=== PATIENT | female | born 1980 | race Caucasian/White ===

== ENCOUNTER 2020-03-05 17:10 | Outpatient (CLI) | payer BC, SELFPAY ==
--- NOTE | ~2020-03-05 | US_ITS ---
US right upper quadrant DATE: 03/05/2020 17:40 INDICATION: Right upper quadrant abdominal pain. Vomiting. TECHNIQUE: Real time imaging of the liver, pancreas and gallbladder COMPARISON: None FINDINGS: There is mild sludge accumulation in the gallbladder. No gallstones are evident. No gallbla dder wall thickening. Negative sonographic Shen's sign. There is fatty change of the liver. No hepatic or pancreatic space-occupying mass lesion is evident. The common bile duct measures 4 mm, normal. IMPRESSION: Gallbladder sludge Reviewed, dictated and finalized at [facility]. Reviewed, dictated and finalized at [facility]. O MAINTAINER IMPRESSION: Gallbladder sludge
== END 2020-03-05 17:11 | disposition home or self-care (01) ==
PROVIDERS: PCP Internal Medicine; Visit Provider Internal Medicine
DX: R10.9 Unspecified abdominal pain (principal); K83.9 Disease of biliary tract, unspecified
CPT/HCPCS: 76705

== ENCOUNTER 2021-01-30 10:01 | Emergency (ER) | payer BC, SELFPAY ==
[2021-01-30 10:10] VITALS: BP 141/90; PULSE 122; RESP 16; TEMP 37; O2SAT 98
[2021-01-30 10:22] VITALS: BP 141/90; PULSE 122; RESP 16; TEMP 37; O2SAT 98
--- NOTE | 2021-01-30 10:42 | ED.FEMALEGU ---
HPI - Female Genitourinary General Chief complaint: Urogenital-Female Stated complaint: abd pain,back pain,painful urination Time Seen by Provider: 01/30/21 10:33 Source: patient and RN notes reviewed Mode of arrival: ambulatory Limitations: no limitations History of Present Illness HPI Narrative: Patient presents today with a 2-day history of lower abdominal pain and pressure that radiates to the back, dysuria, hematuria, and fever up to 101.She has been using cranberry pills and Azo with some mild relief. MD elicited complaint: UTI Related Data Home Medications Medication Instructions Recorded Confirmed escitalopram oxalate 10 mg PO DAILY 01/30/21 01/30/21 Allergies Allergy/AdvReac Type Severity Reaction Status Date / Time No Known Allergies Allergy Unverified 01/30/21 10:15 Review of Systems Review of Systems: CONSTITUTIONAL: Denies body aches, chills, or sweats.+Fever EYES: Denies visual changes, redness, or discharge. ENT: Denies rhinorrhea, congestion, sore throat, or otalgia. CARDIOVASCULAR: Denies chest pain, palpitations, or edema. RESPIRATORY: Denies cough or dyspnea. GASTROINTESTINAL: Denies nausea, vomiting, or diarrhea. GENITOURINARY: +Dysuria, hematuria, abdominal pain and pressure SKIN: Denies rash, itching, or wounds. MUSCULOSKELETAL: Denies joint pain, or myalgia.+Back pain NEUROLOGIC: Denies headache, numbness, tingling, or weakness. PSYCH: Denies depression or anxiety. PMFSH Comments At time of signature, I have reviewed and agree with nursing past medical, surgical, social and family history unless otherwise noted. Please see nursing chart for further information. There is no relevant family history pertinent to the presenting complaint Exam Narrative: GENERAL: Well-appearing, well-nourished, and in no acute distress. HEAD: Normocephalic, atraumatic. EYES: EOMI. No redness or drainage. Conjunctivae normal. ENT: Mucous membranes pink and moist. NECK: Normal AROM. CHEST: No respiratory distress. Clear to auscultation. HEART: Regular rate and rhythm. No murmur appreciated. Normal peripheral pulses. ABDOMEN: Soft,, nondistended, normal active bowel sounds.+Tender suprapubic area.+Right CVAT MUSCULOSKELETAL: No bony tenderness. EXTREMITIES: Normal range of motion. No edema. SKIN: Warm, dry, no rash. Capillary refill normal. Normal skin turgor. NEURO: No focal deficits. Alert and oriented x3. Gait steady. PSYCH: Normal affect. No signs of depression or anxiety. Course Vital Signs Vital signs: Vital Signs Temperature 98.6 F 01/30/21 10:10 Pulse Rate 122 H 01/30/21 10:10 Respiratory Rate 16 01/30/21 10:10 Blood Pressure 141/90 H 01/30/21 10:10 Pulse Oximetry 98 01/30/21 10:10 Temperature 98.6 F 01/30/21 10:22 Pulse Rate 122 H 01/30/21 10:22 Respiratory Rate 16 01/30/21 10:22 Blood Pressure 141/90 H 01/30/21 10:22 Pulse Oximetry 98 01/30/21 10:22 Reviewed. Pt has been instructed to follow up with her PCP regarding her elevated blood pressure today. MDM - Female Genitourinary Differential Diagnosis Differential diagnosis: Likely urinary tract infection, vaginitis, cystitis and other (Pyelonephritis, interstitial cystitis) Lab Data Attestation: I reviewed the patient's lab results. Labs: Urine Glucose Negative Reference Range: Negative Urine Glucose Negative Reference Range: Negative Urine Bilirubin Negative Reference Range: Negative Urine Bilirubin Negative Reference Range: Negative Urine Ketone Negative Reference Range: Negative Urine Ketone Negative Reference Ran
== END 2021-01-30 10:50 | disposition home or self-care (01) ==
PROVIDERS: Emergency Provider Nurse Practitioner; PCP Nurse Practitioner Family
DX: N12 Tubulo-interstitial nephritis, not specified as acute or chronic (principal)
CPT/HCPCS: 81003; 87077; 87086; 87088; 87186; 99213; G0463

== ENCOUNTER 2021-07-08 13:11 | Outpatient (CLI) | payer BC, SELFPAY ==
--- NOTE | ~2021-07-08 | MMUS_ITS ---
EXAMINATION: MM diagnostic jagruti LT w eriberto, US breast LT complete HISTORY: 2 asymmetries reported in the outer left breast on 06/25/2021 [facility] screening mammogram examination TECHNIQUE: Additional 3-D tomosynthesis images of the left breast were performed and synthetic 2-D im ages were generated. CAD analysis was submitted and interpreted. High resolution complete left breast ultrasound including all 4 quadrants and subareolar area was performed. COMPARISON: 06/25/2021 left mammogram BREAST PARENCHYMAL COMPOSITION: The breasts are heterogeneously dense, which may obscure small masses . FINDINGS: MAMMOGRAPHIC FINDINGS: No suspicious mass or architectural distortion or any malignant calcification, skin thickening or ret raction of the left breast is noted. However, the heterogeneously dense stroma may obscure small masses. Ultrasound examination therefore was performed. ULTRASOUND: Left breast 10:00 12 cm from nipple: Parallel circumscribed hypoechoic 3.4 x 4.5 x 8.7 mm lesion, wit hout internal vascularity or posterior shadowing 12:00 13 cm from nipple: Parallel circumscribed kidney-shaped approximately 9 x 4.4 x 6.9 mm solid le margarita, with central fatty density, without internal vascularity or posterior shadowing. This is likely a benign lymph node. No suspicious solid lesion or shadowing is detected. IMPRESSION: 1. Probably benign findings 2. Six-month diagnostic left mammogram and left breast ultrasound follow-up are recommended BI-RADS category 3, probably benign findings. Reviewed, dictated and finalized at [facility]. IMPRESSION: 1. Probably benign findings 2. Six-month diagnostic left mammogram and left breast ultrasound follow-up are recommended BI-RADS category 3, probably benign findings.
== END 2021-07-08 13:12 | disposition home or self-care (01) ==
PROVIDERS: PCP Nurse Practitioner Family; Visit Provider Nurse Practitioner Family
DX: R92.8 Other abnormal and inconclusive findings on diagnostic imaging of breast (principal)
CPT/HCPCS: 76641; 77061; 77065; G0279

== ENCOUNTER 2022-07-16 08:02 | Emergency (ER) | payer OTHER, SELFPAY ==
--- NOTE | ~2022-07-16 | XR_ITS ---
[[id number] ] INDICATION: Right rib pain after fall TECHNIQUE: Frontal projection of the upper right ribs, frontal projection of the lower right ribs, ob lique projection of all the right ribs, frontal inspiratory chest x-ray for interpretation. FINDINGS: There are no displaced rib fractures identified. There are no soft tissue abnormality see n. The lungs are clear. IMPRESSION: 1:No acute displaced rib fractures. Reviewed, dictated and finalized at [facility].
[2022-07-16 08:08] VITALS: BP 163/94; PULSE 108; RESP 16; TEMP 36.4; O2SAT 99
--- NOTE | 2022-07-16 08:16 | ED.GENADULT ---
HPI - General Adult General Chief complaint: Fall Stated complaint: Fall Injury/Right Side Source: patient Mode of arrival: ambulatory Limitations: no limitations History of Present Illness HPI narrative: Patient presents for evaluation of right-sided chest wall pain. Symptom onset 2 days ago. She states she was attempting to get out of a pool when she hit her right chest wall against the side of the pool. She has experienced 10/10 pain in the affected area since that time. Pain is constant, worse with inspiration. She has mild SOB. She smokes 1 ppd. She has some bruising just below the area of concern. She denies any abdominal of flank pain. She has been taking tramadol for her symptoms. Related Data Home Medications Medication Instructions Recorded Confirmed escitalopram oxalate 10 mg tablet 10 mg PO DAILY 01/30/21 07/16/22 risankizumab-rzaa 150 mg/mL 150 mg subcut [id number] 07/16/22 07/16/22 subcutaneous pen injector (Skyrizi) Allergies Allergy/AdvReac Type Severity Reaction Status Date / Time No Known Allergies Allergy Verified 07/16/22 08:14 Review of Systems Review of Systems: CONSTITUTIONAL: Denies fever, chills, or sweats. EYES: Denies visual changes, redness, or discharge. ENT: Denies rhinorrhea, congestion, sore throat, or otalgia. CARDIOVASCULAR: Denies chest pain, palpitations, or edema. RESPIRATORY: Denies cough or dyspnea. GASTROINTESTINAL: Denies abdominal pain, nausea, vomiting, or diarrhea. GENITOURINARY: Denies dysuria or hematuria. SKIN: Reports bruising to right flank. Denies rash or itching. MUSCULOSKELETAL: Reports right sided rib pain. Denies back pain NEUROLOGIC: Denies headache, numbness, dizziness, or weakness. PSYCHIATRIC: Denies anxiety or depression. [facility] Past Medical History Medical History (Updated 07/16/22 @ 08:39 by Baltazar Maxwell, MELANIA, ) Depression Rib contusion Surgical History Surgical History History of cholecystectomy Family History Family History Mother Family history non-contributory Social History Social History Smoking packs per day: 1 Smoking cigarettes per day: 20.0 Smoking status: Current every day smoker Substance use: never Living arrangements: with family Gender identity (if verbalized by the patient): Female Spiritual care concerns: No Exam Narrative: GENERAL: Well-appearing, well-nourished, and in no acute distress. HEAD: Normocephalic, atraumatic. EYES: PERRLA and EOMI. ENT: Nares clear, no rhinorrhea or epistaxis. Mucous membranes moist. Oropharynx without tonsillar hypertrophy exudate or other lesions. Bilateral TMs pearly vines nonbulging NECK: Supple. No adenopathy or masses. No carotid bruits or JVD CHEST: Clear to auscultation. No respiratory distress. No wheezes rales or rhonchi. There is tenderness noted over right anterolateral ribs HEART: Regular rate and rhythm. No murmur heard. Normal peripheral pulses. ABDOMEN: Soft, nontender, nondistended, normal active bowel sounds. EXTREMITIES: Normal range of motion. No edema. SKIN: There is ecchymosis noted to the right flank just below the right lateral ribs NEURO: No focal deficits. Alert and oriented x3. PSYCH:Irritable Course Course Emergency Course: This is a 42-year-old female who presented for evaluation of right chest wall pain. She was tender on exam. X-ray negative for fracture. Will DC with hydrocodone as tramadol has not been affected. Encourage pulmonary toilet and smoking cessation. Provided with incentive spirometer. Follow up with primary provider. Go to ER for worsening symptoms. Elevated BP and HR likely 2/2 pain. She should discuss with primary provider. Pt in agreement with plan of care. Level of Care: Express Care Visit Vital Signs Vital sign
[2022-07-16] MEDS: KETOROLAC (*BKC) 60 MG/2 ML VIAL IM (08:30)
== END 2022-07-16 08:55 | disposition home or self-care (01) ==
PROVIDERS: Emergency Provider Nurse Practitioner; PCP Nurse Practitioner Family
DX: S20.211A Contusion of right front wall of thorax, initial encounter (principal); W22.09XA Striking against other stationary object, initial encounter; Y93.11 Activity, swimming; F17.210 Nicotine dependence, cigarettes, uncomplicated; F32.A Depression, unspecified
CPT/HCPCS: 71101; 96372; 99213; G0463; J1885

== ENCOUNTER 2024-02-09 08:32 | Emergency (ER) | payer OTHER, SELFPAY ==
[2024-02-09 08:42] VITALS: BP 126/83; PULSE 94; RESP 16; TEMP 36.6; O2SAT 99
--- NOTE | 2024-02-09 08:56 | ED_ITS ---
HPI - General Adult General Chief complaint: Abdominal Pain Stated complaint: ABD PAIN Time Seen by Provider: 02/09/24 08:56 Source: patient, RN notes reviewed and old records reviewed Mode of arrival: ambulatory Limitations: no limitations History of Present Illness HPI narrative: 43-year-old female presents to the [facility] with concerns of purulent discharge and bloody discharge since Sunday from her belly button. Umbilical area is reddened, no swelling, no fluctuance. Several years ago did have a laparoscopic procedure done, nothing recently Related Data Home Medications ?Medication ?Instructions ?Recorded ?Confirmed ?Last Taken ?Type risankizumab-rzaa 150 mg/mL 150 mg subcut [id number] 07/16/22 07/16/22 Unknown History subcutaneous pen injector (Rolandaizkellen) escitalopram oxalate 20 mg tablet mg 02/09/24 Unknown History hydrochlorothiazide 25 mg tablet mg 02/09/24 Unknown History lisinopril 10 mg tablet mg 02/09/24 Unknown History metformin 500 mg tablet mg 02/09/24 Unknown History varenicline 1 mg tablet mg 02/09/24 Unknown History Allergies Allergy/AdvReac Type Severity Reaction Status Date / Time No Known Allergies Allergy Verified 02/09/24 09:08 Review of Systems Review of Systems: All systems reviewed & are unremarkable except as noted in HPI and below Constitutional: Constitutional: Reports no additional constitutional complaints ENT: Reports system reviewed and no additional complaints, except as documented Cardiovascular: Cardiovascular: Reports no additional cardiovascular complaints, Denies chest pain and Denies dyspnea Respiratory: Respiratory: Reports no additional respiratory complaints, Denies chest congestion, Denies cough and Denies dyspnea Musculoskeletal: Musculoskeletal: Reports no additional musculoskeletal complaints Integumentary/Breasts: Skin/Breast: Reports as per HPI [facility] Past Medical History Medical History Rib contusion Depression Surgical History Surgical History History of cholecystectomy Family History Family History Mother Family history non-contributory Social History Social History Smoking packs per day: 1 Smoking cigarettes per day: 20.0 Smoking status: Current every day smoker Substance use: never Living arrangements: with family Gender identity (if verbalized by the patient): Female Spiritual care concerns: No Comments At the time of my signature, I reviewed and agree with the nursing past medical, surgical, social, and family history. There is no relevant family history pertinent to the patient complaint. Exam Const: General: cooperative, healthy appearing, comfortable, no acute distress, well developed, alert and well nourished Nutritional Appearance: well nourished and obese Orientation/consciousness: patient oriented x3 Limitations: no limitations HENMT: Head: normal to inspection Eyes: General: appearance normal, both eyes and all related structures Alignment and Position: alignment normal Neck: Neck: normal visual inspection, full ROM, no lymphadenopathy and no meningeal signs Chest: Chest palpation & inspection: normal inspection of the chest Resp: Effort & Inspection: normal respiratory effort and able to speak in complete sentences Cardio: Rate: regular rate GI: GI Palp: No abdominal tenderness and Yes Soft to palpation Other: Redness 1.5 extending from the umbilicus, dry purulent drainage noted. Currently no drainage. No fluctuance. No swelling noted. Skin: General skin exam: normal color and no rashes or lesions noted Neuro: General: patient oriented x3, gait normal, moves all extremities and no meningeal signs Cognition (Neuro): normal cognition Speech: normal speech Gait exam (Neuro): Normal gait present Extrem: General: normal to inspection, full ROM, capillary refill normal and normal gait Psych: Appearance: grossly normal and well kempt Mental Status: mental status grossly normal Speech and movement: Normal speech and movement present and Clear speech present Affect: normal affect Attitude: cooperative Course Course Level of Care: Express Care Visit Vital Signs Vital signs: Vital Signs Temperature 97.8 F 02/09/24 08:42 Pulse Rate 94 02/09/24 08:42 Respiratory Rate 16 02/09/24 08:42 Blood Pressure 126/83 02/09/24 08:42 Pulse Oximetry 99 02/09/24 08:42 Oxygen Delivery Room Air 02/09/24 08:42 Temperature 97.8 F 02/09/24 08:42 Pulse Rate 94 02/09/24 08:42 Respiratory Rate 16 02/09/24 08:42 Blood Pressure 126/83 02/09/24 08:42 Pulse Oximetry 99 02/09/24 08:42 Oxygen Delivery Room Air 02/09/24 08:42 Reviewed Medical Decision Making MDM Narrative Medical decision making narrative: Patient sitting comfortably in exam room. Nontoxic, vitals stable. Patient in no acute distress Patient presents for redness, discharge from belly button for 3 days. Does have dry purulent drainage, no active draining noted. Area is red secondary to infection versus inflammation. Also concerned with patient symptoms for abscess, discussed with patient that we are unable to do a complete abscess workup Will attempt antibiotic with patient having close follow-up with primary care provider this week. Discussed signs and symptoms go the emergency room she verbalized understanding Discharge instructions reviewed with patient, as well as provided in writing per nursing staff. The instructions also include specific and strict return/GO TO THE ER as well as f/u information. All questions have been answered, and the patient deny any further questions with discharge and discharge plan. Some parts of this dictation were generated by voice recognition software and may contain typographical and/or grammatical inaccuracies. Differential Diagnosis Differential Diagnosis: Cellulitis, abscess Medical Records Medical records reviewed: Yes I reviewed the external patient's medical records. Vital Signs Vital Signs: Vital Signs Temperature 97.8 F 02/09/24 08:42 Pulse Rate 94 02/09/24 08:42 Respiratory Rate 16 02/09/24 08:42 Blood Pressure 126/83 02/09/24 08:42 Pulse Oximetry 99 02/09/24 08:42 Oxygen Delivery Room Air 02/09/24 08:42 Temperature 97.8 F 02/09/24 08:42 Pulse Rate 94 02/09/24 08:42 Respiratory Rate 16 02/09/24 08:42 Blood Pressure 126/83 02/09/24 08:42 Pulse Oximetry 99 02/09/24 08:42 Oxygen Delivery Room Air 02/09/24 08:42 Reviewed Lab Data Lab results reviewed: Yes I reviewed the patient's lab results. Labs: Reviewed Critical Care Time Critical Care Time Critical Care Time: No Discharge Plan Discharge Clinical Impression: Navel cellulitis Patient Disposition: Home, Self-Care Condition: Stable Instructions: Antibiotic Form, Cellulitis (ED) Additional Instructions: Keep area clean and dry Take antibiotic as prescribed While on antibiotics we do recommend due to eat a yogurt a day or took a probiotic to reduce some side effects such as diarrhea. Follow-up with primary care per For new or worsening symptoms go directly to the emergency room Patient Language: [place]an Prescriptions: New sulfamethoxazole-trimethoprim [Bactrim DS] 800-160 mg tablet 1 tablet PO Q12H Qty: 14 0RF No Action Skyrizi 150 mg/mL pen injector 150 mg SUBCUT [id number] metformin 500 mg tablet lisinopril 10 mg tablet hydrochlorothiazide 25 mg tablet escitalopram oxalate 20 mg tablet varenicline 1 mg tablet Follow-up/Referrals: Roach,Rayne Olivera APN [Primary Care Provider] - 1 Week ([facility] care follow up ) Time of Disposition: 09:09
--- OUTSIDE RECORDS SUMMARY | 2024-02-16 10:32 | XMS_ITS | Continuity of Care Document ---
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 Plan of Treatment Reminders Order Date Submit Date Provider Last Modified By Organization Details Last Modified Time Details Appointments ANY 15 2024 07:45A M Rayne Carreno APN, MANAGER MANAGEMENT-C Not available Not available Not available Lab HbA1c (hemoglob in A1c), blood 2023 024 In-Office Order, Internal Use Only DO Not Attach Compendium DO Not Attach Compendium, Do Not Delete/merge, [id number] 01/22/2024 09:41:07 Referral None recorded. Procedures None recorded. Surgeries None recorded. Imaging None recorded. Medication Orders metformin 500 mg tablet 2023 024 [facility] #[id number], [address], [place], [place], [id number], 01/22/2024 09:41:19 hydrochlo rothiazid e 25 mg tablet 2023 024 [facility] #[id number], [address], [place], [place], [id number], 01/22/2024 09:41:14 lisinopri l 10 mg tablet 2023 024 [facility] #[id number], [address], [place], [place], [id number], 01/22/2024 09:41:12 escitalop elias 20 mg tablet 2023 024 [facility] #[id number], [address], [place], [place], [id number], 01/22/2024 09:41:14 Patient TargetsNo targets recorded. Patient Instructions Encounter Date Encounter Id Patient Instructions Last Modified By Organization Details Last Modified Time 01/22/2024 [id number] When You Want to Lose Weight: Care Instructions Not available 01/22/2024 09:41:07 Quitting Tobacco : Care Instructions Not available 01/22/2024 09:41:07 learning about high blood pressure Not available 01/22/2024 09:41:07 learning about mood disorders Not available 01/22/2024 09:41:07 Continue to work on diet and decrease A1C to < 7 with fasting glucose 100. Need to see eye drMarija each year for dilated eye exam. Increase activity level to get exercise most days of the week. Work on eating more fresh fruit, veggies and lean protein and less packaged foods. Cut back on the fatty foods, add fish oil or omega three fatty acids; red yeast rice may also help. Drink more water! Low salt diet. Take all medications as prescribed. Keep appointments with PCP and all specialists. Not available 01/22/2024 08:57:39 f/u 3 months DWP barriers to care: none Not available 01/22/2024 09:41:05 Reason for Referral None Reported. Results Created Date Observation Date Name Description Value Unit Range Abnormal Flag Note LastModifiedBy Organization Detail LastModifiedTime 01/22/20 24 01/22/2024 HbA1c (hemo globi n A1c), blood HbA1c 6.2 Not Available In-Office Order Internal Use Only DO Not Attach Compendium DO Not Attach Compendium, Do Not Delete/merge, [id number] 01/22/2024 08:56:49 Result Notes None recorded. Problems Name Problem SNOMED Code Status Onset Date Resolution Date Notes Provider Name and Address Organization Details Recorded Time Mood disorder 96449099 Active 2020 Rayne Carreno APN, FNP-C Attn: Cinthia marquis,[address] [facility], [place], [place], [address] [place] [address] 2, [facility] 1 14:21:06 Tobacco user 520055746 Active 2020 Rayne Carreno APN, FNP-C Attn: Cinthia marquis,[address] [facility], [place], [place], [address] [place] [address] 2, [facility] 1 14:21:07 Obesity 035726010 Active 2020 Rayne Carreno APN, FNP-C Attn: Cinthia marquis,[address] [facility], [place], [place], [address] [place] [address] 2, [facility] 1 14:21:09 Psoriasis 1818206 Active 2020 Rayne Carreno APN, FNP-C Attn: Cinthia marquis,[address] [facility], [place], [place], [address] [place] [address] 2, [facility] 1 14:38:57 Prehyperten margarita 956846862 Completed 202004/16/2023 Rayne Carreno APN, FNP-C Attn: Cinthia marquis,[address] [facility], [place], [place], [address] [place] [address] 2, [facility] 4 09:09:38 Essential hypertensio n 05044538 Active 2022 Rayne Carreno APN, FNP-C Attn: Cinthia marquis,[address] [facility], [place], [place], [address] [place] [address] 2, [facility] 3 09:06:22 Type 2 diabetes mellitus 34207625 Active 2023 Rayne Carreno APN, FNP-C Attn: Cinthia marquis,[address] [facility], [place], [place], [address] [place] [address] 2, [facility] 4 08:56:41 Problem Notes None recorded. Procedures Surgical History Date Name Laterality Status Provider Name and Address Organization Details Recorded Time Cholecystectomy completed Shy [place], [place] - [facility] 06/11/2020 14:13:56 Tonsillectomy completed Shy Villa [place] - [facility] 06/11/2020 14:14:07 Imaging Results None recorded. Procedure Notes None recorded. Medical Equipment None Reported. Allergies No known drug allergies Medications Name Sig Start Date Stop Date Status Note LastModified by Organization Details LastModified Time amoxicillin 500 mg capsule TAKE 1 CAPSULE BY MOUTH EVERY 8 HOURS FOR 7 DAYS 07/16 completed Not Available Not Available Not Available metformin 500 mg tablet Take 1 tablet twice a day by oral route. active Not Available Not Available No t Available ibuprofen 800 mg tablet TAKE 1 TABLET BY MOUTH EVERY 6 HOURS NEEDED 01/21 completed Not Available Not Available Not Available hydrocodone 5 mg-acetamin ophen 325 mg tablet TAKE 1 TO 2 TABLETS BY MOUTH EVERY 6 HOURS NEEDED FOR PAIN 01/15 completed Not Available Not Available Not Available ondansetron HCl 4 mg tablet TAKE 1 TABLET BY MOUTH FOUR TIMES DAILY NEEDED 06/11 completed Not Available Not Available Not Available sulfamethox azole 800 mg-trimetho prim 160 mg tablet TAKE 1 TABLET BY MOUTH EVERY 12 HOURS FOR 14 DAYS active Not Available Not Available No t Available tramadol 50 mg tablet TAKE 1 TO 2 TABLETS BY MOUTH EVERY 6 HOURS NEEDED FOR PAIN 01/15 completed Not Available Not Available Not Available oxycodone-a cetaminophe n 5 mg-325 mg tablet TAKE 1 TABLET BY MOUTH EVERY 4 TO 6 HOURS NEEDED 06/11 completed Not Available Not Available Not Available pantoprazol e 40 mg tablet,deanna yed release TAKE 1 TABLET BY MOUTH EVERY DAY 06/11 completed Not Available Not Available Not Available triamcinolo ne acetonide 0.1 % topical ointment APPLY THIN LAYER TOPICALLY TO THE AFFECTED AREA TWICE DAILY 12/21 completed Not Available Not Available Not Available lisinopril 10 mg tablet Take 1 tablet every day by oral route. active Not Available Not Available No t Available diclofenac sodium 75 mg tablet,deanna yed release TK 1 T PO BID PRN 06/11 completed Not Available Not Available Not Available hydrochloro thiazide 25 mg tablet Take 1 tablet every day by oral route. active Not Available Not Available No t Available amoxicillin 875 mg-potassiu m clavulanate 125 mg tablet TAKE 1 TABLET BY MOUTH EVERY 12 HOURS UNTIL ALL TAKEN 01/15 completed Not Available Not Available Not Available escitalopra m 10 mg tablet TAKE 1 TABLET BY MOUTH EVERY DAY 01/21 completed Not Available Not Available Not Available escitalopra m 20 mg tablet Take 1 tablet every day by oral route. active Not Available Not Available No t Available nitrofurant oin monohydrate /macrocryst als 100 mg capsule TAKE 1 CAPSULE BY MOUTH EVERY 12 HOURS FOR 5 DAYS 01/15 completed Not Available Not Available Not Available varenicline tartrate 1 mg tablet TAKE 1 TABLET BY MOUTH TWICE DAILY active Not Available Not Available No t Available varenicline tartrate 0.5 mg (11)-1 mg (42) tablets in a dose pack TAKE DIRECTED active Not Available Not Available No t Available hydrochloro thiazide 12.5 mg tablet TAKE 1 TABLET BY MOUTH EVERY DAY 07/16 completed Not Available Not Available Not Available Duobrii 0.01 %-0.045 % lotion 03/15 completed Not Available Not Available Not Available ID NOW COVID-19 Test Kit TEST DIRECTED 12/21 completed Not Available Not Available Not Available Skyrizi 150 mg/mL subcutaneou s pen injector active Not Available Not Available Not Available Vitals Date Recorded Body height Body mass index (BMI) Body weight Oxygen saturation Oxygen saturation in Arterial blood by Pulse oximetry Respiratory rate Body temperature Heart rate Systolic blood pressure Diastolic blood pressure Provider Name and Address Organization Details Last Updated DateTime 4 167.64 cm 33.7 kg/m2 57214.8 1 g 95 % 95 % 16 /min 97.5 [degF] 116 /min 132 mm[Hg] 88 mm[Hg] JACK Hunt [facility] 4 08:54:18 Social History Question Answer Notes LastModified by Organizat ion Details LastModified Time Tobacco Smoking Status Current Every Day Smoker MUNDO Qu[place], [place] - [facility] 06/11/2020 14:12:47 Do You Have An Advance Directive? No Information not available 06/11/2020 What Is Your Level Of Alcohol Consumption? None Information not available 01/22/2024 Are You Blind Or Do You Have Difficulty Seeing? No Information not available 06/11/2020 What Is Your Level Of Caffeine Consumption? Heavy [email or web address] Information not available 01/18/2022 In The 14 Days Before Symptom Onset, Have You Had Close Contact With A Laboratory-confir med COVID-19 While That Case Was Ill? No Information not available 06/11/2020 In The 14 Days Before Symptom Onset, Have You Had Close Contact With A Person Who Is Under Investigation For COVID-19 While That Person Was Ill? No Information not available 06/11/2020 Have You Been To An Area Known To Be High Risk For COVID-19? No Information not available 06/11/2020 Are You Currently Employed? Yes Information not available 06/11/2020 Are You Deaf Or Do You Have Serious Difficulty Hearing? No Some [email or web address] Information not available 02/01/2023 What Type Of Diet Are You Following? REGULAR Low Carb Information not available 01/22/2024 What Is Your Occupation? [employer] [email or web address] Information not available 01/18/2022 Are There Any Guns Present In Your Home? Yes Information not available 06/11/2020 What Was The Date Of Your Most Recent Tobacco Screening? 01/22/2024 Information not available 01/22/2024 What Is Your Relationship Status? Information not available 06/11/2020 Do You Use Your Seat Belt Or Car Seat Routinely? Yes Information not available 06/11/2020 Do You Have Smoke And Carbon Monoxide Detectors In Your Home? Yes Information not available 06/11/2020 At What Age Did You Start Smoking Tobacco? 21 [email or web address] Information not available 01/18/2022 Are You Passively Exposed To Smoke? Yes Information no t available 06/11/2020 How Much Tobacco Do You Smoke? 0.25 PPD Information not available 01/22/2024 Do You Feel Stressed (tense, Restless, Nervous, Or Anxious, Or Unable To Sleep At Night)? [id number] Information not available 01/22/2024 Do You Use Any Illicit Or Recreational Drugs? No Information not available 06/11/2020 Do You Use Sunscreen Routinely? Yes Information not available 06/11/2020 Has Tobacco Cessation Counseling Been Provided? Yes [email or web address] Information not available 01/18/2022 On What Date Was Tobacco Cessation Counseling Provided? 01/22/2024 Information not available 01/22/2024 How Many Years Have You Smoked Tobacco? 21 04/16/23 Information not available 04/16/2023 Do You Or Have You Ever Used Any Other Forms Of Tobacco Or Nicotine? No Information not available 01/15/2023 Sex: Female Functional Status Question Answer Note LastModified by Organization D etails LastModified Time Are you able to care for yourself? Yes Information n ot available 06/11/2020 What is your exercise level? None [email or web address] Information not available 01/18/2022 Mental Status None recorded. Family History Relationship Description Onset Age of this Age Resolved Age Notes LastModified by Organization Details LastModified Time Father Hypertensive disorder [email or web address] Not available 2020 14:10:57 Father Chronic obstructive pulmonary disease [email or web address] Not available 2020 14:11:18 Father Hypercholest erolemia [email or web address] Not available 2020 14:11:28 Mother Hypertensive disorder [email or web address] Not available 2020 14:11:07 Mother Hypercholest erolemia [email or web address] Not available 2020 14:11:35 Medical History Condition Response Coronary Artery Disease N Depression Y COPD N Blood Clots N Anxiety Disorder Y Acid Reflux (GERD) N Stroke N Eating Disorder N Skin Problems N Asthma N Substance Abuse N Liver Disease N Schizophrenia N Thyroid Problems N GI Problems N Anemia N Heart Attack (HI) N Diabetes N Heart Failure N Other N Atrial Fibrillation N High Blood Pressure N Muscle, Joint, or Bone Problems N Cancer N Headaches N Kidney or Bladder Problems N Allergies N Hepatitis N ADHD N High Cholesterol N Seizures/Epilepsy N Osteoporosis N Gynecological History Statement/Question Response Date of Last Mammogram Flow Moderate Date of LMP 12/31/2023 Menses Monthly Y Date of Last Pap Smear Duration of Flow (days) 7 Age at Menarche 15 LMP Definite Obstetrics History GPAL:G 2 P 0 0 0 0 Immunizations Vaccine Type Date Status Note Provider Nam e and Address Organization Details Recorded Time COVID-19, mRNA, LNP-S, PF, 30 mcg/0.3 mL dose 1 completed Rayne Carreno, CURRICULUM ASSISTANT, MANAGER MANAGEMENT-C Attn: Accounting,[address] [facility], [place], [place], [address] [place] [address], [place] [facility] 01/18/2022 16:46:47 COVID-19, mRNA, LNP-S, PF, 30 mcg/0.3 mL dose 1 completed Rayne Carreno CURRICULUM ASSISTANT, MANAGER MANAGEMENT-C Attn: Accounting,[address] [facility], [place], [place], [address] [place] [address], [place] [facility] 01/18/2022 16:46:47 Influenza, split virus, quadrivalent, PF 0 completed Rayne Carreno CURRICULUM ASSISTANT, MANAGER MANAGEMENT-C Attn: Accounting,[address] [facility], [place], [place], [address] [place] [address], [place] [facility] 01/18/2022 16:46:47 Tdap 2 completed Rayne Carreno CURRICULUM ASSISTANT, MANAGER MANAGEMENT-C Attn: Accounting,[address] [place], [place], [address] [place] [address], [place] [facility] 01/18/2022 16:46:47 Influenza, split virus, quadrivalent, PF 1 completed Anny [place]indo, [place] [facility] 12/21/2020 15:40:01 Influenza, split virus, quadrivalent, PF 1 completed [place] [facility] 12/22/2020 09:13:03 Influenza, split virus, quadrivalent, preservative 2 completed Rayne Carreno, CURRICULUM ASSISTANT, MANAGER MANAGEMENT-C Attn: Accounting,[address] [place], [place], [address] [place] [address], [place] [facility] 01/19/2022 00:34:05 COVID-19, mRNA, LNP-S, bivalent, PF, 30 mcg/0.3 mL dose 2 completed Anny Dent [place], [place] [facility] 01/18/2022 17:13:34 Influenza, split virus, quadrivalent, preservative 3 completed Rayne Carreno APN, FNP-C Attn: Accounting,[address] [facility], [place], [address], [place] [facility] 01/15/2023 22:37:36 Influenza, split virus, trivalent, preservative 4 completed Anny Dent RMA [place], [place] [facility] 10/23/2023 09:53:28 Past Encounters Encounter ID Performer Location Encounter Start Date Encounter Closed Date Diagnosis/Indication Diagnosis SNOMED-CT Code Diagnosis ICD10 Code Diagnosis Note [id number] Rayne Carreno APN, FNP-C [facility] ([facility]) [address] [place] [address] 01/22/2024 08:46:03 01/23/2024 17:32:15 Essential hypertension 73616453 I10 improvedco nt lisinopril 10 mgcont hctz 25 mg Obesity 922758741 E66.9 advised low fat, low cholestero l diet, regular exercise and weight reduction. Tobacco user 477921792 Z 72.0 Smoking cessation encouraged . Mood disorder 85653559 F 40 has been stable on lexapro, denies HI or SI or SE,R/B/A/S E of antidepres suresh medication discussed such as gastrointe stinal s/e, mood irritabili ty, Suicidal ideation, risk of olvin. Call with concerns and questions. Compliance with medication s and follow up care strongly recommende d. Call 911 or ER for crises. Type 2 vianey betes mellitus 05763214 E11.9 in diabetic range,need to make diet changes and increase exercise as well; Work on decreasing carbs, white flour, pasta, sugars.brijesh l start metformin 500 mg bid, take once a day for the first 1-2 weeks to get used to it so you will have less GI side effects, keep follow up apt in 3 months Health Concerns Section Related Observation LastModified by Organization Detai ls LastModified Time None Recorded Concern Status LastModified by Organization Details LastModified Time None Recorded Payers Encounter Date Sequence Insurance Name Policy Number Policy Ngo Covered Member ID Ngo Member ID Guarantor Name 01/22/2024 2 *SELF PAY* ramses Cabral 01/22/2024 1 [id number] Radha Cabral [id number] Radha Cabral Notes Date Note Type Note Provider Name and Address Organization Details Recorded Time 01/22/2024 text/html HTN- taking lisinopril and hctz, no chest pain or sob, no dizziness T2DM- tolerating metformin, diet changes Mood-improved, denies SI or HI Tobacco-down to 1/4 ppd Rayne Carreno APN, MANAGER MANAGEMENT-C Attn: Accounting,[address] [place], [address], [facility] 01/22/2024 09:42:05 OBGyn Episode No OBEpisode recorded.
--- OUTSIDE RECORDS SUMMARY | 2024-02-16 10:32 | XMS_ITS | Data Portability ---
Author Organization [facility] Address [address] [facility] [address] [facility] [place] [address] Care Team Providers Care Homicide Squad Commanding Officer Name Role Phone RAYNE CARRENO Primary Care Provider WOLFGANG FOREMAN Supervisor Power Reactor Assessment No assessment recorded. Plan of Treatment Reminders Order Date Submit Date Provider Last Modified By Organization Details Last Modified Time Details Appointments ANY 15 2024 07:45A M Rayne Carreno APN, [employer] CONSULTANT-C Not available Not available Not available Lab CMP, serum or plasma 2023 024 [facility], [address] [facility], [facility], [place], [address], 10/24/2023 04:11:13 lipid panel, serum 2023 024 [facility], [address] [facility], [facility], [place], [address], 10/24/2023 04:11:12 CBC w/ auto diff 2023 024 [facility], [address] [facility], [facility], [place], [address], 10/24/2023 04:11:16 HbA1c (hemoglob in A1c), blood 2023 024 [facility], [address] [facility], [facility], [place], [address], 10/24/2023 04:11:14 TSH, ultra-sen sitive, serum 09/2023 [facility], [address] [facility], [facility], [place], [address], 10/24/2023 04:11:14 HbA1c (hemoglob in A1c), blood 2023 ield In-Office Order, Internal Use Only DO Not Attach Compendium DO Not Attach Compendium, Do Not Delete/merge, [id number] 01/22/2024 09:41:07 Referral None recorded. Procedures None recorded. Surgeries None recorded. Imaging None recorded. Medication Orders hydrochlo rothiazid e 25 mg tablet 2023 [id number], [address], [place], [place], [id number], 04/16/2023 09:13:26 escitalop elias 10 mg tablet 2023 024 [facility]31417, [address], [place], [place], [id number], 01/22/2024 08:50:56 lisinopri l 10 mg tablet 2023 024 [facility] #13728, [address], [place], [place], [id number], 07/17/2023 09:03:19 lisinopri l 10 mg tablet [address] [facility]38416, [address], [place], [place], [id number], 10/23/2023 09:09:46 hydrochlo rothiazid e 25 mg tablet [address] [facility]10320, [address], [place], [place], [id number], 10/23/2023 09:09:46 escitalop elias 20 mg tablet [address]23 [address] [facility] [place] [address] [facility], [address], [place], [place], [id number], 10/23/2023 09:09:46 metformin 500 mg tablet [address] [facility], [address], [place], [place], [id number], 01/22/2024 09:41:19 hydrochlo rothiazid e 25 mg tablet 2023 024 [facility] #19728, [address], [place], [place], [id number], 01/22/2024 09:41:14 lisinopri l 10 mg tablet 2023 024 [facility] #00046, [address], [place], [place], [id number], 01/22/2024 09:41:12 escitalop elias 20 mg tablet 2023 024 [facility], [address], [place], [place], [id number], 01/22/2024 09:41:14 Patient TargetsNo targets recorded. Patient Instructions Encounter Date Encounter Id Patient Instructions Last Modified By Organization Details Last Modified Time 02/01/2023 [id number] A healthy lifestyle: care instructions [email or web address] Not available 02/01/2023 10:02:24 04/16/2023 [id number] A healthy lifestyle: care instructions Not available 04/16/2023 09:13:09 Quitting Tobacco : Care Instructions Not available 04/16/2023 09:13:09 learning about high blood pressure Not available 04/16/2023 09:13:09 learning about mood disorders Not available 04/16/2023 09:13:09 Follow a low viry t diet, drink at least 8-10 8oz glasses of water a day, exercise most days of the week. Not available 04/16/2023 08:46:03 f/u 3 months DWP barriers to care: none Not available 04/16/2023 09:12:29 07/17/2023 [id number] When You Want to Lose Weight: Care Instructions Not available 07/17/2023 09:02:43 Quitting Tobacco : Care Instructions Not available 07/17/2023 09:02:43 learning about high blood pressure Not available 07/17/2023 09:02:43 Check blood pressure two or three times per week and record findings; bring to F/U appointment. [place] blood pressure is the top number below 140 and the bottom number below 90. If you experience any side effects of medication, call the office. Follow a low salt diet, drink at least 8-10 8oz glasses of water a day, exercise most days of the week. Not available 07/17/2023 09:03:18 f/u 3 months DWP barriers to care: none Not available 07/17/2023 09:03:22 10/23/2023 [id number] influenza (flu) vaccine: care instructions Not available 10/23/2023 09:09:46 influenza (flu) vaccine: care instructions Not available 10/23/2023 09:12:39 When You Want to Lose Weight: Care Instructions Not available 10/23/2023 09:09:46 Quitting Tobacco : Care Instructions Not available 10/23/2023 09:09:46 learning about high blood pressure Not available 10/23/2023 09:09:46 Check blood pressure two or three times per week and record findings; bring to F/U appointment. [place] blood pressure is the top number below 140 and the bottom number below 90. If you experience any side effects of medication, call the office. Follow a low salt diet, drink at least 8-10 8oz glasses of water a day, exercise most days of the week. Not available 10/23/2023 08:50:03 f/u 3 months DWP barriers to care: none Not available 10/23/2023 08:50:06 01/22/2024 [id number] When You Want to Lose Weight: Care Instructions Not available 01/22/2024 09:41:07 Quitting Tobacco : Care Instructions Not available 01/22/2024 09:41:07 learning about high blood pressure Not available 01/22/2024 09:41:07 learning about mood disorders Not available 01/22/2024 09:41:07 Continue to work on diet and decrease A1C to < 7 with fasting glucose 100. Need to see eye dr. each year for dilated eye exam. Increase [...] Abnormal Flag Note LastModifiedBy Organization Detail LastModifiedTime 01/24/2001/24/2023 LIPID PANEL , [place] cholesterol, total 219 mg/dL <200 high Not Available [facility] [address] [facility] [place], [address], 01/24/2023 03:28:34 01/24/20 23 01/24/2023 LIPID PANEL , [place] HDL cholesterol 42 mg/dL > or = 50 low Not Available [facility] [address] [facility] [place], [address], 01/24/2023 03:28:34 01/24/20 23 01/24/2023 LIPID PANEL , [place] triglyceride s 223 mg/dL <150 high If a non-f astin g speci men was colle cted, consi rodney repea t trigl yceri de testi ng on a fasti ng speci men if clini valeriy indic ated. Tobi flores et al. J. of Clin. Lipid ol. 2015; 9:129 -169. Not Available [facility] [address] [place] [address], [address], 01/24/2023 03:28:34 01/24/20 23 01/24/2023 LIPID PANEL , [place] LDL-choleste rol 141 mg/dL _(eben c) high Refer ence range : <100 Tylor able range <100 mg/dL for prima ry preve ntion ; <70 mg/dL for patie nts with CHD or diabe tic patie nts with > or = 2 CHD risk facto rs. LDL-C is now calcu lated using the Alivia n-Hop kins calcu latzackery n, which is a valid ated novel metho d provi ding mike r accur acy than the Fried richie equat ion in the estim ation of LDL-C . Alivia germain SS et al. MARYBETH. 2013; 310(1 9): 2061- 2068 (http ://ed ucati on.Qu estdot429. com/f aq/FA Q164) Not Available [place] [address] [place], [address], 01/24/2023 03:28:34 01/24/20 23 01/24/2023 LIPID PANEL , [place] chol/HDLC ratio 5.2 (calc ) <5.0 high Not Available [facility] [address] [address], [address], 01/24/2023 03:28:34 01/24/20 23 01/24/2023 LIPID PANEL , [place] non HDL cholesterol 177 mg/dL _(eben c) <130 high For patie nts with diabe elinor plus 1 major ASCVD risk facto r, treat ing to a non-H DL-C goal of <100 mg/dL (LDL- C of <70 mg/dL ) is consi dered a thera peuti c optio n. Not Available [address], [address], 01/24/2023 03:28:34 01/24/20 23 01/24/2023 COMPR EHENS ATILIO METAB OLIC PANEL glucose 178 mg/dL 65-99 high Fasti ng refer ence inter maverick For someo ne witho ut known diabe elinor, a gluco se value >125 mg/dL indic ates that they may have diabe elinor and this shoul d be confi rmed with a follo w-up test. Not Available [address], [address], 01/24/2023 03:28:35 01/24/20 23 01/24/2023 COMPR EHENS ATILIO METAB OLIC PANEL urea nitrogen (BUN) 13 mg/dL 7-25 normal Not Available [address], [address], 01/24/2023 03:28:35 01/24/20 23 01/24/2023 COMPR EHENS ATILIO METAB OLIC PANEL creatinine 0.58 mg/dL 0.50-0 .99 normal Not Available [address], [address], 01/24/2023 03:28:35 01/24/20 23 01/24/2023 COMPR EHENS ATILIO METAB OLIC PANEL eGFR 117 mL/mi n/1.7 3m2 > or = 60 normal Not Available [address], [address], 01/24/2023 03:28:35 01/24/20 23 01/24/2023 COMPR EHENS ATILIO METAB OLIC PANEL BUN/creatini ne ratio SEE NOTE: (calc ) 6-22 Not Repor mil[place]: BUN and Creat inine are withi n refer ence range . Not Available [address], [address], 01/24/2023 03:28:35 01/24/20 23 01/24/2023 COMPR EHENS ATILIO METAB OLIC PANEL sodium 138 mmol/ L 135-14 6 normal Not Available [address], [address], 01/24/2023 03:28:35 01/24/20 23 01/24/2023 COMPR EHENS ATILIO METAB OLIC PANEL potassium 4.3 mmol/ L 3.5-5. 3 normal Not Available [address], [address], 01/24/2023 03:28:35 01/24/20 23 01/24/2023 COMPR EHENS ATILIO METAB OLIC PANEL chloride 102 mmol/ L 98-110 normal Not Available [address], [address], 01/24/2023 03:28:35 01/24/20 23 01/24/2023 COMPR EHENS ATILIO METAB OLIC PANEL carbon dioxide 27 mmol/ L 20-32 normal Not Available [address], [address], 01/24/2023 03:28:35 01/24/20 23 01/24/2023 COMPR EHENS ATILIO METAB OLIC PANEL calcium 9.4 mg/dL 8.6-10 .2 normal Not Available [address], [address], 01/24/2023 03:28:35 01/24/20 23 01/24/2023 COMPR EHENS ATILIO METAB OLIC PANEL protein, total 7.1 g/dL 6.1-8. 1 normal Not Available [address], [address], 01/24/2023 03:28:35 01/24/20 23 01/24/2023 COMPR EHENS ATILIO METAB OLIC PANEL albumin 4.2 g/dL 3.6-5. 1 normal Not Available [address] [place], [address], 01/24/2023 03:28:35 01/24/20 23 01/24/2023 COMPR EHENS ATILIO METAB OLIC PANEL globulin 2.9 g/dL_ (calc ) 1.9-3. 7 normal Not Available [address], [address], 01/24/2023 03:28:35 01/24/20 23 01/24/2023 COMPR EHENS ATILIO METAB OLIC PANEL albumin/glob ulin ratio 1.4 (calc ) 1.0-2. 5 normal Not Available [address], [address], 01/24/2023 03:28:35 01/24/20 23 01/24/2023 COMPR EHENS ATILIO METAB OLIC PANEL bilirubin, total 0.3 mg/dL 0.2-1. 2 normal Not Available [address], [address], 01/24/2023 03:28:35 01/24/20 23 01/24/2023 COMPR EHENS ATILIO METAB OLIC PANEL alkaline phosphatase 91 U/L 31-125 normal Not Available [address], [address], 01/24/2023 03:28:35 01/24/20 23 01/24/2023 COMPR EHENS ATILIO METAB OLIC PANEL AST 17 U/L 10-30 normal Not Available [address], [address], 01/24/2023 03:28:35 01/24/20 23 01/24/2023 COMPR EHENS ATILIO METAB OLIC PANEL ALT 28 U/L 6-29 normal Not Available [address], [address], 01/24/2023 03:28:35 01/24/20 23 01/24/2023 CBC (INCL UDES DIFF/ PLT) white blood cell count 8.1 thous and/u L 3.8-10 .8 normal Not Available [address], [address], 01/24/2023 02:19:44 01/24/20 23 01/24/2023 CBC (INCL UDES DIFF/ PLT) red blood cell count 4.28 feli on/uL 3.80-5 .10 normal Not Available [address], [address], 01/24/2023 02:19:44 01/24/20 23 01/24/2023 CBC (INCL UDES DIFF/ PLT) hemoglobin 13.7 g/dL 11.7-1 5.5 normal Not Available [address], [address], 01/24/2023 02:19:44 01/24/20 23 01/24/2023 CBC (INCL UDES DIFF/ PLT) hematocrit 39.9 % 35.0-4 5.0 normal Not Available [address], [address], 01/24/2023 02:19:44 01/24/20 23 01/24/2023 CBC (INCL UDES DIFF/ PLT) MCV 93.2 fL 80.0-1 00.0 normal Not Available [address], [address], 01/24/2023 02:19:44 01/24/20 23 01/24/2023 CBC (INCL UDES DIFF/ PLT) MCH 32.0 pg 27.0-3 3.0 normal Not Available [address], [address], 01/24/2023 02:19:44 01/24/20 23 01/24/2023 CBC (INCL UDES DIFF/ PLT) MCHC 34.3 g/dL 32.0-3 6.0 normal Not Available [address], [address], 01/24/2023 02:19:44 01/24/20 23 01/24/2023 CBC (INCL UDES DIFF/ PLT) RDW 11.9 % 11.0-1 5.0 normal Not Available [address], [address], 01/24/2023 02:19:44 01/24/20 23 01/24/2023 CBC (INCL UDES DIFF/ PLT) platelet count 343 thous and/u L 140-40 0 normal Not Available [address], [address], 01/24/2023 02:19:44 01/24/20 23 01/24/2023 CBC (INCL UDES DIFF/ PLT) MPV 9.8 fL 7.5-12 .5 normal Not Available [address], [address], 01/24/2023 02:19:44 01/24/20 23 01/24/2023 CBC (INCL UDES DIFF/ PLT) absolute neutrophils 4901 cells /uL 1500-7 800 normal Not Available [address], [address], 01/24/2023 02:19:44 01/24/20 23 01/24/2023 CBC (INCL UDES DIFF/ PLT) absolute lymphocytes 2276 cells /uL 850-39 00 normal Not Available [address], [address], 01/24/2023 02:19:44 01/24/20 23 01/24/2023 CBC (INCL UDES DIFF/ PLT) absolute monocytes 778 cells /uL 200-95 0 normal Not Available [address], [address], 01/24/2023 02:19:44 12/19/20 23 01/24/2023 CBC (INCL UDES DIFF/ PLT) absolute eosinophils 97 cells /uL 15-500 normal Not Available [address], [address], 01/24/2023 02:19:44 01/24/20 23 01/24/2023 CBC (INCL UDES DIFF/ PLT) absolute basophils 49 cells /uL 0-200 normal Not Available [address], [address], 01/24/2023 02:19:44 01/24/20 23 01/24/2023 CBC (INCL UDES DIFF/ PLT) neutrophils 60.5 % normal Not Available [address], [address], 01/24/2023 02:19:44 01/24/20 23 01/24/2023 CBC (INCL UDES DIFF/ PLT) lymphocytes 28.1 % normal Not Available [address], [address], 01/24/2023 02:19:44 01/24/20 23 01/24/2023 CBC (INCL UDES DIFF/ PLT) monocytes 9.6 % normal Not Available [address], [address], 01/24/2023 02:19:44 01/24/20 23 01/24/2023 CBC (INCL UDES DIFF/ PLT) eosinophils 1.2 % normal Not Available [facility] [address], [address], 01/24/2023 02:19:44 01/24/20 23 01/24/2023 CBC (INCL UDES DIFF/ PLT) basophils 0.6 % normal Not Available [facility] [address], [address], 01/24/2023 02:19:44 01/24/20 23 01/24/2023 TSH TSH 4.05 mIU/L normal Refer ence Range > or = 20 Years 0.40- 4.50 Pregn elo Range s First trime ster 0.26- 2.66 Secon d trime ster 0.55- 2.73 Third trime ster 0.43- 2.91 Not Available [facility] [address] [address], [place], [address], 01/24/2023 03:53:38 01/24/2001/23/2023 HEMOG LOBIN A1C hemoglobin A1C 6.4 %_of_ total _HGB <5.7 high For someo ne witho ut known diabe elinor, a hemog lobin A1c value betwe en 5.7% and 6.4% is consi stent with predi abete s and shoul d be confi rmed with a follo w-up test. For someo ne with known diabe elinor, a value <7% indic ates that their diabe elinor is well contr olled . A1c targe ts shoul d be indiv idual ized based on durat ion of diabe elinor, age, comor bid condi tions , and other consi derat ions. This assay resul t is consi stent with an incre ased risk of diabe elinor. Curre ntly, no conse nsus exist s regar ding use of hemog lobin A1c for diagn osis of diabe elinor for child yuliana. Not Available [facility] [address] [address], [place], [address], 01/24/2023 00:10:43 10/23/19 24 10/24/2023 LIPID PANEL cholesterol, total 241 mg/dL 100-19 9 above high normal Not Available [facility] ([facility]) [address] [facility], [place], [address], 10/24/2023 04:11:12 10/23/19 24 10/24/2023 LIPID PANEL triglyceride s 361 mg/dL 0-149 above high normal Not Available [facility] ([facility]) [address] [place], [address], 10/24/2023 04:11:12 10/23/19 24 10/24/2023 LIPID PANEL HDL cholesterol 47 mg/dL >39 Not Available [facility]) [address] [place], [address], 10/24/2023 04:11:12 10/23/19 24 10/24/2023 LIPID PANEL VLDL cholesterol eben 64 mg/dL 5-40 above high normal Not Available [facility] ([facility]) [address] [place], [address], 10/24/2023 04:11:12 10/23/19 24 10/24/2023 LIPID PANEL LDL chol calc ([facility]) 130 mg/dL 0-99 above high normal Not Available [facility] ([facility]) [address] [place], [address], 10/24/2023 04:11:12 10/23/19 24 10/24/2023 COMP. METAB OLIC PANEL (14) glucose 195 mg/dL 70-99 above high normal Not Available [facility] ([facility]) [address] [place], [address], 10/24/2023 04:11:13 10/23/19 24 10/24/2023 COMP. METAB OLIC PANEL (14) BUN 8 mg/dL 6-24 Not Available [facility] ([facility]) [address] [place], [address], 10/24/2023 04:11:13 10/23/19 24 10/24/2023 COMP. METAB OLIC PANEL (14) creatinine 0.71 mg/dL 0.57-1 .00 Not Available [facility] ([facility]) [address] [place], [address], 10/24/2023 04:11:13 10/23/19 24 10/24/2023 COMP. METAB OLIC PANEL (14) eGFR 109 mL/mi n/1.7 3 >59 Not Available [facility] ([facility]) [address] [facility] [place], [address], 10/24/2023 04:11:13 10/23/19 24 10/24/2023 COMP. METAB OLIC PANEL (14) BUN/creatini ne ratio 11 9-23 Not Available [facility] ([facility]) [address] [facility] [place], [address], 10/24/2023 04:11:13 10/23/19 24 10/24/2023 COMP. METAB OLIC PANEL (14) sodium 136 mmol/ L 134-14 4 Not Available [facility] ([facility]) [address] [place], [address], 10/24/2023 04:11:13 10/23/19 24 10/24/2023 COMP. METAB OLIC PANEL (14) potassium 3.8 mmol/ L 3.5-5. 2 Not Available [facility] ([facility]) [address] [place], [address], 10/24/2023 04:11:13 10/23/19 24 10/24/2023 COMP. METAB OLIC PANEL (14) chloride 94 mmol/ L 96-106 below low normal Not Available [facility] ([facility]) [address] [place], [address], 10/24/2023 04:11:13 10/23/19 24 10/24/2023 COMP. METAB OLIC PANEL (14) carbon dioxide, total 26 mmol/ L 20-29 Not Available [facility] ([facility]) [address] [place], [address], 10/24/2023 04:11:13 10/23/19 24 10/24/2023 COMP. METAB OLIC PANEL (14) calcium 10.0 mg/dL 8.7-10 .2 Not Available [facility] ([facility]) [address] [place], [address], 10/24/2023 04:11:13 10/23/19 24 10/24/2023 COMP. METAB OLIC PANEL (14) protein, total 7.0 g/dL 6.0-8. 5 Not Available [facility] ([facility]) [address] [place], [address], 10/24/2023 04:11:13 10/23/19 24 10/24/2023 COMP. METAB OLIC PANEL (14) albumin 4.1 g/dL 3.9-4. 9 Not Available [facility] ([facility]) [address] [place], [address], 10/24/2023 04:11:13 10/23/19 24 10/24/2023 COMP. METAB OLIC PANEL (14) globulin, total 2.9 g/dL 1.5-4. 5 Not Available [facility] ([facility]) [address] [place], [address], 10/24/2023 04:11:13 10/23/19 24 10/24/2023 COMP. METAB OLIC PANEL (14) bilirubin, total 0.5 mg/dL 0.0-1. 2 Not Available [facility] ([facility]) [address] [place], [address], 10/24/2023 04:11:13 10/23/19 24 10/24/2023 COMP. METAB OLIC PANEL (14) alkaline phosphatase 162 IU/L 44-121 above high normal Not Available [facility] ([facility]) [address] [place], [address], 10/24/2023 04:11:13 10/23/19 24 10/24/2023 COMP. METAB OLIC PANEL (14) AST (SGOT) 53 IU/L 0-40 above high normal Not Available [facility] ([facility]) [address] [place], [address], 10/24/2023 04:11:13 10/23/19 24 10/24/2023 COMP. METAB OLIC PANEL (14) ALT (SGPT) 85 IU/L 0-32 above high normal Not Available [facility] ([facility]) [address] [facility], [place], [address], 10/24/2023 04:11:13 10/23/19 24 10/24/2023 TSH RFX ON ABNOR MAL TO FREE T4 TSH 4.590 uIU/m L 0.450- 4.500 above high normal Not Available [facility] ([facility]) [address] [place], [address], 10/24/2023 04:11:14 10/23/19 24 10/24/2023 HEMOG LOBIN A1C hemoglobin A1C 8.6 % 4.8-5. 6 above high normal Predi abete s: 5.7 - 6.4 Diabe elinor: >6.4 Glyce nigel contr ol for adult s with diabe elinor: <7.0 Not Available [facility] ([facility]) [address] [place], [address], 10/24/2023 04:11:14 10/23/19 24 10/24/2023 T4F T4,free (direct) 1.14 NG/dL 0.82-1 .77 Not Available [facility] ([facility]) [address] [facility], [place], [address], 10/24/2023 04:11:15 10/23/19 24 10/23/2023 CBC WITH DIFFE RENTI AL/PL ATELE T WBC 8.6 x10e3 /uL 3.4-10 .8 Not Available [facility] ([facility]) [address] [place], [address], 10/24/2023 04:11:16 10/23/19 24 10/23/2023 CBC WITH DIFFE RENTI AL/PL ATELE T RBC 4.22 x10e6 /uL 3.77-5 .28 Not Available [facility] ([facility]) [address] [facility], [place], [address], 10/24/2023 04:11:16 10/23/19 24 10/23/2023 CBC WITH DIFFE RENTI AL/PL ATELE T hemoglobin 13.7 g/dL 11.1-1 5.9 Not Available [facility] ([facility]) [address] [facility], [place], [address], 10/24/2023 04:11:16 10/23/19 24 10/23/2023 CBC WITH DIFFE RENTI AL/PL ATELE T hematocrit 41.3 % 34.0-4 6.6 Not Available [facility] ([facility]) [address] [facility], [place], [address], 10/24/2023 04:11:16 10/23/19 24 10/23/2023 CBC WITH DIFFE RENTI AL/PL ATELE T MCV 98 fL 79-97 above high normal Not Available [facility] ([facility]) [address] [facility], [place], [address], 10/24/2023 04:11:16 10/23/19 24 10/23/2023 CBC WITH DIFFE RENTI AL/PL ATELE T MCH 32.5 pg 26.6-3 3.0 Not Available [facility] ([facility]) [address] [facility], [place], [address], 10/24/2023 04:11:16 10/23/19 24 10/23/2023 CBC WITH DIFFE RENTI AL/PL ATELE T MCHC 33.2 g/dL 31.5-3 5.7 Not Available [facility] ([facility]) [address] [facility], [place], [address], 10/24/2023 04:11:16 10/23/19 24 10/23/2023 CBC WITH DIFFE RENTI AL/PL ATELE T RDW 12.7 % 11.7-1 5.4 Not Available [facility] ([facility]) [address] [facility], [place], [address], 10/24/2023 04:11:16 10/23/19 24 10/23/2023 CBC WITH DIFFE RENTI AL/PL ATELE T platelets 385 x10e3 /uL 150-45 0 Not Available [facility] ([facility]) [address] [facility], [place], [address], 10/24/2023 04:11:16 10/23/19 24 10/23/2023 CBC WITH DIFFE RENTI AL/PL ATELE T neutrophils 64 % notest ab. Not Available [facility] ([facility]) [address] [facility], [place], [address], 10/24/2023 04:11:16 10/23/19 24 10/23/2023 CBC WITH DIFFE RENTI AL/PL ATELE T lymphs 26 % notest ab. Not Available [facility] ([facility]) [address] [facility], [place], [address], 10/24/2023 04:11:16 10/23/19 24 10/23/2023 CBC WITH DIFFE RENTI AL/PL ATELE T monocytes 7 % notest ab. Not Available [facility] ([facility]) [address] [facility], [place], [address], 10/24/2023 04:11:16 10/23/19 24 10/23/2023 CBC WITH DIFFE RENTI AL/PL ATELE T eos 2 % notest ab. Not Available [facility] ([facility]) [address] [facility], [place], [address], 10/24/2023 04:11:16 10/23/19 24 10/23/2023 CBC WITH DIFFE RENTI AL/PL ATELE T basos 1 % notest ab. Not Available [facility] ([facility]) [address] [facility], [place], [address], 10/24/2023 04:11:16 10/23/19 24 10/23/2023 CBC WITH DIFFE RENTI AL/PL ATELE T neutrophils (absolute) 5.5 x10e3 /uL 1.4-7. 0 Not Available [facility] ([facility]) [address] [facility], [place], [address], 10/24/2023 04:11:16 10/23/19 24 10/23/2023 CBC WITH DIFFE RENTI AL/PL ATELE T lymphs (absolute) 2.3 x10e3 /uL 0.7-3. 1 Not Available [facility] ([facility]) [address] [place], [address], 10/24/2023 04:11:16 10/23/19 24 10/23/2023 CBC WITH DIFFE RENTI AL/PL ATELE T monocytes(ab solute) 0.6 x10e3 /uL 0.1-0. 9 Not Available [facility] ([facility]) [address] [place], [address], 10/24/2023 04:11:16 10/23/19 24 10/23/2023 CBC WITH DIFFE RENTI AL/PL ATELE T eos (absolute) 0.2 x10e3 /uL 0.0-0. 4 Not Available [facility] ([facility]) [address] [place], [address], 10/24/2023 04:11:16 10/23/19 24 10/23/2023 CBC WITH DIFFE RENTI AL/PL ATELE T baso (absolute) 0.1 x10e3 /uL 0.0-0. 2 Not Available [facility] ([facility]) [address] [place], [address], 10/24/2023 04:11:16 10/23/19 24 10/23/2023 CBC WITH DIFFE RENTI AL/PL ATELE T immature granulocytes 0 % notest ab. Not Available [facility] ([facility]) [address] [facility], [place], [address], 10/24/2023 04:11:16 10/23/19 24 10/23/2023 CBC WITH DIFFE RENTI AL/PL ATELE T immature grans (abs) 0.0 x10e3 /uL 0.0-0. 1 Not Available [facility] ([facility]) [address] [facility], [place], [address], 10/24/2023 04:11:16 01/22/20 24 01/22/2024 HbA1c (hemo globi n A1c), blood HbA1c 6.2 Not Available In-Office Order Internal Use Only DO Not Attach Compendium DO Not Attach Compendium, Do Not Delete/merge, [id number] 01/22/2024 08:56:49 01/09/20 23 01/08/2023 MAMMO , diagn ostic , digit al, bilat eral No observ ation record ed. [address] [place], [address], 01/09/2023 15:55:42 01/09/20 23 01/08/2023 MAMMO , diagn ostic , digit al, bilat eral No observ ation record ed. [address] [place], [address], 01/09/2023 11:23:33 Result Notes None recorded. Problems Name Problem SNOMED Code Status Onset Date Resolution Date Notes Provider Name and Address Organization Details Recorded Time Mood disorder 89521509 Active 2020 Rayne Carreno APN, FNP-C Attn: Cinthia g,[address] [place], [address], [facility] - [facility] 14:21:06 Tobacco user 165718316 Active 2020 Rayne Carreno APN, FNP-C Attn: Cinthia g,[address] [place], [address], [facility] 1 14:21:07 Obesity 728492770 Active 2020 Rayne Carreno APN, LIFE SKILLS CONSULTANT-C Attn: Cinthia cho,[address] [facility], [place], [address], [facility] 1 14:21:09 Psoriasis 7391348 Active 2020 Rayne Carreno APN, LIFE SKILLS CONSULTANT-C Attn: Cinthia cho,[address] [facility], [place], [address], [facility] 1 14:38:57 Prehyperten margarita 003852051 Completed 202004/16/2023 Rayne Carreno APN, LIFE SKILLS CONSULTANT-C Attn: Cinthia cho,[address] [facility], [place], [address], [facility] 4 09:09:38 Essential hypertensio n 33495309 Active 2022 Rayne Carreno APN, LIFE SKILLS CONSULTANT-C Attn: [place] cho,[address] [facility], [place], [address], [facility] 3 09:06:22 Type 2 diabetes mellitus 05690918 Active 2023 Rayne Carreno APN, LIFE SKILLS CONSULTANT-C Attn: Cinthia cho,[address] [facility], [place], [address], [facility] 4 08:56:41 Problem Notes None recorded. Procedures Surgical History Date Name Laterality Status Provider Name and Address Organization Details Recorded Time Cholecystectomy completed Shy Villa MA [facility] 06/11/2020 14:13:56 Tonsillectomy completed Shy Villa MA [facility] 06/11/2020 14:14:07 Imaging Results Imaging Date Name Status LastModified by Organiz [facility] Details LastModified Time 01/08/2023 MAMMO, diagnostic, digital, bilateral completed yoshichulterma [facility] [address] [facility] [place], [address], 01/09/2023 15:55:42 01/08/2023 MAMMO, diagnostic, digital, bilateral completed jschulterma [place] [facility] [address] [facility] , [place], [address], 01/09/2023 11:23:33 Procedure Notes None recorded. Medical Equipment None [...] saturation in Arterial blood by Pulse oximetry Heart rate Respiratory rate Body temperature Systolic blood pressure Diastolic blood pressure Provider Name and Address Organization Details Last Updated DateTime 3 167.64 cm 36.8 kg/m2 451554. 34 g 99 % 99 % 102 /min 16 /min 98 [degF] 140 mm[Hg] 97 mm[Hg] Tavia Meza [place] - [facility] 3 09:17:24 Date Recorded Body height Body mass index (BMI) Body weight Oxygen saturation Oxygen saturation in Arterial blood by Pulse oximetry Heart rate Respiratory rate Body temperature Systolic blood pressure Diastolic blood pressure Provider Name and Address Organization Details Last Updated DateTime 4 167.64 cm 37.6 kg/m2 905827. 02 g 97 % 97 % 110 /min 16 /min 97.5 [degF] 152 mm[Hg] 100 mm[Hg] JACK Hunt [place] - [facility] 4 08:41:34 Date Recorded Systolic blood pressure Diastolic blood pressure Provider Name and Address Organization Details Last Updated DateTime 04/16/2023 142 mm[Hg] 92 mm[Hg] Rayne Carreno APN, FNP-C Attn: Accounting[address] [place], [address], [facility] 04/16/2023 09:10:11 Date Recorded Body height Body mass index (BMI) Body weight Oxygen saturation Oxygen saturation in Arterial blood by Pulse oximetry Respiratory rate Body temperature Heart rate Systolic blood pressure Diastolic blood pressure Provider Name and Address Organization Details Last Updated DateTime 4 167.64 cm 37 kg/m2 612980. 65 g 98 % 98 % 16 /min 97.3 [degF] 102 /min 138 mm[Hg] 94 mm[Hg] Anny Dent Munir [facility] 4 08:37:40 Date Recorded Body height Body mass index (BMI) Body weight Oxygen saturation Oxygen saturation in Arterial blood by Pulse oximetry Body temperature Respiratory rate Heart rate Systolic blood pressure Diastolic blood pressure Provider Name and Address Organization Details Last Updated DateTime 4 167.64 cm 36.8 kg/m2 991007. 06 g 98 % 98 % 97.3 [degF] 16 /min 108 /min 138 mm[Hg] 94 mm[Hg] JAKC Hunt [facility] 4 08:39:44 Date Recorded Systolic blood pressure Diastolic blood pressure Provider Name and Address Organization Details Last Updated DateTime 10/23/2023 128 mm[Hg] 82 mm[Hg] Rayne Carreno APN, FNP-C Attn: Accounting[address] [place], [address], [place] [facility] 10/23/2023 09:05:40 Date Recorded Body height Body mass index (BMI) Body weight Oxygen saturation Oxygen saturation in Arterial blood by Pulse oximetry Respiratory rate Body temperature Heart rate Systolic blood pressure Diastolic blood pressure Provider Name and Address Organization Details Last Updated DateTime 4 167.64 cm 33.7 kg/m2 37480.8 1 g 95 % 95 % 16 /min 97.5 [degF] 116 /min 132 mm[Hg] 88 mm[Hg] JACK Hunt [facility] 08:54:18 Social History Question Answer Notes LastModified by Organizat ion Details LastModified Time Tobacco Smoking Status Current Every Day Smoker Shy Villa MA [facility], [place] - [facility] 06/11/2020 14:12:47 Do You Have An Advance Directive? No Information not available 06/11/2020 What Is Your Level Of Alcohol Consumption? None Information not available 01/22/2024 Are You Blind Or Do You Have Difficulty Seeing? No Information not available 06/11/2020 What Is Your Level Of Caffeine Consumption? Heavy [email or web address] Information not available 01/18/2022 In The 14 [...] 01/22/2024 What Is Your Occupation? [employer] [email or web address] Information not available 01/18/2022 Are There Any [...] Age Did You Start Smoking Tobacco? 21 [email or web address] Information not available 01/18/2022 Are You Passively Exposed To Smoke? Yes Information no t available 06/11/2020 How Much Tobacco Do You Smoke? 0.25 PPD Information not available 01/22/2024 Do You Feel Stressed (tense, Restless, Nervous, Or Anxious, Or Unable To Sleep At Night)? [id number] Information not available 01/22/2024 Do You Use Any Illicit Or Recreational Drugs? No Information not available 06/11/2020 Do You Use Sunscreen Routinely? Yes Information not available 06/11/2020 Has Tobacco Cessation Counseling Been Provided? Yes Information not available 01/18/2022 On What Date [...] 06/11/2020 What is your exercise level? None [email or web address] Information not available 01/18/2022 Mental Status None [...] History Condition Response Coronary Artery Disease N Other N High Blood Pressure N Atrial Fibrillation N Thyroid Problems N Kidney or Bladder Problems N GI Problems N Depression Y COPD N Blood Clots N Skin Problems N Eating Disorder N Anemia N Heart Attack (MS) N Anxiety Disorder Y Diabetes N Muscle, Joint, or Bone Problems N Seizures/Epilepsy N Acid Reflux (GERD) N Cancer N Stroke N Asthma N Allergies N ADHD N Substance Abuse N High Cholesterol N Hepatitis N Liver Disease N Schizophrenia N Headaches N Heart Failure N Osteoporosis N Gynecological History Statement/Question Response [...] PF, 30 mcg/0.3 mL dose 1 completed GRANT BritoN, LIFE SKILLS CONSULTANT-C Attn: Accounting[address] [place], [address], [place] [facility] 01/18/2022 16:46:47 COVID-19, mRNA, LNP-S, PF, 30 mcg/0.3 mL dose 1 completed Rayne Carreno SLEEP LAB TECHNOLOGIST, LIFE SKILLS CONSULTANT-C Attn: Accounting[address] [place], [address], [place] [facility] 01/18/2022 16:46:47 Influenza, split virus, quadrivalent, PF 0 completed GRANT BritoN, LIFE SKILLS CONSULTANT-C Attn: Accounting[address] [place], [address], [place] [facility] 01/18/2022 16:46:47 Tdap 2 completed Rayne Carreno SLEEP LAB TECHNOLOGIST, LIFE SKILLS CONSULTANT-C Attn: Accounting[address] [place], [address], [place] [facility] 01/18/2022 16:46:47 Influenza, split virus, quadrivalent, PF 1 completed Anny Dent null, [place] [facility] 12/21/2020 15:40:01 Influenza, split virus, quadrivalent, PF 1 completed Anny Dent null, [place] [facility] 12/22/2020 09:13:03 Influenza, split virus, quadrivalent, preservative 2 completed Rayne Carreno APN, FNP-C Attn: Accounting[address] [place], [address], [facility] 01/19/2022 00:34:05 COVID-19, mRNA, LNP-S, bivalent, PF, 30 mcg/0.3 mL dose 2 completed Anny Dent null, [facility] 01/18/2022 17:13:34 Influenza, split virus, quadrivalent, preservative 3 completed Rayne Carreno APN, FNP-C Attn: Accounting[address] [place], [address], [facility] 01/15/2023 22:37:36 Influenza, split virus, trivalent, preservative 4 completed JACK Hunt, [facility] 10/23/2023 09:53:28 Past Encounters Encounter ID Performer Location Encounter Start Date Encounter Closed Date Diagnosis/Indication Diagnosis SNOMED-CT Code Diagnosis ICD10 Code Diagnosis Note [id number] Rayne Carreno APN, LIFE SKILLS CONSULTANT-C [facility] (Adult Med) [address] [place] [address] 06/11/2020 13:58:38 06/14/2020 09:45:59 Adult health examination 053974108 Z00.01 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 Obesity 570680382 E66.9 advised low fat, low cholestero l diet, regular exercise and weight reduction. Tobacco user 927867253 Z 72.0 Smoking cessation encouraged . Mood disorder 56772750 F 40 stable on lexapro, Prehypertension 95973320 9 R03.0 BP in pre-hypert ensive range, dwp risk, reducing salt and increasing exercise Psoriasis 5440470 L40.9 silvery scale like rash approx 2 inches annular to left leblanc dwp prn topical, will refer to derm if needed [id number] Rayne Carreno APN, FNP-C [place] (Adult Med) [address] [place] [address] 12/21/2020 14:44:00 12/22/2020 08:56:42 Mood disorder 04067385 F40 stable on lexapro, Obesity 201524530 E66.9 advised low fat, low cholestero l diet, regular exercise and weight reduction. Tobacco user 574496631 Z 72.0 Smoking cessation encouraged . Administra tion of influenza vaccine 46852304 Z23 [id number] Rayne Carreno APN, FNP-C [place] (Adult Med) [address] [place] [address] 03/15/2021 16:21:33 03/16/2021 07:58:11 Elevated blood-pressure reading without diagnosis of hypertension 048976651 R03.0 BP in pre-hypert ensive range, dwp risk, reducing salt and increasing exercise Spider bite wound 026202 008 T63.391A 3 cm erythemato us wound with two ulceration s of approx 1 cm each by 0.5 cm; purulent drainage reported but none expressed on examwill treat with bactrim, dwp to use topical as well, call if over 5 cm or any other changes not improving [id number] Rayne Carreno APN, FNP-C [place] (Adult Med) [address] [place] [address] 01/18/2022 16:29:07 01/20/2022 16:19:09 Dysuria 09669111 R30.0 urine dip pos leuk, will send for culture and notify pt if abx change needed, will start macrobid; dwp to increase fluids and RTO if increase in pain or fever or other changes occur. Prehypertension 46346141 9 R03.0 BP in pre-hypert ensive range, dwp risk, reducing salt and increasing exercise Obesity 711145808 E66.9 advised low fat, low cholestero l diet, regular exercise and weight reduction. Tobacco user 620764633 Z 72.0 Smoking cessation encouraged . Mood disorder 97815863 F 40 stable on lexapro, Administra tion of influenza vaccine 84430405 Z23 [id number] [facility] [address] [place] [address] 01/18/2022 17:08:30 01/20/2022 16:20:40 Administration of SARS-CoV-2 mRNA vaccine 2115967417 Z23 [id number] Rayne Carreno APN, LIFE SKILLS CONSULTANT-C [facility] (Adult Med) [address] [place] [address] 01/15/2023 08:44:25 01/16/2023 09:32:40 Mood disorder 55445347 F40 stable on lexapro, denies HI or SI or SE, cont 10 mg dose Tobacco user 585819739 Z 72.0 Smoking cessation encouraged .has tried patches in past and did not work well,bob lai worked prior for her. will send rx, dwp r/b/se Obesity 183686814 E66.9 advised low fat, low cholestero l diet, regular exercise and weight reduction. Essential hypertension 48668048 I10 elevated, start hctz 12.5; Administra tion of influenza vaccine 35451578 Z23 [id number] [facility]OP SERVICE TECHNICIAN[facility] [address] [place] [address] 02/01/2023 08:56:45 02/02/2023 11:44:59 Routine gynecologic examination done 9813918352 9101 Z01.419 - Reviewed risks for infection and cancer; ordered screening tests as appropriat e- Benign mammograph y and breast ultrasound findings managed by PCP Screening for malignant neoplasm of cervix 564061170 Z12.4 - Per [facility] records, last co-testing 05/2020 -- NILM with neg hr-HPV test- Return to clinic for next co-testing in 2025 Contracept ion care management 104323204 Z30.9 - Not currently sexually active- Advised patient to return to clinic if she becomes sexually active and does not desire to discuss contracept atilio options- If not opposed to , advised patient to take daily vitamin Essential hypertension 61109523 I10 - Discussed low salt diet with patient- Recommende d following up with PCP regarding medication management Body mass index 30+ - obesity 713884955 Z68.36 - Discussed limiting intake of salty foods [id number] Rayne Carreno APN, FNP-C [place] (Adult Med) [address] [place] [address] 04/16/2023 08:29:30 04/17/2023 16:29:15 Essential hypertension 09540459 I10 elevated, cont hctz 12.5- increase to 25 mg Obesity 738092528 E66.9 advised low fat, low cholestero l diet, regular exercise and weight reduction. Tobacco user 633698278 Z 72.0 Smoking cessation encouraged .has tried patches in past and did not work well,bob lai worked prior for her. will send rx, dwp r/b/se Mood disorder 36306306 F 40 stable on lexapro, denies HI or SI or SE, cont 10 mg dose [id number] Rayne Carreno APN, FNP-C [place] (Adult Med) [address] [place] [address] 07/17/2023 08:28:50 07/18/2023 19:00:53 Essential hypertension 10166714 I10 elevated, will add ACEcont hctz 25 mg Obesity 101376374 E66.9 advised low fat, low cholestero l diet, regular exercise and weight reduction. Tobacco user 898235454 Z 72.0 Smoking cessation encouraged . [id number] Rayne Carreno APN, FNP-C [place] (Adult Med) [address] [place] [address] 10/23/2023 08:30:29 10/24/2023 13:04:17 Essential hypertension 76773077 I10 improvedco nt lisinopril 10 mgcont hctz 25 mg Obesity 623479549 E66.9 advised low fat, low cholestero l diet, regular exercise and weight reduction. Tobacco user 354653674 Z 72.0 Smoking cessation encouraged . Mood disorder 02113982 F 40 has been stable on lexapro, denies HI or SI or SE, now having some symptoms returning, will increase dose to 20 mgR/B/A/SE of antidepres suresh medication discussed such as gastrointe stinal s/e, mood irritabili ty, Suicidal ideation, risk of olvin. Call with concerns and questions. Compliance with medication s and follow up care strongly recommende d. Call 911 or ER for crises. Administra tion of influenza vaccine 98450676 Z23 [id number] Rayne Carreno APN, LIFE SKILLS CONSULTANT-C [facility] (Adult Med) [address] [place] [address] 01/22/2024 08:46:03 01/23/2024 17:32:15 Essential hypertension 14605275 I10 improvedco nt lisinopril 10 mgcont hctz 25 mg Obesity 147171454 E66.9 advised low fat, low cholestero l diet, regular exercise and weight reduction. Tobacco user 398538085 Z 72.0 Smoking cessation encouraged . Mood disorder 44153240 F 40 has been stable on lexapro, denies HI or SI or SE,R/B/A/S E of antidepres suresh medication discussed such as gastrointe stinal s/e, mood irritabili ty, Suicidal ideation, risk of olvin. Call with concerns and questions. Compliance with medication s and follow up care strongly recommende d. Call 911 or ER for crises. Type 2 vianey betes mellitus 12347818 E11.9 in diabetic range,need to make diet [...] by Organization Details LastModified Time None Recorded Advance Directives Directive N: Payers Encounter Date Sequence Insurance Name Policy Number Policy Ngo Covered Member ID Ngo Member ID Guarantor Name 02/01/2023 2 *SELF PAY* Kylie Cabral 02/01/2023 1 PREFERRED[employer] - [employer] - [employer] (PPO) FAY Radha Cabral [id number] Radha Cabral 04/16/2023 2 *SELF PAY* Kylie Cabral 04/16/2023 1 [employer] - [employer] - [employer] (PPO) FAY Radha Cabral [id number] Radha Cabral 07/17/2023 2 *SELF PAY* Kylie Cabral 07/17/2023 1 [employer] - [employer] (PPO) CROW Cabral [id number] Radha Cabral 10/23/2023 2 *SELF PAY* Kylie Cabral 10/23/2023 1 [employer] - [employer] (PPO) CROW Cabral [id number] Radha Cabral 01/22/2024 2 *SELF PAY* Kylie Cabral 01/22/2024 1 [employer] - [employer] (PPO) CROW Cabral [id number] Radha Cabral Notes Date Note Type Note Provider Name and Address Organization Details Recorded Time 02/01/2023 text/html Annual lorena germain- PCP: MELANIA Meza Concerns today- None Infection risk- Prior testing for HIV? Reports negative test- Prior testing for HepC? Reports negative test- History of STIs? No- Currently having unprotected sex? Not sexually active Plans for - Not sexually active Cancer screenings- Breast cancer: 01/2023 -- monitoring probably benign left breast mass with repeat mammo + US in 6 months; return to annual screening for right breast- Cervical cancer: Reports no history of abnormal Pap. Last done ca. 2019.- Colon cancer: No known FHx. Dad has history of benign colon polyps.- Lung cancer: Current smoker -- 1 ppd x 21 years (age 21 to present) WOLFGANG FOREMAN MD Attn: [address]ing[address] [place], [address], [facility] 02/01/2023 10:02:27 04/16/2023 text/html needs lexapro refilled.. no SI or HI or SE Rayne Carreno APN, LIFE SKILLS CONSULTANT-C Attn: Accounting[address] [facility], [place], [address], [facility] 04/16/2023 09:14:59 07/17/2023 text/html taking hctz, no chest pain or sob, no dizziness Rayne Carreno APN, LIFE SKILLS CONSULTANT-C Attn: Accounting[address] [facility], [place], [address], [facility] 07/17/2023 09:04:23 10/23/2023 text/html flu shotpossible increase in lexapro- unable to fall asleep due to mind racing denies cp or sob Rayne Carreno APN, LIFE SKILLS CONSULTANT-C Attn: Accounting[address] [place], [address], [facility] 10/23/2023 09:13:25 01/22/2024 text/html HTN- taking lisinopril and hctz, no chest pain or sob, no dizziness T2DM- tolerating metformin, diet changes Mood-improved, denies SI or HI Tobacco-down to 1/4 ppd Rayne Carreno APN, LIFE SKILLS CONSULTANT-C Attn: Accounting[address] [place], [address], [facility] 01/22/2024 09:42:05 OBGyn Episode No OBEpisode recorded.
--- OUTSIDE RECORDS SUMMARY | 2024-02-16 10:33 | XMS_ITS | Encounter Summary ---
Author Organization [facility] Address [address] [place] [address] Care Team Providers Care Drainage Inspector Name Role Phone Rayne Roach NP Primary Care Provider [phone] Reason for Visit * Reason Comments Cyst Upper Right back and Mid back Encounter Details Date Type Department Care Team (Late st Contact Info) Description 09/29/2020 2:30 PM CDT Office Visit [facility] [address] [facility] [address] [place] [id number] EyersJacqueline NP [address] [facility] [address] [place] [address] Epidermoid cyst (Primary Dx) Social History Tobacco Use Types Packs/Day Years Used Date Smoking Tobacco: Every Day Cigarettes Smokeless Tobacco: Never Comments No Sex and Gender Information Value Date Recorded Sex Assigned at Not on file Legal Sex Female 7:08 PM CDT Gender Identity Not on file Sexual Orientation Not on file documented as of this encounter Last Filed Vital Signs Vital Sign Reading Time Taken Comments Blood Pressure 142/84 09/29/2020 2:40 PM CDT Pulse 106 09/29/2020 2:40 PM CDT Temperature 36.3 ??C (97.3 ??F) 09/29/2020 2:40 PM CD T Respiratory Rate - - Oxygen Saturation 97% 09/29/2020 2:40 PM CDT Inhaled Oxygen Concentration - - Weight 96.6 kg (212 lb 14.4 oz) 09/29/2020 2:40 PM CDT Height 167.6 cm (5' 6 ) 09/29/2020 2:40 PM CDT Body Mass Index 34.36 09/29/2020 2:40 PM CDT documented in this encounter Progress Notes * EricJacqueline rdz NATALIO - 09/29/2020 2:30 PM CDT Subjective/Objective Patient ID: Radha Cabral is a 40 y.o. female. Chief Complaint Cyst (Upper Right back and Mid back) Other This is a chronic problem. The current episode started more than 1 year ago. The problem occurs intermittently. The problem has been gradually worsening. Pertinent negatives include no abdominal pain, arthralgias, chills, coughing, diaphoresis, fatigue, fever, headaches, nausea, swollen glands or weakness. The symptoms are aggravated by twisting. She has tried nothing for the symptoms. Review of Systems Constitutional: Negative. Negative for chills, diaphoresis, fatigue and fever. HENT: Negative. Eyes: Negative. Respiratory: Negative. Negative for cough. Cardiovascular: Negative. Gastrointestinal: Negative for abdominal pain and nausea. Endocrine: Negative. Genitourinary: Negative. Musculoskeletal: Negative for arthralgias. Allergic/Immunologic: Negative. Neurological: Negative. Negative for weakness and headaches. Hematological: Negative. Psychiatric/Behavioral: Negative. Physical Exam Constitutional: General: She is not in acute distress. Appearance: She is normal weight. She is not ill-appearing, toxic-appearing or diaphoretic. HENT: Head: Normocephalic and atraumatic. Eyes: General: No scleral icterus. Right eye: No discharge. Left eye: No discharge. Cardiovascular: Rate and Rhythm: Normal rate. Pulses: Normal pulses. Pulmonary: Effort: Pulmonary effort is normal. Abdominal: General: There is no distension. Palpations: Abdomen is soft. Musculoskeletal: General: No swelling or tenderness. Right lower leg: No edema. Left lower leg: No edema. Skin: General: Skin is warm and dry. Capillary Refill: Capillary refill takes less than 2 seconds. Coloration: Skin is not jaundiced or pale. Findings: Lesion present. No erythema or rash. Comments: 1cm epidermoid cyst to the right trap 1.2 cm epidermoid cyst to the right mid back, near the bra line Neither exhibit signs of current infection Neurological: General: No focal deficit present. Mental Status: She is alert and oriented to person, place, and time. Psychiatric: Mood and Affect: Mood normal. Behavior: Behavior normal. Thought Content: Thought content normal. Judgment: Judgment normal. Assessment/Plan Diagnoses and all orders for this visit: Epidermoid cyst (L72.0) (Primary) Assessment & Plan: Discussed procedure of in office excision of these cysts along with the wound care post operatively. Will set up for procedure visit. documented in this encounter Miscellaneous Notes * Assessment & Plan Note - Jacqueline Jalloh NP - 11/23/2020 2:21 PM CDTAssociated Problem(s): Epidermoid cyst Discussed procedure of in office excision of these cysts along with the wound care post operatively. Will set up for procedure visit. documented in this encounter Plan of Treatment Not on file documented as of this encounter Visit Diagnoses Diagnosis Epidermoid cyst- Primary Sebaceous cyst documented in this encounter Historical Medications * This list may reflect changes made after this encounter. triamcinolone (KENALOG) 0.1 % ointment APPLY THIN LAYER TOPICALLY TO THE AFFECTED AREA TWICE DAILY phentermine (ADIPEX-P) 37.5 mg tablet 0 09/20/2020 added in this encounter Care Teams Drainage Inspector Relationship Specialty Start Date End Date Rayne Roach NP [address] [place] [address] PCP - General Nurse Practitioner 09/29/20 documented as of this encounter
--- OUTSIDE RECORDS SUMMARY | 2024-02-16 10:33 | XMS_ITS | Encounter Summary ---
Author Organization [facility] Healthcare Address [address] [place] [address] Care Team Providers Care Venetian Blind Cleaner Name Role Phone No, Physician Primary Care Provider [phone] Encounter Details Date Type Department Care Team (Late st Contact Info) Description 05/19/2020 9:25 PM CDT Lab [address] [address] Social History Tobacco Use Types Packs/Day Years Used Date Smoking Tobacco: Every Day Cigarettes Smokeless Tobacco: Never Comments No Sex and Gender Information Value Date Recorded Sex Assigned at Not on file Legal Sex Female 7:08 PM CDT Gender Identity Not on file Sexual Orientation Not on file documented as of this encounter Plan of Treatment Not on file documented as of this encounter Visit Diagnoses Not on filedocumented in this encounter Care Teams Venetian Blind Cleaner Relationship Specialty Start Date End Date No, Physician PCP - General 08/24/17 09/28/20 documented as of this encounter
--- OUTSIDE RECORDS SUMMARY | 2024-02-16 10:33 | XMS_ITS | Encounter Summary ---
Author Organization [facility] Healthcare Address [address] [place] [address] Care Team Providers Care Inspector Packer Name Role Phone MarleyMilesRaynearchie King NP Primary Care Provider Reason for Referral * Diagnostic Imaging (Routine) - Closed Specialty Diagnoses / Procedures Referred By Kamilah t Referred To Contact Diagnoses Screening mammogram for breast cancer Procedures Screening Mammogram Bilateral W Delores Screening Mammogram, Self [address] [phone] Referral ID Status Reason Start Date Expiration Date Visits Re quested Visits Authorized [id number] Closed 06/08/2021 07/08/2022 1 1 Reason for Visit * Diagnostic Imaging (Routine) - Closed Specialty Diagnoses / Procedures Referred By Kamilah t Referred To Contact Diagnoses Screening mammogram for breast cancer Procedures Screening Mammogram Bilateral W [place] Screening Mammogram, Self [address] [phone] Referral ID Status Reason Start Date Expiration Date Visits Re quested Visits Authorized [id number] Closed 06/08/2021 07/08/2022 1 1 Encounter Details Date Type Department Care Team (Latest Contact Info) Description 06/25/2021 9:14 AM CDT - 06/25/2021 11:59 PM CDT Hospital Encounter [facility] [address] [place] [address] Screening Mammogram, Self Screening mammogram for breast cancer Discharge Disposition: Discharge to home or self care Social History Tobacco Use Types Packs/Day Years [...] Sign Reading Time Taken Comments Blood Pressure - - Pulse - - Temperature - - Respiratory Rate - - Oxygen Saturation - - Inhaled Oxygen Concentration - - Weight 86.2 kg (190 lb) 06/25/2021 9:20 AM CDT Height 167.6 cm (5' 6 ) 06/25/2021 9:20 AM CDT Body Mass Index 30.67 06/25/2021 9:20 AM CDT documented in this encounter Medications at Time of Discharge escitalopram (LEXAPRO) 10 mg tablet escitalopram 10 mg tablet TAKE 1 TABLET BY MOUTH EVERY DAY fluticasone (FLONASE) 50 mcg/actuation nasal spray Administer 2 sprays into each nostril 11/04/2015 ibuprofen (ADVIL,MOTRIN) 800 mg tablet 800 mg 3 (three) times a day 01/15/2017 phentermine (ADIPEX-P) 37.5 mg tablet 0 09/20/2020 triamcinolone (KENALOG) 0.1 % ointment APPLY THIN LAYER TOPICALLY TO THE AFFECTED AREA TWICE DAILY documented as of this encounter Discharge Disposition Disposition Code Departure Means Destination Discharge to home or self care documented in this encounter Plan of Treatment Not on file documented as of this encounter Procedures Procedure Name Priority Date/Time Associated Diagnosis Comments SCREENING MAMMOGRAM BILATERAL W DELORES Schedule Routine, Read Routine (OP Routine) 06/25/2021 9:27 AM CDT Screening mammogram for breast cancer documented in this encounter Results * (ABNORMAL) Screening Mammogram Bilateral W Delores (06/25/2021 9:27 AM CDT) Anatomical Region Laterality Modality Breast Bilateral Mammography 06/27/2021 8:01 AM CDT Impressions 06/27/2021 8:01 AM CDT 1. ??Two asymmetries in the outer left breast. ??Recommend left breast diagnostic mammogram with possible ultrasound. 2. ??No suspicious findings in the right breast. BI-RADS: 0 - Additional imaging evaluation is necessary. The patient will be contacted. Electronically signed by: Maurice Pineda M.D. Narrative 06/27/2021 8:01 AM CDT EXAMINATION: SCREENING MAMMOGRAM BILATERAL W DELORES ORDERING HEALTHCARE PROVIDER: SELF SCREENING MAMMOGRAM HISTORY: Routine screening mammography. COMPARISON: ??None available TECHNIQUE: CC and MLO views of the bilateral breasts were obtained with digital technique using breast tomosynthesis with C view. Computer aided detection was utilized. FINDINGS: DENSITY: The tissue of the bilateral breasts is heterogeneously dense, which may obscure small masses. BREASTS: In the left breast, there is an outer left breast asymmetry on the cc view at middle depth (tomosynthesis slice 50/74).. ??An additional asymmetry is present in the outer left breast at mid to posterior depth. ??There are no suspicious calcifications in the left breast. There are no suspicious masses, calcifications, asymmetries or architectural distortions in the right breast. us Self Screening Mammogram IMG MAMMO PROCEDURES Fi nal Result documented in this encounter Visit Diagnoses Diagnosis Screening mammogram for breast cancer documented in this encounter Care Teams Inspector Packer Relationship Specialty Start Date End Date Marley, Rayne King NP [address] [place] [address] PCP - General Nurse Practitioner 09/29/20 documented as of this encounter
--- OUTSIDE RECORDS SUMMARY | 2024-02-16 10:33 | XMS_ITS | Encounter Summary ---
Author Organization [facility] Address [address] [place] [address] Care Team Providers Care Blocker Automatic Name Role Phone Unavailable Primary Care Provider Unavailabl e Reason for Visit * Reason Onset Date Comments Follow-up 10/08/2016 Encounter Details Date Type Department Care Team (Late st Contact Info) Description 10/08/2016 Telephone [facility] [employer] [facility] [address] [place] [phone] Kylah Weller, [facility] [address] [place] [phone] Follow-up Social History Tobacco Use Types Packs/Day Years Used Date Smoking Tobacco: Every Day Cigarettes Smokeless Tobacco: Never Sex and Gender Information Value Date Recorded Sex Assigned at Not on file Gender Identity Not on file Sexual Orientation Not on file documented as of this encounter Plan of Treatment Not on file documented as of this encounter Visit Diagnoses Not on filedocumented in this encounter
--- OUTSIDE RECORDS SUMMARY | 2024-02-16 10:33 | XMS_ITS | Encounter Summary ---
Author Organization [facility] Address [address] [place] [address]. [place], [place] [address] [place] [address] Care Team Providers Care Industrial Arts Teacher Name Role Phone Unavailable Primary Care Provider Unavailabl e Encounter Details Date Type Department Care Team (Late st Contact Info) Description 09/26/[address] [facility] [address] [place] [address] , Sho Mcmillan MD Social History Tobacco Use Types Packs/Day Years Used Date Smoking Tobacco: Never Assessed Comments Unknown Sex and Gender Information Value Date Recorded Sex Assigned at Not on file Legal Sex Female 4:52 PM CDT Gender Identity Not on file Sexual Orientation Not on file documented as of this encounter Plan of Treatment Not on file documented as of this encounter Visit Diagnoses Not on filedocumented in this encounter
--- OUTSIDE RECORDS SUMMARY | 2024-02-16 10:33 | XMS_ITS | Encounter Summary ---
Author Organization [facility] Healthcare Address [address] [place] [address] Care Team Providers Care Printing Supplies Sales Representative Name Role Phone Rayne Carreno NP Primary Care Provider [phone] Reason for Visit * Diagnostic Imaging (Routine) - Closed Specialty Diagnoses / Procedures Referred By Contbryan t Referred To Contact Diagnoses Fibrocystic breast disease (FCBD), unspecified laterality Procedures US Breast Left Limited US Breast Bilateral Limited Rayne Carreno NP [address] [place] [address] Phone: tel: fax: [address] [phone] Referral ID Status Reason Start Date Expiration Date Visits Re quested Visits Authorized [id number] Closed 07/14/2021 01/05/2022 1 1 Encounter Details Date Type Department Care Team (Latest Contact Info) Description 01/09/2022 1:28 PM RESIDENTIAL SUBSTANCE ABUSE COUNSELOR - 01/09/2022 11:59 PM RESIDENTIAL SUBSTANCE ABUSE COUNSELOR Hospital Encounter [facility] [address] [place] [address] Rayne Carreno NP [address] [place] [address] Fibrocystic breast disease (FCBD), unspecified laterality Discharge Disposition: Discharge to home or self care Social History Tobacco Use Types Packs/Day Years Used Date Smoking Tobacco: Every Day Cigarettes Smokeless Tobacco: Never Comments No Sex and Gender Information Value Date Recorded Sex Assigned at Not on file Legal Sex Female 7:08 PM CDT Gender Identity Not on file Sexual Orientation Not on file documented as of this encounter Medications at Time of Discharge [...] Procedure Name Priority Date/Time Associated Diagnosis Comments US BREAST LEFT LIMITED Schedule Routine, Read Routine (OP Routine) 01/09/2022 2:39 PM RESIDENTIAL SUBSTANCE ABUSE COUNSELOR Fibrocystic breast disease (FCBD), unspecified laterality documented in this encounter Results * US Breast Left Limited (01/09/2022 2:39 PM RESIDENTIAL SUBSTANCE ABUSE COUNSELOR) Anatomical Region Laterality Modality Breast Left Ultrasound 01/09/2022 2:54 PM RESIDENTIAL SUBSTANCE ABUSE COUNSELOR Addenda Addendum by Carlito Youssef MD on 02/07/2022 10:10 AM RESIDENTIAL SUBSTANCE ABUSE COUNSELOR ADDENDUM: Previous outside hospital mammogram and sonogram dated 07/08/2021 has been made available for review. ??The oval hypoechoic mass with circumscribed margins at the 12 o'clock position of the left breast 8 cm from the nipple has not suspiciously changed compared to July. Appearance and stability are suggestive of benignity. 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 ??Follow-up is recommended in 6 months with mammogram and sonogram to document continued stability. Electronically signed by: CARLITO HAGAN Impressions 01/09/2022 2:54 PM RESIDENTIAL SUBSTANCE ABUSE COUNSELOR 1. ??An oval mass with circumscribed margins is confirmed at the 12 o'clock position of left breast ACR from the nipple, measuring 9 x 6 x 4 mm. ??The appearance suggests this is probably benign, likely representing a fibroadenoma. ??Attempts will be made to retrieve the previous diagnostic workup performed at the outside hospital facility, and an addendum will be issued to this report. ??Otherwise, follow-up is recommended in 6 months with diagnostic mammogram and sonogram to document continued stability. ??At that time, the patient will be due for annual routine screening of the right breast. 2. ??The additional asymmetry in the outer left breast at posterior depth seen on CC view only does not persist, consistent with benign overlapping fibroglandular densities. ??This requires no additional specific workup or follow-up. BI-RADS: 3 - Probably benign. I discussed the findings and recommendations with the patient at time of the examination. Electronically signed by: CARLITO Nicole 01/09/2022 2:54 PM RESIDENTIAL SUBSTANCE ABUSE COUNSELOR EXAMINATION: US BREAST LEFT LIMITED, DIAGNOSTIC MAMMOGRAM LEFT W DELORES ORDERING HEALTHCARE PROVIDER: RAYNE CARRENO HISTORY: 41-year-old woman comes in today for evaluation of a suspicious finding left breast seen on screening mammogram dated 06/25/2021. ??The patient reports she had a diagnostic mammogram and sonogram at an outside hospital facility. ??However, images and reports from this diagnostic workup were not provided at the time of this examination. COMPARISON: ??Screening mammogram dated 06/25/2021. TECHNIQUE: CC, spot compression CC, and ML views of the left breast were obtained with digital technique using digital breast tomosynthesis with C view. Computer aided detection was utilized. Targeted sonographic examination of the left breast was performed real-time grayscale images and color Doppler. FINDINGS: MAMMOGRAPHIC FINDINGS: The breast tissue is heterogeneously dense, which may obscure small masses. On spot compression CC views the asymmetry of concern in the outer left breast at posterior depth does not persist, and evaluation with digital breast tomosynthesis demonstrates only benign overlapping fibroglandular densities. ??The asymmetry closer to the central aspect of the left breast at posterior depth persists, and additional views demonstrate an oval low-density mass with circumscribed margins that measures approximately 9 mm. ??This localizes to approximately the 1 o'clock position 8 cm from the nipple. ??There is no associated architectural distortion or suspicious microcalcifications. SONOGRAPHIC FINDINGS: Targeted sonographic examination of the left breast demonstrates an oval hypoechoic mass with circumscribed margins at the 12 o'clock position 8 cm from the nipple. ??This mass is wider than taller, and measures 9 x 6 x 4 mm. ??There is no posterior acoustic enhancement or shadowing, and no internal blood flow seen on color Doppler. Sonographic examination of the left axilla demonstrates no lymphadenopathy. Procedure Note Carlito Youssef MD - 01/10/2022 EXAMINATION: US BREAST LEFT LIMITED, DIAGNOSTIC MAMMOGRAM LEFT W DELORES ORDERING HEALTHCARE PROVIDER: RAYNE CARRENO HISTORY: 41-year-old woman comes in today for evaluation of a suspicious finding left breast seen on screening mammogram dated 06/25/2021. The patient reports she had a diagnostic mammogram and sonogram at an outside hospital facility. However, images and reports from this diagnostic workup were not provided at the time of this examination. COMPARISON: Screening mammogram dated 06/25/2021. TECHNIQUE: CC, spot compression CC, and ML views of the left breast were obtained with digital technique using digital breast tomosynthesis with C view. Computer aided detection was utilized. Targeted sonographic examination of the left breast was performed real-time grayscale images and color Doppler. FINDINGS: MAMMOGRAPHIC FINDINGS: The breast tissue is heterogeneously dense, which may obscure small masses. On spot compression CC views the asymmetry of concern in the outer left breast at posterior depth does not persist, and evaluation with digital breast tomosynthesis demonstrates only benign overlapping fibroglandular densities. The asymmetry closer to the central aspect of the left breast at posterior depth persists, and additional views demonstrate an oval low-density mass with circumscribed margins that measures approximately 9 mm. This localizes to approximately the 1 o'clock position 8 cm from the nipple. There is no associated architectural distortion or suspicious microcalcifications. SONOGRAPHIC FINDINGS: Targeted sonographic examination of the left breast demonstrates an oval hypoechoic mass with circumscribed margins at the 12 o'clock position 8 cm from the nipple. This mass is wider than taller, and measures 9 x 6 x 4 mm. There is no posterior acoustic enhancement or shadowing, and no internal blood flow seen on color Doppler. Sonographic examination of the left axilla demonstrates no lymphadenopathy. IMPRESSION: 1. An oval mass with circumscribed margins is confirmed at the 12 o'clock position of left breast ACR from the nipple, measuring 9 x 6 x 4 mm. The appearance suggests this is probably benign, likely representing a fibroadenoma. Attempts will be made to retrieve the previous diagnostic workup performed at the outside hospital facility, and an addendum will be issued to this report. Otherwise, follow-up is recommended in 6 months with diagnostic mammogram and sonogram to document continued stability. At that time, the patient will be due for annual routine screening of the right breast. 2. The additional asymmetry in the outer left breast at posterior depth seen on CC view only does not persist, consistent with benign overlapping fibroglandular densities. This requires no additional specific workup or follow-up. BI-RADS: 3 - Probably benign. I discussed the findings and recommendations with the patient at time of the examination. Electronically signed by: CARLITO HAGAN us Rayne Carreno NP IMG MAMMO PROCEDURES Edited Result - Final documented in this encounter Visit Diagnoses Diagnosis Fibrocystic breast disease (FCBD), unspecified laterality documented in this encounter Care Teams Printing Supplies Sales Representative Relationship Specialty Start Date End Date Rayne Carreno NP [address] [place] [address] PCP - General Nurse Practitioner 09/29/20 documented as of this encounter
--- OUTSIDE RECORDS SUMMARY | 2024-02-16 10:33 | XMS_ITS | Clinical Summary ---
Author Organization [facility] [place] [address] [place] [address] [place] [id number] Care Team Providers Care Diamond Sawer Name Role Phone Rayne Carreno NP Primary Care Provider [phone] Allergies No known active allergies Medications fluticasone (FLONASE) 50 mcg/actuation nasal spray Administer 2 sprays into each nostril 6 Active ibuprofen (ADVIL,MOTRIN) 800 mg tablet 800 mg 3 (three) times a day 7 Active escitalopram (LEXAPRO) 10 mg tablet escitalopram 10 mg tablet TAKE 1 TABLET BY MOUTH EVERY DAY Active phentermine (ADIPEX-P) 37.5 mg tablet 0 1 Active triamcinolone (KENALOG) 0.1 % ointment APPLY THIN LAYER TOPICALLY TO THE AFFECTED AREA TWICE DAILY Active oxyCODONE-aceta minophen (PERCOCET) 5-325 mg per tabletIndicatio ns:Pain Take 1 tablet by mouth every 4 (four) hours as needed for pain 15 tablet 5 Active lidocaine (LIDODERM) 5 % Place 1 patch on the skin daily Remove & discard patch within 12 hours or as directed by . 14 patch 5 03/16/19 25 Active methocarbamoL (ROBAXIN) 500 mg tablet Take 1 tablet (500 mg total) by mouth 2 (two) times a day 20 tablet 5 Active Active Problems Problem Noted Date Diagnosed Date Epidermoid cyst 11/23/2020 Assessment & Plan (11/23/2020 2:21 PM CDT): Discussed procedure of in office excision of these cysts along with the wound care post operatively. Will set up for procedure visit. Obesity 12/07/2017 Prediabetes 12/07/2017 Smoker 12/07/2017 Missed menses 12/15/2016 Encounters Date Type Department Care Team Description 2024 10:35 AM JEWELRY APPRAISER - 2024 6:31 PM JEWELRY APPRAISER Emergency [facility] Emergency Department [address] [place] [address] Right flank pain (Primary Dx); Hyponatremia Discharge Disposition: Discharge to home or self care from Last 3 Months Surgical History Surgery Date Site/Laterality Comments GALLBLADDER SURGERY 03/08/2020 - 04/04/2020 CHOLECYSTECTOMY TONSILLECTOMY CYST REMOVAL Right ear x 2 Family History Medical History Relation Name Comments COPD Father Breast cancer Father's Sister Ovarian cancer Maternal Grandmother Hypertension Mother Relation Name Status Comments Father Alive Father's Sister Maternal Grandmother Mother Alive Social History Tobacco Use Types Packs/Day Years Used Date Smoking Tobacco: Every Day Cigarettes Smokeless Tobacco: Never Personal Safety Answer Date Recorded Have you ever been in or are you currently in a harmful physical or emotional relationship or is someone making you feel afraid or unsafe? Denies 2024 Comments No Sex and Gender Information Value Date Recorded Sex Assigned at Not on file Legal Sex Female 7:08 PM CDT Gender Identity Not on file Sexual Orientation Not on file Obstetrics History Para Term AB IAB SAB Ectopic Multiple Livin g Live Births 2 0 0 2 2 0 Date Outcome GA Total Labor Labor/2nd/3rd Weight Sex Type Anes PTL Perla A1 A5 Name Clin SAB SAB Last Filed Vital Signs Vital Sign Reading Time Taken Comments Blood Pressure 100/66 2024 4:45 PM JEWELRY APPRAISER Pulse 95 2024 6:00 PM JEWELRY APPRAISER Temperature 36.4 ??C (97.5 ??F) 2024 3:00 PM CS T Respiratory Rate 15 2024 6:00 PM JEWELRY APPRAISER Oxygen Saturation 96% 2024 6:00 PM JEWELRY APPRAISER Inhaled Oxygen Concentration - - Weight 95.3 kg (210 lb) 2024 10:32 AM JEWELRY APPRAISER Height 167.6 cm (5' 6 ) 2024 10:32 AM JEWELRY APPRAISER Body Mass Index 33.89 2024 10:32 AM JEWELRY APPRAISER Plan of Treatment Health Maintenance Due Date Last Done Comments Depression Screening 1981 Hepatitis C Screening 1981 Pneumococcal vaccine <65 (1 of 2 - PCV) 1987 Varicella Vaccines (1 of 2 - 13+ 2-dose series) 1994 Hepatitis B Screening 1999 Cervical Cancer Screening 05/17/2021 05/17/2020, Regular Well Visit/Exam 18-64 05/17/2021 05/17/2020 Covid-19 Vaccine ( season) 2023 07/09/2020, 06/18/2020 Breast Cancer Screening-Mammogram 12/28/2023 12/27/2022, 06/25/2021 DTaP/Tdap/Td Vaccine (2 - Td or Tdap) 05/25/2031 05/24/2021 Influenza Vaccine Completed 10/23/2023, , 01/18/2022, Additional history exists HPV Vaccines Aged Out No longer eligi ble based on patient's age to complete this topic Procedures Procedure Name Priority Date/Time Associated Diagnosis Comments EGFR STAT 2024 5:08 PM JEWELRY APPRAISER BASIC METABOLIC PANEL STAT 2024 5:[address] CHEST PE ABDOMEN PELVIS W CONTRAST ED 2024 2:01 PM JEWELRY APPRAISER POCT GLUCOSE DEVICE Routine 2024 11:42 AM JEWELRY APPRAISER POCT HCG, URINE Routine 2024 11:42 AM JEWELRY APPRAISER EGFR STAT 2024 11:38 AM JEWELRY APPRAISER URINALYSIS, MICROSCOPIC ONLY STAT 2024 11:38 AM JEWELRY APPRAISER DIFFERENTIAL AUTO STAT 2024 11:38 AM JEWELRY APPRAISER SEPSIS LACTATE WITH REFLEX STAT 2024 11:38 AM JEWELRY APPRAISER D-DIMER, QUANTITATIVE STAT 2024 11:38 AM JEWELRY APPRAISER COMPREHENSIVE METABOLIC PANEL STAT 2024 11:38 AM JEWELRY APPRAISER CBC WITH AUTO DIFFERENTIAL STAT 2024 11:38 AM JEWELRY APPRAISER URINALYSIS AND REFLEX TO MICROSCOPIC AND CULTURE STAT 2024 11:38 AM JEWELRY APPRAISER ECG 12-LEAD STAT 2024 11:13 AM JEWELRY APPRAISER DIAGNOSTIC MAMMOGRAM BILATERAL W TIM Schedule Routine, Read Routine (OP Routine) 12/27/2022 3:49 PM JEWELRY APPRAISER Abnormal mammogram THINPREP PAP WITH HPV Routine 05/17/2020 12:01 AM CDT Well woman exam with routine gynecological exam from Last 3 Months or Most Recently Relevant to Health Maintenance Results * eGFR (2024 5:08 PM JEWELRY APPRAISER) eGFR >90 >=60 mL/min/1. 73 m2 Comment: Interpretive Data Reference Interval Normal ?>/= 90 mL/min/1.73m2 Mildly decreased* ? 60 - 89 mL/min/1.73m2 Mildly to moderately decreased ?45 - 59 mL/min/1.73m2 Moderately to severely decreased ??30 - 44 mL/min/1.73m2 Severely decreased ?15 - 29 mL/min/1.73m2 Kidney Failure ?< 15 ??mL/min/1.73m2 *Relative to young adult level Estimated glomerular filtration rate is determined by the 2020 CKD-EPI equation recommended by the National Kidney Foundation (A Unifying Approach to GFR Estimation: Recommendations of the NKF-ASK Task Force on Reassessing the Inclusion of Race in Diagnosing Kidney Disease, JASN 2020). The CKD-EPI equation should not be used for patients with unstable renal function and has not been validated in children and those over 70. Current interpretive data was last reviewed 2020. Blood 2024 5:08 PM JEWELRY APPRAISER 2024 5:13 PM JEWELRY APPRAISER us Suha CHUN LAB BLOOD ORDERABLES Arianne l Result [facility] ([place]) 1 [facility] Department [place] [address] * (ABNORMAL) Basic metabolic panel (2024 5:08 PM JEWELRY APPRAISER) Sodium 131(L) 135 - 145 mmol/L Potassium, pl 3.8 3.3 - 4.9 mmol/L [facility] ([place]) Chloride 99 97 - 110 mmol/L [facility] ([place]) CO2 22 22 - 32 mmol/L [facility] ([place]) Anion gap 11 2 - 15 mmol/L [facility] ([place]) BUN 10 6 - 25 mg/dL [facility] ([place]) Creatinine 0.69 0.60 - 1.10 mg/dL [facility] ([place]) Glucose 89 70 - 199 mg/dL [facility] ([place]) Comment: Interpretive Data Fasting glucose >/= 126 mg/dl is diagnostic for diabetes. ?? Fasting is defined as no caloric intake for at least 8 hours. Fasting glucose between 100 mg/dl to 125 mg/dl is diagnostic of prediabetes. In a patient with classic symptoms of hyperglycemia or hyperglycemic crisis, a random glucose >/= 200 mg/dl is diagnostic for diabetes. In the absence of unequivocal hyperglycemia, results should be confirmed by repeat testing. The classification and Diagnosis of Diabetes Diabetes Care 2021; 46: S19-S40. Current interpretive data was last revised 2022. Calcium 8.2(L) 8.5 - 10.3 mg/dL [facility] ([place]) Blood 2024 5:08 PM JEWELRY APPRAISER 2024 5:13 PM JEWELRY APPRAISER Suha CHUN LAB BLOOD ORDERABLES Arianne martinez Result [facility] ([place]) 1 [facility] Department [place] [address] * CT Chest PE (CTA) Abdomen Pelvis W Contrast (2024 2:01 PM JEWELRY APPRAISER) Anatomical Region Laterality Modality Body N/A Computed Tomogra phy 2024 2:17 PM JEWELRY APPRAISER Narrative 2024 2:32 PM JEWELRY APPRAISER EXAM DESCRIPTION: CT CHEST PE (CTA) ABDOMEN PELVIS W CONTRAST REASON FOR STUDY: Pleuritic right flank pain, elevated D-dimer ?? C/o right flank pain x 2 days, ??chest pain and elevated d-dimer. Pt also reports she feels like she has a lump in her stomach since last and she woke up with blood coming out of her belly button. ? TECHNIQUE: CT angiogram of the chest with routine abdomen and pelvis performed with intravenous and ??without ??oral contrast using helical scanning technique with dynamic intravenous contrast injection. Reconstructed coronal and sagittal MPR images reviewed. All images stored on PACS. ??3D MIP images of the chest rendered on scanning unit and reviewed at time of interpretation. ?? Automated exposure control was used as a dose optimization technique for this examination. CONTRAST TYPE/DOSE: 100mL of IOVERSOL 350 MG IODINE/ML INTRAVENOUS SYRINGE ?? injected via ?? intravenous COMPARISON: Abdominal ultrasound dated 10/31/2007 FINDINGS: CHEST CHEST VASCULATURE: ??No acute pulmonary thromboembolism. LUNGS: ??Mild subsegmental atelectasis. ??No focal consolidation. PLEURA: ??No effusion. No pneumothorax. MEDIASTINUM/ARISTIDES: ??No identified masses or abnormal nodes. HEART: ??Heart size is normal with no pericardial effusion. AXILLA: ??No adenopathy. CHEST WALL: ??No masses. ??No subcutaneous air. HARDWARE/LINES/TUBES: ??None. MUSCULOSKELETAL CHEST: No acute fracture is identified. ??Multiple Schmorl's nodes. ??Mild wedging of the T8 superior endplate is most likely due to a Schmorl's node. ??There is mild multilevel facet arthropathy in the thoracic spine. ABDOMEN/PELVIS LIVER: ??Diffuse hepatic steatosis. ??Liver is homogeneous. ??No focal lesion. ?? The portal vein is patent. GALLBLADDER: ??The gallbladder is surgically absent. ??A 11 mm fluid density structure in the region of the gallbladder fossa may represent a cystic duct remnant. ?? This is likely of limited clinical significance unless the patient has symptoms of post-cholecystectomy syndrome. BILE DUCTS: ??No intrahepatic or extrahepatic ductal dilatation. SPLEEN: ??Spleen size is at upper limits of normal. ??Splenule. PANCREAS: ??No identified cystic or solid masses. No significant calcifications. No adjacent inflammation or peripancreatic fluid collections. Pancreatic duct not dilated. ?? ADRENALS: ??Normal. KIDNEYS/URINARY TRACT: ??No identified significant cystic or solid masses. No visualized stones. No hydronephrosis or hydroureter. Symmetric enhancement. ?? Urinary bladder is unremarkable. GI: ??Mild distal esophageal wall thickening a nonspecific finding. ??The stomach is decompressed. ??No evidence of small-bowel obstruction. ??The appendix is normal. ??No significant bowel wall thickening is identified. ?? There is a snwo-qm-yueqjxqi amount of stool in the colon which could indicate constipation. ??No significant diverticulosis is identified. PERITONEUM: ??No ascites or free air. RETROPERITONEUM: ??No mass or adenopathy. REPRODUCTIVE: ??No significant abnormality. VASCULATURE ABDOMEN: ??No abdominal aortic aneurysm. MUSCULOSKELETAL ABDOMEN PELVIS: ??Mild degenerative changes of the lumbar spine are noted. ??No acute fracture. ??No suspicious lytic or sclerotic lesion. ?? Suggested moderate to severe right neural foraminal stenosis at L3-L4 due to bulky facet arthropathy. ??Correlate for radiculopathy symptoms. OTHER: ??No significant abnormality. IMPRESSION: No evidence of pulmonary embolism. No acute abnormality in the chest, abdomen, or pelvis. Diffuse hepatic steatosis. THIS IS AN ELECTRONICALLY VERIFIED FINAL REPORT 2024 2:32 PM - Electronically signed by ??Kashmir Patel M.D. MM: MM D: ??2024 2:32 PM T: ??2024 2:32 PM Report ID: [id number] Reading Location: ??[id number] Procedure Note Kashmir Patel MD - 2024 EXAM DESCRIPTION: CT CHEST PE (CTA) ABDOMEN PELVIS W CONTRAST REASON FOR STUDY: Pleuritic right flank pain, elevated D-dimer C/o right flank pain x 2 days, chest pain and elevated d-dimer. Pt also reports she feels like she has a lump in her stomach since last and she woke up with blood coming out of her belly button. TECHNIQUE: CT angiogram of the chest with routine abdomen and pelvisperformed with intravenous and without oral contrast using helical scanningtechnique with dynamic intravenous contrast injection. Reconstructed coronal and sagittal MPR images reviewed. All images stored on PACS. 3D MIP images ofthe chest rendered on scanning unit and reviewed at time of interpretation. Automated exposure control was used as a dose optimization technique forthis examination. CONTRAST TYPE/DOSE: 100mL of IOVERSOL 350 MG IODINE/ML INTRAVENOUS SYRINGE injected via intravenous COMPARISON: Abdominal ultrasound dated 10/31/2007 FINDINGS: CHEST CHEST VASCULATURE: No acute pulmonary thromboembolism. LUNGS: Mild subsegmental atelectasis. No focal consolidation. PLEURA: No effusion. No pneumothorax. MEDIASTINUM/ARISTIDES: No identified masses or abnormal nodes. HEART: Heart size is normal with no pericardial effusion. AXILLA: No adenopathy. CHEST WALL: No masses. No subcutaneous air. HARDWARE/LINES/TUBES: None. MUSCULOSKELETAL CHEST: No acute fracture is identified. MultipleSchmorl's nodes. Mild wedging of the T8 superior endplate is most likely due to a Schmorl's node. There is mild multilevel facet arthropathy in thethoracic spine. ABDOMEN/PELVIS LIVER: Diffuse hepatic steatosis. Liver is homogeneous. No focallesion. The portal vein is patent. GALLBLADDER: The gallbladder is surgically absent. A 11 mm fluid density structure in the region of the gallbladder fossa may represent a cysticduct remnant. This is likely of limited clinical significance unless thepatient has symptoms of post-cholecystectomy syndrome. BILE DUCTS: No intrahepatic or extrahepatic ductal dilatation. SPLEEN: Spleen size is at upper limits of normal. Splenule. PANCREAS: No identified cystic or solid masses. No significant calcifications. No adjacent inflammation or peripancreatic fluidcollections. Pancreatic duct not dilated. ADRENALS: Normal. KIDNEYS/URINARY TRACT: No identified significant cystic or solid masses.No visualized stones. No hydronephrosis or hydroureter. Symmetricenhancement. Urinary bladder is unremarkable. GI: Mild distal esophageal wall thickening a nonspecific finding. The stomach is decompressed. No evidence of small-bowel obstruction. The appendix is normal. No significant bowel wall thickening is identified. There is a itsm-jk-hgosdjvj amount of stool in the colon which couldindicate constipation. No significant diverticulosis is identified. PERITONEUM: No ascites or free air. RETROPERITONEUM: No mass or adenopathy. REPRODUCTIVE: No significant abnormality. VASCULATURE ABDOMEN: No abdominal aortic aneurysm. MUSCULOSKELETAL ABDOMEN PELVIS: Mild degenerative changes of the lumbarspine are noted. No acute fracture. No suspicious lytic or sclerotic lesion. Suggested moderate to severe right neural foraminal stenosis at L3-L4 dueto bulky facet arthropathy. Correlate for radiculopathy symptoms. OTHER: No significant abnormality. IMPRESSION: No evidence of pulmonary embolism. No acute abnormality in the chest, abdomen, or pelvis. Diffuse hepatic steatosis. THIS IS AN ELECTRONICALLY VERIFIED FINAL REPORT 2024 2:32 PM - Electronically signed by Kashmir Patel M.D. MM: MM Report ID: [id number] Reading Location: [place] [address] PROCEDURES Final R esult * POCT glucose (2024 11:42 AM JEWELRY APPRAISER) Glucose, POC 121 70 - 199 mg/dL Blood 2024 11:4 2 AM JEWELRY APPRAISER 2024 11:42 AM JEWELRY APPRAISER Notinfile Unknown LAB POCT ORDERABLES - DEVICE F inal Result Performing Organization Address City/State/[facility] Co de Phone Number [facility] [place]) 1 [facility] [address] [place] [address] * POCT hCG, urine (2024 11:42 AM JEWELRY APPRAISER) [facility] HCG, ur, POC Negative Negative Lot Number [id number] QC Backgroud Clear Acceptable QC Control Line Acceptable Urine 2024 11:4 2 AM JEWELRY APPRAISER Suha CHUN POINT OF CARE TEST ORDERA BLES Final Result * Sepsis Lactate w/ Reflex (2024 11:38 AM JEWELRY APPRAISER) [facility] Sepsis Lactate 0.9 0.7 - 2.0 mmol/L Blood 2024 11:3 8 AM JEWELRY APPRAISER 2024 11:41 AM JEWELRY APPRAISER Suha CHUN LAB BLOOD ORDERABLES Arianne l Result Performing Organization Address [facility] Co de Phone Number [facility] [place]) 1 [facility] Department [place] [address] * eGFR (2024 11:38 AM JEWELRY APPRAISER) [facility] eGFR >90 >=60 mL/min/1. 73 m2 Comment: Interpretive Data Reference Interval Normal ?>/= 90 mL/min/1.73m2 Mildly decreased* ? 60 - 89 mL/min/1.73m2 Mildly to moderately decreased ?45 - 59 mL/min/1.73m2 Moderately to severely decreased ??30 - 44 mL/min/1.73m2 Severely decreased ?15 - 29 mL/min/1.73m2 Kidney Failure ?< 15 ??mL/min/1.73m2 *Relative to young adult level Estimated glomerular filtration rate is determined by the 2020 CKD-EPI equation recommended by the National Kidney Foundation (A Unifying Approach to GFR Estimation: Recommendations of the NKF-ASK Task Force on Reassessing the Inclusion of Race in Diagnosing Kidney Disease, JASN 2020). The CKD-EPI equation should not be used for patients with unstable renal function and has not been validated in children and those over 70. Current interpretive data was last reviewed 2020. Blood 2024 11:3 8 AM JEWELRY APPRAISER 2024 11:41 AM JEWELRY APPRAISER us Suha CHUN LAB BLOOD ORDERABLES Arianne martinez Result [facility] ([place]) 1 [facility] Department [place] [address] * Differential, auto (2024 11:38 AM JEWELRY APPRAISER) Neutrophil abs 3.1 1.5 - 6.5 K/cumm Imm gran abs 0.0 0.0 - 0.1 K/cumm [facility] ([place]) Lymphocyte abs 0.9 0.8 - 3.3 K/cumm [facility] ([place]) Monocyte abs 0.7 0.2 - 0.8 K/cumm [facility] ([place]) Eosinophil abs 0.1 0.0 - 0.5 K/cumm [facility] ([place]) Basophil abs 0.0 0.0 - 0.1 K/cumm [facility] ([place]) Neutrophil pct 64.5 % [facility] ([place]) Comment: Interpretive Data Percent cell count reference ranges are not reported, since discordance with absolute values may lead to misinterpretation of CBC data. Current Interpretive Data was last revised on 2017. Imm gran pct 0.6 % [facility] ([place]) Comment: Interpretive Data Percent cell count reference ranges are not reported, since discordance with absolute values may lead to misinterpretation of CBC data. Current Interpretive Data was last revised on 2017. Lymphocyte pct 17.8 % [facility] ([place]) Comment: Interpretive Data Percent cell count reference ranges are not reported, since discordance with absolute values may lead to misinterpretation of CBC data. Current Interpretive Data was last revised on 2017. Monocyte pct 14.4 % [facility] ([place]) Comment: Interpretive Data Percent cell count reference ranges are not reported, since discordance with absolute values may lead to misinterpretation of CBC data. Current Interpretive Data was last revised on 2017. Eosinophil pct 2.1 % [facility] ([place]) Comment: Interpretive Data Percent cell count reference ranges are not reported, since discordance with absolute values may lead to misinterpretation of CBC data. Current Interpretive Data was last revised on 2017. Basophil pct 0.6 % [facility] ([place]) Comment: Interpretive Data Percent cell count reference ranges are not reported, since discordance with absolute values may lead to misinterpretation of CBC data. Current Interpretive Data was last revised on 2017. Blood 2024 11:3 8 AM JEWELRY APPRAISER 2024 11:42 AM JEWELRY APPRAISER us Suha CHUN LAB BLOOD ORDERABLES Arianne martinez Result [facility] ([place]) 1 [facility] Department [place] [address] * (ABNORMAL) Urinalysis reflex to microscopic and culture Urine (2024 11:38 AM JEWELRY APPRAISER) Color, ur Yellow Yellow Clarity, ur Turbid(A) Clear [facility] ([place]) Specific gravity, ur 1.031(H) 1.003 - 1.030 [facility] ([place]) pH, urine 6.0 [facility] ([place]) Comment: Interpretive Data ? Urine pH is affected by diet, medications, systemic acid-base disturbances, and renal tubular function. ??pH may affect urinary stone formation. ??For example, urine pH below 6.0 may help reduce the tendency for calcium phosphate stones and pH greater than 6.0 may reduce the tendency for uric acid stone formation. Source: [facility] [address] Current Interpretive Data was last revised on 2017 Protein, ur ql 1+(A) Negative [facility] ([place]) Glucose, ur ql Negative Negative [facility] ([place]) Ketones, ur 3+(A) Negative [facility] ([place]) Bilirubin, ur 1+(A) Negative [facility] ([place]) Blood, ur Trace(A) Negative [facility] ([place]) Urobilinogen, ur 2.0(A) <2.0 mg/dL [facility] ([place]) Nitrite, ur Negative Negative [facility] ([place]) Leukocyte esterase, ur 2+(A) Negative [facility] ([place]) UA reflex comment Reflex to microscopic UA will be performed. [facility] ([place]) Urine 2024 11:3 8 AM JEWELRY APPRAISER 2024 11:45 AM JEWELRY APPRAISER us Suha CHUN LAB MICROBIOLOGY - GENERA L ORDERABLES Final Result [facility] ([place]) 1 [facility] Department [place] [address] * (ABNORMAL) CBC with auto differential (2024 11:38 AM JEWELRY APPRAISER) WBC 4.8 3.8 - 9.9 K/cumm Hgb 14.1 11.9 - 15.5 g/dL [facility] ([place]) Hct 42.0 35.6 - 45.5 % [facility] ([place]) Plt 235 150 - 400 K/cumm [facility] ([place]) MPV 9.0(L) 9.1 - 12.3 fL [facility] ([place]) RBC 4.53 3.90 - 5.20 M/cumm [facility] ([place]) MCV 92.7 81.3 - 96.4 fL [facility] ([place]) MCH 31.1 27.1 - 33.3 pg [facility] ([place]) MCHC 33.6 32.3 - 35.7 g/dL [facility] ([place]) RDW CV 14.4 11.1 - 14.9 % [facility] ([place]) RDW SD 48.8(H) 35.7 - 48.1 fL [facility] ([place]) NRBC abs 0.00 0.00 - 0.01 K/cumm [facility] Blood (Blood, Venous) 2024 11:38 AM JEWELRY APPRAISER 2024 11:42 AM JEWELRY APPRAISER Suha CHUN LAB BLOOD ORDERABLES Arianne l Result Performing Organization Address City/[facility]/ZIP Co de Phone Number [facility] ([place]) 1 [facility] [address] [place] [address] * (ABNORMAL) Urinalysis, microscopic only (2024 11:38 AM JEWELRY APPRAISER) WBC, ur 6-10(A) 0 - 5 /HPF RBC, ur 0-2 0 - 2 /HPF [facility] ([place]) Epithelial cells, squamous, ur 6-10(A) 0 - 5 /HPF [facility] ([place]) Bacteria, ur 2+(A) [facility] ([place]) Mucous, ur Present(A) [facility] ([place]) Culture Reflex Comment Reflex conditions for urine culture (WBC >10) not met. [facility] ([place]) Urine 2024 11:3 8 AM JEWELRY APPRAISER 2024 11:45 AM JEWELRY APPRAISER Suha CHUN LAB URINE ORDERABLES Arianne l Result [facility] ([place] 1 [facility] Department of [address] [place] [address] * (ABNORMAL) D-dimer, quantitative (2024 11:38 AM JEWELRY APPRAISER) D-Dimer 591(H) <=499 ng/mL FEU [facility] ([place]) Comment: Interpretive data FDA approved the D-dimer, in conjunction with a low or moderate pretest probability score, to exclude venous thromboembolic events (VTE) (PE and DVT) in outpatients when the D-dimer result is < 500 ng/ml FEU. ?? Evidence supports using an age-adjusted D-dimer cut-off for outpatients older than 50 (age x 10) to improve specificity without sacrificing sensitivity. Example: age 68, VTE cut-off 680 ng/ml FEU. References; Maninder DUFFY et al. Brit Med J. 2013;346:f2492. Fidencio et al. Annals Int Med. 2015;163:701-11. Current interpretive data was last revised on 2018. Blood 2024 11:3 8 AM JEWELRY APPRAISER 2024 11:41 AM JEWELRY APPRAISER us Suha CHUN LAB BLOOD ORDERABLES Arianne martinez Result [facility] ([place] 1 [facility] Department [place] [address] * (ABNORMAL) Comprehensive metabolic panel (2024 11:38 AM JEWELRY APPRAISER) Sodium 127(L) 135 - 145 mmol/L Potassium, pl 3.9 3.3 - 4.9 mmol/L [facility] ([place] Chloride 92(L) 97 - 110 mmol/L [facility] ([place] CO2 22 22 - 32 mmol/L [facility]) Anion gap 14 2 - 15 mmol/L [facility] ([place]) BUN 9 6 - 25 mg/dL [facility] ([place]) Creatinine 0.61 0.60 - 1.10 mg/dL [facility] ([place]) Glucose 121 70 - 199 mg/dL [facility] ([place]) Comment: Interpretive Data Fasting glucose >/= 126 mg/dl is diagnostic for diabetes. ?? Fasting is defined as no caloric intake for at least 8 hours. Fasting glucose between 100 mg/dl to 125 mg/dl is diagnostic of prediabetes. In a patient with classic symptoms of hyperglycemia or hyperglycemic crisis, a random glucose >/= 200 mg/dl is diagnostic for diabetes. In the absence of unequivocal hyperglycemia, results should be confirmed by repeat testing. The classification and Diagnosis of Diabetes Diabetes Care 2021; 46: S19-S40. Current interpretive data was last revised 2022. Calcium 9.2 8.5 - 10.3 mg/dL [facility] ([place]) Bilirubin, total 0.3 0.1 - 1.2 mg/dL [facility] ([place]) Protein, pl 7.5 6.5 - 8.5 g/dL [facility] ([place]) Albumin 4.3 3.5 - 5.0 g/dL [facility] ([place]) Alk phos 117 40 - 130 Units/L [facility]) ALT 26 7 - 45 Units/L [facility] AST 23 10 - 45 Units/L [facility] ([place]) Blood 2024 11:3 8 AM JEWELRY APPRAISER 2024 11:41 AM JEWELRY APPRAISER Suha CHUN LAB BLOOD ORDERABLES Arianne l Result Performing Organization Address City/[facility] Co de Phone Number [facility] ([place]) 1 [facility] Department [place] [address] * ECG 12 lead (2024 11:13 AM JEWELRY APPRAISER) 2024 11:1 3 AM JEWELRY APPRAISER Narrative [facility] - 2024 12:34 PM JEWELRY APPRAISER Vent Rate: 117 bpm RR Interval: 509 msec [place] Interval: 161 msec QRS Duration: 82 msec QT Interval: 311 msec QTC Interval: 381 msec P-R-T [place]: 34 - 7 - 21 degrees IMPRESSION: SINUS TACHYCARDIA ABNORMAL RHYTHM ECG Electronically Signed By: Raudel Perla MD Suha CHUN ECG ORDERABLES Final Res ult [facility] Conductor [facility] * Diagnostic Mammogram Bilateral W Tim (12/27/2022 3:49 PM JEWELRY APPRAISER) Anatomical Region Laterality Modality Breast Bilateral Mammography 01/08/2023 11:5 5 AM JEWELRY APPRAISER Impressions 01/08/2023 11:55 AM JEWELRY APPRAISER 1. ??Unchanged probably benign 9 mm mass at the 12 o'clock position of the left breast (7 cm from nipple). ??Left breast diagnostic mammogram/ultrasound in 6 months is recommended to assess for continued stability. 2. ??The 10 mm oval circumscribed hypoechoic mass at the 10 o'clock position of the left breast (7 cm from nipple) has mildly increased since June 2021 (prior 6-7 mm). ??However, appearance of both mammogram and ultrasound suggests a probably benign etiology. ??This is favored to represent a complicated cyst or fibroadenoma. ??Attention on left breast diagnostic mammogram/ultrasound in 6 months is recommended. 3. ??Benign findings in the right breast as detailed above. ??No evidence of malignancy in the right breast on mammogram and targeted ultrasound. ??Screening mammogram of the right breast in one year is recommended. BI-RADS: 3 - Probably benign I discussed these findings and impression with the patient at the time of the examination. Electronically signed by: Baltazar Neff M.D. Narrative 01/08/2023 11:55 AM JEWELRY APPRAISER EXAMINATION: DIAGNOSTIC MAMMOGRAM BILATERAL W TIM, US BREAST BILATERAL LIMITED ORDERING HEALTHCARE PROVIDER: RAYNE CARRENO HISTORY: 42-year-old female presents for follow-up of a benign left breast mass and annual right screening mammogram. COMPARISON: ??Mammogram and ultrasound from 01/09/2022 and 07/08/2021. Mammogram only from 06/25/2021. TECHNIQUE: Full field CC, MLO, and LM views and spot compression CC and MLO views of the bilateral breasts were obtained with digital technique using breast tomosynthesis with C view. Computer aided detection was utilized. ??Limited ultrasound of the bilateral breasts was performed with grayscale and color Doppler. FINDINGS: BREAST DENSITY: The tissue of the bilateral breasts is heterogeneously dense, which may obscure small masses. MAMMOGRAM FINDINGS: ??There are multiple similar appearing round and oval masses with circumscribed margins present within both breasts. These masses are most consistent with benign entities based on their morphology, multiplicity, and bilaterality. ??Some of these masses have fluctuated in size compared with prior mammograms, suggesting benign fluctuating cysts. ?? These masses include a stable benign 9 mm mass at the 12-1 o'clock position of the left breast, middle depth, which was characterized as probably benign on prior diagnostic assessment. ??These masses also include a 10 mm mass at the 10 o'clock position of the left breast, middle depth, which has mildly increased in size since January 2022 (prior 6-7 mm). ??Within the right breast, this includes a 9 mm mass either central or slightly lateral to the nipple on the CC view, mid to posterior depth, which localizes to the 6-7 o'clock position based on tomosynthesis. ??This mass has perhaps slightly increased in size since June 2021. ??There are other similar/benign-appearing potential masses in the right breast, including a possible 9 mm mass located above the nipple on the MLO view, posterior depth, with possible correlate on the LM view, which localizes to the upper outer quadrant suggested by tomosynthesis. There is no dominant mass in either breast. ??There are no suspicious microcalcifications or architectural distortion in either breast. ULTRASOUND FINDINGS: ??Targeted ultrasound of the left breast at the 12 o'clock position, 7 cm from nipple demonstrates a 9 x 7 x 5 mm oval circumscribed mass with parallel orientation, no posterior acoustic shadowing or increased through transmission, and no evidence of internal blood flow on color Doppler. ??This mass has not suspiciously changed and remains probably benign. Targeted ultrasound of the left breast at the 10 o'clock position, 7 cm from nipple demonstrates a 10 x 9 x 6 mm oval circumscribed hypoechoic mass with parallel orientation, slight increased through transmission, and no evidence of internal blood flow on color Doppler. ??This corresponds with the described mammographic mass at the 10 o'clock position of the left breast, middle depth. Targeted ultrasound of the right breast at the 7 o'clock position, 7 cm from nipple demonstrates a 7 x 7 x 5 mm oval circumscribed anechoic mass with parallel orientation, increased through transmission, thin internal septations, and no evidence of internal blood flow on color Doppler. ??This represents a benign septated cyst and likely corresponds with the described right breast mammographic mass seen on the CC view. Targeted ultrasound of the upper outer quadrant of the right breast (centered at the 10 o'clock position, 9 cm from the nipple) demonstrates no definite sonographic correlate for the described potential mammographic mass in the upper outer quadrant of the right breast. ??Only normal breast tissue is seen at this location on today's ultrasound, suggesting benign focally dense tissue at this location on mammogram. Sonographic evaluation of the bilateral axillary regions demonstrates no evidence of suspicious axillary lymphadenopathy on either side. Rayne Carreno NP IMG MAMMO PROCEDURES Final R esult * ThinPrep Pap with HPV (05/17/2020 12:01 AM CDT) Pap test 05/17/2020 12:0 1 AM CDT 05/19/2020 9:58 AM CDT Narrative 05/24/2020 11:45 AM CDT [facility] Department of Pathology [address] [place] [address] Final Report with Addendum Patient Name: ??BEATA CABRALGUERA Brooks Address: ??[address] [place] [address], ?? [place], [place] ??[facility] Gender: ??F : ??1980 (Age: 40) Service: ??Laboratory Location: ??Lab Hospital #: ??[id number] Patient Type: ?? Ref Lab Taken: ??05/17/2020 Received: ??05/19/2020 Accessioned:: ??05/20/2020 Reported: ??05/24/2020 Physician(s): Dr. Cecilia Walker D.O. [facility] Diagnosis: Source of Specimen: ? Screening ThinPrep Imaged Pap w/HPV Specimen Adequacy: ?- Satisfactory for evaluation; endocervical/transformation zone component present General Category: ?- Negative for intraepithelial lesion or malignancy ?? SIMON Jaffe(ASCP) Report Electronically Reviewed and Signed Out By ??SIMON Jaffe(ASCP) ??05/24/2020 11:45:52 ??Addenda: HPV Test Interpretation NEGATIVE for types 16, 18, 31, 33, 35, 39, 45, 51, 52, 56, 58, 59, 66 and 68. Test performed utilizing Gen-Probe Aptima assay. ?? SIMON Alvarez(ASCP) ??Report Electronically Reviewed and Signed Out By ??SIMON Alvarez(ASCP) ??05/20/2020 13:02:55 ? Specimen(s) Received: A: Screening ThinPrep Imaged Pap w/HPV Clinical History: Last Menstrual Period: 04/22/2020 The Pap test is a screening test used to aid in the detection of cervical cancer and its precursors. ??It should not be the sole means by which malignant and premalignant lesions are diagnosed. ??Both false negative and false positive results may occur. ?? It also has poor sensitivity for the detection of endometrial lesions and should not be used to evaluate suspected endometrial abnormalities. ??For these reasons it is most important to obtain Pap tests at regular intervals. The performance characteristics of some immunohistochemical stains, fluorescence in-situ hybridization tests and immunophenotyping by flow cytometry cited in this report (if any) were determined by the Surgical Pathology Department at [facility] as part of an ongoing quality control assistant program and in compliance with federally mandated regulations drawn from the Clinical Laboratory Improvement Act of 1988 (CLIA '88). ??Some of these tests rely on the use of analyte specific reagents and are subject to specific labeling requirements by the US Food and Drug Administration. ??Such diagnostic tests may only be performed in a facility that is certified by the Department of Health and Human Services as a high complexity laboratory under CLIA '88. The FDA has determined that such clearance or approval is not necessary. ??This test is used for clinical purposes. ??It should not be regarded as investigational or for research. ??Nevertheless, federal rules concerning the medical use of analyte specific reagents require that the following disclaimer be attached to the report: This test was developed and its performance characteristics determined by the Surgical Pathology Department [facility]. ??It has not been cleared or approved by the U. S. Food and Drug Administration. Cecilia Walker DO LAB CYTOLOGY ORDERABLE S Final Result from Last 3 Months or Most Recently Relevant to Health Maintenance Insurance [facility] AETNA SIG [id number] Care Teams Diamond Sawer Relationship Specialty Start Date End Date Rayne Carreno NP [address] [place] [address] PCP - General Nurse Practitioner 09/29/20
--- OUTSIDE RECORDS SUMMARY | 2024-02-16 10:33 | XMS_ITS | Clinical Summary ---
Author Organization [facility] Address [address] [place] [address] Care Team Providers Care Van Cdl Driver Name Role Phone Unavailable Primary Care Provider Unavailabl e Source Comments [facility],non-owned Affiliates and Associated Physician Practices is amultiple site organization consisting of ambulatory clinics and hospital sitesin [place], [place], [place] and [place]. This disclosure is being madepursuant to the Care Everywhere program and may not contain all information available regarding this patient. Last updated 17.[facility] Allergies No known active allergies Medications * Be aware that medications may not be up to date on this document. Alwaysverify current medications with the patient. Medication Sig Dispensed Refills Start Date End Date Status multivitamin daily (THERAGRAN) tablet Take 1 Tab by mouth daily with food Active fluticasone propionate (FLONASE) 50 MCG/ACT nasal sprayIndications:Acute upper respiratory infection [place] 2 Sprays into each nostril once daily 1 Bottle 0 11/04/2015 Active Social History Tobacco Use Types Packs/Day Years Used Date Smoking Tobacco: Every Day Cigarettes Smokeless Tobacco: Never Sex and Gender Information Value Date Recorded Sex Assigned at Not on file Gender Identity Not on file Sexual Orientation Not on file Last Filed Vital Signs Vital Sign Reading Time Taken Comments Blood Pressure 114/72 10/06/2016 5:04 PM CDT Pulse 100 10/06/2016 5:04 PM CDT Temperature 37.1 ??C (98.7 ??F) 10/06/2016 5:04 PM CD T Respiratory Rate 18 11/04/2015 2:17 PM CDT Oxygen Saturation 96% 11/04/2015 2:17 PM CDT Inhaled Oxygen Concentration - - Weight 81.6 kg (180 lb) 10/06/2016 5:04 PM CDT Height 167.6 cm (5' 6 ) 10/06/2016 5:04 PM CDT Body Mass Index 29.05 10/06/2016 5:04 PM CDT Plan of Treatment Health Maintenance Due Date Last Done Comments LIPID TESTING 1980 MAMMOGRAM 1980 PAP SMEAR 1980 PNEUMOCOCCAL VACCINE (1 of 2 - PCV) 1987 HIV SCREENING 02/16/1996 HEPATITIS C SCREENING 02/11/1999 DTAP/TDAP/TD VACCINES (1 - Tdap) 02/16/2000 HEPATITIS B VACCINE (1 of 3 - 19+ 3-dose series) 02/16/2000 DEPRESSION SCREENING 02/05/2023 COVID-19 VACCINE (1 - 2023-2 5 season) 2023 INFLUENZA VACCINE (#1) 2023 ZOSTER VACCINE (1 of 2) 2031 HIB VACCINE Aged Out No longer eligi ble based on patient's age to complete this topic HPV VACCINE Aged Out No longer eligi ble based on patient's age to complete this topic MENINGOCOCCAL VACCINE Aged Out No gabo elen eligible based on patient's age to complete this topic
--- OUTSIDE RECORDS SUMMARY | 2024-02-16 10:33 | XMS_ITS | Encounter Summary ---
Author Organization [facility] Address [address] [place] [address] Care Team Providers Care Pole Incisor Operator Name Role Phone Rayne Carreno NP Primary Care Provider [phone] Reason for Visit * Diagnostic Imaging (Routine) - Closed Specialty Diagnoses / Procedures Referred By Kamilah hughes Referred To Contact Diagnoses Abnormal mammogram Procedures Diagnostic Mammogram Bilateral W Delores Diagnostic Mammogram Bilateral W [place] Screening Mammogram Bilateral W Delores Rayne Carreno NP [address] [place] [address] Phone: tel: fax: [address] [phone] Referral ID Status Reason Start Date Expiration Date Visits Re quested Visits Authorized [id number] Closed 12/27/2022 01/26/2024 1 1 Encounter Details Date Type Department Care Team (Latest Contact Info) Description 12/27/2022 3:30 PM AGRISCIENCE INSTRUCTOR - 12/27/2022 11:59 PM AGRISCIENCE INSTRUCTOR Hospital Encounter [facility] [address] [place] [id number] Screening mammogram, encounter for; Fibrocystic breast disease (FCBD), unspecified laterality; Abnormal mammogram Discharge Disposition: Discharge to home or self [...] Procedure Name Priority Date/Time Associated Diagnosis Comments DIAGNOSTIC MAMMOGRAM BILATERAL W DELORES Schedule Routine, Read Routine (OP Routine) 12/27/2022 3:49 PM AGRISCIENCE INSTRUCTOR Abnormal mammogram documented in this encounter Results * Diagnostic Mammogram Bilateral W Delores (12/27/2022 3:49 PM AGRISCIENCE INSTRUCTOR) Anatomical Region Laterality Modality Breast Bilateral Mammography 01/08/2023 11:5 5 AM AGRISCIENCE INSTRUCTOR Impressions 01/08/2023 11:55 AM AGRISCIENCE INSTRUCTOR 1. ??Unchanged probably benign 9 mm mass [...] Baltazar Neff M.D. Narrative 01/08/2023 11:55 AM AGRISCIENCE INSTRUCTOR EXAMINATION: DIAGNOSTIC MAMMOGRAM BILATERAL W DELORES, US BREAST BILATERAL LIMITED ORDERING HEALTHCARE PROVIDER: [...] NP IMG MAMMO PROCEDURES Final R esult documented in this encounter Visit Diagnoses Diagnosis Screening mammogram, encounter for Fibrocystic breast disease (FCBD), unspecified laterality Abnormal mammogram Abnormal mammogram, unspecified documented in this encounter Care Teams Pole Incisor Operator Relationship Specialty Start Date End Date Rayne Carreno NP [address] [place] [address] PCP - General Nurse Practitioner 09/29/20 documented as of this encounter
--- OUTSIDE RECORDS SUMMARY | 2024-02-16 10:33 | XMS_ITS | Encounter Summary ---
Author Organization [facility] Address [address] [place] [address] Care Team Providers Care Buffer Machine Name Role Phone Unavailable Primary Care Provider Unavailabl e Reason for Visit * Reason Onset Date Comments Follow-up 11/06/2015 Encounter Details Date Type Department Care Team (Late st Contact Info) Description 11/06/2015 Telephone [facility] [facility] [address] [place] [phone] Kylah Weller, MACHINE MAINTENANCE TECHNICIAN-[facility] [address] [place] [phone] Follow-up Social History Tobacco Use Types Packs/Day Years Used Date Smoking Tobacco: Every Day Cigarettes Sex and Gender Information Value Date Recorded Sex Assigned at Not on file Gender Identity Not on file Sexual Orientation Not on file documented as of this encounter Plan of Treatment Not on file documented as of this encounter Visit Diagnoses Not on filedocumented in this encounter
--- OUTSIDE RECORDS SUMMARY | 2024-02-16 10:33 | XMS_ITS | Encounter Summary ---
Author Organization [facility] Healthcare Address [address] [place] [address] Care Team Providers Care Model Maker Apprentice Name Role Phone Rayne Carreno NP Primary Care Provider [phone] Reason for Visit * Diagnostic Imaging (Routine) - Closed Specialty Diagnoses / Procedures Referred By Contbryan t Referred To Contact Diagnoses Diffuse cystic mastopathy of breast, unspecified laterality Other abnormal and inconclusive findings on diagnostic imaging of breast Procedures US Breast Bilateral Limited US Breast Bilateral Complete US Breast Bilateral Complete Rayne Carreno NP [address] [place] [address] Phone: tel: fax: [address] [phone] Referral ID Status Reason Start Date Expiration Date Visits Re quested Visits Authorized [id number] Closed 07/21/2022 08/20/2023 1 1 Encounter Details Date Type Department Care Team (Latest Contact Info) Description 01/08/2023 9:52 AM [employer] - 01/08/2023 11:59 PM [employer] Hospital Encounter [facility] [address] [place] [address] Diffuse cystic mastopathy of breast, unspecified laterality; Other abnormal and inconclusive findings on diagnostic imaging of breast Discharge Disposition: Discharge to home or self [...] Priority Date/Time Associated Diagnosis Comments US BREAST BILATERAL LIMITED Schedule Routine, Read Routine (OP Routine) 01/08/2023 11:03 AM [employer] Diffuse cystic mastopathy of breast, unspecified laterality Other abnormal and inconclusive findings on diagnostic imaging of breast documented in this encounter Results * US Breast Bilateral Limited (01/08/2023 11:03 AM [employer]) Anatomical Region Laterality Modality Breast Bilateral Ultrasound 01/08/2023 11:5 5 AM [employer] Impressions 01/08/2023 11:55 AM [employer] 1. ??Unchanged probably benign 9 mm mass [...] Baltazar Neff M.D. Narrative 01/08/2023 11:55 AM [employer] EXAMINATION: DIAGNOSTIC MAMMOGRAM BILATERAL W DELORES, US [...] documented in this encounter Visit Diagnoses Diagnosis Diffuse cystic mastopathy of breast, unspecified laterality Other abnormal and inconclusive findings on diagnostic imaging of breast documented in this encounter Care Teams Model Maker Apprentice Relationship Specialty Start Date End Date Rayne Carreno NP [address] [place] [address] PCP - General Nurse Practitioner 09/29/20 documented as of this encounter
--- OUTSIDE RECORDS SUMMARY | 2024-02-16 10:33 | XMS_ITS | Encounter Summary ---
Author Organization [facility] Medical Group Address [address] [place] [address] Care Team Providers Care Naturopathic Doctor Name Role Phone No, Physician Primary Care Provider [phone] Reason for Visit * Reason Comments Sinus Problem The patient is havin g congestion, cough, ears feel stuffy, and drainage. It has been going on for a week and a half. Encounter Details Date Type Department Care Team (Late st Contact Info) Description 09/30/2017 10:30 AM CDT Office Visit [facility] [address] [place] [address] Sia Jose, NATALIO [address] [facility] [place] [address] Acute non-recurrent maxillary sinusitis (Primary Dx); Upper respiratory tract infection, unspecified type Social History Tobacco Use Types Packs/Day Years Used Date Smoking Tobacco: Every Day Cigarettes Smokeless Tobacco: Never Comments Unknown Sex and Gender Information Value Date Recorded Sex Assigned at Not on file Legal Sex Female 7:08 PM CDT Gender Identity Not on file Sexual Orientation Not on file documented as of this encounter Last Filed Vital Signs Vital Sign Reading Time Taken Comments Blood Pressure 124/82 09/30/2017 10:31 AM CDT Pulse 86 09/30/2017 10:31 AM CDT Temperature 36.6 ??C (97.9 ??F) 09/30/2017 10:31 AM C DT Respiratory Rate 16 09/30/2017 10:31 AM CDT Oxygen Saturation 98% 09/30/2017 10:31 AM CDT Inhaled Oxygen Concentration - - Weight 81.6 kg (180 lb) 09/30/2017 10:31 AM CDT Height 167.6 cm (5' 6 ) 09/30/2017 10:31 AM CDT Body Mass Index 29.05 09/30/2017 10:31 AM CDT documented in this encounter Patient Instructions * Patient Instructions* Sia Cooper NP - 09/30/2017 10:30 AM CDT Complete any medications as prescribed You will need to take OTC medications Mucinex for chest congestion Sudafed for nasal/head congestion Zyrtec for nasal drainage Flonase for sinuses Dayquil/Delysm for cough Tylenol/Motrin for fever Drink plenty of fluids to stay hydrated Get plenty of rest If your symptoms worsen or you experience shortness of breath, RTC or go to ER. If you have been prescribed any medications, take them as directed documented in this encounter Ordered Prescriptions Prescription Sig Dispense Quantity Refills Last Filled Start Date End Date amoxicillin-clavul anate (AUGMENTIN) 875-125 mg per tabletIndications: Acute non-recurrent maxillary sinusitis,Upper respiratory tract infection, unspecified type Take 1 tablet by mouth 2 (two) times a day for 10 days. 20 tablet 09/30/2017 10/10/2017 documented in this encounter Progress Notes * Sia Cooper NP - 09/30/2017 10:30 AM CDT Subjective/Objective Patient ID: Radha Cabral is a 37 y.o. female. Chief Complaint Sinus Problem (The patient is having congestion, cough, ears feel stuffy, and drainage. It has beengoing on for a week and a half.) Presents to clinic for cough, sinus pressure, left ear hurts, face hurts, chest hurts, runny nose. She has taken zyrtec, flonase, alkaseltzer cold, thera flu, tylenol cold. Symptoms started about 10 days ago. Sinus Problem This is a new problem. The current episode started 1 to 4 weeks ago. The problem has been graduallyworsening since onset. There has been no fever. Associated symptoms include congestion, coughing, ear pain, headaches, sinus pressure and a sore throat. Past treatments include spray decongestants. The treatment provided no relief. Review of Systems Constitutional: Positive for fatigue. HENT: Positive for congestion, ear pain, postnasal drip, rhinorrhea, sinus pain, sinus pressure andsore throat. Eyes: Negative. Respiratory: Positive for cough and chest tightness. Cardiovascular: Negative. Musculoskeletal: Negative. Skin: Negative. Neurological: Positive for headaches. Psychiatric/Behavioral: Negative. Physical Exam Constitutional: She is oriented to person, place, and time. She appears well- developed and well-nourished. HENT: Right Ear: Hearing, tympanic membrane, external ear and ear canal normal. Left Ear: Hearing, tympanic membrane, external ear and ear canal normal. Nose: Mucosal edema present. Right sinus exhibits maxillary sinus tenderness. Left sinus exhibits maxillary sinus tenderness. Mouth/Throat: Posterior oropharyngeal erythema present. Eyes: Conjunctivae are normal. Cardiovascular: Normal rate and regular rhythm. Pulmonary/Chest: Effort normal. She has rhonchi in the right lower field and the left lower field. Congested cough Lymphadenopathy: She has no cervical adenopathy. Neurological: She is alert and oriented to person, place, and time. GCS eye subscore is 4. GCS verbal subscore is 5. GCS motor subscore is 6. Skin: Skin is warm and dry. Psychiatric: She has a normal mood and affect. Vitals: 09/30/17 1031 BP: 124/82 BP Location: Right arm Patient Position: Sitting Pulse: 86 Resp: 16 Temp: 36.6 ??C (97.9 ??F) TempSrc: Oral SpO2: 98% Weight: 81.6 kg (180 lb) Height: 167.6 cm (5' 6 ) Assessment/Plan Complete any medications as prescribed You will need to take OTC medications Mucinex for chest congestion Sudafed for nasal/head congestion Zyrtec for nasal drainage Flonase for sinuses Dayquil/Delysm for cough Tylenol/Motrin for fever Drink plenty of fluids to stay hydrated Get plenty of rest If your symptoms worsen or you experience shortness of breath, RTC or go to ER. If you have been prescribed any medications, take them as directed Diagnoses and all orders for this visit: Acute non-recurrent maxillary sinusitis (Primary) - amoxicillin-clavulanate (AUGMENTIN) 875-125 mg per tablet; Take 1 tablet by mouth 2 (two) times aday for 10 days. Upper respiratory tract infection, unspecified type - amoxicillin-clavulanate (AUGMENTIN) 875-125 mg per tablet; Take 1 tablet by mouth 2 (two) times aday for 10 days. Disposition- Discussed medications dosages, usage & potential side effects. Risks and interactions reviewed with patient. Indications for testing reviewed. Patient has been instructed to follow up w PCP or go to ER for any signs or symptoms that are of concern or worsening. Patient verbalizes understanding. The patient was given the opportunity to ask all questions and to have all questions answered. Patient is in agreement with the plan of care Sia Cooper NP documented in this encounter Plan of Treatment Not on file documented as of this encounter Visit Diagnoses Diagnosis Acute non-recurrent maxillary sinusitis- Primary Upper respiratory tract infection, unspecified type documented in this encounter Historical Medications * This list may reflect changes made after this encounter. fluticasone (FLONASE) 50 mcg/actuation nasal spray Administer 2 sprays into each nostril 11/04/2015 added in this encounter Care Teams Naturopathic Doctor Relationship Specialty Start Date End Date No, Physician PCP - General 08/24/17 09/28/20 documented as of this encounter
--- OUTSIDE RECORDS SUMMARY | 2024-02-16 10:33 | XMS_ITS | Encounter Summary ---
Author Organization [facility] Medical [facility] Address [address] [place] [address] Care Team Providers Care Chemical Plant Operator Supervisor Name Role Phone No, Physician Primary Care Provider [phone] Reason for Visit * Reason Comments New Patient Annual Exam Encounter Details Date Type Department Care Team (Late st Contact Info) Description 05/17/2020 3:45 PM CDT Office Visit [facility] Obstetrical Gynecology [address] [place] [address] Cecilia Walker DO [address] [place] [address] Well woman exam with routine gynecological exam (Primary Dx); Encounter for screening mammogram for breast cancer Social History Tobacco Use Types Packs/Day Years [...] Sign Reading Time Taken Comments Blood Pressure 124/84 05/17/2020 3:46 PM CDT Pulse - - Temperature - - Respiratory Rate - - Oxygen Saturation - - Inhaled Oxygen Concentration - - Weight 105.5 kg (232 lb 9.6 oz) 05/17/2020 3:46 PM CDT Height - - Body Mass Index 37.54 09/30/2017 10:31 AM CDT documented in this encounter Progress Notes * Cecilia Walker DO - 05/17/2020 3:45 PM CDT Images from the original note were not included. Well Woman Exam CHIEF COMPLAINT New Patient and Annual Exam Subjective: Rickey Villanueva is a 40 y.o. year old female who presents for a well woman exam. Health Maintenance: Pap smear: 03/03/2016 wnl neg hpv HPI: Menses: regular control: none Vaginal Discharge/Itching: No Concerns for exposure to STDs: No Do you feel threatened at home, school, work, or socially: No Does self breast exams: Yes, occasionally Urinary Problems:No Breast complaints: No During the past month: Have you often been bothered by feeling down, depressed, hopeless or anxious? No Have you often been bothered by little interest or pleasure in doing things? No OB History: Social history: reports that she has been smoking. She has been smoking about 0.50 packs per day. She has never used smokeless tobacco. has no history on file for alcohol use. reports no history of drug use. reports previously being sexually active. Past medical history: History reviewed. No pertinent past medical history. Past surgical history: Past Surgical History: Procedure Laterality Date ??? GALLBLADDER SURGERY 03/2020 Family history: Family History Problem Relation Age of Onset ??? Ovarian cancer Maternal Grandmother ??? COPD Father ??? Hypertension Mother ??? Breast cancer Neg Hx Allergies: No Known Allergies Medications: Current Outpatient Medications Medication ??? escitalopram (LEXAPRO) 10 mg tablet ??? fluticasone (FLONASE) 50 mcg/actuation nasal spray ??? ibuprofen (ADVIL,MOTRIN) 800 mg tablet No current facility-administered medications for this visit. Review of Systems: Review of Systems Constitutional: Negative for appetite change, chills, diaphoresis, fatigue and fever. Eyes: Negative for visual disturbance. Respiratory: Negative for cough and shortness of breath. Cardiovascular: Negative for chest pain. Gastrointestinal: Negative for abdominal distention, abdominal pain, blood in stool, constipation, diarrhea, nausea and vomiting. Endocrine: Negative for polyuria. Genitourinary: Negative for dyspareunia, dysuria, frequency, hematuria, pelvic pain, urgency and vaginal discharge. Musculoskeletal: Negative for back pain. Skin: Negative for rash. Neurological: Negative for dizziness, syncope, light-headedness and headaches. Psychiatric/Behavioral: Negative for self-injury, sleep disturbance and suicidal ideas. The patientis not nervous/anxious. Breast: Negative for tenderness, breast discharge and lump(s). Objective: BP 124/84 Wt 232 lb 9.6 oz (105.5 kg) LMP 04/22/2020 BMI 37.54 kg/m?? Physical Exam General Examination: GENERAL APPEARANCE: well developed, well nourished, in no acute distress. HEAD: atraumatic, normocephalic. NECK/THYROID: thyroid normal, neck supple. LYMPH NODES: no neck, supraclavicular or inguinal adenopathy. HEART: no murmurs, regular rate and rhythm. LUNGS: clear to auscultation bilaterally, good air movement. BREASTS: no masses palpable bilaterally, symmetrical, visually normal. ABDOMEN: no masses palpable, soft, nontender, nondistended, no hernias present. NEUROLOGIC: cranial nerves 2-12 grossly intact. PSYCH: alert, oriented, judgement and insight good, mood/affect normal. Gynecological: EXTERNAL GENITALIA: no lesions, no erythema, no evidence of trauma. URETHRAL MEATUS: normal. URETHRA: nontender, no masses. BLADDER: nontender, no masses. VAGINA: normal mucosa, without lesions or abnormal discharge CERVIX: nontender, without palpable mass. UTERUS: normal size, shape and consistency, normal mobility, nontender. ADNEXA: no masses or tenderness bilaterally. ANUS: not examined. RECTAL: not examined. Assessment and Plan: Assessment/Plan Diagnoses and all orders for this visit: Well woman exam with routine gynecological exam (Z01.419) (Primary) - ThinPrep Pap with HPV; Future Rickey Villanueva is a 40 y.o. female who presents for a well woman exam: 1. WWE: a. Pap collected: Performed b. Clinical breast exam wnl. Encouraged breast self awareness. Recommendations for screening mammography reviewed. Mammogram ordered to be done after the pt turns 41. c. STD testing patient declined d. Diet and exercise discussed 2. Contraception: a. none 3. RTC q1-2y for WWE documented in this encounter Plan of Treatment Pending Results Name Type Priority Associated Diagnoses Date /Time ThinPrep Pap with HPV Pathology and Cytology Routine Well woman exam with routine gynecological exam 05/17/2020 12:01 AM CDT Scheduled Orders Name Type Priority Associated Diagnoses Orde r Schedule ThinPrep Pap with HPV Pathology and Cytology Routine Well woman exam with routine gynecological exam 1 Occurrences starting 05/17/2020 until 05/17/2021 documented as of this encounter Procedures Procedure Name Priority Date/Time Associated Diagnosis Comments THINPREP PAP WITH HPV Routine 05/17/2020 12:01 AM CDT Well woman exam with routine gynecological exam documented in this encounter Results * ThinPrep Pap with HPV (05/17/2020 12:01 AM CDT) Pap test 05/17/2020 12:0 1 AM CDT 05/19/2020 9:58 AM CDT Narrative 05/24/2020 11:45 AM CDT [facility] Department of Pathology [address] [place], [place] [id number] Final Report with Addendum Patient Name: ??RICKEY VILLANUEVA Todd Address: ??[address] [place] [address], ?? [place], [place] ??[facility] Gender: ??F : ??1980 (Age: 40) Service: ??Laboratory Location: ??Lab Hospital #: ??[id number] Patient Type: ?? Ref Lab Taken: ??05/17/2020 Received: ??05/19/2020 Accessioned:: ??05/20/2020 Reported: ??05/24/2020 Physician(s): [facility] Diagnosis: Source of Specimen: ? Screening ThinPrep [...] by the Surgical Pathology Department at [facility] as part of an ongoing production quality analyst program and in compliance with federally mandated [...] characteristics determined by the Surgical Pathology Department [facility]. ??It has not been cleared or approved by the U. S. Food and Drug Administration. us Cecilia Walker DO LAB CYTOLOGY ORDERABLE S Final Result documented in this encounter Visit Diagnoses Diagnosis Well woman exam with routine gynecological exam- Primary Routine gynecological examination Encounter for screening mammogram for breast cancer documented in this encounter Historical Medications * This list may reflect changes made after this encounter. escitalopram (LEXAPRO) 10 mg tablet escitalopram 10 mg tablet TAKE 1 TABLET BY MOUTH EVERY DAY ibuprofen (ADVIL,MOTRIN) 800 mg tablet 800 mg 3 (three) times a day 01/15/2017 added in this encounter Care Teams Chemical Plant Operator Supervisor Relationship Specialty Start Date End Date No, Physician PCP - General 08/24/17 09/28/20 documented as of this encounter
--- OUTSIDE RECORDS SUMMARY | 2024-02-16 10:33 | XMS_ITS | Encounter Summary ---
Author Organization [facility] Healthcare Address [address] [place] [address] Care Team Providers Care Environmental Services Lead Name Role Phone Roach, Rayne King NP Primary Care Provider [phone] Encounter Details Date Type Department Care Team (Late st Contact Info) Description 01/16/2022 1:10 PM SANITARY LANDFILL SUPERVISOR Ancillary Procedure [facility] Outside Films Social History Tobacco Use Types Packs/Day Years [...] Name Priority Date/Time Associated Diagnosis Comments US TRANSFER OF OUTSIDE FILMS Routine 01/16/2022 1:08 PM SANITARY LANDFILL SUPERVISOR documented in this encounter Results * US Outside Reference (01/16/2022 1:08 PM SANITARY LANDFILL SUPERVISOR) Narrative [facility] - 01/16/2022 1:08 PM SANITARY LANDFILL SUPERVISOR This order has been auto-finalized and does not contain a result. us Not In File Miscellaneous IMG US PROCEDURES Arianne martinez Result [facility] documented in this encounter Visit Diagnoses Not on filedocumented in this encounter Care Teams Environmental Services Lead Relationship Specialty Start Date End Date Rayne Roach NP [address] [place] [address] PCP - General Nurse Practitioner 09/29/20 documented as of this encounter
--- OUTSIDE RECORDS SUMMARY | 2024-02-16 10:33 | XMS_ITS | Encounter Summary ---
Author Organization [facility] Medical Group Address [address] [place] [address] Care Team Providers Care Pan Tank Worker Name Role Phone Rayne Roach NP Primary Care Provider [phone] Reason for Visit * Reason Comments Cyst Back Encounter Details Date Type Department Care Team (Late st Contact Info) Description 10/13/2020 2:30 PM CDT Procedure visit [facility] [address] [facility] [address] [place] [phone] EyersJacqueline NP [address] [facility] [address] [place] [address] Epidermoid cyst (Primary Dx); Pilonidal cyst Social History Tobacco Use Types Packs/Day Years [...] Sign Reading Time Taken Comments Blood Pressure 149/81 10/13/2020 3:04 PM CDT Pulse 100 10/13/2020 3:04 PM CDT Temperature 36.3 ??C (97.3 ??F) 10/13/2020 3:04 PM CD T Respiratory Rate - - Oxygen Saturation 95% 10/13/2020 3:04 PM CDT Inhaled Oxygen Concentration - - Weight 94.8 kg (209 lb) 10/13/2020 3:04 PM CDT Height 167.6 cm (5' 6 ) 10/13/2020 3:04 PM CDT Body Mass Index 33.73 10/13/2020 3:04 PM CDT documented in this encounter Procedure Notes * Jacqueline Jalloh NP - 10/13/2020 2:30 PM CDT Procedures Excision Procedure Note Patient: Rickey Villanueva 1980 Date: 11/30/2020 Anesthesia: Local anesthesia 1% lidocaine, with epinephrine epidermoid Location: Right trapezius, right mid-back epidermoid Size: Right trap- 1cm, Right mid-back- 1.2cm Suture: 3-0 vicryl, 4-0 monocryl Procedure Details The risks, benefits, complications, treatment options, and expected outcomes were discussed with the patient. The possibilities of reaction to medication, bleeding, infection, scarring, the need for additional procedures, and creating an unanticipated operative complication were discussed with the patient. The patient concurred with the proposed plan, giving informed consent. The site of surgery was properly noted/marked. A Time Out was held and the above information confirmed. The patient was placed lying prone. The right trapezius and right mid back areas were prepped and draped in standard fashion. One percent Lidocaine with epinephrine was used to anesthetize the skin surrounding both cysts. An eliptical incision was made over the lesions. Sharp and blunt dissection were used to mobilize the mass which was in a subcutaneous location. Hemostasis was achieved with suture closure, and pressure. Closure was achieved a with layered closure utilizing a 3-0 deep dermal closure, and a superficial 4-0 skin closure. A sterile dressing was applied. Estimated Blood Loss: Minimal Drains: None Specimens: 2 Complications: None; patient tolerated the procedure well. documented in this encounter Plan of Treatment Not on file documented as of this encounter Results * Surgical pathology (10/13/2020 9:59 AM CDT) Tissue (Cyst NOS) 10/13/2020 9:59 AM CDT 10/15/2020 9:59 AM CDT Narrative PATHOLOGY [facility] ([facility]) - 10/18/2020 1:40 PM CDT EPIC results best viewed via link to PDF [facility] Department of Pathology [address] [place] [id number] Note to Patients: This report may contain a detailed description of human tissue sent by a health care provider to the laboratory for pathologic evaluation. The content of this report is essential for diagnosis and may provide important critical findings. This information may be unfamiliar to patients to review without a medical professional present. It is advised that the patient review this report in the presence of a health care provider who can answer questions and explain the details. Final Report Patient Name: ??RICKEY VILLANUEVA Address: ??[address] [place] [address], ??[place], [place] ??[facility] Gender: ??F : ??1980 (Age: 40) Service: ??Laboratory Location: ??Lab Hospital #: ??[id number] Patient Type: ?? Ref Lab Accession # ?[id number] Taken: ??10/13/2020 Received: ??10/15/2020 Accessioned: ??10/15/2020 Reported: ??10/18/2020 Physician(s):MELANIA Corado Diagnosis: Skin, upper right back and mid right back, excision: ? -Epidermoid inclusion cyst (? ? 2). Catalina Del Cid M.D. Report Electronically Reviewed and Signed Out By ??Catalina Loredo M.D. ??10/18/2020 13:40:09 Specimen(s) Received: A: Upper right back cyst, mid right back cyst Microscopic Description: Microscopic examination of skin and soft tissue from the right upper and mid right back show an epidermoid inclusion cyst with the larger cysts showing focal areas of rupture with an associated foreign body type giant cell reaction. Clinical History: Epidermoid cyst Procedure: skin, excision Gross Description: The specimen is submitted in a single container labeled Rickey Villanueva and upper right back cyst, mid right back cyst . ??It is two intact cysts with henry waxy contents measuring 1.0 and 1.5 cm. ??Respectively they have an attached ellipse of pink-henry skin measuring 1.1 and 2.0 cm that is unremarkable. ??Represented in one cassette. ??Catalina Del Cid M.D./Hermila Durham REPORT IMAGES AND SCANNED DOCUMENTS, IF INCLUDED, ONLY VIEWABLE IN PDF VERSION OF REPORT The performance characteristics of some immunohistochemical stains, fluorescence in-situ hybridization tests and immunophenotyping by flow cytometry cited in this report (if any) were determined by the Surgical Pathology Department at [facility] as part of an ongoing quality review specialist program and in compliance with federally mandated [...] characteristics determined by the Surgical Pathology Department [facility]. ??It has not been cleared or approved by the U. S. Food and Drug Administration. Jacqueline Jalloh NP LAB PATHOLOGY ORDERABLES Final R esult PATHOLOGY [facility] [address] [place] [address] documented in this encounter Visit Diagnoses Diagnosis Epidermoid cyst- Primary Sebaceous cyst Pilonidal cyst Epidermoid cyst Sebaceous cyst documented in this encounter Care Teams Pan Tank Worker Relationship Specialty Start Date End Date Rayne Roach NP [address] [place] [address] PCP - General Nurse Practitioner 09/29/20 documented as of this encounter
--- OUTSIDE RECORDS SUMMARY | 2024-02-16 10:33 | XMS_ITS | Encounter Summary ---
Author Organization [facility] Healthcare Address [address] [place] [address] Care Team Providers Care Assessment Technician Name Role Phone Roach, Rayne King NP Primary Care Provider Encounter Details Date Type Department Care Team (Late st Contact Info) Description 01/16/2022 1:10 PM AIDS NURSE Ancillary Procedure [facility] Outside Films Social History [...] Procedure Name Priority Date/Time Associated Diagnosis Comments BREAST IMAGING OUTSIDE REFERENCE Routine 01/16/2022 1:06 PM AIDS NURSE documented in this encounter Results * Breast Imaging Outside Reference (01/16/2022 1:06 PM AIDS NURSE) Narrative [facility] - 01/16/2022 1:06 PM AIDS NURSE This order has been auto-finalized and does not contain a result. us Not In File Miscellaneous IMG MAMMO PROCEDURES F inal Result [facility] documented in this encounter Visit Diagnoses Not on filedocumented in this encounter Care Teams Assessment Technician Relationship Specialty Start Date End Date Rayne Roach NP [address] [place] [address] PCP - General Nurse Practitioner 09/29/20 documented as of this encounter
--- OUTSIDE RECORDS SUMMARY | 2024-02-16 10:33 | XMS_ITS | Clinical Summary ---
Author Organization [facility] Address [address] [place] [address] Phone Care Team Providers Care Pricer Bagger Name Role Phone Provider, None Primary Care Provider Unavailabl e Allergies No known active allergies Medications AMOXICILLIN PO Take by mouth. Active Immunizations Immunization Administration Dates Next Due RHO D IG FULL DOSE 300 MCG IM 12/27/2016 Social History Tobacco Use Types Packs/Day Years Used Date Smoking Tobacco: Never Smokeless Tobacco: Never Alcohol Use Standard Drinks/Week Comments No 0 (1 standard drink = 0.6 oz pur e alcohol) Comments Unknown Sex and Gender Information Value Date Recorded Sex Assigned at Not on file Legal Sex Female 7:52 PM CDT Gender Identity Not on file Sexual Orientation Not on file Last Filed Vital Signs Vital Sign Reading Time Taken Comments Blood Pressure 130/72 12/27/2016 11:30 PM FLARE MAN Pulse 88 12/27/2016 11:30 PM FLARE MAN Temperature 36.7 ??C (98 ??F) 12/27/2016 7:10 PM FLARE MAN Respiratory Rate 17 12/27/2016 7:10 PM FLARE MAN Oxygen Saturation 100% 12/27/2016 11:30 PM FLARE MAN Inhaled Oxygen Concentration - - Weight 79.4 kg (175 lb) 12/27/2016 7:10 PM FLARE MAN Height 167.6 cm (5' 6 ) 12/27/2016 7:10 PM FLARE MAN Body Mass Index 28.25 12/27/2016 7:10 PM FLARE MAN Plan of Treatment Health Maintenance Due Date Last Done Comments Hepatitis C Virus (HCV) Screening 1981 TdaP Immunization 1981 Hepatitis B Immunization (1 of 3 - 19+ 3-dose series) 02/16/2000 Pap Smear 2002 Cervical Cancer Screening (CCS) 2011 HPV/Cotest 2011 Discussion re Starting/Frequ ency of Mammograms 2021 Influenza Immunization (#1) 2023 SARS-COV-2 Immunization ( season) 2023 Respiratory Syncytial Virus (RSV) Immunization (Adult) (1 - 1-dose 75+ series) 02/16/2056 Meningococcal Immunization (ACWY) Aged Out No longer eligible based on patient's age to complete this topic Pneumococcal Immunization Combined Aged Out No longer eligible based on patient's age to complete this topic Rotavirus Immunization Aged Out No lo nger eligible based on patient's age to complete this topic Insurance [facility] Care Teams Pricer Bagger Relationship Specialty Start Date End Date Provider, None [place] PCP - General 12/27/16
--- OUTSIDE RECORDS SUMMARY | 2024-02-16 10:33 | XMS_ITS | Referral Summary ---
Author Organization [facility] Address [address] [place] [address] Care Team Providers Care Head Mva Reactor Operator Name Role Phone Unavailable Primary Care Provider Unavailabl e Source Comments [facility],non-owned Affiliates and Associated Physician Practices is amultiple site organization consisting of ambulatory clinics and hospital sitesin [place], [place], [place] and [place]. This disclosure is being madepursuant to the Care Everywhere program and may not contain all information available regarding this patient. Last updated 17.[facility] Allergies No known active allergies Medications * Be aware that medications may not be up to date on this document. Alwaysverify current medications with the patient. Medication Sig Dispensed Refills Start Date End Date Status multivitamin daily (THERAGRAN) tablet Take 1 Tab by mouth daily with food Active fluticasone propionate (FLONASE) 50 MCG/ACT nasal sprayIndications:Acute upper respiratory infection [place] 2 Sprays into each nostril once daily [...] 10/06/2016 5:04 PM CDT Plan of Treatment Not on file
--- OUTSIDE RECORDS SUMMARY | 2024-02-16 10:33 | XMS_ITS | Encounter Summary ---
Author Organization [facility] Healthcare Address [address] [place] [id number] Care Team Providers Care Typer Name Role Phone Roach, Rayne King NP Primary Care Provider [phone] Encounter Details Date Type Department Care Team (Late st Contact Info) Description 07/08/2021 Ancillary Procedure [facility] Outside Films Social History [...] Diagnosis Comments BREAST IMAGING OUTSIDE REFERENCE Routine 07/08/2021 12:00 AM CDT documented in this encounter Results * Breast Imaging Outside Reference (07/08/2021 12:00 AM CDT) Narrative [facility] - 01/23/2022 12:03 PM [facility]ILITY PSYCHIATRIST This order has been auto-finalized and does not contain a result. us Not In File Miscellaneous IMG MAMMO PROCEDURES F inal Result [facility] documented in this encounter Visit Diagnoses Not on filedocumented in this encounter Care Teams Typer Relationship Specialty Start Date End Date Rayne Roach NP [address] [place] [address] PCP - General Nurse Practitioner 09/29/20 documented as of this encounter
--- OUTSIDE RECORDS SUMMARY | 2024-02-16 10:33 | XMS_ITS | Encounter Summary ---
Author Organization [facility] Address [address] [place] [address] Care Team Providers Care Wire Loop Machine Operator Name Role Phone Unavailable Primary Care Provider Unavailabl e Reason for Visit * Reason Comments Ear Pain Ear Problem Encounter Details Date Type Department Care Team (Late st Contact Info) Description 10/06/2016 4:40 PM CDT Office Visit [facility] AT [address] [id number] Provider, John Ramos [facility] Acute suppurative otitis media of left ear without spontaneous rupture of tympanic membrane, recurrence not specified (Primary Dx) Social History Tobacco Use Types [...] 10/06/2016 5:04 PM CD T Respiratory Rate - - Oxygen Saturation - - Inhaled Oxygen Concentration - - Weight 81.6 kg (180 lb) 10/06/2016 5:04 PM CDT Height 167.6 cm (5' 6 ) 10/06/2016 5:04 PM CDT Body Mass Index 29.05 10/06/2016 5:04 PM CDT documented in this encounter Patient Instructions * Patient Instructions* Kylah Weller APRN-CNP - 10/06/2016 5:12 PM CDT Otitis Media, Spray Painter GENERAL INFORMATION: Otitis media is an ear infection. Common symptoms include the following: ?? Fever or a headache ?? Ear pain ?? Trouble hearing ?? Ear feels plugged or full or you have ringing or buzzing in your ear ?? Dizziness or you lose your balance ?? Nausea or vomiting Seek immediate care for the following symptoms: ?? Seizure ?? Fever and a stiff neck Treatment for otitis media may include any of the following: ?? NSAIDs , such as ibuprofen, help decrease swelling, pain, and fever. This medicine is available with or without a doctor's order. NSAIDs can cause stomach bleeding or kidney problems in certain people. If you take blood thinner medicine, always ask your healthcare provider if NSAIDs are safe foryou. Always read the medicine label and follow directions. ?? Ear drops to help treat your ear pain. ?? Antibiotics to help kill the germs that caused your ear infection. Care for otitis media: ?? Use heat. Place a warm, moist washcloth on your ear to decrease pain. Apply for 15 to 20 minutes, 3 to 4 times a day ?? Use ice. Ice helps decrease swelling and pain. Use an ice pack or put crushed ice in a plastic bag. Cover the ice pack with a towel and place it on your ear for 15 to 20 minutes, 3 to 4 times a day for 2 days. Prevent otitis media: ?? Wash your hands often. This will help prevent the spread of germs. Encourage everyone in your house to wash their hands with soap and water after they use the bathroom. Everyone should also wash their hands after they change a child's diaper and before they prepare or eat food. ?? Stay away from people who are ill. Germs are easily and quickly spread through contact. Follow up with your healthcare provider as directed: Write down your questions so you remember to ask them during your visits. CARE AGREEMENT: You have the right to help plan your care. Learn about your health condition and how it may be treated. Discuss treatment options with your caregivers to decide what care you want to receive. You always have the right to refuse treatment. The above information is an park aide only. It is not intended as medical advice for individual conditions or treatments. Talk to your doctor, nurse or pharmacist before following any medical regimen to see if it is safe and effective for you. ?? 2015 [employer]. Information is for End User's use only and may not be sold, redistributed or otherwise used for commercial purposes. All illustrations and images included in CareNotes?? are the copyrighted property of [employer] or [employer]. documented in this encounter Progress Notes * Kylah Weller APRN-CNP - 10/06/2016 5:07 PM CDT [facility] Chief Complaint Patient presents with ??? Ear Pain ??? Ear Problem SUBJECTIVE: HPI Comments: 36 yo female presents with left ear pain for 2 days, denies drainage from ear. Deniescold symptoms. Is a q-tip user, states frequent problems with ears. Past Medical History: Diagnosis Date ??? NEGATIVE PAST MEDICAL HISTORY - SEE PROBLEM LIST Current Outpatient Prescriptions on File Prior to Visit Medication Sig Dispense Refill ??? multivitamin daily (THERAGRAN) tablet Take 1 Tab by mouth daily with food ??? fluticasone propionate (FLONASE) 50 MCG/ACT nasal spray [place] 2 Sprays into each nostril once daily 1 Bottle 0 No current facility-administered medications on file prior to visit. Past Surgical History: Procedure Laterality Date ??? Cyst Removal ??? Tonsillectomy and Adenoidectomy ? ? UTERUS (D&C) Social History Social History ??? Marital status: Spouse name: N/A ??? Number of children: N/A ??? Years of education: N/A Occupational History ??? Not on file. Social History Main Topics ??? Smoking status: Current Every Day Smoker Packs/day: 0.50 ??? Smokeless tobacco: Never Used ??? Alcohol use Not on file ??? Drug use: Not on file ??? Sexual activity: Not on file Other Topics Concern ??? Not on file Social History Narrative No family history on file. Current Outpatient Prescriptions Medication Sig Dispense Refill ??? amoxicillin (AMOXIL) 875 MG tablet Take 1 Tab by mouth 2 times daily for 10 days 20 Tab 0 ??? multivitamin daily (THERAGRAN) tablet Take 1 Tab by mouth daily with food ??? fluticasone propionate (FLONASE) 50 MCG/ACT nasal spray [place] 2 Sprays into each nostril once daily 1 Bottle 0 No current facility-administered medications for this visit. No Known Allergies REVIEW OF SYSTEMS: Review of Systems Constitutional: Negative. HENT: Positive for ear pain. Respiratory: Negative. Cardiovascular: Negative. Gastrointestinal: Negative. OBJECTIVE: General appearance: alert, well appearing, and in no distress. BP 114/72 Pulse 100 Temp 98.7 ??F (Oral) Ht 1.676 m (5' 6 ) Wt 81.6 kg (180 lb) BMI 29.05 kg/m2 Physical Exam Constitutional: She is oriented to person, place, and time and well-developed, well-nourished, and in no distress. HENT: Head: Normocephalic. Right Ear: External ear normal. Nose: Nose normal. Air fluid TM left, mild bulging with moderate erythema Neck: Normal range of motion. Neck supple. Cardiovascular: Normal rate and regular rhythm. Pulmonary/Chest: Effort normal and breath sounds normal. Neurological: She is alert and oriented to person, place, and time. Skin: Skin is warm and dry. Psychiatric: Affect normal. ASSESSMENT: No results found for this visit on 10/06/16. Encounter Diagnosis Name Primary? Acute suppurative otitis media of left ear without spontaneous rupture of tympanic membrane, recurrence not specified Yes PLAN: Orders Placed This Encounter ??? amoxicillin (AMOXIL) 875 MG tablet Sig: Take 1 Tab by mouth 2 times daily for 10 days Dispense: 20 Tab Refill: 0 Otitis Media, Spray Painter GENERAL INFORMATION: Otitis media is an ear infection. Common symptoms include the following: ?? Fever or a headache ?? Ear pain ?? Trouble hearing ?? Ear feels plugged or full or you have ringing or buzzing in your ear ?? Dizziness or you lose your balance ?? Nausea or vomiting Seek immediate care for the following symptoms: ?? Seizure ?? Fever and a stiff neck Treatment for otitis media may include any of the following: ?? NSAIDs , such as ibuprofen, help decrease swelling, pain, and fever. This medicine is available with or without a doctor's order. NSAIDs can cause stomach bleeding or kidney problems in certain people. If you take blood thinner medicine, always ask your healthcare provider if NSAIDs are safe foryou. Always read the medicine label and follow directions. ?? Ear drops to help treat your ear pain. ?? Antibiotics to help kill the germs that caused your ear infection. Care for otitis media: ?? Use heat. Place a warm, moist washcloth on your ear to decrease pain. Apply for 15 to 20 minutes, 3 to 4 times a day ?? Use ice. Ice helps decrease swelling and pain. Use an ice pack or put crushed ice in a plastic bag. Cover the ice pack with a towel and place it on your ear for 15 to 20 minutes, 3 to 4 times a day for 2 days. Prevent otitis media: ?? Wash your hands often. This will help prevent the spread of germs. Encourage everyone in your house to wash their hands with soap and water after they use the bathroom. Everyone should also wash their hands after they change a child's diaper and before they prepare or eat food. ?? Stay away from people who are ill. Germs are easily and quickly spread through contact. Follow up with your healthcare provider as directed: Write down your questions so you remember to ask them during your visits. CARE AGREEMENT: You have the right to help plan your care. Learn about your health condition and how it may be treated. Discuss treatment options with your caregivers to decide what care you want to receive. You always have the right to refuse treatment. The above information is an park aide only. It is not intended as medical advice for individual conditions or treatments. Talk to your doctor, nurse or pharmacist before following any medical regimen to see if it is safe and effective for you. ?? 2015 [employer]. Information is for End User's use only and may not be sold, redistributed or otherwise used for commercial purposes. All illustrations and images included in CareNotes?? are the copyrighted property of [employer] or [employer]. documented in this encounter Plan of Treatment Not on file documented as of this encounter Visit Diagnoses Diagnosis Acute suppurative otitis media of left ear without spontaneous rupture of tympanic membrane, recurrence not specified- Primary documented in this encounter
--- OUTSIDE RECORDS SUMMARY | 2024-02-16 10:33 | XMS_ITS | Encounter Summary ---
Author Organization [facility] Healthcare Address [address] [place] [address] Care Team Providers Care Pipeline Dispatch Operator Name Role Phone Rayne Carreno NP Primary Care Provider [phone] Reason for Visit * Diagnostic Imaging (Routine) - Closed Specialty Diagnoses / Procedures Referred By Kamilah t Referred To Contact Diagnoses Fibrocystic breast disease (FCBD), unspecified laterality Procedures Diagnostic Mammogram Left [place] Diagnostic Mammogram Bilateral [place] Rayne Carreno NP [address] [place] [address] Phone: tel: fax: [address] [address] Referral ID Status Reason Start Date Expiration Date Visits Re quested Visits Authorized [id number] Closed 07/14/2021 01/05/2022 1 1 Encounter Details Date Type Department Care Team (Latest Contact Info) Description 01/09/2022 1:28 PM ORTHOPEDICALLY IMPAIRED TEACHER - 01/09/2022 11:59 PM ORTHOPEDICALLY IMPAIRED TEACHER Hospital Encounter [facility] [address] [place] [id number] Rayne Carreno NP [address] [place] [address] Fibrocystic breast disease (FCBD), unspecified laterality Discharge [...] Priority Date/Time Associated Diagnosis Comments DIAGNOSTIC MAMMOGRAM LEFT W [place] Schedule Routine, Read Routine (OP Routine) 01/09/2022 1:49 PM ORTHOPEDICALLY IMPAIRED TEACHER Fibrocystic breast disease (FCBD), unspecified laterality documented in this encounter Results * Diagnostic Mammogram Left [place] (01/09/2022 1:49 PM ORTHOPEDICALLY IMPAIRED TEACHER) Anatomical Region Laterality Modality Breast Left Mammography 01/09/2022 2:54 PM ORTHOPEDICALLY IMPAIRED TEACHER Addenda Addendum by Boogie Youssef MD on 02/07/2022 10:10 AM ORTHOPEDICALLY IMPAIRED TEACHER ADDENDUM: Previous outside hospital mammogram and sonogram [...] to document continued stability. Electronically signed by: BOOGIE HAGAN Impressions 01/09/2022 2:54 PM ORTHOPEDICALLY IMPAIRED TEACHER 1. ??An oval mass with circumscribed margins [...] time of the examination. Electronically signed by: BOOGIE Nicole 01/09/2022 2:54 PM ORTHOPEDICALLY IMPAIRED TEACHER EXAMINATION: US BREAST LEFT LIMITED, DIAGNOSTIC MAMMOGRAM [...] left axilla demonstrates no lymphadenopathy. Procedure Note Boogie Youssef MD - 01/10/2022 EXAMINATION: US BREAST [...] time of the examination. Electronically signed by: BOOGIE HAGAN Rayne Carreno NP IMG MAMMO PROCEDURES Edited Result - Final documented in this encounter Visit Diagnoses Diagnosis Fibrocystic breast disease (FCBD), unspecified laterality documented in this encounter Care Teams Pipeline Dispatch Operator Relationship Specialty Start Date End Date Rayne Carreno NP [address] [place] [address] PCP - General Nurse Practitioner 09/29/20 documented as of this encounter
--- OUTSIDE RECORDS SUMMARY | 2024-02-16 10:33 | XMS_ITS | Patient Health Summary ---
Author Organization [facility] Address [address] [address] Care Team Providers Care Derivatives Trader Name Role Phone Unavailable Primary Care Provider Unavailabl e Note from [facility],non-owned Affiliates and Associated Physician Practices is amultiple site organization consisting of ambulatory clinics and hospital sitesin [place], [place], [place] and [place]. This disclosure is being madepursuant to the Care Everywhere program and may not contain all information available regarding this patient. Last updated 17.[facility] Allergies No known active allergies Medications * Be aware that medications may not be up to date on this document. Alwaysverify current medications with the patient. * multivitamin daily (THERAGRAN) tablet Take 1 Tab by mouth daily with food * fluticasone propionate (FLONASE) 50 MCG/ACT nasal spray(Started 11/04/2015) [place] 2 Sprays into each nostril once daily Social History Tobacco Use Types Packs/Day Years [...]
--- OUTSIDE RECORDS SUMMARY | 2024-02-16 10:33 | XMS_ITS | Encounter Summary ---
Author Organization [facility] Address [address] [place] [id number] Care Team Providers Care Captain/Airline Pilot Name Role Phone No, Physician Primary Care Provider [phone] Reason for Visit * Reason Comments Sinus Problem Pt. c/o sinus pressu re, postnasal drip, runny nose, headache, sore throat, and fatigue. Onset 07/08/20. Pt. denied COVID testing. Encounter Details Date Type Department Care Team (Late st Contact Info) Description 07/13/2020 6:15 PM CDT Office Visit [facility] [address] [place] [id number] Sia Jose, EVENT SERVICES MANAGER [address] [place] [address] Acute recurrent pansinusitis (Primary Dx) Social History Tobacco Use Types [...] Sign Reading Time Taken Comments Blood Pressure 128/86 07/13/2020 6:30 PM CDT Pulse 96 07/13/2020 6:30 PM CDT Temperature 37.1 ??C (98.8 ??F) 07/13/2020 6:30 PM CD T Respiratory Rate 18 07/13/2020 6:30 PM CDT Oxygen Saturation 98% 07/13/2020 6:30 PM CDT Inhaled Oxygen Concentration - - Weight 99.8 kg (220 lb) 07/13/2020 6:30 PM CDT Height 167.6 cm (5' 6 ) 07/13/2020 6:30 PM CDT Body Mass Index 35.51 07/13/2020 6:30 PM CDT documented in this encounter Patient Instructions * Patient Instructions* Sia Jose NP - 07/13/2020 6:15 PM CDT Research has proven that unless you are running a fever or symptoms start to improve then get worseagain, sinus infections are typically viral until days 9-10. Finish the entire antibiotic prescription. Take this with food. Eat yogurt or take probiotic daily while on antibiotics. Symptomatic treatments include: - Over the counter antihistamine such as loratadine (Claritin) or cetirizine (Zyrtec) to reduce secretions. The D formula includes pseudoephedrine and can be helpful as a decongestant but SHOULD NOT BE USED IF YOU HAVE A HISTORY OF HIGH BLOOD PRESSURE. - Coricidin HBP may be taken for congestion if you have a history of high blood pressure. - Topical decongestants are another option such as Afrin. Do not use for more than 3 days as it cancause rebound congestion worse than original congestion. - Tessalon, Dextromethorphan (Robitussin) or Delsym for cough - Guafenesin (Mucinex) to thin secretions - Acetaminophen (Tylenol), ibuprofen (Motrin, Advil), or Aleve (naproxen) for pain or fever. - The use of hypertonic saline to irrigate nasal passageways can be helpful. Over the counter systems include Neti Pot and Nasopure. Use with distilled water. - Salt water gargles and throat lozenges can be helpful for sore throat. - To prevent spreading the illness to others cover your sneeze and cough into your arm and not yourhand, don't allow others to eat or drink with the same utensils or glass, and use hand senior gis analyst before touching people or common surfaces. - Apply warm packs to face to facilitate sinus drainage. - Use cool mist humidifier in bedroom at night. - Increase fluid consumption and rest. - Follow up with your PCP in 1 week or sooner if symptoms worsen or are not improving as planned. - If you experience any shortness of breath, chest pain, or high fever >101, go to the EmergencyRoom. documented in this encounter Ordered Prescriptions Prescription Sig Dispense Quantity Refills Last Filled Start Date End Date amoxicillin-clavul anate (AUGMENTIN) 875-125 mg per tabletIndications: Acute recurrent pansinusitis Take 1 tablet by mouth 2 (two) times a day for 10 days 20 tablet 07/13/2020 07/23/2020 documented in this encounter Progress Notes * Sia Jose NP - 07/13/2020 6:15 PM CDT Images from the original note were not included. Patient ID: Radha Cabral is a 40 y.o. female followed by No, Physician Patient presents to clinic for assessment of Chief Complaint Patient presents with ??? Sinus Problem Pt. c/o sinus pressure, postnasal drip, runny nose, headache, sore throat, and fatigue. Onset 07/08/20. Pt. denied COVID testing. . Patient reports SORE THROAT, NASAL CONGESTION, NASAL DRAINAGE, SINUS PRESSURE and HEADACHE Patient reports this has been going on for days. Patient with sick or suspected COVID-19 contacts: NO Patient has following risks for COVID-19: None Vitals: 07/13/20 1830 BP: 128/86 BP Location: Right arm Patient Position: Sitting Pulse: 96 Resp: 18 Temp: 37.1 ??C (98.8 ??F) TempSrc: Oral SpO2: 98% Weight: 99.8 kg (220 lb) Height: 167.6 cm (5' 6 ) Chief Complaint Patient presents with ??? Sinus Problem Pt. c/o sinus pressure, postnasal drip, runny nose, headache, sore throat, and fatigue. Onset 07/08/20. Pt. denied COVID testing. Presents to clinic for sinus pressure, congestion, ears hurt, headache, sore throat & possible fever. Symptoms started over a month ago & she had been taking her allergy meds. She saw her PCPon 05/26 & was prescribed Amoxicillin for 10 days. She states she felt a little better after taking the antibiotics but only for a few days. The symptoms have worsened the past 5 days. Sinus Problem This is a recurrent problem. The current episode started more than 1 month ago. The problem has been gradually worsening since onset. Maximum temperature: subjective. Associated symptoms include congestion, ear pain, headaches, sinus pressure and a sore throat. Pertinent negatives include no coughing or shortness of breath. Treatments tried: antihistamines. The treatment provided no relief. Review of Systems Constitutional: Positive for fatigue and fever. Negative for activity change and appetite change. HENT: Positive for congestion, ear pain, postnasal drip, rhinorrhea, sinus pressure and sore throat. Negative for ear discharge. Eyes: Negative for discharge. Respiratory: Negative for cough and shortness of breath. Gastrointestinal: Negative for diarrhea, nausea and vomiting. Musculoskeletal: Negative for myalgias. Skin: Negative for rash. Neurological: Positive for headaches. Hematological: Negative for adenopathy. Physical Exam Vitals reviewed. Constitutional: General: She is not in acute distress. Appearance: Normal appearance. She is well-developed. She is not ill-appearing. HENT: Head: Normocephalic. Right Ear: Tympanic membrane, ear canal and external ear normal. Left Ear: Tympanic membrane, ear canal and external ear normal. Nose: No congestion or rhinorrhea. Right Sinus: Maxillary sinus tenderness and frontal sinus tenderness present. Left Sinus: Maxillary sinus tenderness and frontal sinus tenderness present. Mouth/Throat: Lips: [place]. Mouth: Mucous membranes are moist. Pharynx: Oropharynx is clear. Eyes: General: Right eye: No discharge. Left eye: No discharge. Conjunctiva/sclera: Conjunctivae normal. Cardiovascular: Rate and Rhythm: Normal rate and regular rhythm. Pulmonary: Effort: Pulmonary effort is normal. No respiratory distress. Breath sounds: Normal breath sounds and air entry. Abdominal: Tenderness: There is no abdominal tenderness. Musculoskeletal: General: Normal range of motion. Cervical back: Neck supple. Lymphadenopathy: Head: Right side of head: No tonsillar adenopathy. Left side of head: No tonsillar adenopathy. Cervical: No cervical adenopathy. Skin: General: Skin is warm and dry. Findings: No rash. Neurological: Mental Status: She is alert and oriented to person, place, and time. Mental status is at baseline. Psychiatric: Attention and Perception: Attention normal. Mood and Affect: Mood normal. Behavior: Behavior normal. Behavior is cooperative. Thought Content: Thought content normal. Judgment: Judgment normal. Assessment/Plan Discussed Completing any meds prescribed-Augmentin Discussed OTC decongestants for congestion- Sudafed/Mucinex/Flonase Motrin/Tylenol for pain/fever Antihistamines- Zyrtec, Benadryl can be used for runny nose. Mucinex Discussed hydration-Drink plenty of water & get plenty of rest A humidifier may also help with congestion May try sinus rinses or steam- Saline rinses Follow up with your PCP in 7 days if you are not getting better Diagnoses and all orders for this visit: Acute recurrent pansinusitis (Primary) - amoxicillin-clavulanate (AUGMENTIN) 875-125 mg per tablet; Take 1 tablet by mouth 2 (two) times aday for 10 days documented in this encounter Plan of Treatment Not on file documented as of this encounter Visit Diagnoses Diagnosis Acute recurrent pansinusitis- Primary documented in this encounter Care Teams Captain/Airline Pilot Relationship Specialty Start Date End Date No, Physician PCP - General 08/24/17 09/28/20 documented as of this encounter
--- OUTSIDE RECORDS SUMMARY | 2024-02-16 10:33 | XMS_ITS | Clinical Summary ---
Author Organization [facility] Address [address] [place] [address]. [place], [place] [id number] [place] [id number] Care Team Providers Care Solar Sales Advisor Name Role Phone Unavailable Primary Care Provider Unavailabl e Social History Tobacco Use Types Packs/Day Years Used Date Smoking Tobacco: Never Assessed Comments Unknown Sex and Gender Information Value Date Recorded Sex Assigned at Not on file Legal Sex Female 4:52 PM CDT Gender Identity Not on file Sexual Orientation Not on file Plan of Treatment Health Maintenance Due Date Last Done Comments Cervical Cancer Screening Pa p Smear (Age 30 to 64) Every 3 Years 1981 Annual Physical 02/16/1984 Hepatitis C 1999 DTaP, Tdap and Td Vaccines ( 1 - Tdap) 02/16/2000 Hepatitis B Vaccines (1 of 3 - 19+ 3-dose series) 02/16/2000 Cervical Cancer Screening Pa p with HPV Testing (Age 30 to 64) Every 5 Years 2011 Cervical Cancer Screening with HPV 2011 Mammogram Screening 2021 COVID-19 Vaccine (2023-2 5 season) 2023 Influenza Adult (#1) 2023 HPV Vaccines Aged Out No longer eligi ble based on patient's age to complete this topic Meningococcal Vaccine Aged Out No gabo elen eligible based on patient's age to complete this topic Pneumococcal Vaccine: Pediat rics (0 to 5 Years) and At-Risk Patients (6 to 64 Years) Aged Out No longer eligible b ased on patient's age to complete this topic RSV Immunizations Under 20 Months Aged Out No longer eligible based on patient's age to complete this topic
--- OUTSIDE RECORDS SUMMARY | 2024-02-16 10:33 | XMS_ITS | Referral Summary ---
Author Organization [facility] [address] Address [address] [place] [id number] Care Team Providers Care Wire Twister Name Role Phone Marley Raynearchie King NP Primary Care Provider Encounters Date Type Department Care Team Description 2024 10:35 AM DEVELOPER [facility] - 2024 6:31 PM [facility] Emergency [facility] Emergency Department 1 [place] [address] Right flank pain (Primary Dx); Hyponatremia Discharge Disposition: Discharge to home or self care from Last 3 Months Allergies No known active allergies Medications fluticasone [...] within 12 hours or as directed by MD. 14 patch 5 03/16/19 25 Active methocarbamoL [...] Prediabetes 12/07/2017 Smoker 12/07/2017 Missed menses 12/15/2016 Social History Tobacco Use Types Packs/Day Years [...] Comments Blood Pressure 100/66 2024 4:45 PM [employer]EL[facility] [employer] [employer] Pulse 95 2024 6:00 PM DEVELOPER [employer] Temperature 36.4 ??C (97.5 ??F) 2024 3:00 PM CS T Respiratory Rate 15 2024 6:00 PM [employer]EL[facility] [employer] [employer] Oxygen Saturation 96% 2024 6:00 PM [employer]EL[facility] [employer] [employer] Inhaled Oxygen Concentration - - Weight 95.3 kg (210 lb) 2024 10:32 AM DEVELOPER [employer]PH[employer]STER[employer] Height 167.6 cm (5' 6 ) 2024 10:32 AM DEVELOPER [employer] Body Mass Index 33.89 2024 10:32 AM DEVEL[facility] [employer] [employer] Plan of Treatment Not on file Procedures Procedure Name Priority Date/Time Associated Diagnosis Comments EGFR STAT 2024 5:08 PM DEVEL[facility] [employer] [employer] BASIC METABOLIC PANEL STAT 2024 5:08 [address] [address] CHEST PE ABDOMEN PELVIS W CONTRAST ED 2024 2:01 PM DEVEL[employer] [employer] POCT GLUCOSE DEVICE Routine 2024 11:42 AM DEVELOPER [employer] [employer] POCT HCG, URINE Routine 2024 11:42 AM DEVELOPER [employer] [employer] EGFR STAT 2024 11:38 AM [employer]EL[facility] [employer] [employer] URINALYSIS, MICROSCOPIC ONLY STAT 2024 11:38 AM DEVELOPER [employer] [employer] DIFFERENTIAL AUTO STAT 2024 11:38 AM DEVEL[facility] [employer] [employer] SEPSIS LACTATE WITH REFLEX STAT 2024 11:38 AM DEVELOPER [employer] [employer] D-DIMER, QUANTITATIVE STAT 2024 11:38 AM [employer]EL[facility] [employer] [employer] COMPREHENSIVE METABOLIC PANEL STAT 2024 11:38 AM DEVELOPER [employer] CBC WITH AUTO DIFFERENTIAL STAT 2024 11:38 AM DEVELOPER [employer] [employer] URINALYSIS AND REFLEX TO MICROSCOPIC AND CULTURE STAT 2024 11:38 AM DEVELOPER [employer] UPHOLSTERING ECG 12-LEAD STAT 2024 11:13 AM DEVELOPER [employer] DIAGNOSTIC MAMMOGRAM BILATERAL W TIM Schedule Routine, Read Routine (OP Routine) 12/27/2022 3:49 PM DEVELOPER [employer]PH[employer]STER[employer] Abnormal mammogram THINPREP PAP WITH HPV Routine 05/17/2020 12:01 AM CDT Well woman exam with routine gynecological exam from Last 3 Months or Most Recently Relevant to Health Maintenance Results * eGFR (2024 5:08 PM DEVELOPER [employer]OLSTERING) eGFR >90 >=60 mL/min/1. 73 m2 Comment: [...] last reviewed 2020. Blood 2024 5:08 PM DEVELOPER [employer]OVER UPHOLSTERING 2024 5:13 PM DEVELOPER PROVER UPHOLSTERING us Suha CHUN LAB BLOOD ORDERABLES Arianne martinez Result [facility] ([place] 1 [facility] Department [place] [address] * (ABNORMAL) Basic metabolic panel (2024 5:08 PM DEVELOPER [employer] [employer]PH[employer]STER[employer]) Sodium 131(L) 135 - 145 mmol/L Potassium, [...] ([place]) Glucose 89 70 - 199 mg/dL [facility] ([place]) Comment: Interpretive Data Fasting glucose [...] 8.2(L) 8.5 - 10.3 mg/dL [facility] ([place]) Blood 2024 5:08 PM DEVELOPER [employer] UPHOLSTERING 2024 5:13 PM DEVELOPER PR[employer] UPHOLSTERING us Suha CHUN LAB BLOOD ORDERABLES Arianne l Result [facility] 1 [facility] Department [place] [address] * CT Chest PE (CTA) Abdomen Pelvis W Contrast (2024 2:01 PM DEVELOPER [employer]PHOLSTERING) Anatomical Region Laterality Modality Body N/A Computed Tomogra phy 2024 2:17 PM DEVELOPER [employer] [employer]STER[employer] Narrative 2024 2:32 PM DEVELOPER [employer] [employer] EXAM DESCRIPTION: CT CHEST PE (CTA) ABDOMEN [...] thickening is identified. ?? There is a chhw-kh-sjtmuklq amount of stool in the colon which [...] PM T: ??2024 2:32 PM Report ID: [id number] Reading Location: ??[id number] Procedure Note Kashmir Patel MD - 2024 [...] wall thickening is identified. There is a fplt-ac-psvybhde amount of stool in the colon which [...] Kashmir Patel M.D. MM: MM Report ID: [id number] Reading Location: [id number] Suha CHUN IMG CT PROCEDURES Final R esult * POCT glucose (2024 11:42 AM DEVELOPER [employer] UPHOLSTERING) Pathologist [facility] Glucose, POC 121 70 - 199 mg/dL Blood 2024 11:4 2 AM DEVELOPER [employer]OVER UPHOLSTERING 2024 11:42 AM DEVELOPER [employer] [employer]PH[employer] Notinfile Unknown LAB POCT ORDERABLES - DEVICE F inal Result [facility] ([place]) 1 [facility] [place] [address] * POCT hCG, urine (2024 11:42 AM DEVELOPER PROVER UPHOLSTERING) [facility] HCG, ur, POC Negative Negative Lot Number [id number] QC Backgroud Clear Acceptable QC Control Line Acceptable Urine 2024 11:4 2 AM DEVELOPER [employer]STER[employer] Suha CHUN POINT OF CARE TEST ORDERA BLES Final Result * Sepsis Lactate w/ Reflex (2024 11:38 AM DEVELOPER PR[employer]PHOLSTERING) [facility] Sepsis Lactate 0.9 0.7 - 2.0 mmol/L Blood 2024 11:3 8 AM DEVELOPER [employer] UPHOLSTERING 2024 11:41 AM DEVELOPER [employer]PHOLSTERING Suha CHUN LAB BLOOD ORDERABLES Arianne l Result [facility] ([place]) 1 [facility] [place] [address] * eGFR (2024 11:38 AM DEVELOPER [employer]PH[employer]STERING) [facility] eGFR >90 >=60 mL/min/1. 73 m2 Comment: [...] reviewed 2020. Blood 2024 11:3 8 AM DEVELOPER [employer] UPHOLSTERING 2024 11:41 AM DEVELOPER [employer]STERING us Suha CHUN LAB BLOOD ORDERABLES Arianne martinez Result [facility] ([place] 1 [facility] Department [place] [address] * Differential, auto (2024 11:38 AM DEVELOPER [employer]) Neutrophil abs 3.1 1.5 - 6.5 K/cumm Imm gran abs 0.0 0.0 - 0.1 K/cumm [facility] ([place]) Lymphocyte abs 0.9 0.8 - 3.3 K/cumm [facility] ([place]) Monocyte abs 0.7 0.2 - 0.8 K/cumm [facility] ([place]) Eosinophil abs 0.1 0.0 - 0.5 K/cumm [...] Lymphocyte pct 17.8 % [facility] ([place]) Comment: Interpretive Data Percent cell count reference ranges are not reported, since discordance with absolute values may lead to misinterpretation of CBC data. Current Interpretive Data was last revised on 2017. Monocyte pct 14.4 % [facility] ([place]) Comment: Interpretive Data [...] revised on 2017. Basophil pct 0.6 % [facility] ([place]) Comment: Interpretive Data Percent cell count reference ranges are not reported, since discordance with absolute values may lead to misinterpretation of CBC data. Current Interpretive Data was last revised on 2017. Blood 2024 11:3 8 AM DEVELOPER [employer] UPHOLSTERING 2024 11:42 AM DEVELOPER [employer] UPH[employer]STERING us Suha CHUN LAB BLOOD ORDERABLES Arianne martinez Result [facility] ([place]) 1 [facility] Department [place] [address] * (ABNORMAL) Urinalysis reflex to microscopic and culture Urine (2024 11:38 AM DEVELOPER [employer] [employer]STER[employer]) Color, ur Yellow Yellow Clarity, ur Turbid(A) Clear [facility] ([place]) Specific gravity, ur 1.031(H) 1.003 - 1.030 [facility] ([place]) pH, urine 6.0 [facility] ([place]) Comment: Interpretive Data ? Urine pH is affected by diet, medications, systemic acid-base disturbances, and renal tubular function. ??pH may affect urinary stone formation. ??For example, urine pH below 6.0 may help reduce the tendency for calcium phosphate stones and pH greater than 6.0 may reduce the tendency for uric acid stone formation. Source: [facility] Current Interpretive Data was last revised on [...] [facility] ([place]) Urine 2024 11:3 8 AM DEVELOPER PROVER UPHOLSTERING 2024 11:45 AM DEVELOPER PROVER UPHOLSTERING us Suha CHUN LAB MICROBIOLOGY - GENERA L ORDERABLES Final Result [facility] ([place]) 1 [facility] Department [place] [address] * (ABNORMAL) CBC with auto differential (2024 11:38 AM DEVELOPER [facility] [employer]PHOLSTERING) WBC 4.8 3.8 - 9.9 K/cumm Hgb 14.1 11.9 - 15.5 g/dL [facility] ([place]) Hct 42.0 35.6 - 45.5 % [facility] ([place]) Plt 235 150 - 400 K/cumm [facility] ([place]) MPV 9.0(L) 9.1 - 12.3 fL [facility] ([place]) RBC 4.53 3.90 - 5.20 M/cumm [facility] ([place]) MCV 92.7 81.3 - 96.4 fL [facility] ([place]) MCH 31.1 27.1 - 33.3 pg [facility] ([place]) MCHC 33.6 32.3 - 35.7 g/dL [facility] ([place]) RDW CV 14.4 11.1 - 14.9 % [facility] ([place]) RDW SD 48.8(H) 35.7 - 48.1 fL [facility] ([place]) NRBC abs 0.00 0.00 - 0.01 K/cumm [facility] ([place]) Blood (Blood, Venous) 2024 11:38 AM DEVELOPER [employer] UPHOLSTERING 2024 11:42 AM DEVELOPER [facility] [employer] Suha CHUN LAB BLOOD ORDERABLES Arianne l Result [facility] ([place]) 1 [facility] Department [place] [address] * (ABNORMAL) Urinalysis, microscopic only (2024 11:38 AM DEVELOPER [facility] [employer]PHOLSTERING) WBC, ur 6-10(A) 0 - 5 /HPF RBC, ur 0-2 0 - 2 /HPF [facility] ([place]) Epithelial cells, squamous, ur 6-10(A) 0 - 5 /HPF [facility] ([place]) Bacteria, ur 2+(A) [facility] ([place]) Mucous, ur Present(A) [facility] ([place]) Culture Reflex Comment Reflex conditions for urine culture (WBC >10) not met. [facility] ([place]) Urine 2024 11:3 8 AM DEVELOPER [employer] UPHOLSTERING 2024 11:45 AM DEVELOPER [facility] [employer] Suha CHUN LAB URINE ORDERABLES Arianne l Result Performing Organization Address City/[facility]/ZIP Co de Phone Number [facility] ([place]) 1 [place] [address] * (ABNORMAL) D-dimer, quantitative (2024 11:38 AM DEVELOPER PROVER UPHOLSTERING) D-Dimer 591(H) <=499 ng/mL FEU [facility] ([place]) Comment: Interpretive data FDA approved the [...] 68, VTE cut-off 680 ng/ml FEU. References; Schouten HT et al. Brit Med J. 2013;346:f2492. Fidencio THOMAS et al. Annals Int Med. 2015;163:701-11. Current interpretive data was last revised on 2018. Blood 2024 11:3 8 AM DEVELOPER [employer] [employer]PH[employer]STERING 2024 11:41 AM DEVELOPER [facility] Suha CHUN LAB BLOOD ORDERABLES Arianne l Result Performing Organization Address City/[facility]/ZIP Co de Phone Number [facility] ([place]) 1 [facility] [place] [address] * (ABNORMAL) Comprehensive metabolic panel (2024 11:38 AM DEVELOPER [facility]STER[facility]) Sodium 127(L) 135 - 145 mmol/L Potassium, pl 3.9 3.3 - 4.9 mmol/L [facility] ([place]) Chloride 92(L) 97 - 110 mmol/L [facility] ([place]) CO2 22 22 - 32 mmol/L [facility] ([place]) Anion gap 14 2 - 15 mmol/L [facility] ([place]) BUN 9 6 - 25 mg/dL [facility] ([place]) Creatinine 0.61 0.60 - 1.10 mg/dL [facility] ([place]) Glucose 121 70 - 199 mg/dL [facility] ([place]) Comment: Interpretive Data Fasting glucose [...] [facility] ([place]) Blood 2024 11:3 8 AM DEVELOPER [employer] [employer]PH[employer]STERING 2024 11:41 AM DEVELOPER [facility] [employer] Suha CHUN LAB BLOOD ORDERABLES Arianne martinez Result [facility] ([place]) 1 [facility] Department [place] [address] * ECG 12 lead (2024 11:13 AM DEVELOPER [employer] UPHOLSTERING) 2024 11:1 3 AM DEVELOPER [facility] [employer]STERING Narrative [facility] - 2024 12:34 PM DEVELOPER PR[facility] UPHOLSTERING Vent Rate: 117 bpm RR Interval: 509 msec NH Interval: 161 msec QRS Duration: 82 msec QT Interval: 311 msec QTC Interval: 381 msec P-R-T Pfeifer: 34 - 7 - 21 degrees IMPRESSION: SINUS TACHYCARDIA ABNORMAL RHYTHM ECG Electronically Signed By: Raudel Perla MD us Suha CHUN ECG ORDERABLES Final Res ult [facility] * Diagnostic Mammogram Bilateral W Tim (12/27/2022 3:49 PM DEVELOPER [facility] [employer]PH[employer]STERING) Anatomical Region Laterality Modality Breast Bilateral Mammography 01/08/2023 11:5 5 AM DEVELOPER [facility] Impressions 01/08/2023 11:55 AM DEVELOPER [facility] [employer] 1. ??Unchanged probably benign 9 mm mass [...] Baltazar Neff M.D. Narrative 01/08/2023 11:55 AM DEVELOPER [facility] [employer] EXAMINATION: DIAGNOSTIC MAMMOGRAM BILATERAL W TIM, US [...] of suspicious axillary lymphadenopathy on either side. us Rayne Carreno NP IMG MAMMO PROCEDURES Final R esult * ThinPrep Pap with HPV (05/17/2020 12:01 AM CDT) Pap test 05/17/2020 12:0 1 AM CDT 05/19/2020 9:58 AM CDT Narrative 05/24/2020 11:45 AM CDT [facility] Department of Pathology [address] [place] [id number] Final Report with Addendum Patient Name: ??CABRALRICKEY Address: ??[address] [place] [address], ?? [place], [place] ??[facility] Gender: ??F : ??1980 (Age: 40) Service: ??Laboratory Location: ??Lab Hospital #: ??[id number] Patient Type: ?? Ref Lab Taken: ??05/17/2020 Received: ??05/19/2020 Accessioned:: ??05/20/2020 Reported: ??05/24/2020 Physician(s): Reymundo Garcia.O. [facility] Diagnosis: Source of Specimen: ? Screening [...] 59, 66 and 68. Test performed utilizing [employer] Apt[employer] assay. ?? SIMON Alvarez(ASCP) ??Report Electronically [...] by the Surgical Pathology Department at [facility] as part of an ongoing production quality manager program and in compliance with federally mandated [...] characteristics determined by the Surgical Pathology Department [facility]. ??It has not been cleared or approved by the U. S. Food and Drug Administration. Cecilia Walker DO LAB CYTOLOGY ORDERABLE S Final Result from Last 3 Months or Most Recently Relevant to Health Maintenance Insurance [facility] SIG [id number] Care Teams Wire Twister Relationship Specialty Start Date End Date Rayne Carreno NP [address] [place] [address] PCP - General Nurse Practitioner 09/29/20
--- OUTSIDE RECORDS SUMMARY | 2024-02-16 10:33 | XMS_ITS | Encounter Summary ---
Author Organization [facility] Healthcare Address [address] [place] [address] Care Team Providers Care Clay Pigeon Setter Name Role Phone No, Physician Primary Care Provider [phone] Encounter Details Date Type Department Care Team (Late st Contact Info) Description 05/17/2020 12:01 AM CDT Hospital Encounter [facility] Cecilia Walker, DO [address] [place] [address] Social History Tobacco Use Types Packs/Day Years Used Date Smoking Tobacco: Every Day Cigarettes Smokeless Tobacco: Never Comments No Sex and Gender Information Value Date Recorded Sex Assigned at Not on file Legal Sex Female 7:08 PM CDT Gender Identity Not on file Sexual Orientation Not on file documented as of this encounter Medications at Time of Discharge fluticasone (FLONASE) 50 mcg/actuation nasal spray Administer 2 sprays into each nostril 11/04/2015 ibuprofen (ADVIL,MOTRIN) 800 mg tablet 800 mg 3 (three) times a day 01/15/2017 documented as of this encounter Plan of Treatment Not on file documented as of this encounter Visit Diagnoses Not on filedocumented in this encounter Care Teams Clay Pigeon Setter Relationship Specialty Start Date End Date Louise Physician PCP - General 08/24/17 09/28/20 documented as of this encounter
--- OUTSIDE RECORDS SUMMARY | 2024-02-16 10:33 | XMS_ITS | Encounter Summary ---
Author Organization [facility] Address [address] [place] [address]. [place], [place] [address] [place] [address] Care Team Providers Care Offset Duplicating Machine Operator Name Role Phone Unavailable Primary Care Provider Unavailabl e Encounter Details Date Type Department Care Team (Late st Contact Info) Description 06/21/[address] [facility] [address] [place] [address] , Sho Mcmillan MD Social History Tobacco [...]
--- OUTSIDE RECORDS SUMMARY | 2024-02-16 10:33 | XMS_ITS | Encounter Summary ---
Author Organization [facility] Healthcare Address [address] [place] [address] Care Team Providers Care Chief Wharfinger Name Role Phone Rayne Roach NP Primary Care Provider [phone] Encounter Details Date Type Department Care Team (Late st Contact Info) Description 10/14/2020 8:55 PM CDT Lab [address] [address] Epidermoid cyst Social History Tobacco Use Types Packs/Day Years Used Date Smoking Tobacco: Every Day Cigarettes Smokeless Tobacco: Never Comments No Sex and Gender Information Value Date Recorded Sex Assigned at Not on file Legal Sex Female 7:08 PM CDT Gender Identity Not on file Sexual Orientation Not on file documented as of this encounter Miscellaneous Notes * Result Encounter Note - Jacqueline Jalloh NP - 10/18/2020 1:57 PM CDT Please let patient know that pathology was benign. documented in this encounter Plan of Treatment Not on file documented as of this encounter Procedures Procedure Name Priority Date/Time Associated Diagnosis Comments SURGICAL PATHOLOGY Routine 10/13/2020 9: 59 AM CDT Epidermoid cyst documented in this encounter Results * Surgical pathology (10/13/2020 9:59 AM CDT) Tissue (Cyst NOS) 10/13/2020 9:59 AM CDT 10/15/2020 9:59 AM CDT Narrative PATHOLOGY [facility] ([place]) - 10/18/2020 1:40 PM CDT EPIC results best viewed via link to PDF [facility] Department of Pathology [address] [place] [id number] Note to Patients: This report may [...] explain the details. Final Report Patient Name: ??RICH RICKEY Brooks Address: ??[address] [place] [address], ??[place], [place] [address] Gender: ??F : ??1980 (Age: 40) Service: ??Laboratory Location: ??Lab Hospital #: ??[id number] Patient Type: ?? Ref Lab Accession # ?[id number] Taken: ??10/13/2020 Received: ??10/15/2020 Accessioned: ??10/15/2020 Reported: [...] submitted in a single container labeled Rickey Cabral and upper right back cyst, mid right [...] determined by the Surgical Pathology Department at [facility] as part of an ongoing software quality analyst program and in compliance with [...] characteristics determined by the Surgical Pathology Department [facility]. ??It has not been cleared or approved by the U. S. Food and Drug Administration. Jacqueline Jalloh NP LAB PATHOLOGY ORDERABLES Final R esult PATHOLOGY [facility] [address] [place] [address] documented in this encounter Visit Diagnoses Diagnosis Epidermoid cyst Sebaceous cyst documented in this encounter Care Teams Chief Wharfinger Relationship Specialty Start Date End Date Rayne Roach NP [address] [place] [address] PCP - General Nurse Practitioner 09/29/20 documented as of this encounter
--- OUTSIDE RECORDS SUMMARY | 2024-02-16 10:33 | XMS_ITS | Encounter Summary ---
Author Organization [facility] Address [address] [place] [address] Care Team Providers Care Protein Scientist Name Role Phone Rayne Roach NP Primary Care Provider Encounter Details Date Type Department Care Team (Late st Contact Info) Description 09/06/2021 Telephone [facility] Obstetrical Gynecology [address] [facility] [facility] [address] [place] [address] Jeanne Joseph, RN Social History Tobacco Use Types Packs/Day Years Used Date Smoking Tobacco: Every Day Cigarettes Smokeless Tobacco: Never Comments No Sex and Gender Information Value Date Recorded Sex Assigned at Not on file Legal Sex Female 7:08 PM CDT Gender Identity Not on file Sexual Orientation Not on file documented as of this encounter Miscellaneous Notes * Telephone Encounter - Jeanne Joseph RN - 09/06/2021 2:06 PM CDT LMOM requesting c/b to schedule WWE. Former john patient documented in this encounter Plan of Treatment Not on file documented as of this encounter Visit Diagnoses Not on filedocumented in this encounter Care Teams Protein Scientist Relationship Specialty Start Date End Date Rayne Roach NP [address] [place] [address] PCP - General Nurse Practitioner 09/29/20 documented as of this encounter
--- OUTSIDE RECORDS SUMMARY | 2024-02-16 10:33 | XMS_ITS | Encounter Summary ---
Author Organization [facility] Address [address] [place] [address] Care Team Providers Care Polymer Materials Consultant Name Role Phone Rayne Roach NP Primary Care Provider [phone] Encounter Details Date Type Department Care Team (Late st Contact Info) Description 09/14/2021 Orders Only [facility] Health Information Management [address] [place] [address] Scanning, Provider Social History Tobacco Use Types Packs/Day Years [...] Procedure Name Priority Date/Time Associated Diagnosis Comments SCAN - RADIOLOGY/IMAGING 09/14/2021 9:39 PM CDT documented in this encounter Results * SCAN - RADIOLOGY/IMAGING (09/14/2021 9:39 PM CDT) Anatomical Region Laterality Modality Other us Provider Scanning Final Result documented in this encounter Visit Diagnoses Not on filedocumented in this encounter Care Teams Polymer Materials Consultant Relationship Specialty Start Date End Date Rayne Roach NP [address] [place] [address] PCP - General Nurse Practitioner 09/29/20 documented as of this encounter
--- OUTSIDE RECORDS SUMMARY | 2024-02-16 10:33 | XMS_ITS | Encounter Summary ---
Author Organization [facility] Address [address] [place] [address] Care Team Providers Care Obiee Architect Name Role Phone Unavailable Primary Care Provider Unavailabl e Reason for Visit * Reason Comments Ear Problem Cold Symptoms Encounter Details Date Type Department Care Team (Late st Contact Info) Description 11/04/2015 2:15 PM CDT Office Visit [facility] AT [address] [phone] Acute upper respiratory infection (Primary Dx) Social History Tobacco Use Types Packs/Day Years Used Date Smoking Tobacco: Every Day Cigarettes Sex and Gender Information Value Date Recorded Sex Assigned at Not on file Gender Identity Not on file Sexual Orientation Not on file documented as of this encounter Last Filed Vital Signs Vital Sign Reading Time Taken Comments Blood Pressure 122/74 11/04/2015 2:17 PM CDT Pulse 99 11/04/2015 2:17 PM CDT Temperature 36.9 ??C (98.5 ??F) 11/04/2015 2:17 PM CD T Respiratory Rate 18 11/04/2015 2:17 PM CDT Oxygen Saturation 96% 11/04/2015 2:17 PM CDT Inhaled Oxygen Concentration - - Weight 86.2 kg (190 lb) 11/04/2015 2:17 PM CDT Height 167.6 cm (5' 6 ) 11/04/2015 2:17 PM CDT Body Mass Index 30.67 11/04/2015 2:17 PM CDT documented in this encounter Patient Instructions * Patient Instructions* Ember Cosme APRN-MANAGER OF MERCHANDISING - 11/04/2015 2:26 PM CDT Images from the original note were not included. Upper Respiratory Infection WHAT YOU NEED TO KNOW: An upper respiratory infection is also called the common cold. It is an infection that can affect your nose, throat, ears, and sinuses. For healthy people, the common cold is usually not serious and does not need special treatment. Cold symptoms are usually worst for the first 3 to 5 days. Most peop le get better in 7 to 14 days. You may continue to cough for 2 to 3 weeks. Colds are caused by viruses and do not get better with antibiotics. DISCHARGE INSTRUCTIONS: Seek care immediately if: ?? You have severe headaches, a stiff neck, or eye pain when you look at bright light. ?? You have chest pain or trouble breathing. Contact your healthcare provider if: ?? You have a fever over 102??F (39??C). ?? Your sore throat gets worse or you see white or yellow spots in your throat. ?? Your symptoms get worse after 3 to 5 days or your cold is not better in 14 days. ?? You have a rash anywhere on your skin. ?? You have large, tender lumps in your neck. ?? You have thick, green or yellow drainage from your nose. ?? You cough up thick yellow, green, vines, or bloody mucus. ?? You have vomiting for more than 24 hours and cannot keep fluids down. ?? You have a bad earache. ?? You have questions or concerns about your condition or care. Medicines: ?? Decongestants help reduce nasal congestion and help you breathe more easily. If you take decongestant pills, they may make you feel restless or not able to sleep. Do not use decongestant sprays for more than a few days. ?? Cough suppressants help reduce coughing. Ask your healthcare provider which type of cough medicine is best for you. ?? NSAIDs , such as ibuprofen, help decrease swelling, pain, and fever. NSAIDs can cause stomach bleeding or kidney problems in certain people. If you take blood thinner medicine, always ask your healthcare provider if NSAIDs are safe for you. Always read the medicine label and follow directions. ?? Acetaminophen decreases pain and fever. It is available without a doctor's order. Ask how much to take and how often to take it. Follow directions. Acetaminophen can cause liver damage if not taken correctly. ?? Take your medicine as directed. Call your healthcare provider if you think your medicine is not helping or if you have side effects. Tell him if you are allergic to any medicine. Keep a list of the medicines, vitamins, and herbs you take. Include the amounts, and when and why you take them. Bring the list or the pill bottles to follow-up visits. Carry your medicine list with you in case of an emergency. Follow up with your healthcare provider as directed: Write down your questions so you remember to ask them during your visits. Self-care: ?? Use a humidifier or vaporizer. Use a cool mist humidifier or a vaporizer to increase air moisture in your home. This may make it easier for you to breathe and help decrease your cough. ?? Gargle with warm salt water to help your sore throat feel better. Make salt water by adding ?? teaspoon salt to 1 cup warm water. You may also suck on hard candy or throat lozenges. You may use a sore throat spray. ?? Use saline nasal drops to help relieve your congestion. ?? Drink liquids as directed. Liquids help keep your air passages moist and help you cough up mucus. Ask how much liquid to drink each day and which liquids are best for you. ?? Rest as much as possible. Slowly start to do more each day. Prevent spreading your cold to others: ?? Try to stay away from other people during the first 2 to 3 days of your cold when it is more easily spread. ?? Do not share food or drinks. ?? Do not share hand towels with household members. ?? Wash your hands often, especially after you blow your nose. Turn away from other people and cover your mouth and nose with a tissue when you sneeze or cough. ?? 2016 [employer]. Information is for End User's use only and may not be sold, redistributed or otherwise used for commercial purposes. All illustrations and images included in CareNotes?? are the copyrighted property of [employer] or [employer]. The above information is an ophthalmic aide only. It is not intended as medical advice for individual conditions or treatments. Talk to your doctor, nurse or pharmacist before following any medical regimen to see if it is safe and effective for you. documented in this encounter Progress Notes * Ember Cosme, MANAGER [employer]ASE-MANAGER OF MERCHANDISING - 11/04/2015 2:19 PM CDT [facility] Chief Complaint Patient presents with ??? Ear Problem ??? Cold Symptoms SUBJECTIVE: General The history is provided by the patient. This is a new problem. The problem occurs constantly. The problem has been gradually worsening. The pain is at a severity of 5/10. The symptoms are localized to the left ear and right ear.Pertinent negatives include no shortness of breath. She has tried nothing for the symptoms. left ear pain and cold symptoms started today No past medical history on file. No current outpatient prescriptions on file prior to visit. No current facility-administered medications on file prior to visit. No past surgical history on file. History Social History ??? Marital Status: Spouse Name: N/A Number of Children: N/A ??? Years of Education: N/A Occupational History ??? Not on file. Social History Main Topics ??? Smoking status: Current Every Day Smoker -- 0.50 packs/day ??? Smokeless tobacco: Not on file ??? Alcohol Use: Not on file ??? Drug Use: Not on file ??? Sexual Activity: Not on file Other Topics Concern ??? Not on file Social History Narrative ??? No narrative on file No family history on file. Current Outpatient Prescriptions Medication Sig Dispense Refill ??? multivitamin daily (THERAGRAN) tablet Take 1 Tab by mouth daily with food ??? fluticasone propionate (FLONASE) 50 MCG/ACT nasal spray [place] 2 Sprays into each nostril once daily 1 Bottle 0 No current facility-administered medications for this visit. No Known Allergies REVIEW OF SYSTEMS: Review of Systems Constitutional: Positive for fever and chills. Unsure of temp, aches HENT: Positive for ear pain, nosebleeds and sore throat. PND, Respiratory: Positive for cough. Negative for sputum production, shortness of breath and wheezing. Gastrointestinal: Negative for nausea, vomiting and diarrhea. Neurological: Negative for dizziness. OBJECTIVE: General appearance: alert, well appearing, and in no distress. BP 122/74 mmHg Pulse 99 Temp(Src) 98.5 ??F (Oral) Resp 18 Wt 86.183 kg (190 lb) BMI 30.68kg/m2 Physical Exam Constitutional: She is oriented to person, place, and time and well-developed, well-nourished, and in no distress. HENT: Head: Normocephalic and atraumatic. Bilateral air fluid Neck: Normal range of motion. Neck supple. Cardiovascular: Normal rate and regular rhythm. Pulmonary/Chest: Effort normal and breath sounds normal. Neurological: She is alert and oriented to person, place, and time. Vitals reviewed. ASSESSMENT: No results found for this visit on 11/04/15. Encounter Diagnosis Name Primary? Acute upper respiratory infection Yes PLAN: Supportive care: Tylenol or Motrin as needed Increase fluid intake, warm salt water gargles if needed Humidifier as needed Plenty, of rest Viral symptoms can last up to 2 weeks If no improvement in 48-72 hours follow up with PCP or return to clinic documented in this encounter Plan of Treatment Not on file documented as of this encounter Visit Diagnoses Diagnosis Acute upper respiratory infection- Primary Acute upper respiratory infections of unspecified site documented in this encounter
--- OUTSIDE RECORDS SUMMARY | 2024-02-16 10:34 | XMS_ITS | Encounter Summary ---
Author Organization [facility] Healthcare Address [address] [place] [address] Care Team Providers Care Picker Feeder Name Role Phone Unavailable Primary Care Provider Unavailabl e Encounter Details Date Type Department Care Team (Late st Contact Info) Description 08/22/2013 1:31 PM CDT Hospital Encounter [facility] Elsi Nation, WINDOWS SOFTWARE ENGINEER [address] [place] [address] Other current maternal conditions classifiable elsewhere, antepartum Social History Tobacco Use Types Packs/Day Years Used Date Smoking Tobacco: Never Assessed Comments Unknown Sex and Gender Information Value Date Recorded Sex Assigned at Not on file Legal Sex Female 7:08 PM CDT Gender Identity Not on file Sexual Orientation Not on file documented as of this encounter Plan of Treatment Not on file documented as of this encounter Visit Diagnoses Diagnosis Other current maternal conditions classifiable elsewhere, antepartum documented in this encounter
--- OUTSIDE RECORDS SUMMARY | 2024-02-16 10:34 | XMS_ITS | Encounter Summary ---
Author Organization [facility] Healthcare Address [address] [place] [address] Care Team Providers Care Telephone Ad Taker Name Role Phone Unavailable Primary Care Provider Unavailabl e Encounter Details Date Type Department Care Team (Late st Contact Info) Description 01/10/2017 3:28 PM DISTRIBUTING CLERK Hospital Encounter [facility] Denise, Cecilia Hathaway, DO [address] [place] [address] Missed Social History Tobacco Use Types Packs/Day Years [...] Administer 2 sprays into each nostril 11/04/2015 documented as of this encounter Plan of Treatment Not on file documented as of this encounter Procedures Procedure Name Priority Date/Time Associated Diagnosis Comments HCG, BLOOD, QUANTITATIVE Routine 01/10/2017 3:33 PM DISTRIBUTING CLERK documented in this encounter Results * (ABNORMAL) hCG, blood, quantitative (01/10/2017 3:33 PM DISTRIBUTING CLERK) Beta HCG, Quant 5139.0(H) 0.0 - 1.0 mIU/mL 01/10/2017 5:33 PM DISTRIBUTING CLERK [facility] HISTORICAL RESULTS Comment: Weeks of preg ?BHCG ? Weeks of preg ? BHCG ?3 ? 5.8-71.2 ?10 ? [phone] ?4 ? 9.5-750 ? 12 ? 27,832-210,612 ?5 ? 217-7,138 ? 14 ? 13,950-62,530 ?6 ? 158-31,795 ?15 ? 12,039-70,971 ?7 ?3,697-163,563 ?16 ?9,040-56,451 ?8 ? 32,065-149,571 ?17 ?8,175-55,868 ?9 ? 63,803-151,410 ?18 ?8,099-58,176 Post-menopause: ??0-8.3 ?METHOD: ??Devorah ECLIA Intended for the early detection of . ? 01/10/2017 3:33 PM DISTRIBUTING CLERK 01/10/2017 4:53 PM DISTRIBUTING CLERK us Cecilia Walker DO LAB BLOOD ORDERABLES F inal Result [facility] HISTORICAL RESULTS documented in this encounter Visit Diagnoses Diagnosis Missed documented in this encounter
--- OUTSIDE RECORDS SUMMARY | 2024-02-16 10:34 | XMS_ITS | Encounter Summary ---
Author Organization [facility] Healthcare Address [address] [place] [address] Care Team Providers Care Porter Marina Name Role Phone Unavailable Primary Care Provider Unavailabl e Encounter Details Date Type Department Care Team (Late st Contact Info) Description 08/22/2013 1:30 PM CDT - 11/20/2013 1:30 PM CDT Hospital Encounter [facility] Elsi Nation, NATALIO [address] [place] [address] Type 2 or unspecified type diabetes mellitus Social History Tobacco Use Types Packs/Day Years Used Date Smoking Tobacco: Never Assessed Comments Unknown Sex and Gender Information Value Date Recorded Sex Assigned at Not on file Legal Sex Female 7:08 PM CDT Gender Identity Not on file Sexual Orientation Not on file documented as of this encounter Plan of Treatment Not on file documented as of this encounter Visit Diagnoses Diagnosis Type 2 or unspecified type diabetes mellitus documented in this encounter
--- OUTSIDE RECORDS SUMMARY | 2024-02-16 10:34 | XMS_ITS | Encounter Summary ---
Author Organization [facility] Healthcare Address [address] [place] [address] Care Team Providers Care Thermal Engineer Name Role Phone Unavailable Primary Care Provider Unavailabl e Encounter Details Date Type Department Care Team (Latest Contact Info) Description 08/07/2013 5:00 PM CDT - 08/07/2013 10:05 PM CDT Hospital Encounter [facility] Cesar Márquez MD [address] [place] [address] Threatened , antepartum Social History Tobacco Use Types Packs/Day Years Used Date Smoking Tobacco: Never Assessed Comments Unknown Sex and Gender Information Value Date Recorded Sex Assigned at Not on file Legal Sex Female 7:08 PM CDT Gender Identity Not on file Sexual Orientation Not on file documented as of this encounter Last Filed Vital Signs Vital Sign Reading Time Taken Comments Blood Pressure 119/75 08/07/2013 5:31 PM CDT Pulse 92 08/07/2013 5:31 PM CDT Temperature 37 ??C (98.6 ??F) 08/07/2013 5:31 PM CDT Respiratory Rate - - Oxygen Saturation 96% 08/07/2013 5:31 PM CDT Inhaled Oxygen Concentration - - Weight 90.7 kg (200 lb) 08/07/2013 5:31 PM CDT Height 167.6 cm (5' 6 ) 08/07/2013 5:31 PM CDT Body Mass Index 32.28 08/07/2013 5:31 PM CDT documented in this encounter Plan of Treatment Not on file documented as of this encounter Procedures Procedure Name Priority Date/Time Associated Diagnosis Comments URINALYSIS AND REFLEX TO MICROSCOPIC AND CULTURE Routine 08/07/2013 8:06 PM CDT VAGINAL PATHOGEN SCREEN Routine 08/07/2013 6:40 PM CDT CHLAMYDIA TRACHOMATIS/N. GONORRHOEAE, SWAB Routine 08/07/2013 6:40 PM CDT CBC WITH AUTO DIFFERENTIAL Routine 08/07/2013 6:32 PM CDT COMPREHENSIVE METABOLIC PANEL Routine 08/07/2013 6:32 PM CDT HCG, BLOOD, QUANTITATIVE Routine 08/07/2013 6:31 PM CDT US TRANSVAGINAL Routine 08/07/2013 12:00 AM CDT documented in this encounter Results * (ABNORMAL) Urinalysis reflex to microscopic and culture (08/07/2013 8:06 PM CDT) Ur Collection Type CLEAN CATCH Ur Culture Indicated? C&S NOT INDICATED 08/07/2013 8:16 PM T [facility] RES[facility] Urine Color COLORLESS YELLOW Urine Clarity CLEAR CLEAR Urine Glucose (UA) NORMAL NORMAL mg/dL Urine Bilirubin NEGATIVE NEGATIVE mg/dl Urine Ketones NEGATIVE NEGATIVE mg/dL Ur Specific [place] 1.004(L) 1.005 - 1.025 Urine Blood 0.06(H) NEGATIVE mg/dl Urine pH 7.0 5.0 - 8.0 08/07/2013 8:16 PM CDT [facility] Urine Protein NEGATIVE NEGATIVE mg/dL 08/07/2013 8:16 PM CDT [facility] Urine Urobilinogen NORMAL NORMAL mg/dL 08/07/2013 8:16 PM CDT [facility] Urine Nitrite NEGATIVE NEGATIVE 08/07/2013 8:16 PM CDT [facility] Ur Leukocyte Esterase NEGATIVE NEGATIVE Benjamín/ul 08/07/2013 8:16 PM T [facility] Ur Microscopic Review Indicated or Ordered 08/07/2013 8:16 PM T [facility] Urine RBC 1 0 - 2 /HPF 08/07/2013 8:16 PM CDT [facility] Urine WBC <1 0 - 2 /HPF 08/07/2013 8:16 PM T [facility] Ur Squamous Epith Cells Rare /HPF 08/07/2013 8:16 PM CDT [facility] 08/07/2013 8:06 PM CDT 08/07/2013 8:11 PM CDT Plan A Drink [facility] - 08/07/2013 8:16 PM CDT Collected By [facility] ?? [phone] ?? Cesar Márquez MD LAB MICROBIOLOGY - [facility] ORDERABLES Final Result [facility] * VAGINAL PATHOGEN SCREEN (08/07/2013 6:40 PM CDT) Trichomonas vaginalis NEGATIVE NEGATIVE 08/07/2013 7:55 PM CDT [facility] GARDNERELLA SCREEN NEGATIVE NEGATIVE 08/07/2013 7:55 PM CDT [facility] Angy species DNA NEGATIVE NEGATIVE 08/07/2013 7:55 PM CDT [facility] 08/07/2013 6:40 PM CDT 08/07/2013 6:49 PM CDT Plan A Drink [facility] - 08/07/2013 7:55 PM CDT A positive result for Angy, Gardnerella and/or Trichomonas means nucleic acid for Angy species (C.albicans,C.glabrata,Ckefyr,C.krusei,C.parapsilosis, ?? C.tropicalis),G.vaginalis and/or T.vaginalis,respectively, ?? is present in the sample and indicates the patient has candidasis, bacterial vaginosis, and/or trichomoniasis when ?? consisent with clinical signs and symptoms. Simultaneous ?? infections by more than one organism are common. ? Negative results,for Angy,Gardnerella,or Trichomonas ?? test suggest the patient does not have candidasis,bacterial vaginosis and/or trichomoniasis, respectively, when consistent with clinical signs and symptoms. Cesar Márquez MD LAB BLOOD ORDERABLES Final Result Performing Organization Address [facility] de Phone Number [facility] * Chlamydia trachomatis/N. gonorrhoeae, swab (08/07/2013 6:40 PM CDT) Pathologist [facility] C. trachomatis RNA NEGATIVE NEGATIVE 08/11/2013 1:12 PM CDT [facility] Comment: METHOD: ??B-D ProbeT[employer] ET System using Strand Displacement Amplification N. gonorrhoeae RNA NEGATIVE NEGATIVE 08/11/2013 1:12 PM CDT [facility] Comment: METHOD: ??B-D Pro[employer] ET system using Strand Displacement Amplification 08/07/2013 6:40 PM CDT 08/07/2013 6:46 PM CDT Cesar Márquez MD LAB BODY FLUIDS AND S TOOLS ORDERABLES Final Result Performing Organization Address [facility] de Phone Number [facility] * Comprehensive metabolic panel (08/07/2013 6:32 PM CDT) Sodium 135 135 - 145 mmol/L 08/07/2013 7:01 PM CDT [facility] Potassium 3.8 3.3 - 5.1 mmol/L 08/07/2013 7:01 PM CDT [facility] Chloride 101 96 - 108 mmol/L 08/07/2013 7:01 PM CDT [facility] RES[facility] Carbon Dioxide 24 22 - 32 mmol/L Anion Gap 10 7 - 16 Glucose 105 70 - 110 mg/dL BUN 7 6 - 20 mg/dL Creatinine 0.5 0.5 - 1.1 mg/dL Kidney Disease Stage > 90 mL/MIN Comment: NOTE; ??The GFR is an estimated value using the creatinine, sex, age, and race of the patient. THE ESTIMATED GFR IS VALIDATED FOR AGES 18-70 YEARS STAGE ?mL/Min ?DESCRIPTION ??1 ?90 mL/min or more ?Normal or elevated GFR ??2 ? 60-89 mL/min ?Mildly decreased GFR ??3 ? 30-59 mL/min ?Moderately decreased GFR ??4 ? 15-29 mL/min ?Severely decreased GFR ??5 ? <15 mL/min ? Kidney failure or on dialysis @ Calcium 9.7 8.6 - 10.0 mg/dL Total Protein 7.1 6.6 - 8.7 g/dL Albumin 4.1 3.5 - 5.2 g/dL Globulin 3.0 2.3 - 3.5 gm/dL Albumin/Globulin Ratio 1.4 1.1 - 1.8 08/07/2013 7:01 PM CDT [facility] Total Bilirubin 0.2 0.0 - 1.2 mg/dL 08/07/2013 7:01 PM CDT [facility] AST 21 0 - 32 U/L 08/07/2013 7:01 PM CDT [facility] ALT 25 0 - 33 U/L 08/07/2013 7:01 PM CDT [facility] Alkaline Phosphatase 67 35 - 104 U/L 08/07/2013 7:01 PM T [facility] RESULTS 08/07/2013 6:32 PM CDT 08/07/2013 6:33 PM CDT Narrative [facility] - 08/07/2013 7:01 PM CDT us Lilia Hou MANAGER UROLOGY LAB BLOOD ORDERABLES Final Re sult [facility] RES[facility] * (ABNORMAL) CBC with auto differential (08/07/2013 6:32 PM CDT) WBC 9.3 4.6 - 10.2 x10 3/ul 08/07/2013 6:39 PM T [facility] RES[facility] RBC 3.55(L) 3.76 - 4.80 x10 6/ul 08/07/2013 6:39 PM T [facility] RESULTS Hemoglobin 11.3 11.0 - 15.0 g/dl 08/07/2013 6:39 PM CDT [facility] Hct 33.9 33.0 - 43.0 % 08/07/2013 6:39 PM T [facility] RESULTS MCV 95.5 80.0 - 97.0 fl 08/07/2013 6:39 PM T [facility] RESULTS MCH 31.8(H) 27.0 - 31.2 pg 08/07/2013 6:39 PM CDT [facility] RESULTS MCHC 33.3 31.8 - 35.4 g/dl 08/07/2013 6:39 PM CDT [facility] RES[facility] RDW 11.9 11.6 - 14.8 % Plt Count 306 124 - 400 x10 3/ul MPV 8.9 7.4 - 10.4 fl Differential Method AUTOMATED DIFF --------- -- Neut % 56.2 37.0 - 85.0 % Immature Gran % 0.2 0.0 - 3.0 % Lymph % 29.4 5.0 - 45.0 % White % 10.6 3.0 - 15.0 % Eos % 3.1 0.0 - 7.0 % Baso % 0.5 0.0 - 2.0 % ABSOLUTE COUNTS ABSOLUTE COUNTS --------- -- Absolute Neuts (auto) 5.2 1.7 - 8.7 x10 3/ul Immature Gran # 0.0 0.0 - 0.3 x10 3/ul Absolute Lymphs (auto) 2.7 0.2 - 4.6 x10 3/ul Absolute Monos (auto) 1.0 0.1 - 1.5 x10 3/ul Absolute Eos (auto) 0.3 0.0 - 0.7 x10 3/ul 08/07/2013 6:39 PM CDT [facility] Absolute Basos (auto) 0.1 0.0 - 0.2 x10 3/ul 08/07/2013 6:39 PM CDT [facility] RESULTS 08/07/2013 6:32 PM CDT 08/07/2013 6:33 PM CDT Narrative [facility] - 08/07/2013 6:39 PM CDT us Lilia Hou MANAGER UROLOGY LAB BLOOD ORDERABLES Final Re sult [facility] RES[facility] * (ABNORMAL) hCG, blood, quantitative (08/07/2013 6:31 PM CDT) Beta HCG, Quant 99539.0(H) 0.0 - 1.0 mIU/mL 08/07/2013 7:42 PM CDT [facility] Comment: Weeks of preg ?BHCG [...] for the early detection of . ? 08/07/2013 6:31 PM CDT 08/07/2013 6:33 PM CDT Narrative [facility] - 08/07/2013 7:42 PM CDT us Lilia Hou MANAGER UROLOGY LAB BLOOD ORDERABLES Final Re sult [facility]ULTS * US Transvaginal (08/07/2013 12:00 AM CDT) Anatomical Region Laterality Modality Pelvis N/A Ultrasound 08/07/2013 Impressions 08/07/2013 8:23 PM CDT Single live intrauterine gestation with a calculated gestational age of 6 weeks 0 days and expected delivery date of April 02, 2014 Tiny subchorionic bleed. THIS IS AN ELECTRONICALLY VERIFIED REPORT 08/07/2013 8:20 PM: ??Severo Zavala M.D. Severo Zavala M.D. JA:brittany 08:20 PM 08:20 PM [facility] [EOD] Narrative 08/07/2013 8:23 PM CDT PROCEDURE: Pelvic Ultrasound HISTORY: . ??Vaginal bleeding. GYNECOLOGIC HISTORY: ??1 ??, PARA0 ; LMP June 13, 2013 TECHNIQUE: Transvaginal ultrasound of the pelvis. COMPARISON: ??None available ?? FINDINGS: MEASUREMENTS: Uterus: ??8.3 x 5.8 x 4.3 (Length x Height x Width) Right Ovary: 3.4 x 2.6. Left Ovary: ??3.1 x 1.7 ?? heart rate: ??107 beats per minute. [place]-rump length 0.37 cm corresponding to a gestational age of 6 weeks 0 days and expected delivery date of April 02, 2014. UTERUS: The uterus is normal in size and contour. There is a tiny live intrauterine gestation with a yolk sac. ??There is a small subchorionic focus of hypo echogenicity measuring 0.2 x 0.6 x 0.5 cm may represent a small subchorionic bleed.. There is no myometrial mass. ADNEXA: The ovaries are normal in size. There is no adnexal mass. MISC: There is no free fluid in the pelvis. Procedure Note Provider, MD Shen - 06/21/2020 PROCEDURE: Pelvic Ultrasound HISTORY: . Vaginal bleeding. GYNECOLOGIC HISTORY: 1 , PARA0 ; LMP June 13, 2013 TECHNIQUE: Transvaginal ultrasound of the pelvis. COMPARISON: None available FINDINGS: MEASUREMENTS: Uterus: 8.3 x 5.8 x 4.3 (Length x Height x Width) Right Ovary: 3.4 x 2.6. Left Ovary: 3.1 x 1.7 heart rate: 107 beats per minute. [place]-rump length 0.37 cm corresponding to a gestational age of 6 weeks 0days and expected delivery date of April 02, 2014. UTERUS: The uterus is normal in size and contour. There is a tiny live intrauterine gestation with a yolk sac. There is a small subchorionicfocus of hypo echogenicity measuring 0.2 x 0.6 x 0.5 cm may represent a small subchorionic bleed.. There is no myometrial mass. ADNEXA: The ovaries are normal in size. There is no adnexal mass. MISC: There is no free fluid in the pelvis. IMPRESSION: Single live intrauterine gestation with a calculated gestational age of 6 weeks 0 days and expected delivery date of April 02, 2014 Tiny subchorionic bleed. THIS IS AN ELECTRONICALLY VERIFIED REPORT 08/07/2013 8:20 PM: Severo Zavala M.D. Severo Zavala M.D. JA:brittany 08:20 PM 08:20 PM [facility] [EOD] us Lilia Hou NP IMG US PROCEDURES Final Resul t documented in this encounter Visit Diagnoses Diagnosis Threatened , antepartum documented in this encounter
--- OUTSIDE RECORDS SUMMARY | 2024-02-16 10:34 | XMS_ITS | Encounter Summary ---
Author Organization [facility] Healthcare Address [address] [place] [address] Care Team Providers Care Child And Family Services Specialist Name Role Phone Unavailable Primary Care Provider Unavailabl e Encounter Details Date Type Department Care Team (Late st Contact Info) Description 07/28/2013 4:29 PM CDT Hospital Encounter [facility] Elsi Nation, WRAPPER REWINDER [address] [place] [address] state, incidental Social History Tobacco Use Types Packs/Day Years [...] Procedure Name Priority Date/Time Associated Diagnosis Comments GLUCOSE TOLERANCE, 1 HOUR Routine 07/28/2013 5:36 PM CDT GLUCOSE, 1 HOUR 100GM, GESTATIONAL SCREEN Routine 07/28/2013 4:35 PM CDT documented in this encounter Results * (ABNORMAL) Glucose tolerance, 1 hour (07/28/2013 5:36 PM CDT) Glucose GTT 1 188(H) 120 - 170 mg/dL 07/28/2013 6:30 PM CDT [facility] HISTORICAL RESULTS 07/28/2013 5:36 PM CDT 07/28/2013 5:49 PM CDT Narrative [facility] - 07/28/2013 6:30 PM CDT GTT1 GTT1 GEST GLU1 from [id number]. us Elsi Emmanuel WRAPPER REWINDER LAB BLOOD ORDERABLES Final R esult Performing Organization Address City/[facility]/ZIP Co de Phone Number [facility] HISTORICAL RESULTS * Glucose, 1 hour 100gm, gestational screen (07/28/2013 4:35 PM CDT) Gestat Glucose Screen 07/28/2013 6:30 PM CDT [facility] HISTORICAL RESULTS Comment: TRUTOL REQUIRED: 5.0 ounces (Screen for Gestational Diabetes) 07/28/2013 4:[address] [facility] [employer] [facility] HISTORICAL RESULTS - 07/28/2013 6:30 PM CDT us Elsi Emmanuel WRAPPER REWINDER LAB BLOOD ORDERABLES Final R esult [facility] HISTORICAL RESULTS documented in this encounter Visit Diagnoses Diagnosis state, incidental documented in this encounter
--- OUTSIDE RECORDS SUMMARY | 2024-02-16 10:34 | XMS_ITS | Encounter Summary ---
Author Organization [facility] Healthcare Address [address] [place] [address] Care Team Providers Care Automotive Service Manager Name Role Phone Unavailable Primary Care Provider Unavailabl e Encounter Details Date Type Department Care Team (Latest Contact Info) Description 08/28/2013 7:49 AM CDT Hospital Encounter [facility] Amaury Early MD [address] [place] [id number] Other specified pre-operative examination; Missed Social History Tobacco Use Types Packs/Day [...] Procedure Name Priority Date/Time Associated Diagnosis Comments CBC WITH AUTO DIFFERENTIAL Routine 08/28/2013 8:50 AM CDT URINALYSIS AND REFLEX TO MICROSCOPIC AND CULTURE Routine 08/28/2013 8:15 AM CDT documented in this encounter Results * (ABNORMAL) CBC with auto differential (08/28/2013 8:50 AM CDT) WBC 9.2 4.6 - 10.2 x10 3/ul RBC 3.76 3.76 - 4.80 x10 6/ul Hemoglobin 11.8 11.0 - 15.0 g/dl Hct 35.9 33.0 - 43.0 % MCV 95.5 80.0 - 97.0 fl MCH 31.4(H) 27.0 - 31.2 pg MCHC 32.9 31.8 - 35.4 g/dl RDW 12.1 11.6 - 14.8 % Plt Count 320 124 - 400 x10 3/ul MPV 9.3 7.4 - 10.4 fl Differential Method AUTOMATED DIFF --------- -- Neut % 68.4 37.0 - 85.0 % Immature Gran % 0.3 0.0 - 3.0 % Lymph % 23.7 5.0 - 45.0 % [place] % 5.6 3.0 - 15.0 % Eos % 1.8 0.0 - 7.0 % Baso % 0.2 0.0 - 2.0 % ABSOLUTE COUNTS ABSOLUTE COUNTS --------- -- Absolute Neuts (auto) 6.3 1.7 - 8.7 x10 3/ul Immature Gran # 0.0 0.0 - 0.3 x10 3/ul Absolute Lymphs (auto) 2.2 0.2 - 4.6 x10 3/ul Absolute Monos (auto) 0.5 0.1 - 1.5 x10 3/ul Absolute Eos (auto) 0.2 0.0 - 0.7 x10 3/ul Absolute Basos (auto) 0.0 0.0 - 0.2 x10 3/ul 08/28/2013 8:50 AM CDT 08/28/2013 8:54 AM CDT us Amaury Early MD LAB BLOOD ORDERABLES Final Result [facility] HISTORICAL RESULTS * (ABNORMAL) Urinalysis reflex to microscopic and culture (08/28/2013 8:15 AM CDT) Ur Collection Type CLEAN CATCH Ur Culture Indicated? C&S NOT INDICATED Urine Color YELLOW YELLOW Urine Clarity HAZY CLEAR Urine Glucose (UA) NORMAL NORMAL mg/dL Urine Bilirubin NEGATIVE NEGATIVE mg/dl Urine Ketones NEGATIVE NEGATIVE mg/dL Ur Specific [place] 1.016 1.005 - 1.025 Urine Blood 1.0(H) NEGATIVE mg/dl Urine pH 6.5 5.0 - 8.0 Urine Protein NEGATIVE NEGATIVE mg/dL Urine Urobilinogen NORMAL NORMAL mg/dL Urine Nitrite NEGATIVE NEGATIVE Ur Leukocyte Esterase 75(H) NEGATIVE Benjamín/ul Ur Microscopic Review Indicated or Ordered Urine RBC 1 0 - 2 /HPF Urine WBC 2 0 - 2 /HPF Urine Mucus Rare /LPF Ur Squamous Epith Cells Few /HPF 08/28/2013 8:15 AM CDT 08/28/2013 8:44 AM CDT Narrative [facility] HISTORICAL RESULTS - 08/28/2013 8:51 AM CDT Collected By ra ?? 193 ?? us Amaury Early MD LAB MICROBIOLOGY - GENERAL ORDERABLES Final Result [facility] HISTORICAL RESULTS documented in this encounter Visit Diagnoses Diagnosis Other specified pre-operative examination Missed documented in this encounter
--- OUTSIDE RECORDS SUMMARY | 2024-02-16 10:34 | XMS_ITS | Encounter Summary ---
Author Organization [facility] Address [address] [facility] [address] [place] [id number] Care Team Providers Care Gluing Machine Operator Name Role Phone No, Physician Primary Care Provider [phone] Reason for Visit * Reason Comments Earache left side Encounter Details Date Type Department Care Team (Late st Contact Info) Description 08/24/2017 7:15 PM CDT Office Visit [facility] Care [address] [place] [address] Haider Connolly, NATALIO [address] [place] [place] [address] Acute mucoid otitis media of left ear (Primary Dx) Social History Tobacco Use Types Packs/Day Years Used Date Smoking Tobacco: Every Day Smokeless Tobacco: Never Comments Unknown Sex and Gender Information Value Date Recorded Sex Assigned at Not on file Legal Sex Female 7:08 PM CDT Gender Identity Not on file Sexual Orientation Not on file documented as of this encounter Last Filed Vital Signs Vital Sign Reading Time Taken Comments Blood Pressure 108/78 08/24/2017 7:25 PM CDT Pulse 122 08/24/2017 7:25 PM CDT Temperature 36.9 ??C (98.4 ??F) 08/24/2017 7:25 PM CD T Respiratory Rate 16 08/24/2017 7:25 PM CDT Oxygen Saturation 96% 08/24/2017 7:25 PM CDT Inhaled Oxygen Concentration - - Weight 81.6 kg (180 lb) 08/24/2017 7:25 PM CDT Height 167.6 cm (5' 6 ) 08/24/2017 7:25 PM CDT Body Mass Index 29.05 08/24/2017 7:25 PM CDT documented in this encounter Patient Instructions * Patient Instructions* Haider Connolly, FILM WRITER - 08/24/2017 7:40 PM CDT Complete the antibiotic as directed. Take Tylenol or Motrin as directed for pain or fever. Use warmmoist heat to decrease pain. If there is fluid behind your eardrum, you will need to take an over the counter antihistamine to help dry up the fluid. You will also need to take Mucinex to help thin out the mucus. Adult patients should follow up with your PCP if you are not getting any better in 3 days. Pediatric patients will need to have an ear recheck at 10 days regardless of feeling better. Please follow up with Dr Scotty Ashley DO Ear, Nose and Throat / Otolaryngology [address] [place] [address] Patient Education Otitis Media WHAT YOU NEED TO KNOW: Otitis media is an ear infection. DISCHARGE INSTRUCTIONS: Medicines: ?? Ibuprofen or acetaminophen helps decrease your pain and fever. They are available without a doctor's order. Ask your healthcare provider which medicine is right for you. Ask how much to take and how often to take it. These medicines can cause stomach bleeding if not taken correctly. Ibuprofen can cause kidney damage. Do not take ibuprofen if you have kidney disease, an ulcer, or allergies to aspirin. Acetaminophen can cause liver damage. Do not drink alcohol if you take acetaminophen. ?? Ear drops help treat your ear pain. ?? Antibiotics help treat a bacterial infection that caused your ear infection. ?? Take your medicine as directed. Contact your healthcare provider if you think your medicine is not helping or if you have side effects. Tell him or her if you are allergic to any medicine. Keep a list of the medicines, vitamins, and herbs you take. Include the amounts, and when and why you take them. Bring the list or the pill bottles to follow-up visits. Carry your medicine list with you in case of an emergency. Heat or ice: ?? Heat may be used to decrease your pain. Place a warm, moist washcloth on your ear. Apply for 15 to 20 minutes, 3 to 4 times a day ?? Ice helps decrease swelling and pain. Use an ice pack or put crushed ice in a plastic bag. Coverthe ice pack with a towel and place it on your ear for 15 to 20 minutes, 3 to 4 times a day for 2 days. Prevent otitis media: ?? Wash your hands often. Use soap and water. Wash your hands after you use the bathroom, change a child's diapers, or sneeze. Wash your hands before you prepare or eat food. ?? Stay away from people who are ill. Some germs are easily and quickly spread through contact. Return to work or school: You may return to work or school when your fever is gone. Follow up with your healthcare provider as directed: Write down your questions so you remember to ask them during your visits. Contact your healthcare provider if: ?? Your ear pain gets worse or does not go away, even after treatment. ?? The outside of your ear is red or swollen. ?? You have vomiting or diarrhea. ?? You have fluid coming from your ear. ?? You have questions or concerns about your condition or care. Seek care immediately or call 911 if: ?? You have a seizure. ?? You have a fever and a stiff neck. ?? 2016 [employer]. Information is for End User's use only and may not be sold, redistributed or otherwise used for commercial purposes. All illustrations and images included in CareNotes?? are the copyrighted property of [employer]. or [employer]. The above information is an computer aided design drafter only. It is not intended as medical advice for individual conditions or treatments. Talk to your doctor, nurse or pharmacist before following any medical regimen to see if it is safe and effective for you. documented in this encounter Ordered Prescriptions Prescription Sig Dispense Quantity Refills Last Filled Start Date End Date amoxicillin (AMOXIL) 875 mg tabletIndications: Acute mucoid otitis media of left ear Take 1 tablet (875 mg total) by mouth 2 (two) times a day for 10 days. 20 tablet 08/24/2017 09/03/2017 documented in this encounter Progress Notes * Haider Connolly, FILM WRITER - 08/24/2017 7:15 PM CDT Subjective Patient ID: Radha Cabral is a 37 y.o. female. Earache (left side ) Left ear pain onset Sunday Earache There is pain in the left ear. This is a new problem. The current episode started in the past 7 days. The problem occurs constantly. The problem has been gradually worsening. There has been no fever.The fever has been present for less than 1 day. The pain is at a severity of 5/10. The pain is moderate. Associated symptoms include headaches. Pertinent negatives include no abdominal pain, coughing, diarrhea, ear discharge, hearing loss, neck pain, rash, rhinorrhea, sore throat or vomiting. She has tried acetaminophen for the symptoms. The treatment provided no relief. Her past medical history is significant for a chronic ear infection. Review of Systems Constitutional: Negative for activity change and fatigue. HENT: Positive for ear pain. Negative for ear discharge, hearing loss, rhinorrhea and sore throat. Respiratory: Negative for cough. Gastrointestinal: Negative for abdominal pain, diarrhea and vomiting. Genitourinary: Negative for dysuria. Musculoskeletal: Negative for neck pain. Skin: Negative for rash. Neurological: Positive for headaches. Psychiatric/Behavioral: Negative for confusion. Objective Physical Exam Constitutional: She is oriented to person, place, and time. She appears well- developed and well-nourished. HENT: Head: Normocephalic. Right Ear: Hearing, tympanic membrane and external ear normal. Left Ear: Hearing and external ear normal. Tympanic membrane is bulging. Mouth/Throat: Oropharynx is clear and moist. Mucoid TM on left Eyes: Conjunctivae are normal. Neck: Normal range of motion. Neck supple. Cardiovascular: Normal rate, regular rhythm and normal heart sounds. Pulmonary/Chest: Effort normal and breath sounds normal. Abdominal: Soft. Musculoskeletal: Normal range of motion. Neurological: She is alert and oriented to person, place, and time. No cranial nerve deficit. Skin: Skin is warm and dry. No rash noted. No erythema. Psychiatric: She has a normal mood and affect. Nursing note and vitals reviewed. Vitals: 08/24/17 1925 BP: 108/78 BP Location: Left arm Patient Position: Sitting Pulse: 122 Resp: 16 Temp: 36.9 ??C (98.4 ??F) TempSrc: Oral SpO2: 96% Weight: 81.6 kg (180 lb) Height: 167.6 cm (5' 6 ) Assessment/Plan Complete the antibiotic as directed. Take Tylenol or Motrin as directed for pain or fever. Use warmmoist heat to decrease pain. If there is fluid behind your eardrum, you will need to take an over the counter antihistamine to help dry up the fluid. You will also need to take Mucinex to help thin out the mucus. Adult patients should follow up with your PCP if you are not getting any better in 3 days. Pediatric patients will need to have an ear recheck at 10 days regardless of feeling better. Please follow up with Dr Scotty Ashley DO Ear, Nose and Throat / Otolaryngology [address] [place] [address] Diagnoses and all orders for this visit: Acute mucoid otitis media of left ear (Primary) - amoxicillin (AMOXIL) 875 mg tablet; Take 1 tablet (875 mg total) by mouth 2 (two) times a day for10 days. No notes on file documented in this encounter Plan of Treatment Not on file documented as of this encounter Visit Diagnoses Diagnosis Acute mucoid otitis media of left ear- Primary documented in this encounter Care Teams Gluing Machine Operator Relationship Specialty Start Date End Date No, Physician PCP - General 08/24/17 09/28/20 documented as of this encounter
--- OUTSIDE RECORDS SUMMARY | 2024-02-16 10:34 | XMS_ITS | Encounter Summary ---
Author Organization [facility] Address [address] [place] [address] Care Team Providers Care Meter Record Clerk Name Role Phone Unavailable Primary Care Provider Unavailabl e Encounter Details Date Type Department Care Team (Latest Contact Info) Description 02/23/2012 4:22 PM PICK UP WORKER - 02/25/2012 7:51 PM PICK UP WORKER Hospital Encounter [facility] Phiilp Shipley MD [address] [place] [id number] Trichomonal vulvovaginitis; Tobacco use disorder Social History Tobacco Use Types Packs/Day Years Used Date Smoking Tobacco: Never Assessed Comments Unknown Sex and Gender Information Value Date Recorded Sex Assigned at Not on file Legal Sex Female 7:08 PM CDT Gender Identity Not on file Sexual Orientation Not on file documented as of this encounter Last Filed Vital Signs Vital Sign Reading Time Taken Comments Blood Pressure 116/74 02/25/2012 4:03 PM PICK UP WORKER Pulse 85 02/25/2012 4:03 PM PICK UP WORKER Temperature 36.8 ??C (98.2 ??F) 02/25/2012 4:03 PM CS T Respiratory Rate - - Oxygen Saturation 97% 02/25/2012 4:03 PM PICK UP WORKER Inhaled Oxygen Concentration - - Weight 76.2 kg (168 lb) 02/25/2012 4:03 PM PICK UP WORKER Height 167.6 cm (5' 6 ) 02/25/2012 4:03 PM PICK UP WORKER Body Mass Index 27.12 02/25/2012 4:03 PM PICK UP WORKER documented in this encounter Plan of Treatment Not on file documented as of this encounter Procedures Procedure Name Priority Date/Time Associated Diagnosis Comments BASIC METABOLIC PANEL Routine 02/24/2012 6:39 AM PICK UP WORKER HIV-1 AND HIV-2 ANTIBODY, RAPID Routine 02/23/2012 8:26 PM PICK UP WORKER CBC WITH AUTO DIFFERENTIAL Routine 02/23/2012 8:26 PM PICK UP WORKER COMPREHENSIVE METABOLIC PANEL Routine 02/23/2012 8:26 PM PICK UP WORKER documented in this encounter Results * (ABNORMAL) Basic metabolic panel (02/24/2012 6:39 AM PICK UP WORKER) Sodium 138 135 - 145 mmol/L Potassium 4.0 3.3 - 5.1 mmol/L Chloride 108 96 - 108 mmol/L Carbon Dioxide 25 22 - 32 mmol/L Anion Gap 5 Glucose 105 70 - 110 mg/dL BUN 12 6 - 20 mg/dL Creatinine 0.5 0.5 [...] Kidney failure or on dialysis @ Calcium 2.11(L) 2.15 - 2.55 mmol/L 02/24/2012 7:55 AM PICK UP WORKER [facility] HISTORICAL RESULTS 02/24/2012 6:39 AM PICK UP WORKER 02/24/2012 7:15 AM PICK UP WORKER Philip Shipley MD LAB BLOOD ORDERABLES Final Result Performing Organization Address [facility] de Phone Number [facility] HISTORICAL RESULTS * HIV-1 and HIV-2 antibody, rapid (02/23/2012 8:26 PM PICK UP WORKER) Pathologist [facility] HIV 1/2 Ab NONREACTIVE NONREACTIVE Comment: Note: ??A Non-Reactive result indicates an absence of detectable HIV-1/2 antibodies in the patient. However, it does not rule out recent exposure or past infection with HIV. 02/23/2012 8:26 PM PICK UP WORKER 02/23/2012 8:32 PM PICK UP WORKER Philip Shipley MD LAB BLOOD ORDERABLES Final Result Performing Organization Address [facility] de Phone Number [facility] HISTORICAL RESULTS * (ABNORMAL) Comprehensive metabolic panel (02/23/2012 8:26 PM PICK UP WORKER) Pathologist [facility] Sodium 134(L) 135 - 145 mmol/L Potassium 3.1(L) 3.3 - 5.1 mmol/L Chloride 102 96 - 108 mmol/L Carbon Dioxide 24 22 - 32 mmol/L Anion Gap 8 Glucose 154(H) 70 - 110 mg/dL BUN 14 6 - 20 mg/dL Creatinine 0.5 0.5 [...] Kidney failure or on dialysis @ Calcium 2.20 2.15 - 2.55 mmol/L 02/23/2012 8:54 PM URBANARA [facility] HISTORICAL RESULTS Total Protein 6.3(L) 6.4 - 8.4 g/dL Albumin 3.7 3.5 - 5.2 g/dL Globulin 2.6 2.3 - 3.5 gm/dL Albumin/Globulin Ratio 1.4 1.1 - 1.8 02/23/2012 8:54 PM PICK UP WORKER [facility] HISTORICAL RESULTS Total Bilirubin 0.1 0.0 - 1.2 mg/dL 02/23/2012 8:54 PM PICK UP WORKER [facility] HISTORICAL RESULTS AST 12 0 - 32 U/L 02/23/2012 8:54 PM PICK UP WORKER [facility] HISTORICAL RESULTS ALT 15 0 - 31 U/L Alkaline Phosphatase 63 35 - 104 U/L 02/23/2012 8:26 PM PICK UP WORKER 02/23/2012 8:32 PM PICK UP WORKER us Philip Shipley MD LAB BLOOD ORDERABLES Final Result [facility] HISTORICAL RESULTS * (ABNORMAL) CBC with auto differential (02/23/2012 8:26 PM PICK UP WORKER) WBC 10.0 4.6 - 10.2 x10 3/ul RBC 4.00 3.76 - 4.80 x10 6/ul Hemoglobin 12.6 11.0 - 15.0 g/dl Hct 38.3 33.0 - 43.0 % MCV 95.8 80.0 - 97.0 fl MCH 31.5(H) 27.0 - 31.2 pg MCHC 32.9 31.8 - 35.4 g/dl RDW 12.6 11.6 - 14.8 % Plt Count 321 124 - 400 x10 3/ul MPV 9.1 7.4 - 10.4 fl Differential Method AUTOMATED DIFF --------- -- Neut % 51.4 37.0 - 85.0 % Immature Gran % 0.2 0.0 - 3.0 % Lymph % 41.7 5.0 - 45.0 % [place] % 4.8 3.0 - 15.0 % Eos % 1.5 0.0 - 7.0 % Baso % 0.4 0.0 - 2.0 % ABSOLUTE COUNTS ABSOLUTE COUNTS --------- -- Absolute Neuts (auto) 5.1 1.7 - 8.7 x10 3/ul Immature Gran # 0.0 0.0 - 0.3 x10 3/ul Absolute Lymphs (auto) 4.2 0.2 - 4.6 x10 3/ul Absolute Monos (auto) 0.5 0.1 - 1.5 x10 3/ul Absolute Eos (auto) 0.2 0.0 - 0.7 x10 3/ul Absolute Basos (auto) 0.0 0.0 - 0.2 x10 3/ul 02/23/2012 8:48 PM PICK UP WORKER [facility] HISTORICAL RESULTS 02/23/2012 8:26 PM PICK UP WORKER 02/23/2012 8:32 PM PICK UP WORKER us Philip Shipley MD LAB BLOOD ORDERABLES Final Result [facility] HISTORICAL RESULTS documented in this encounter Visit Diagnoses Diagnosis Trichomonal vulvovaginitis Tobacco use disorder documented in this encounter
--- OUTSIDE RECORDS SUMMARY | 2024-02-16 10:34 | XMS_ITS | Encounter Summary ---
Author Organization [facility] Healthcare Address [address] [place] [address] Care Team Providers Care Scourer Name Role Phone Unavailable Primary Care Provider Unavailabl e Encounter Details Date Type Department Care Team (Latest Contact Info) Description 08/29/2013 1:59 PM CDT - 08/29/2013 6:28 PM CDT Hospital Encounter [facility] Amaury Early MD [address] [place] [address] Missed Social History Tobacco Use Types Packs/Day Years Used Date Smoking Tobacco: Never Assessed Comments Unknown Sex and Gender Information Value Date Recorded Sex Assigned at Not on file Legal Sex Female 7:08 PM CDT Gender Identity Not on file Sexual Orientation Not on file documented as of this encounter Last Filed Vital Signs Vital Sign Reading Time Taken Comments Blood Pressure 112/72 08/28/2013 8:26 AM CDT Pulse 87 08/28/2013 8:26 AM CDT Temperature 36.7 ??C (98.1 ??F) 08/28/2013 8:26 AM CD T Respiratory Rate - - Oxygen Saturation 97% 08/28/2013 8:26 AM CDT Inhaled Oxygen Concentration - - Weight 93.4 kg (205 lb 12.8 oz) 08/28/2013 8:26 AM CDT Height 167.6 cm (5' 6 ) 08/28/2013 8:26 AM CDT Body Mass Index 33.22 08/28/2013 8:26 AM CDT documented in this encounter Plan of Treatment Not on file documented as of this encounter Procedures Procedure Name Priority Date/Time Associated Diagnosis Comments SCAN - PATHOLOGY 09/02/2013 12:0 0 AM CDT documented in this encounter Results * SCAN - PATHOLOGY (09/02/2013 12:00 AM CDT) Narrative 09/02/2013 12:00 AM CDT Ordered by an unspecified provider. us Historical Provider MD Final Res ult documented in this encounter Visit Diagnoses Diagnosis Missed documented in this encounter
--- OUTSIDE RECORDS SUMMARY | 2024-02-16 10:34 | XMS_ITS | Encounter Summary ---
Author Organization [facility] Healthcare Address [address] [place] [address] Care Team Providers Care Home Care Manager Rn Name Role Phone Unavailable Primary Care Provider Unavailabl e Encounter Details Date Type Department Care Team (Late st Contact Info) Description 08/09/2013 6:41 AM CDT Hospital Encounter [facility] Denise Yanciulz Hathaway, DO [address] [place] [address] Abnormal glucose tolerance test Social History Tobacco Use Types Packs/Day Years [...] Priority Date/Time Associated Diagnosis Comments GLUCOSE TOLERANCE, 3 HOURS Routine 08/09/2013 9:55 AM CDT GLUCOSE TOLERANCE, 2 HOURS Routine 08/09/2013 8:56 AM CDT GLUCOSE TOLERANCE, 1 HOUR Routine 08/09/2013 7:57 AM CDT GLUCOSE TOLERANCE, FASTING Routine 08/09/2013 6:48 AM CDT GTT 100GM 3HR GESTATIONAL DIAGNOSTIC Routine 08/09/2013 6:43 AM CDT documented in this encounter Results * (ABNORMAL) Glucose tolerance, 3 hours (08/09/2013 9:55 AM CDT) Glucaose GTT 3 60(L) 70 - 110 mg/dL 08/09/2013 10:35 AM CDT [facility] HISTORICAL RESULTS 08/09/2013 9:55 AM CDT 08/09/2013 10:04 AM CDT [facility] HISTORICAL RESULTS - 08/09/2013 10:35 AM CDT GTT3 [id number] GLU3 from [id number]. us Cecilia Walker LAB BLOOD ORDERABLES F inal Result [facility] HISTORICAL RESULTS * (ABNORMAL) Glucose tolerance, 2 hours (08/09/2013 8:56 AM CDT) Glucose GTT 2 158(H) 70 - 110 mg/dL 08/09/2013 10:34 AM CDT [facility] HISTORICAL RESULTS 08/09/2013 8:56 AM CDT 08/09/2013 9:02 AM CDT [facility] HISTORICAL RESULTS - 08/09/2013 10:34 AM CDT GTT3 [id number] GLU2 from [id number]. us Cecilia Walker DO LAB BLOOD ORDERABLES F inal Result [facility] HISTORICAL RESULTS * (ABNORMAL) Glucose tolerance, 1 hour (08/09/2013 7:57 AM CDT) Glucose GTT 1 213(H) 120 - 170 mg/dL 08/09/2013 10:38 AM CDT [facility] HISTORICAL RESULTS 08/09/2013 7:57 AM CDT 08/09/2013 8:13 AM CDT [facility] HISTORICAL RESULTS - 08/09/2013 10:38 AM CDT GTT3 [id number] GLU1 from [id number]. us Cecilia Walker DO LAB BLOOD ORDERABLES F inal Result Performing Organization Address [facility] de Phone Number [facility] HISTORICAL RESULTS * (ABNORMAL) Glucose tolerance, fasting (08/09/2013 6:48 AM CDT) Glucose GTT 0 113(H) 70 - 110 mg/dL 08/09/2013 10:34 AM CDT [facility] HISTORICAL RESULTS 08/09/2013 6:48 AM CDT 08/09/2013 7:12 AM CDT [facility] HISTORICAL RESULTS - 08/09/2013 10:34 AM CDT GTT3 [id number] GLU0 from [id number]. us Cecilia Walker DO LAB BLOOD ORDERABLES F inal Result Performing Organization Address [facility] de Phone Number [facility] HISTORICAL RESULTS * Glucose, 3 hour GTT, 100G gestational (08/09/2013 6:43 AM CDT) GLUCOSE ABELARDO 3 HR (GESTATIONAL) 08/09/2013 10:38 AM CDT [facility] HISTORICAL RESULTS Comment: TRUTOL REQUIRED: 10 ounces (Test for Gestational Diabetes) 08/09/2013 6:43 AM CDT [facility] HISTORICAL RESULTS - 08/09/2013 10:38 AM CDT Cecilia Walker DO LAB BLOOD ORDERABLES F inal Result Performing Organization Address [facility] de Phone Number [facility] HISTORICAL RESULTS documented in this encounter Visit Diagnoses Diagnosis Abnormal glucose tolerance test Impaired glucose tolerance test documented in this encounter
--- OUTSIDE RECORDS SUMMARY | 2024-02-16 11:00 | XMS_ITS | Clinical Summary ---
Author Organization [facility] [email or web address] Address [address] [place] [address] Care Team Providers Care Clinical Trial Educator Name Role Phone Unavailable Primary Care Provider Unavailabl e Source Comments [facility] [email or web address],non-owned Affiliates and Associated Physician Practices is amultiple site organization consisting of ambulatory clinics and hospital sitesin [place], [place], [place] and [place]. This disclosure is being madepursuant to the Care Everywhere program and may not contain all information available regarding this patient. Last updated 17.[facility] [email or web address] Allergies No known active allergies Medications * Be aware that medications may not be up to date on this document. Alwaysverify current medications with the patient. Medication Sig Dispensed Refills Start Date End Date Status multivitamin daily (THERAGRAN) tablet Take 1 Tab by mouth daily with food Active fluticasone propionate (FLONASE) 50 MCG/ACT nasal sprayIndications:Acute upper respiratory infection [place] 2 Sprays into each nostril once daily [...]
--- OUTSIDE RECORDS SUMMARY | 2024-02-16 11:00 | XMS_ITS | Encounter Summary ---
Author Organization [facility] Address [address] [place] [address] Care Team Providers Care Food Service Name Role Phone Unavailable Primary Care Provider Unavailabl e Reason for Visit * Reason Comments Ear Problem Cold Symptoms Encounter Details Date Type Department Care Team (Late st Contact Info) Description 11/04/2015 2:15 PM CDT Office Visit [facility] AT [address] [phone] Acute upper respiratory infection (Primary Dx) Social [...] Instructions * Patient Instructions* Ember Cosme APRN-MANAGER [employer]MENT [employer]ANKING - 11/04/2015 2:26 PM CDT Images from [...] when you sneeze or cough. ?? 2016 [employer]. Information is for End User's use only and may not be sold, redistributed or otherwise used for commercial purposes. All illustrations and images included in CareNotes?? are the copyrighted property of [employer] or [employer]. The above information is an educational advisor only. It is not intended as medical advice for individual conditions or treatments. Talk to your doctor, nurse or pharmacist before following any medical regimen to see if it is safe and effective for you. documented in this encounter Progress Notes * Ember Cosme, HIDE TRIMMER-MANAGER [employer] - 11/04/2015 2:19 PM CDT [facility] [...] fluticasone propionate (FLONASE) 50 MCG/ACT nasal spray [place] 2 Sprays into each nostril once daily [...]
--- OUTSIDE RECORDS SUMMARY | 2024-02-16 11:00 | XMS_ITS | Encounter Summary ---
Author Organization [facility] Health Address [address] [place] [address] Care Team Providers Care Rn Oncology Clinical Name Role Phone Unavailable Primary Care Provider Unavailabl e Reason for Visit * Reason Comments Ear Pain Ear Problem Encounter Details Date Type Department Care Team (Late st Contact Info) Description 10/06/2016 4:40 PM CDT Office Visit [facility] AT [address] [phone] Provider, John Ramos [facility] Acute suppurative otitis media of left ear [...] - 10/06/2016 5:12 PM CDT Otitis Media, Waiter/Waitress Room Service GENERAL INFORMATION: Otitis media is an ear [...] refuse treatment. The above information is an occupational therapist aide only. It is not intended as medical advice for individual conditions or treatments. Talk to your doctor, nurse or pharmacist before following any medical regimen to see if it is safe and effective for you. ?? 2015 [employer]. Information is for End User's use only and may not be sold, redistributed or otherwise used for commercial purposes. All illustrations and images included in CareNotes?? are the copyrighted property of [employer] or [employer]. documented in this encounter Progress Notes * [...] fluticasone propionate (FLONASE) 50 MCG/ACT nasal spray [place] 2 Sprays into each nostril once daily [...] fluticasone propionate (FLONASE) 50 MCG/ACT nasal spray [place] 2 Sprays into each nostril once daily [...] Dispense: 20 Tab Refill: 0 Otitis Media, Waiter/Waitress Room Service GENERAL INFORMATION: Otitis media is an ear [...] refuse treatment. The above information is an occupational therapist aide only. It is not intended as medical advice for individual conditions or treatments. Talk to your doctor, nurse or pharmacist before following any medical regimen to see if it is safe and effective for you. ?? 2015 [employer]. Information is for End User's use only and may not be sold, redistributed or otherwise used for commercial purposes. All illustrations and images included in CareNotes?? are the copyrighted property of [employer] or [employer]. documented in this encounter Plan of Treatment Not on file documented as of this encounter Visit Diagnoses Diagnosis Acute suppurative otitis media of left ear without spontaneous rupture of tympanic membrane, recurrence not specified- Primary documented in this encounter
--- OUTSIDE RECORDS SUMMARY | 2024-02-16 11:00 | XMS_ITS | Encounter Summary ---
Author Organization [facility] Address [address] [place] [address]. [place], [place] [address] [place] [address] Care Team Providers Care House Nurse Name Role Phone Unavailable Primary Care Provider Unavailabl e Encounter Details Date Type Department Care Team (Late st Contact Info) Description 06/21/[address] [facility] [address] [place] [address] , Sho Mcmillan MD Social History Tobacco [...]
--- OUTSIDE RECORDS SUMMARY | 2024-02-16 11:00 | XMS_ITS | Patient Health Summary ---
Author Organization [facility] Address [address] [place] [address] Care Team Providers Care Internship Coordinator Name Role Phone Unavailable Primary Care Provider Unavailabl e Note from [facility],non-owned Affiliates and Associated Physician Practices is amultiple site organization consisting of ambulatory clinics and hospital sitesin [place], [place], [place] and [place]. This disclosure is being madepursuant to the Care Everywhere program and may not contain all information available regarding this patient. Last updated 17.[facility] Allergies No known active allergies Medications * Be aware that medications may not be up to date on this document. Alwaysverify current medications with the patient. * multivitamin daily (THERAGRAN) tablet Take 1 Tab by mouth daily with food * fluticasone propionate (FLONASE) 50 MCG/ACT nasal spray(Started 11/04/2015) [place] 2 Sprays into each nostril once daily [...]
--- OUTSIDE RECORDS SUMMARY | 2024-02-16 11:00 | XMS_ITS | Encounter Summary ---
Author Organization [facility] Address [address] [place] [address] Care Team Providers Care Manager Environmental Health Name Role Phone Unavailable Primary Care Provider Unavailabl e Reason for Visit * Reason Onset Date Comments Follow-up 11/06/2015 Encounter Details Date Type Department Care Team (Late st Contact Info) Description 11/06/2015 Telephone [facility] [address] [place] [phone] Kylah Weller, ARTIFACTS CONSERVATOR[facility] [address] [place] [phone] Follow-up Social History Tobacco Use Types [...]
--- OUTSIDE RECORDS SUMMARY | 2024-02-16 11:00 | XMS_ITS | Encounter Summary ---
Author Organization [facility] Address [address] [place] [address]. [place], [place] [address] [place] [address] Care Team Providers Care Fashion Adviser Name Role Phone Unavailable Primary Care Provider Unavailabl e Encounter Details Date Type Department Care Team (Late st Contact Info) Description 09/26/[address] [facility] [facility] [address] [place] [address] , Sho Mcmillan MD Social History Tobacco [...]
--- OUTSIDE RECORDS SUMMARY | 2024-02-16 11:00 | XMS_ITS | Referral Summary ---
Author Organization [facility] [employer] Address [address] [place] [address] Care Team Providers Care Field Service Engineer Name Role Phone Unavailable Primary Care Provider Unavailabl e Source Comments [facility] [employer],non-owned Affiliates and Associated Physician Practices is amultiple site organization consisting of ambulatory clinics and hospital sitesin [place], [place], [place] and [place]. This disclosure is being madepursuant to the Care Everywhere program and may not contain all information available regarding this patient. Last updated 17.[facility] Allergies No known active allergies Medications * Be aware that medications may not be up to date on this document. Alwaysverify current medications with the patient. Medication Sig Dispensed Refills Start Date End Date Status multivitamin daily (THERAGRAN) tablet Take 1 Tab by mouth daily with food Active fluticasone propionate (FLONASE) 50 MCG/ACT nasal sprayIndications:Acute upper respiratory infection [place] 2 Sprays into each nostril once daily [...]
--- OUTSIDE RECORDS SUMMARY | 2024-02-16 11:00 | XMS_ITS | Clinical Summary ---
Author Organization [facility] Address [address] [place] [address]. [place], [place] [address] [place] [address] Care Team Providers Care Habitat Biologist Name Role Phone Unavailable Primary Care Provider [...]
--- OUTSIDE RECORDS SUMMARY | 2024-02-16 11:00 | XMS_ITS | Clinical Summary ---
Author Organization [facility] Address [address] [place] [address] Phone Care Team Providers Care Mixing House Operator Name Role Phone Provider, None Primary Care [...] Comments Blood Pressure 130/72 12/27/2016 11:30 PM OCCUPATIONAL THERAPY AIDES TEACHER Pulse 88 12/27/2016 11:30 PM OCCUPATIONAL THERAPY AIDES TEACHER Temperature 36.7 ??C (98 ??F) 12/27/2016 7:10 PM OCCUPATIONAL THERAPY AIDES TEACHER Respiratory Rate 17 12/27/2016 7:10 PM OCCUPATIONAL THERAPY AIDES TEACHER Oxygen Saturation 100% 12/27/2016 11:30 PM OCCUPATIONAL THERAPY AIDES TEACHER Inhaled Oxygen Concentration - - Weight 79.4 kg (175 lb) 12/27/2016 7:10 PM OCCUPATIONAL THERAPY AIDES TEACHER Height 167.6 cm (5' 6 ) 12/27/2016 7:10 PM OCCUPATIONAL THERAPY AIDES TEACHER Body Mass Index 28.25 12/27/2016 7:10 PM OCCUPATIONAL THERAPY AIDES TEACHER Plan of Treatment Health Maintenance Due Date [...] patient's age to complete this topic Insurance [facility] Care Teams Mixing House Operator Relationship Specialty Start Date End Date Provider, None [place] PCP - General 12/27/16
--- OUTSIDE RECORDS SUMMARY | 2024-02-16 11:00 | XMS_ITS | Encounter Summary ---
Author Organization [facility] Address [address] [place] [address] Care Team Providers Care Piano Mechanic Name Role Phone Unavailable Primary Care Provider Unavailabl e Reason for Visit * Reason Onset Date Comments Follow-up 10/08/2016 Encounter Details Date Type Department Care Team (Late st Contact Info) Description 10/08/[address] [facility] [address] [place] [phone] Kylah Weller, BUSINESS SYSTEMS ANALYST-[facility] [address] [place] [phone] Follow-up Social History Tobacco Use Types [...]
--- OUTSIDE RECORDS SUMMARY | 2024-02-16 11:01 | XMS_ITS | Encounter Summary ---
Author Organization [facility] Healthcare Address [address] [place] [address] Care Team Providers Care Medical Claims Specialist Name Role Phone Rayne Carreno NP Primary Care Provider [phone] Reason for Visit * Diagnostic Imaging (Routine) - Closed Specialty Diagnoses / Procedures Referred By Kamilah t Referred To Contact Diagnoses Fibrocystic breast disease (FCBD), unspecified laterality Procedures Diagnostic Mammogram Left W [place]ores Diagnostic Mammogram Bilateral W [place] Rayne Carreno NP [address] [place] [address] Phone: tel: fax: [address] [phone] Referral ID Status Reason Start Date Expiration Date Visits Re quested Visits Authorized [id number] Closed 07/14/2021 01/05/2022 1 1 Encounter Details Date Type Department Care Team (Latest Contact Info) Description 01/09/2022 1:28 PM DIESEL LOCOMOTIVE FIRER - 01/09/2022 11:59 PM DIESEL LOCOMOTIVE FIRER Hospital Encounter [facility] [address] [place] [address] Rayne Carreno NP [address] [place] [address] Fibrocystic breast disease (FCBD), unspecified [...] Read Routine (OP Routine) 01/09/2022 1:49 PM DIESEL LOCOMOTIVE FIRER Fibrocystic breast disease (FCBD), unspecified laterality documented in this encounter Results * Diagnostic Mammogram Left W [place]ores (01/09/2022 1:49 PM DIESEL LOCOMOTIVE FIRER) Anatomical Region Laterality Modality Breast Left Mammography 01/09/2022 2:54 PM DIESEL LOCOMOTIVE FIRER Addenda Addendum by Boogie Youssef MD on 02/07/2022 10:10 AM DIESEL LOCOMOTIVE FIRER ADDENDUM: Previous outside hospital mammogram and sonogram [...] by: BOOGIE HAGAN Impressions 01/09/2022 2:54 PM DIESEL LOCOMOTIVE FIRER 1. ??An oval mass with circumscribed margins [...] signed by: BOOGIE Nicole 01/09/2022 2:54 PM DIESEL LOCOMOTIVE FIRER EXAMINATION: US BREAST LEFT LIMITED, DIAGNOSTIC MAMMOGRAM [...] laterality documented in this encounter Care Teams Medical Claims Specialist Relationship Specialty Start Date End Date Rayne Carreno NP [address] [place] [address] PCP - General Nurse Practitioner 09/29/20 documented as of this encounter
--- OUTSIDE RECORDS SUMMARY | 2024-02-16 11:01 | XMS_ITS | Encounter Summary ---
Author Organization [facility] Address [address] [place] [address] Care Team Providers Care Performance Instructor Name Role Phone No, Physician Primary Care Provider [phone] Reason for Visit * Reason Comments New Patient Annual Exam Encounter Details Date Type Department Care Team (Late st Contact Info) Description 05/17/2020 3:45 PM CDT Office Visit [facility] Obstetrical Gynecology [address] [place] [address] Cecilia Walker DO [address] [place] [address] Well woman exam with routine [...] 11:45 AM CDT [facility] Department of Pathology [address] [place], [place] [id number] Final Report with Addendum Patient Name: ??RICKEY VILLANUEVA Todd Address: ??[address] [place] [address], ?? [place], [place] ??[facility] Gender: ??F : ??1980 (Age: 40) Service: ??Laboratory Location: ??Lab Hospital #: ??[id number] Patient Type: ?? Ref Lab Taken: ??05/17/2020 Received: ??05/19/2020 Accessioned:: ??05/20/2020 Reported: ??05/24/2020 Physician(s): Mary Carmen GarciaO. [facility] Diagnosis: Source of Specimen: ? Screening [...] determined by the Surgical Pathology Department at [facility] as part of an ongoing supervisor vendor quality program and in compliance with federally mandated [...] characteristics determined by the Surgical Pathology Department [facility]. ??It has not been cleared or [...] 01/15/2017 added in this encounter Care Teams Performance Instructor Relationship Specialty Start Date End Date No, Physician PCP - General 08/24/17 09/28/20 documented as of this encounter
--- OUTSIDE RECORDS SUMMARY | 2024-02-16 11:01 | XMS_ITS | Encounter Summary ---
Author Organization [facility] Healthcare Address [address] [place] [address] Care Team Providers Care Tier Truck Driver Name Role Phone Roach, Rayne King NP Primary Care Provider [phone] Encounter Details Date Type Department Care Team [...] CDT) Narrative [facility] - 01/23/2022 12:03 PM BOXCAR WEIGHER This order has been auto-finalized and does not contain a result. us Not In File Miscellaneous IMG MAMMO PROCEDURES F inal Result [facility] documented in this encounter Visit Diagnoses Not on filedocumented in this encounter Care Teams Tier Truck Driver Relationship Specialty Start Date End Date Rayne Roach NP [address] [place] [address] PCP - General Nurse Practitioner 09/29/20 documented as of this encounter
--- OUTSIDE RECORDS SUMMARY | 2024-02-16 11:01 | XMS_ITS | Encounter Summary ---
Author Organization [facility] Healthcare Address [address] [place] [address] Care Team Providers Care Debridging Machine Operator Name Role Phone Rayne Roach NP Primary Care Provider [phone] Encounter Details Date Type Department Care Team (Late st Contact Info) Description 10/14/2020 8:55 PM CDT Lab [address] [address] Epidermoid cyst Social History Tobacco Use Types [...] link to PDF [facility] Department of Pathology [address] [place] [address] Note to Patients: This report may [...] Report Patient Name: ??RICH RICKEY Brooks Address: ??[address] [place] [address], ??[place], [place] [address] Gender: ??F : ??1980 (Age: 40) Service: ??Laboratory Location: ??Lab Hospital #: ??[id number] Patient Type: ?? Ref Lab Accession # ?[id number] Taken: ??10/13/2020 Received: ??10/15/2020 Accessioned: ??10/15/2020 Reported: [...] the Surgical Pathology Department at [facility] as part of an ongoing quality process lead program and in compliance with federally mandated [...] characteristics determined by the Surgical Pathology Department [facility]. ??It has not been cleared or approved by the U. S. Food and Drug Administration. Jacqueline Jalloh NP LAB PATHOLOGY ORDERABLES Final R esult [facility] [address] [place] [address] documented in this encounter Visit Diagnoses Diagnosis Epidermoid cyst Sebaceous cyst documented in this encounter Care Teams Debridging Machine Operator Relationship Specialty Start Date End Date Rayne Roach NP [address] [place] [address] PCP - General Nurse Practitioner 09/29/20 documented as of this encounter
--- OUTSIDE RECORDS SUMMARY | 2024-02-16 11:01 | XMS_ITS | Encounter Summary ---
Author Organization [facility] Healthcare Address [address] [place] [address] Care Team Providers Care Environmental Marketer Name Role Phone No, Physician Primary Care Provider Encounter Details Date Type Department Care Team (Late st Contact Info) Description 05/19/2020 9:25 PM CDT Lab [address] [address] Social History Tobacco Use Types Packs/Day Years [...] filedocumented in this encounter Care Teams Environmental Marketer Relationship Specialty Start Date End Date No, Physician PCP - General 08/24/17 09/28/20 documented as of this encounter
--- OUTSIDE RECORDS SUMMARY | 2024-02-16 11:01 | XMS_ITS | Encounter Summary ---
Author Organization [facility] Healthcare Address [address] [place] [address] Care Team Providers Care Security Control Assessor Name Role Phone Unavailable Primary Care Provider Unavailabl e Encounter Details Date Type Department Care Team (Late st Contact Info) Description 01/10/2017 3:28 PM RIP/MOULD OPERATOR Hospital Encounter [facility] OP Denise, Cecilia Hathaway, DO [address] [place] [address] Missed Social History Tobacco Use Types Packs/Day [...] HCG, BLOOD, QUANTITATIVE Routine 01/10/2017 3:33 PM RIP/MOULD OPERATOR documented in this encounter Results * (ABNORMAL) hCG, blood, quantitative (01/10/2017 3:33 PM RIP/MOULD OPERATOR) Beta HCG, Quant 5139.0(H) 0.0 - 1.0 mIU/mL 01/10/2017 5:33 PM RIP/MOULD OPERATOR [facility] HISTORICAL RESULTS Comment: Weeks of preg ?BHCG [...] detection of . ? 01/10/2017 3:33 PM RIP/MOULD OPERATOR 01/10/2017 4:53 PM RIP/MOULD OPERATOR us Cecilia Walker DO LAB BLOOD ORDERABLES F inal Result [facility] HISTORICAL RESULTS documented in this encounter Visit Diagnoses Diagnosis Missed documented in this encounter
--- OUTSIDE RECORDS SUMMARY | 2024-02-16 11:01 | XMS_ITS | Encounter Summary ---
Author Organization [facility] Address [address] [place] [address] Care Team Providers Care Quitline Counselor Name Role Phone No, Physician Primary Care Provider Reason for Visit * Reason Comments Sinus Problem Pt. c/o sinus pressu re, postnasal drip, runny nose, headache, sore throat, and fatigue. Onset 07/08/20. Pt. denied COVID testing. Encounter Details Date Type Department Care Team (Late st Contact Info) Description 07/13/2020 6:15 PM CDT Office Visit [facility] [address] [place] [id number] Sia Jose, LABORER PLUMBING [address] [place] [address] Acute recurrent pansinusitis (Primary Dx) [...] same utensils or glass, and use hand security sergeant before touching people or common surfaces. - [...] and frontal sinus tenderness present. Mouth/Throat: Lips: [place]. Mouth: Mucous membranes are moist. Pharynx: Oropharynx [...] Primary documented in this encounter Care Teams Quitline Counselor Relationship Specialty Start Date End Date No, Physician PCP - General 08/24/17 09/28/20 documented as of this encounter
--- OUTSIDE RECORDS SUMMARY | 2024-02-16 11:01 | XMS_ITS | Clinical Summary ---
Author Organization [facility] [address] [place] [address] [place] [phone] Care Team Providers Care Gas Producer Name Role Phone Rayne Carreno NP Primary Care Provider [phone] Allergies No known active allergies Medications fluticasone [...] Department Care Team Description 2024 10:35 AM LADLE FILLER - 2024 6:31 PM LADLE FILLER Emergency [facility] Emergency Department [address] [place] [address] Right flank pain (Primary Dx); Hyponatremia Discharge [...] Comments Blood Pressure 100/66 2024 4:45 PM LADLE FILLER Pulse 95 2024 6:00 PM LADLE FILLER Temperature 36.4 ??C (97.5 ??F) 2024 3:00 PM CS T Respiratory Rate 15 2024 6:00 PM LADLE FILLER Oxygen Saturation 96% 2024 6:00 PM LADLE FILLER Inhaled Oxygen Concentration - - Weight 95.3 kg (210 lb) 2024 10:32 AM LADLE FILLER Height 167.6 cm (5' 6 ) 2024 10:32 AM LADLE FILLER Body Mass Index 33.89 2024 10:32 AM LADLE FILLER Plan of Treatment Health Maintenance Due Date [...] Diagnosis Comments EGFR STAT 2024 5:08 PM LADLE FILLER BASIC METABOLIC PANEL STAT 2024 5:[address] CHEST PE ABDOMEN PELVIS W CONTRAST ED 2024 2:01 PM LADLE FILLER POCT GLUCOSE DEVICE Routine 2024 11:42 AM LADLE FILLER POCT HCG, URINE Routine 2024 11:42 AM LADLE FILLER EGFR STAT 2024 11:38 AM LADLE FILLER URINALYSIS, MICROSCOPIC ONLY STAT 2024 11:38 AM LADLE FILLER DIFFERENTIAL AUTO STAT 2024 11:38 AM LADLE FILLER SEPSIS LACTATE WITH REFLEX STAT 2024 11:38 AM LADLE FILLER D-DIMER, QUANTITATIVE STAT 2024 11:38 AM LADLE FILLER COMPREHENSIVE METABOLIC PANEL STAT 2024 11:38 AM LADLE FILLER CBC WITH AUTO DIFFERENTIAL STAT 2024 11:38 AM LADLE FILLER URINALYSIS AND REFLEX TO MICROSCOPIC AND CULTURE STAT 2024 11:38 AM LADLE FILLER ECG 12-LEAD STAT 2024 11:13 AM LADLE FILLER DIAGNOSTIC MAMMOGRAM BILATERAL W TIM Schedule Routine, Read Routine (OP Routine) 12/27/2022 3:49 PM LADLE FILLER Abnormal mammogram THINPREP PAP WITH HPV Routine 05/17/2020 12:01 AM CDT Well woman exam with routine gynecological exam from Last 3 Months or Most Recently Relevant to Health Maintenance Results * eGFR (2024 5:08 PM LADLE FILLER) eGFR >90 >=60 mL/min/1. 73 m2 Comment: [...] last reviewed 2020. Blood 2024 5:08 PM LADLE FILLER 2024 5:13 PM LADLE FILLER us Suha CHUN LAB BLOOD ORDERABLES Arianne l Result [facility] ([place]) 1 [facility] Department [place] [address] * (ABNORMAL) Basic metabolic panel (2024 5:08 PM LADLE FILLER) Sodium 131(L) 135 - 145 mmol/L Potassium, [...] ([place]) Glucose 89 70 - 199 mg/dL [facility] ([place]) Comment: Interpretive Data Fasting glucose [...] [facility] ([place]) Blood 2024 5:08 PM LADLE FILLER 2024 5:13 PM LADLE FILLER Suha CHUN LAB BLOOD ORDERABLES Arianne martinez Result [facility] ([place]) 1 [facility] Department [place] [address] * CT Chest PE (CTA) Abdomen Pelvis W Contrast (2024 2:01 PM LADLE FILLER) Anatomical Region Laterality Modality Body N/A Computed Tomogra phy 2024 2:17 PM LADLE FILLER Narrative 2024 2:32 PM LADLE FILLER EXAM DESCRIPTION: CT CHEST PE (CTA) ABDOMEN [...] thickening is identified. ?? There is a alsh-wc-qjodtkgw amount of stool in the colon which [...] PM T: ??2024 2:32 PM Report ID: [id number] Reading Location: ??[id number] Procedure Note Kashmir Patel MD - 2024 [...] wall thickening is identified. There is a wchu-sl-hufsrcgj amount of stool in the colon which [...] Kashmir Patel M.D. MM: MM Report ID: [id number] Reading Location: [place] [address] PROCEDURES Final R esult * POCT glucose (2024 11:42 AM LADLE FILLER) Glucose, POC 121 70 - 199 mg/dL Blood 2024 11:4 2 AM LADLE FILLER 2024 11:42 AM LADLE FILLER Notinfile Unknown LAB POCT ORDERABLES - DEVICE F inal Result Performing Organization Address City/State/[facility] Co de Phone Number [facility] [place]) 1 [facility] [employer] [place] [address] * POCT hCG, urine (2024 11:42 AM LADLE FILLER) [facility] HCG, ur, POC Negative Negative Lot Number [id number] QC Backgroud Clear Acceptable QC Control Line Acceptable Urine 2024 11:4 2 AM LADLE FILLER Suha CHUN POINT OF CARE TEST ORDERA BLES Final Result * Sepsis Lactate w/ Reflex (2024 11:38 AM LADLE FILLER) [facility] Sepsis Lactate 0.9 0.7 - 2.0 mmol/L Blood 2024 11:3 8 AM LADLE FILLER 2024 11:41 AM LADLE FILLER Suha CUHN LAB BLOOD ORDERABLES Arianne l Result Performing Organization Address [facility] Co de Phone Number [facility] [place]) 1 [facility] Department [place] [address] * eGFR (2024 11:38 AM LADLE FILLER) [facility] eGFR >90 >=60 mL/min/1. 73 m2 Comment: [...] reviewed 2020. Blood 2024 11:3 8 AM LADLE FILLER 2024 11:41 AM LADLE FILLER us Suha CHUN LAB BLOOD ORDERABLES Arianne martinez Result [facility] ([place]) 1 [facility] Department [place] [address] * Differential, auto (2024 11:38 AM LADLE FILLER) Neutrophil abs 3.1 1.5 - 6.5 K/cumm [...] Lymphocyte pct 17.8 % [facility] ([place]) Comment: Interpretive Data Percent cell count reference [...] 2017. Basophil pct 0.6 % [facility] ([place]) Comment: Interpretive Data Percent cell count reference ranges are not reported, since discordance with absolute values may lead to misinterpretation of CBC data. Current Interpretive Data was last revised on 2017. Blood 2024 11:3 8 AM LADLE FILLER 2024 11:42 AM LADLE FILLER us Suha CHUN LAB BLOOD ORDERABLES Arianne martinez Result [facility] ([place]) 1 [facility] Department [place] [address] * (ABNORMAL) Urinalysis reflex to microscopic and culture Urine (2024 11:38 AM LADLE FILLER) Color, ur Yellow Yellow Clarity, ur Turbid(A) Clear [facility] ([place]) Specific gravity, ur 1.031(H) 1.003 - 1.030 [facility] ([place]) pH, urine 6.0 [facility] ([place]) Comment: Interpretive Data ? Urine pH is affected by diet, medications, systemic acid-base disturbances, and renal tubular function. ??pH may affect urinary stone formation. ??For example, urine pH below 6.0 may help reduce the tendency for calcium phosphate stones and pH greater than 6.0 may reduce the tendency for uric acid stone formation. Source: [facility] [place] [employer] Current Interpretive Data was last revised on [...] [facility] ([place]) Urine 2024 11:3 8 AM LADLE FILLER 2024 11:45 AM LADLE FILLER us Suha CHUN LAB MICROBIOLOGY - GENERA L ORDERABLES Final Result [facility] ([place]) 1 [facility] Department [place] [address] * (ABNORMAL) CBC with auto differential (2024 11:38 AM LADLE FILLER) WBC 4.8 3.8 - 9.9 K/cumm Hgb [...] RDW SD 48.8(H) 35.7 - 48.1 fL [facility] ([place]) NRBC abs 0.00 0.00 - 0.01 K/cumm [facility] ([place]) Blood (Blood, Venous) 2024 11:38 AM LADLE FILLER 2024 11:42 AM LADLE FILLER Suha CHUN LAB BLOOD ORDERABLES Arianne l Result Performing Organization Address City/[facility]/ZIP Co de Phone Number [facility] ([place]) 1 [facility] [employer] [place] [address] * (ABNORMAL) Urinalysis, microscopic only (2024 11:38 AM LADLE FILLER) WBC, ur 6-10(A) 0 - 5 /HPF RBC, ur 0-2 0 - 2 /HPF [facility] ([place]) Epithelial cells, squamous, ur 6-10(A) 0 - 5 /HPF [facility] ([place]) Bacteria, ur 2+(A) [facility] ([place]) Mucous, ur Present(A) [facility] A ([place]) Culture Reflex Comment Reflex conditions for urine culture (WBC >10) not met. [facility] ([place]) Urine 2024 11:3 8 AM LADLE FILLER 2024 11:45 AM LADLE FILLER Suha CHUN LAB URINE ORDERABLES Arianne l Result [facility] ([place]) 1 [facility] Department of [place] [employer] [place] [address] * (ABNORMAL) D-dimer, quantitative (2024 11:38 AM LADLE FILLER) D-Dimer 591(H) <=499 ng/mL FEU [facility] ([place]) Comment: Interpretive data FDA approved the [...] on 2018. Blood 2024 11:3 8 AM LADLE FILLER 2024 11:41 AM LADLE FILLER us Suha CHUN LAB BLOOD ORDERABLES Arianne martinez Result [facility] ([place]) 1 [facility] Department [place] [address] * (ABNORMAL) Comprehensive metabolic panel (2024 11:38 AM LADLE FILLER) Sodium 127(L) 135 - 145 mmol/L Potassium, pl 3.9 3.3 - 4.9 mmol/L [facility] ([place]) Chloride 92(L) 97 - 110 mmol/L [facility] ([place]) CO2 22 22 - 32 mmol/L [facility] ([place]) Anion gap 14 2 - 15 mmol/L [facility] ([place]) BUN 9 6 - 25 mg/dL [facility] ([place]) Creatinine 0.61 0.60 - 1.10 mg/dL [facility] ([place]) Glucose 121 70 - 199 mg/dL [facility] ([place]) Comment: Interpretive Data Fasting glucose >/= [...] [facility] ([place]) Blood 2024 11:3 8 AM LADLE FILLER 2024 11:41 AM LADLE FILLER Suha CHUN LAB BLOOD ORDERABLES Arianne l Result Performing Organization Address City/[facility] Co de Phone Number [facility] ([place]) 1 [facility] Department [place] [address] * ECG 12 lead (2024 11:13 AM LADLE FILLER) 2024 11:1 3 AM LADLE FILLER Narrative [facility] - 2024 12:34 PM LADLE FILLER Vent Rate: 117 bpm RR Interval: 509 msec MA Interval: 161 msec QRS Duration: 82 msec QT Interval: 311 msec QTC Interval: 381 msec P-R-T [place]: 34 - 7 - 21 degrees IMPRESSION: SINUS TACHYCARDIA ABNORMAL RHYTHM ECG Electronically Signed By: Raudel Perla MD Suha CHUN ECG ORDERABLES Final Res ult [facility] Wis.dm [facility] * Diagnostic Mammogram Bilateral W Tim (12/27/2022 3:49 PM LADLE FILLER) Anatomical Region Laterality Modality Breast Bilateral Mammography 01/08/2023 11:5 5 AM LADLE FILLER Impressions 01/08/2023 11:55 AM LADLE FILLER 1. ??Unchanged probably benign 9 mm mass [...] Baltazar Neff M.D. Narrative 01/08/2023 11:55 AM LADLE FILLER EXAMINATION: DIAGNOSTIC MAMMOGRAM BILATERAL W TIM, US [...] 11:45 AM CDT [facility] Department of Pathology [address] [place] [address] Final Report with Addendum Patient Name: ??BEATA CABRALGUERA Brooks Address: ??[address] [place] [address], ?? [place], [place] ??[facility] Gender: ??F : ??1980 (Age: 40) Service: ??Laboratory Location: ??Lab Hospital #: ??[id number] Patient Type: ?? Ref Lab Taken: ??05/17/2020 Received: ??05/19/2020 Accessioned:: ??05/20/2020 Reported: ??05/24/2020 Physician(s): Dr. Cecilia Walker D.O. [facility] Diagnosis: Source of Specimen: ? Screening ThinPrep [...] Test performed utilizing Gen-Probe Aptima assay. ?? ISMON Alvarez(ASCP) ??Report Electronically Reviewed and Signed Out [...] determined by the Surgical Pathology Department at [facility] as part of an ongoing chief quality officer program and in compliance with federally mandated [...] characteristics determined by the Surgical Pathology Department [facility]. ??It has not been cleared or approved by the U. S. Food and Drug Administration. Cecilia Walker DO LAB CYTOLOGY ORDERABLE S Final Result from Last 3 Months or Most Recently Relevant to Health Maintenance Insurance [employer] SIG [id number] Care Teams Gas Producer Relationship Specialty Start Date End Date Rayne Carreno NP [address] [place] [address] PCP - General Nurse Practitioner 09/29/20
--- OUTSIDE RECORDS SUMMARY | 2024-02-16 11:01 | XMS_ITS | Encounter Summary ---
Author Organization [facility] Address [address] [place] [address] Care Team Providers Care Seo Executive Name Role Phone No, Physician Primary Care Provider [phone] Reason for Visit * Reason Comments Sinus Problem The patient is havin g congestion, cough, ears feel stuffy, and drainage. It has been going on for a week and a half. Encounter Details Date Type Department Care Team (Late st Contact Info) Description 09/30/2017 10:30 AM CDT Office Visit [facility] [address] [place] [address] Sia Jose, NATALIO [address] [facility] [address] Acute non-recurrent maxillary sinusitis (Primary Dx); Upper [...] 11/04/2015 added in this encounter Care Teams Seo Executive Relationship Specialty Start Date End Date No, Physician PCP - General 08/24/17 09/28/20 documented as of this encounter
--- OUTSIDE RECORDS SUMMARY | 2024-02-16 11:01 | XMS_ITS | Encounter Summary ---
Author Organization [facility] Healthcare Address [address] [place] [address] Care Team Providers Care Dessert Cup Machine Feeder Name Role Phone MarleyMilesRaynearchie King NP Primary Care Provider [phone] Reason for Referral * Diagnostic Imaging (Routine) - Closed Specialty Diagnoses / Procedures Referred By Kamilah t Referred To Contact Diagnoses Screening mammogram for breast cancer Procedures Screening Mammogram Bilateral W [place] Screening Mammogram, Self [address] [address] Referral ID Status Reason Start Date Expiration Date Visits Re quested Visits Authorized [id number] Closed 06/08/2021 07/08/2022 1 1 Reason for Visit * Diagnostic Imaging (Routine) - Closed Specialty Diagnoses / Procedures Referred By Kamilah t Referred To Contact Diagnoses Screening mammogram for breast cancer Procedures Screening Mammogram Bilateral W [place] Screening Mammogram, Self [address] [address] Referral ID Status Reason Start Date Expiration Date Visits Re quested Visits Authorized [id number] Closed 06/08/2021 07/08/2022 1 1 Encounter Details Date Type Department Care Team (Latest Contact Info) Description 06/25/2021 9:14 AM CDT - 06/25/2021 11:59 PM CDT Hospital Encounter [facility] [address] [place] [address] Screening Mammogram, Self Screening mammogram for breast [...] cancer documented in this encounter Care Teams Dessert Cup Machine Feeder Relationship Specialty Start Date End Date Marley, Rayne King NP [address] [place] [address] PCP - General Nurse Practitioner 09/29/20 documented as of this encounter
--- OUTSIDE RECORDS SUMMARY | 2024-02-16 11:01 | XMS_ITS | Encounter Summary ---
Author Organization [facility] Address [address] [place] [address] Care Team Providers Care Poker Machine Attendant Name Role Phone Rayne Roach NP Primary Care Provider [phone] Reason for Visit * Reason Comments Cyst Upper Right back and Mid back Encounter Details Date Type Department Care Team (Late st Contact Info) Description 09/29/2020 2:30 PM CDT Office Visit [facility] [address] [facility] [address] [place] [phone] EyersJacqueline NP [address] [facility] [address] [place] [address] Epidermoid cyst (Primary Dx) Social [...] Notes * Assessment & Plan Note - Jcaqueline Jalloh NP - 11/23/2020 2:21 PM CDTAssociated [...] 09/20/2020 added in this encounter Care Teams Poker Machine Attendant Relationship Specialty Start Date End Date Rayne Roach NP [address] [place] [address] PCP - General Nurse Practitioner 09/29/20 documented as of this encounter
--- OUTSIDE RECORDS SUMMARY | 2024-02-16 11:01 | XMS_ITS | Referral Summary ---
Author Organization [facility] [address] Address [address] [place] [id number] Care Team Providers Care Registrar Museum Name Role Phone Marley Raynearchie King NP Primary Care Provider [phone] Encounters Date Type Department Care Team Description 2024 10:35 AM STEWARDESSES TEACHER - 2024 6:31 PM [facility] Emergency [facility] Emergency Department [address] [place] [address] Right flank pain (Primary Dx); Hyponatremia Discharge [...] Comments Blood Pressure 100/66 2024 4:45 PM STEWARDESSES TEACHER Pulse 95 2024 6:00 PM STEWARDESSES TEACHER Temperature 36.4 ??C (97.5 ??F) 2024 3:00 PM CS T Respiratory Rate 15 2024 6:00 PM STEWARDESSES TEACHER Oxygen Saturation 96% 2024 6:00 PM STEWARDESSES TEACHER Inhaled Oxygen Concentration - - Weight 95.3 kg (210 lb) 2024 10:32 AM STEWARDESSES TEACHER Height 167.6 cm (5' 6 ) 2024 10:32 AM STEWARDESSES TEACHER Body Mass Index 33.89 2024 10:32 AM STEWARDESSES TEACHER Plan of Treatment Not on file Procedures Procedure Name Priority Date/Time Associated Diagnosis Comments EGFR STAT 2024 5:08 PM STEWARDESSES TEACHER BASIC METABOLIC PANEL STAT 2024 5:[address] CHEST PE ABDOMEN PELVIS W CONTRAST ED 2024 2:01 PM STEWARDESSES TEACHER POCT GLUCOSE DEVICE Routine 2024 11:42 AM STEWARDESSES TEACHER POCT HCG, URINE Routine 2024 11:42 AM STEWARDESSES TEACHER EGFR STAT 2024 11:38 AM STEWARDESSES TEACHER URINALYSIS, MICROSCOPIC ONLY STAT 2024 11:38 AM STEWARDESSES TEACHER DIFFERENTIAL AUTO STAT 2024 11:38 AM STEWARDESSES TEACHER SEPSIS LACTATE WITH REFLEX STAT 2024 11:38 AM STEWARDESSES TEACHER D-DIMER, QUANTITATIVE STAT 2024 11:38 AM STEWARDESSES TEACHER COMPREHENSIVE METABOLIC PANEL STAT 2024 11:38 AM STEWARDESSES TEACHER CBC WITH AUTO DIFFERENTIAL STAT 2024 11:38 AM STEWARDESSES TEACHER URINALYSIS AND REFLEX TO MICROSCOPIC AND CULTURE STAT 2024 11:38 AM STEWARDESSES TEACHER ECG 12-LEAD STAT 2024 11:13 AM STEWARDESSES TEACHER DIAGNOSTIC MAMMOGRAM BILATERAL W TIM Schedule Routine, Read Routine (OP Routine) 12/27/2022 3:49 PM STEWARDESSES TEACHER Abnormal mammogram THINPREP PAP WITH HPV Routine 05/17/2020 12:01 AM CDT Well woman exam with routine gynecological exam from Last 3 Months or Most Recently Relevant to Health Maintenance Results * eGFR (2024 5:08 PM STEWARDESSES TEACHER) eGFR >90 >=60 mL/min/1. 73 m2 Comment: [...] last reviewed 2020. Blood 2024 5:08 PM STEWARDESSES TEACHER 2024 5:13 PM STEWARDESSES TEACHER us Suha CHUN LAB BLOOD ORDERABLES Arianne martinez Result [facility] ([place]) [address] [facility] [place] [address] * (ABNORMAL) Basic metabolic panel (2024 5:08 PM STEWARDESSES TEACHER) Sodium 131(L) 135 - 145 mmol/L Potassium, [...] 8.2(L) 8.5 - 10.3 mg/dL [facility] ([place]) Blood 2024 5:08 PM STEWARDESSES TEACHER 2024 5:13 PM STEWARDESSES TEACHER us Suha CHUN LAB BLOOD ORDERABLES Arianne l Result [facility] ([place]) 1 [facility] Department [place] [address] * CT Chest PE (CTA) Abdomen Pelvis W Contrast (2024 2:01 PM STEWARDESSES TEACHER) Anatomical Region Laterality Modality Body N/A Computed Tomogra phy 2024 2:17 PM STEWARDESSES TEACHER Narrative 2024 2:32 PM STEWARDESSES TEACHER EXAM DESCRIPTION: CT CHEST PE (CTA) ABDOMEN [...] thickening is identified. ?? There is a vpgv-bv-rtqalbvv amount of stool in the colon which [...] PM T: ??2024 2:32 PM Report ID: [id number] Reading Location: ??[id number] Procedure Note Kashmir Patel MD - 2024 [...] wall thickening is identified. There is a osml-nv-iypnczce amount of stool in the colon which [...] Kashmir Patel M.D. MM: MM Report ID: [id number] Reading Location: [id number] Suha CHUN IMG CT PROCEDURES Final R esult * POCT glucose (2024 11:42 AM STEWARDESSES TEACHER) Pathologist [facility] Glucose, POC 121 70 - 199 mg/dL Blood 2024 11:4 2 AM STEWARDESSES TEACHER 2024 11:42 AM STEWARDESSES TEACHER Notinfile Unknown LAB POCT ORDERABLES - DEVICE F inal Result [facility] ([place]) 1 [facility] [place] [address] * POCT hCG, urine (2024 11:42 AM STEWARDESSES TEACHER) [facility] [address] HCG, ur, POC Negative Negative Lot Number [id number] QC Backgroud Clear Acceptable QC Control Line Acceptable Urine 2024 11:4 2 AM STEWARDESSES TEACHER Suha CHUN POINT OF CARE TEST ORDERA BLES Final Result * Sepsis Lactate w/ Reflex (2024 11:38 AM STEWARDESSES TEACHER) [facility] [address] Sepsis Lactate 0.9 0.7 - 2.0 mmol/L Blood 2024 11:3 8 AM STEWARDESSES TEACHER 2024 11:41 AM STEWARDESSES TEACHER Suha CHUN LAB BLOOD ORDERABLES Arianne l Result [facility] ([place]) [address] [facility] [place] [address] * eGFR (2024 11:38 AM STEWARDESSES TEACHER) [facility] [address] eGFR >90 >=60 mL/min/1. 73 m2 Comment: [...] reviewed 2020. Blood 2024 11:3 8 AM STEWARDESSES TEACHER 2024 11:41 AM STEWARDESSES TEACHER us Suha CHUN LAB BLOOD ORDERABLES Arianne martinez Result [facility] ([place]) 1 [facility] [place] [address] * Differential, auto (2024 11:38 AM STEWARDESSES TEACHER) Neutrophil abs 3.1 1.5 - 6.5 K/cumm Imm gran abs 0.0 0.0 - 0.1 K/cumm [facility] ([place]) Lymphocyte abs 0.9 0.8 - 3.3 K/cumm [facility] ([place]) Monocyte abs 0.7 0.2 - 0.8 K/cumm [facility] ([place]) Eosinophil abs 0.1 0.0 - 0.5 K/cumm [...] on 2017. Blood 2024 11:3 8 AM STEWARDESSES TEACHER 2024 11:42 AM STEWARDESSES TEACHER us Suha CHUN LAB BLOOD ORDERABLES Arianne martinez Result [facility] ([place]) 1 [facility] [place] [address] * (ABNORMAL) Urinalysis reflex to microscopic and culture Urine (2024 11:38 AM STEWARDESSES TEACHER) Color, ur Yellow Yellow Clarity, ur Turbid(A) [...] tendency for uric acid stone formation. Source: [facility] Current Interpretive Data was last revised on [...] [facility] ([place]) Urine 2024 11:3 8 AM STEWARDESSES TEACHER 2024 11:45 AM STEWARDESSES TEACHER us Suha CHUN LAB MICROBIOLOGY - GENERA L ORDERABLES Final Result [facility] ([place]) 1 [facility] [place] [address] * (ABNORMAL) CBC with auto differential (2024 11:38 AM STEWARDESSES TEACHER) WBC 4.8 3.8 - 9.9 K/cumm Hgb 14.1 11.9 - 15.5 g/dL [facility] ([place]) Hct 42.0 35.6 - 45.5 % [facility] ([place]) Plt 235 150 - 400 K/cumm [facility] ([place]) MPV 9.0(L) 9.1 - 12.3 fL [facility] ([place]) RBC 4.53 3.90 - 5.20 M/cumm [facility] ([place]) MCV 92.7 81.3 - 96.4 fL [facility] ([place]) MCH 31.1 27.1 - 33.3 pg [facility] ([place]) MCHC 33.6 32.3 - 35.7 g/dL [facility] RDW CV 14.4 11.1 - 14.9 % [facility] ([place]) RDW SD 48.8(H) 35.7 - 48.1 fL [facility] ([place]) NRBC abs 0.00 0.00 - 0.01 K/cumm [facility] ([place]) Blood (Blood, Venous) 2024 11:38 AM STEWARDESSES TEACHER 2024 11:42 AM STEWARDESSES TEACHER Suha CHUN LAB BLOOD ORDERABLES Arianne l Result [facility] ([place]) 1 [facility] Department [place] [address] * (ABNORMAL) Urinalysis, microscopic only (2024 11:38 AM STEWARDESSES TEACHER) WBC, ur 6-10(A) 0 - 5 /HPF RBC, ur 0-2 0 - 2 /HPF [facility] ([place]) Epithelial cells, squamous, ur 6-10(A) 0 - 5 /HPF [facility] ([place]) Bacteria, ur 2+(A) [facility] ([place]) Mucous, ur Present(A) [facility] ([place]) Culture Reflex Comment Reflex conditions for urine culture (WBC >10) not met. [facility] ([place]) Urine 2024 11:3 8 AM STEWARDESSES TEACHER 2024 11:45 AM STEWARDESSES TEACHER Suha CHUN LAB URINE ORDERABLES Arianne l Result Performing Organization Address City/[facility]/ZIP Co de Phone Number [facility] ([place]) 1 [place] [address] * (ABNORMAL) D-dimer, quantitative (2024 11:38 AM STEWARDESSES TEACHER) D-Dimer 591(H) <=499 ng/mL FEU [facility] ([place]) Comment: Interpretive data FDA approved [...] on 2018. Blood 2024 11:3 8 AM STEWARDESSES TEACHER 2024 11:41 AM STEWARDESSES TEACHER Suha CHUN LAB BLOOD ORDERABLES Arianne l Result Performing Organization Address City/[facility]/ZIP Co de Phone Number [facility] ([place]) 1 [facility] [place] [address] * (ABNORMAL) Comprehensive metabolic panel (2024 11:38 AM STEWARDESSES TEACHER) Sodium 127(L) 135 - 145 mmol/L Potassium, pl 3.9 3.3 - 4.9 mmol/L [facility] ([place]) Chloride 92(L) 97 - 110 mmol/L [facility] ([place]) CO2 22 22 - 32 mmol/L [facility] ([place]) Anion gap 14 2 - 15 mmol/L [facility] ([place]) BUN 9 6 - 25 mg/dL [facility] ([place]) Creatinine 0.61 0.60 - 1.10 mg/dL [facility] ([place]) Glucose 121 70 - 199 mg/dL [facility] [...] [facility] ([place]) Blood 2024 11:3 8 AM STEWARDESSES TEACHER 2024 11:41 AM STEWARDESSES TEACHER Suha CHUN LAB BLOOD ORDERABLES Arianne martinez Result [facility] ([place]) 1 [facility] [place] [address] * ECG 12 lead (2024 11:13 AM STEWARDESSES TEACHER) 2024 11:1 3 AM STEWARDESSES TEACHER Narrative [facility] - 2024 12:34 PM STEWARDESSES TEACHER Vent Rate: 117 bpm RR Interval: 509 msec [place] Interval: 161 msec QRS Duration: 82 msec QT Interval: 311 msec QTC Interval: 381 msec P-R-T [place]: 34 - 7 - 21 degrees IMPRESSION: SINUS TACHYCARDIA ABNORMAL RHYTHM ECG Electronically Signed By: Raudel Perla MD us Suha CHUN ECG ORDERABLES Final Res ult [facility] * Diagnostic Mammogram Bilateral W Tim (12/27/2022 3:49 PM STEWARDESSES TEACHER) Anatomical Region Laterality Modality Breast Bilateral Mammography 01/08/2023 11:5 5 AM STEWARDESSES TEACHER Impressions 01/08/2023 11:55 AM STEWARDESSES TEACHER 1. ??Unchanged probably benign 9 mm mass [...] Baltazar Neff M.D. Narrative 01/08/2023 11:55 AM STEWARDESSES TEACHER EXAMINATION: DIAGNOSTIC MAMMOGRAM BILATERAL W TIM, US [...] 11:45 AM CDT [facility] Department of Pathology [address] [place] [id number] Final Report with Addendum Patient Name: ??CABRALRICKEY Address: ??[address] [place] [address], ?? [place], [place] ??[facility] Gender: ??F : ??1980 (Age: 40) Service: ??Laboratory Location: ??Lab Hospital #: ??[id number] Patient Type: ?? Ref Lab Taken: ??05/17/2020 Received: ??05/19/2020 Accessioned:: ??05/20/2020 Reported: ??05/24/2020 Physician(s): Reymundo Garcia.O. [facility] Diagnosis: Source of Specimen: ? Screening [...] 59, 66 and 68. Test performed utilizing Gen-[employer]ling[employer] Aptima assay. ?? SIMON Alvarez(ASCP) ??Report Electronically [...] determined by the Surgical Pathology Department at [facility] as part of an ongoing quality assurance consultant program and in compliance with federally mandated [...] characteristics determined by the Surgical Pathology Department [facility]. ??It has not been cleared or approved by the U. S. Food and Drug Administration. Cecilia Walker DO LAB CYTOLOGY ORDERABLE S Final Result from Last 3 Months or Most Recently Relevant to Health Maintenance Insurance [facility] SIG [id number] Care Teams Registrar Museum Relationship Specialty Start Date End Date Rayne Carreno NP [address] [place] [address] PCP - General Nurse Practitioner 09/29/20
--- OUTSIDE RECORDS SUMMARY | 2024-02-16 11:01 | XMS_ITS | Encounter Summary ---
Author Organization [facility] Healthcare Address [address] [place] [id number] Care Team Providers Care Shoe Stitcher Odd Name Role Phone Roach, Rayne King NP Primary Care Provider Encounter Details Date Type Department Care Team (Late st Contact Info) Description 01/16/2022 1:10 PM SENIOR REVENUE ACCOUNTANT Ancillary Procedure [facility] Outside Films Social History [...] IMAGING OUTSIDE REFERENCE Routine 01/16/2022 1:06 PM SENIOR REVENUE ACCOUNTANT documented in this encounter Results * Breast Imaging Outside Reference (01/16/2022 1:06 PM SENIOR REVENUE ACCOUNTANT) Narrative [facility] - 01/16/2022 1:06 PM SENIOR REVENUE ACCOUNTANT This order has been auto-finalized and does not contain a result. us Not In File Miscellaneous IMG MAMMO PROCEDURES F inal Result [facility] documented in this encounter Visit Diagnoses Not on filedocumented in this encounter Care Teams Shoe Stitcher Odd Relationship Specialty Start Date End Date Rayne Roach NP [address] [place] [address] PCP - General Nurse Practitioner 09/29/20 documented as of this encounter
--- OUTSIDE RECORDS SUMMARY | 2024-02-16 11:01 | XMS_ITS | Data Portability ---
[facility] [address] [place] [address] Care Team Providers Care Tool Tender Name Role Phone RAYNE CARRENO Primary Care Provider WOLFGANG FOREMAN Composition Roofer Assessment No assessment recorded. Plan of Treatment Reminders Order Date Submit Date Provider Last Modified By Organization Details Last Modified Time Details Appointments ANY 15 2024 07:45A M Rayne Carreno APN, LOSS PREVENTION AUDITOR-C Not available Not available Not available Lab CMP, serum or plasma 2023 024 [facility], [address] [facility], [place], [address], 10/24/2023 04:11:13 lipid panel, serum 2023 024 [facility], [address] [facility] [facility], [place], [address], 10/24/2023 04:11:12 CBC w/ auto diff 2023 024 [facility], [address] [facility] [facility], [place], [address], 10/24/2023 04:11:16 HbA1c (hemoglob in A1c), blood 2023 024 [facility], [address] [facility] [facility], [place], [address], 10/24/2023 04:11:14 TSH, ultra-sen sitive, serum 09/2023 [facility], [address] [facility] [facility], [place], [address], 10/24/2023 04:11:14 HbA1c (hemoglob in A1c), blood 2023 ield In-Office Order, Internal Use Only DO Not Attach Compendium DO Not Attach Compendium, Do Not Delete/merge, [id number] 01/22/2024 09:41:07 Referral None recorded. Procedures None recorded. Surgeries None recorded. Imaging None recorded. Medication Orders hydrochlo rothiazid e 25 mg tablet 2023 [facility] #78683, [address], [place], [place], [id number], 04/16/2023 09:13:26 escitalop elias 10 mg tablet 2023 024 [facility] #80390, [address], [place], [place], [id number], 01/22/2024 08:50:56 lisinopri l 10 mg tablet 2023 024 [facility] #50345, [address], [place], [place], [id number], 07/17/2023 09:03:19 lisinopri l 10 mg tablet [address] [facility]99188, [address], [place], [place], [id number], 10/23/2023 09:09:46 hydrochlo rothiazid e 25 mg tablet [address] [facility]51012, [address], [place], [place], [id number], 10/23/2023 09:09:46 escitalop elias 20 mg tablet 2023 024 [facility] [place] [address] [facility], [address], [place], [place], [id number], 10/23/2023 09:09:46 metformin 500 mg tablet [address] [facility]861, [address], [place], [place], [id number], 01/22/2024 09:41:19 hydrochlo rothiazid e 25 mg tablet 2023 024 [facility] #80315, [address], [place], [place], [id number], 01/22/2024 09:41:14 lisinopri l 10 mg tablet 2023 024 [facility] #20958, [address], [place], [place], [id number], 01/22/2024 09:41:12 escitalop elias 20 mg tablet 2023 024 [facility], [address], [place], [place], [id number], 01/22/2024 09:41:14 Patient TargetsNo targets recorded. Patient Instructions Encounter Date Encounter Id Patient Instructions Last Modified By Organization Details Last Modified Time 02/01/2023 [id number] A healthy lifestyle: care instructions [id number] Not available 02/01/2023 10:02:24 04/16/2023 [id number] A healthy lifestyle: care instructions Not available [...] care: none Not available 04/16/2023 09:12:29 07/17/2023 [id number] When You Want to Lose Weight: Care Instructions Not available 07/17/2023 09:02:43 Quitting Tobacco : Care Instructions Not available 07/17/2023 09:02:43 learning about high blood pressure Not available 07/17/2023 09:02:43 Check blood pressure two or three times per week and record findings; bring to F/U appointment. [place] blood pressure is the top number below 140 and the bottom number below 90. If you experience any side effects of medication, call the office. Follow a low salt diet, drink at least 8-10 8oz glasses of water a day, exercise most days of the week. Not available 07/17/2023 09:03:18 f/u 3 months DWP barriers to care: none Not available 07/17/2023 09:03:22 10/23/2023 [id number] influenza (flu) vaccine: care instructions Not available [...] and record findings; bring to F/U appointment. [place] blood pressure is the top number below 140 and the bottom number below 90. If you experience any side effects of medication, call the office. Follow a low salt diet, drink at least 8-10 8oz glasses of water a day, exercise most days of the week. Not available 10/23/2023 08:50:03 f/u 3 months DWP barriers to care: none Not available 10/23/2023 08:50:06 01/22/2024 [id number] When You Want to Lose Weight: Care [...] total 219 mg/dL <200 high Not Available [employer] [facility] [address] [place], [address], 01/24/2023 03:28:34 01/24/20 23 01/24/2023 LIPID PANEL , [place] HDL cholesterol 42 mg/dL > or = 50 low Not Available [employer] [facility] [address] [place], [address], 01/24/2023 03:28:34 01/24/20 23 01/24/2023 LIPID PANEL , [place] triglyceride s 223 mg/dL <150 high If a non-f astin g speci men was colle cted, consi rodney repea t trigl yceri de testi ng on a fasti ng speci men if clini valeriy indic ated. Tobi flores et al. J. of Clin. Lipid ol. 2015; 9:129 -169. Not Available [facility] [id number] [place] [address], [address], 01/24/2023 03:28:34 01/24/20 23 01/24/2023 LIPID PANEL [...] 9): 2061- 2068 (http ://ed ucati on.Qu estRed Rock Holdings. com/f aq/FA Q164) Not Available [place] [address] [place], [address], 01/24/2023 03:28:34 01/24/20 23 01/24/2023 LIPID PANEL , [place] chol/HDLC ratio 5.2 (calc ) <5.0 high Not Available [facility] [address] [place], [address], 01/24/2023 03:28:34 01/24/20 23 01/24/2023 LIPID PANEL , [place] non HDL cholesterol 177 mg/dL _(eben c) <130 high For patie nts with diabe elinor plus 1 major ASCVD risk facto r, treat ing to a non-H DL-C goal of <100 mg/dL (LDL- C of <70 mg/dL ) is consi dered a thera peuti c optio n. Not Available [address], [address], 01/24/2023 03:28:34 01/24/20 23 01/24/2023 COMPR EHENS ATILIO METAB OLIC PANEL glucose 178 mg/dL 65-99 high Fasti ng refer ence inter maverick For someo ne witho ut known diabe elinor, a gluco se value >125 mg/dL indic ates that they may have diabe elinor and this shoul d be confi rmed with a follo w-up test. Not Available [address], [address], 01/24/2023 03:28:35 01/24/20 23 01/24/2023 COMPR EHENS ATILIO METAB OLIC PANEL urea nitrogen (BUN) 13 mg/dL 7-25 normal Not Available [address], [address], 01/24/2023 03:28:35 01/24/20 23 01/24/2023 COMPR EHENS ATILIO METAB OLIC PANEL creatinine 0.58 mg/dL 0.50-0 .99 normal Not Available [address], [address], 01/24/2023 03:28:35 01/24/20 23 01/24/2023 COMPR EHENS ATILIO METAB OLIC PANEL eGFR 117 mL/mi n/1.7 3m2 > or = 60 normal Not Available [address], [address], 01/24/2023 03:28:35 01/24/20 23 01/24/2023 COMPR EHENS ATILIO METAB OLIC PANEL BUN/creatini ne ratio SEE NOTE: (calc ) 6-22 Not Repor milton: BUN and Creat inine are withi n refer ence range . Not Available [address], [address], 01/24/2023 03:28:35 01/24/20 23 01/24/2023 COMPR EHENS ATILIO METAB OLIC PANEL sodium 138 mmol/ L 135-14 6 normal Not Available [address], [address], 01/24/2023 03:28:35 01/24/20 23 01/24/2023 COMPR EHENS ATILIO METAB OLIC PANEL potassium 4.3 mmol/ L 3.5-5. 3 normal Not Available [address], [address], 01/24/2023 03:28:35 01/24/20 23 01/24/2023 COMPR EHENS ATILIO METAB OLIC PANEL chloride 102 mmol/ L 98-110 normal Not Available [address], [address], 01/24/2023 03:28:35 01/24/20 23 01/24/2023 COMPR EHENS ATILIO METAB OLIC PANEL carbon dioxide 27 mmol/ L 20-32 normal Not Available [address], [address], 01/24/2023 03:28:35 01/24/20 23 01/24/2023 COMPR EHENS ATILIO METAB OLIC PANEL calcium 9.4 mg/dL 8.6-10 .2 normal Not Available [address], [address], 01/24/2023 03:28:35 01/24/20 23 01/24/2023 COMPR EHENS ATILIO METAB OLIC PANEL protein, total 7.1 g/dL 6.1-8. 1 normal Not Available [address], [address], 01/24/2023 03:28:35 01/24/20 23 01/24/2023 COMPR EHENS ATILIO METAB OLIC PANEL albumin 4.2 g/dL 3.6-5. 1 normal Not Available [address] [place], [address], 01/24/2023 03:28:35 01/24/20 23 01/24/2023 COMPR EHENS ATILIO METAB OLIC PANEL globulin 2.9 g/dL_ (calc ) 1.9-3. 7 normal Not Available [address], [address], 01/24/2023 03:28:35 01/24/20 23 01/24/2023 COMPR EHENS ATILIO METAB OLIC PANEL albumin/glob ulin ratio 1.4 (calc ) 1.0-2. 5 normal Not Available [address], [address], 01/24/2023 03:28:35 01/24/20 23 01/24/2023 COMPR EHENS ATILIO METAB OLIC PANEL bilirubin, total 0.3 mg/dL 0.2-1. 2 normal Not Available [address], [address], 01/24/2023 03:28:35 01/24/20 23 01/24/2023 COMPR EHENS ATILIO METAB OLIC PANEL alkaline phosphatase 91 U/L 31-125 normal Not Available [address], [address], 01/24/2023 03:28:35 01/24/20 23 01/24/2023 COMPR EHENS ATILIO METAB OLIC PANEL AST 17 U/L 10-30 normal Not Available [address], [address], 01/24/2023 03:28:35 01/24/20 23 01/24/2023 COMPR EHENS ATILIO METAB OLIC PANEL ALT 28 U/L 6-29 normal Not Available [address], [address], 01/24/2023 03:28:35 01/24/20 23 01/24/2023 CBC (INCL UDES DIFF/ PLT) white blood cell count 8.1 thous and/u L 3.8-10 .8 normal Not Available [address], [address], 01/24/2023 02:19:44 01/24/20 23 01/24/2023 CBC (INCL UDES DIFF/ PLT) red blood cell count 4.28 feli on/uL 3.80-5 .10 normal Not Available [address], [address], 01/24/2023 02:19:44 01/24/20 23 01/24/2023 CBC (INCL UDES DIFF/ PLT) hemoglobin 13.7 g/dL 11.7-1 5.5 normal Not Available [address], [address], 01/24/2023 02:19:44 01/24/20 23 01/24/2023 CBC (INCL UDES DIFF/ PLT) hematocrit 39.9 % 35.0-4 5.0 normal Not Available [address], [address], 01/24/2023 02:19:44 01/24/20 23 01/24/2023 CBC (INCL UDES DIFF/ PLT) MCV 93.2 fL 80.0-1 00.0 normal Not Available [address], [address], 01/24/2023 02:19:44 01/24/20 23 01/24/2023 CBC (INCL UDES DIFF/ PLT) MCH 32.0 pg 27.0-3 3.0 normal Not Available [address], [address], 01/24/2023 02:19:44 01/24/20 23 01/24/2023 CBC (INCL UDES DIFF/ PLT) MCHC 34.3 g/dL 32.0-3 6.0 normal Not Available [address], [address], 01/24/2023 02:19:44 01/24/20 23 01/24/2023 CBC (INCL UDES DIFF/ PLT) RDW 11.9 % 11.0-1 5.0 normal Not Available [address], [address], 01/24/2023 02:19:44 01/24/20 23 01/24/2023 CBC (INCL UDES DIFF/ PLT) platelet count 343 thous and/u L 140-40 0 normal Not Available [address], [address], 01/24/2023 02:19:44 01/24/20 23 01/24/2023 CBC (INCL UDES DIFF/ PLT) MPV 9.8 fL 7.5-12 .5 normal Not Available [address], [address], 01/24/2023 02:19:44 01/24/20 23 01/24/2023 CBC (INCL UDES DIFF/ PLT) absolute neutrophils 4901 cells /uL 1500-7 800 normal Not Available [address], [address], 01/24/2023 02:19:44 01/24/20 23 01/24/2023 CBC (INCL UDES DIFF/ PLT) absolute lymphocytes 2276 cells /uL 850-39 00 normal Not Available [address], [address], 01/24/2023 02:19:44 01/24/20 23 01/24/2023 CBC (INCL UDES DIFF/ PLT) absolute monocytes 778 cells /uL 200-95 0 normal Not Available [address], [address], 01/24/2023 02:19:44 12/19/20 23 01/24/2023 CBC (INCL UDES DIFF/ PLT) absolute eosinophils 97 cells /uL 15-500 normal Not Available [address], [address], 01/24/2023 02:19:44 01/24/20 23 01/24/2023 CBC (INCL UDES DIFF/ PLT) absolute basophils 49 cells /uL 0-200 normal Not Available [address], [address], 01/24/2023 02:19:44 01/24/20 23 01/24/2023 CBC (INCL UDES DIFF/ PLT) neutrophils 60.5 % normal Not Available [address], [address], 01/24/2023 02:19:44 01/24/20 23 01/24/2023 CBC (INCL UDES DIFF/ PLT) lymphocytes 28.1 % normal Not Available [address], [address], 01/24/2023 02:19:44 01/24/20 23 01/24/2023 CBC (INCL UDES DIFF/ PLT) monocytes 9.6 % normal Not Available [address], [address], 01/24/2023 02:19:44 01/24/20 23 01/24/2023 CBC (INCL UDES DIFF/ PLT) eosinophils 1.2 % normal Not Available [facility] [address], [address], 01/24/2023 02:19:44 01/24/20 23 01/24/2023 CBC (INCL UDES DIFF/ PLT) basophils 0.6 % normal Not Available [facility] [address], [address], 01/24/2023 02:19:44 01/24/20 23 01/24/2023 TSH TSH 4.05 mIU/L normal Refer ence Range > or = 20 Years 0.40- 4.50 Pregn elo Range s First trime ster 0.26- 2.66 Secon d trime ster 0.55- 2.73 Third trime ster 0.43- 2.91 Not Available [facility] [address], [place], [address], 01/24/2023 03:53:38 01/24/2001/23/2023 HEMOG LOBIN A1C hemoglobin [...] diabe elinor for child yuliana. Not Available [facility] [address], [place], [address], 01/24/2023 00:10:43 10/23/19 24 10/24/2023 LIPID PANEL cholesterol, total 241 mg/dL 100-19 9 above high normal Not Available [facility] ([facility]) [address] [facility], [place], [address], 10/24/2023 04:11:12 10/23/19 24 10/24/2023 LIPID PANEL triglyceride s 361 mg/dL 0-149 above high normal Not Available [facility] ([facility]) [address] [place], [address], 10/24/2023 04:11:12 10/23/19 24 10/24/2023 LIPID PANEL HDL cholesterol 47 mg/dL >39 Not Available [facility] ([facility]) [address] [place], [address], 10/24/2023 04:11:12 10/23/19 24 10/24/2023 LIPID PANEL VLDL cholesterol eben 64 mg/dL 5-40 above high normal Not Available [facility] ([facility]) [address] [place], [address], 10/24/2023 04:11:12 10/23/19 24 10/24/2023 LIPID PANEL LDL chol calc ([facility]) 130 mg/dL 0-99 above high normal Not Available [facility] ([facility]) [address] [place], [address], 10/24/2023 04:11:12 10/23/19 24 10/24/2023 COMP. METAB OLIC PANEL (14) glucose 195 mg/dL 70-99 above high normal Not Available [facility] ([facility]) [address] [place], [address], 10/24/2023 04:11:13 10/23/19 24 10/24/2023 COMP. METAB OLIC PANEL (14) BUN 8 mg/dL 6-24 Not Available [facility] ([facility]) [address] [place], [address], 10/24/2023 04:11:13 10/23/19 24 10/24/2023 COMP. METAB OLIC PANEL (14) creatinine 0.71 mg/dL 0.57-1 .00 Not Available [facility] ([facility]) [address] [place], [address], 10/24/2023 04:11:13 10/23/19 24 10/24/2023 COMP. METAB OLIC PANEL (14) eGFR 109 mL/mi n/1.7 3 >59 Not Available [facility] ([facility]) [address] [facility] [place], [address], 10/24/2023 04:11:13 10/23/19 24 10/24/2023 COMP. METAB OLIC PANEL (14) BUN/creatini ne ratio 11 9-23 Not Available [facility] ([facility]) [address] [facility] [place], [address], 10/24/2023 04:11:13 10/23/19 24 10/24/2023 COMP. METAB OLIC PANEL (14) sodium 136 mmol/ L 134-14 4 Not Available [facility] ([facility]) [address] [facility] [place], [address], 10/24/2023 04:11:13 10/23/19 24 10/24/2023 COMP. METAB OLIC PANEL (14) potassium 3.8 mmol/ L 3.5-5. 2 Not Available [facility] ([facility]) [address] [facility] [place], [address], 10/24/2023 04:11:13 10/23/19 24 10/24/2023 COMP. METAB OLIC PANEL (14) chloride 94 mmol/ L 96-106 below low normal Not Available [facility] ([facility]) [address] [facility] [place], [address], 10/24/2023 04:11:13 10/23/19 24 10/24/2023 COMP. METAB OLIC PANEL (14) carbon dioxide, total 26 mmol/ L 20-29 Not Available [facility] ([facility]) [address] [facility] [place], [address], 10/24/2023 04:11:13 10/23/19 24 10/24/2023 COMP. METAB OLIC PANEL (14) calcium 10.0 mg/dL 8.7-10 .2 Not Available [facility] ([facility]) [address] [facility] [place], [address], 10/24/2023 04:11:13 10/23/19 24 10/24/2023 COMP. METAB OLIC PANEL (14) protein, total 7.0 g/dL 6.0-8. 5 Not Available [facility] ([facility]) [address] [place], [address], 10/24/2023 04:11:13 10/23/19 24 10/24/2023 COMP. METAB OLIC PANEL (14) albumin 4.1 g/dL 3.9-4. 9 Not Available [facility] ([facility]) [address] [place], [address], 10/24/2023 04:11:13 10/23/19 24 10/24/2023 COMP. METAB OLIC PANEL (14) globulin, total 2.9 g/dL 1.5-4. 5 Not Available [facility] ([facility]) [address] [place], [address], 10/24/2023 04:11:13 10/23/19 24 10/24/2023 COMP. METAB OLIC PANEL (14) bilirubin, total 0.5 mg/dL 0.0-1. 2 Not Available [facility] ([facility]) [address] [place], [address], 10/24/2023 04:11:13 10/23/19 24 10/24/2023 COMP. METAB OLIC PANEL (14) alkaline phosphatase 162 IU/L 44-121 above high normal Not Available [facility] ([facility]) [address] [place], [address], 10/24/2023 04:11:13 10/23/19 24 10/24/2023 COMP. METAB OLIC PANEL (14) AST (SGOT) 53 IU/L 0-40 above high normal Not Available [facility] ([facility]) [address] [place], [address], 10/24/2023 04:11:13 10/23/19 24 10/24/2023 COMP. METAB OLIC PANEL (14) ALT (SGPT) 85 IU/L 0-32 above high normal Not Available [facility] ([facility]) [address] [facility], [place], [address], 10/24/2023 04:11:13 10/23/19 24 10/24/2023 TSH RFX ON ABNOR MAL TO FREE T4 TSH 4.590 uIU/m L 0.450- 4.500 above high normal Not Available [facility] ([facility]) [address] [place], [address], 10/24/2023 04:11:14 10/23/19 24 10/24/2023 HEMOG LOBIN A1C hemoglobin A1C 8.6 % 4.8-5. 6 above high normal Predi abete s: 5.7 - 6.4 Diabe elinor: >6.4 Glyce nigel contr ol for adult s with diabe elinor: <7.0 Not Available [facility] ([facility]) [address] [place], [address], 10/24/2023 04:11:14 10/23/19 24 10/24/2023 T4F T4,free (direct) 1.14 NG/dL 0.82-1 .77 Not Available [facility] ([facility]) [address] [facility], [place], [address], 10/24/2023 04:11:15 10/23/19 24 10/23/2023 CBC WITH DIFFE RENTI AL/PL ATELE T WBC 8.6 x10e3 /uL 3.4-10 .8 Not Available [facility] ([facility]) [address] [place], [address], 10/24/2023 04:11:16 10/23/19 24 10/23/2023 CBC WITH DIFFE RENTI AL/PL ATELE T RBC 4.22 x10e6 /uL 3.77-5 .28 Not Available [facility] ([facility]) [address] [facility], [place], [address], 10/24/2023 04:11:16 10/23/19 24 10/23/2023 CBC WITH DIFFE RENTI AL/PL ATELE T hemoglobin 13.7 g/dL 11.1-1 5.9 Not Available [facility] ([facility]) [address] [facility], [place], [address], 10/24/2023 04:11:16 10/23/19 24 10/23/2023 CBC WITH DIFFE RENTI AL/PL ATELE T hematocrit 41.3 % 34.0-4 6.6 Not Available [facility] ([facility]) [address] [facility], [place], [address], 10/24/2023 04:11:16 10/23/19 24 10/23/2023 CBC WITH DIFFE RENTI AL/PL ATELE T MCV 98 fL 79-97 above high normal Not Available [facility] ([facility]) [address] [facility], [place], [address], 10/24/2023 04:11:16 10/23/19 24 10/23/2023 CBC WITH DIFFE RENTI AL/PL ATELE T MCH 32.5 pg 26.6-3 3.0 Not Available [facility] ([facility]) [address] [facility], [place], [address], 10/24/2023 04:11:16 10/23/19 24 10/23/2023 CBC WITH DIFFE RENTI AL/PL ATELE T MCHC 33.2 g/dL 31.5-3 5.7 Not Available [facility] ([facility]) [address] [facility], [place], [address], 10/24/2023 04:11:16 10/23/19 24 10/23/2023 CBC WITH DIFFE RENTI AL/PL ATELE T RDW 12.7 % 11.7-1 5.4 Not Available [facility] ([facility]) [address] [facility], [place], [address], 10/24/2023 04:11:16 10/23/19 24 10/23/2023 CBC WITH DIFFE RENTI AL/PL ATELE T platelets 385 x10e3 /uL 150-45 0 Not Available [facility] ([facility]) [address] [facility], [place], [address], 10/24/2023 04:11:16 10/23/19 24 10/23/2023 CBC WITH DIFFE RENTI AL/PL ATELE T neutrophils 64 % notest ab. Not Available [facility] ([facility]) [address] [facility], [place], [address], 10/24/2023 04:11:16 10/23/19 24 10/23/2023 CBC WITH DIFFE RENTI AL/PL ATELE T lymphs 26 % notest ab. Not Available [facility] ([facility]) [address] [facility], [place], [address], 10/24/2023 04:11:16 10/23/19 24 10/23/2023 CBC WITH DIFFE RENTI AL/PL ATELE T monocytes 7 % notest ab. Not Available [facility] ([facility]) [address] [facility], [place], [address], 10/24/2023 04:11:16 10/23/19 24 10/23/2023 CBC WITH DIFFE RENTI AL/PL ATELE T eos 2 % notest ab. Not Available [facility] ([facility]) [address] [facility], [place], [address], 10/24/2023 04:11:16 10/23/19 24 10/23/2023 CBC WITH DIFFE RENTI AL/PL ATELE T basos 1 % notest ab. Not Available [facility] ([facility]) [address] [facility], [place], [address], 10/24/2023 04:11:16 10/23/19 24 10/23/2023 CBC WITH DIFFE RENTI AL/PL ATELE T neutrophils (absolute) 5.5 x10e3 /uL 1.4-7. 0 Not Available [facility] ([facility]) [address] [facility], [place], [address], 10/24/2023 04:11:16 10/23/19 24 10/23/2023 CBC WITH DIFFE RENTI AL/PL ATELE T lymphs (absolute) 2.3 x10e3 /uL 0.7-3. 1 Not Available [facility] ([facility]) [address] [place], [address], 10/24/2023 04:11:16 10/23/19 24 10/23/2023 CBC WITH DIFFE RENTI AL/PL ATELE T monocytes(ab solute) 0.6 x10e3 /uL 0.1-0. 9 Not Available [facility] ([facility]) [address] [place], [address], 10/24/2023 04:11:16 10/23/19 24 10/23/2023 CBC WITH DIFFE RENTI AL/PL ATELE T eos (absolute) 0.2 x10e3 /uL 0.0-0. 4 Not Available [facility] ([facility]) [address] [place], [address], 10/24/2023 04:11:16 10/23/19 24 10/23/2023 CBC WITH DIFFE RENTI AL/PL ATELE T baso (absolute) 0.1 x10e3 /uL 0.0-0. 2 Not Available [facility] ([facility]) [address] [place], [address], 10/24/2023 04:11:16 10/23/19 24 10/23/2023 CBC WITH DIFFE RENTI AL/PL ATELE T immature granulocytes 0 % notest ab. Not Available [facility] ([facility]) [address] [facility], [place], [address], 10/24/2023 04:11:16 10/23/19 24 10/23/2023 CBC WITH DIFFE RENTI AL/PL ATELE T immature grans (abs) 0.0 x10e3 /uL 0.0-0. 1 Not Available [facility] ([facility]) [address] [facility], [place], [address], 10/24/2023 04:11:16 01/22/20 24 01/22/2024 HbA1c (hemo globi n A1c), blood HbA1c 6.2 Not Available In-Office Order Internal Use Only DO Not Attach Compendium DO Not Attach Compendium, Do Not Delete/merge, [id number] 01/22/2024 08:56:49 01/09/20 23 01/08/2023 MAMMO , diagn ostic , digit al, bilat eral No observ ation record ed. [address] [place], [address], 01/09/2023 15:55:42 01/09/20 23 01/08/2023 MAMMO , diagn ostic , digit al, bilat eral No observ ation record ed. [address] [place], [address], 01/09/2023 11:23:33 Result Notes None recorded. Problems Name Problem SNOMED Code Status Onset Date Resolution Date Notes Provider Name and Address Organization Details Recorded Time Mood disorder 90084174 Active 2020 Rayne Carreno APN, FNP-C Attn: Cinthia g,[address] [place], [address], [facility] - SI 14:21:06 Tobacco user 039270490 Active 2020 Rayne Carreno APN, FNP-C Attn: Cinthia g,[address] [place], [address], [facility] 1 14:21:07 Obesity 188714240 Active 2020 Rayne Carreno APN, LOSS PREVENTION AUDITOR-C Attn: Cinthia cho,[address] [facility], [place], [address], [facility] 1 14:21:09 Psoriasis 9043042 Active 2020 Rayne Carreno APN, LOSS PREVENTION AUDITOR-C Attn: Cinthia cho,[address] [facility], [place], [address], [facility] 1 14:38:57 Prehyperten margarita 594637171 Completed 202004/16/2023 Rayne Carreno APN, LOSS PREVENTION AUDITOR-C Attn: Cinthia cho,[address] [facility], [place], [address], [facility] 4 09:09:38 Essential hypertensio n 06895295 Active 2022 Rayne Carreno APN, LOSS PREVENTION AUDITOR-C Attn: [place] cho,[address] [facility], [place], [address], [facility] 3 09:06:22 Type 2 diabetes mellitus 66717592 Active 2023 Rayne Carreno APN, LOSS PREVENTION AUDITOR-C Attn: Cinthia cho,[address] [facility], [place], [address], [facility] 4 08:56:41 Problem Notes None recorded. Procedures Surgical History Date Name Laterality Status Provider Name and Address Organization Details Recorded Time Cholecystectomy completed Shy Villa MA [facility] 06/11/2020 14:13:56 Tonsillectomy completed Shy Villa MA [facility] 06/11/2020 14:14:07 Imaging Results Imaging Date Name Status LastModified by Organiz [facility] Details LastModified Time 01/08/2023 MAMMO, diagnostic, digital, bilateral completed [email or web address] [facility] [address] [place], [address], 01/09/2023 15:55:42 01/08/2023 MAMMO, diagnostic, digital, bilateral completed [email or web address] [place] [facility] [address] [facility] , [place], [address], 01/09/2023 11:23:33 Procedure Notes None recorded. Medical [...] Updated DateTime 3 167.64 cm 36.8 kg/m2 325380. 34 g 99 % 99 % 102 [...] Updated DateTime 4 167.64 cm 37.6 kg/m2 483588. 02 g 97 % 97 % 110 /min 16 /min 97.5 [degF] 152 mm[Hg] 100 mm[Hg] AJCK Hunt [facility] 4 08:41:34 Date Recorded Systolic blood pressure Diastolic blood pressure Provider Name and Address Organization Details Last Updated DateTime 04/16/2023 142 mm[Hg] 92 mm[Hg] Rayne Carreno APN, FNP-C Attn: Accounting,[address] [place], [address], [facility] 04/16/2023 09:10:11 Date Recorded Body height Body mass index (BMI) Body weight Oxygen saturation Oxygen saturation in Arterial blood by Pulse oximetry Respiratory rate Body temperature Heart rate Systolic blood pressure Diastolic blood pressure Provider Name and Address Organization Details Last Updated DateTime 4 167.64 cm 37 kg/m2 000130. 65 g 98 % 98 % 16 /min 97.3 [degF] 102 /min 138 mm[Hg] 94 mm[Hg] Anny Dent Munir [facility] 4 08:37:40 Date Recorded Body height Body mass index (BMI) Body weight Oxygen saturation Oxygen saturation in Arterial blood by Pulse oximetry Body temperature Respiratory rate Heart rate Systolic blood pressure Diastolic blood pressure Provider Name and Address Organization Details Last Updated DateTime 4 167.64 cm 36.8 kg/m2 045103. 06 g 98 % 98 % 97.3 [degF] 16 /min 108 /min 138 mm[Hg] 94 mm[Hg] JACK Hunt [facility] 4 08:39:44 Date Recorded Systolic blood pressure Diastolic blood pressure Provider Name and Address Organization Details Last Updated DateTime 10/23/2023 128 mm[Hg] 82 mm[Hg] Rayne Carreno APN, FNP-C Attn: Accounting,[address] [place], [address], [place] [facility] 10/23/2023 09:05:40 Date Recorded Body height Body mass index (BMI) Body weight Oxygen saturation Oxygen saturation in Arterial blood by Pulse oximetry Respiratory rate Body temperature Heart rate Systolic blood pressure Diastolic blood pressure Provider Name and Address Organization Details Last Updated DateTime 4 167.64 cm 33.7 kg/m2 05141.8 1 g 95 % 95 % 16 /min 97.5 [degF] 116 /min 132 mm[Hg] 88 mm[Hg] JACK Hunt [facility] 08:54:18 Social History Question Answer Notes LastModified by Organizat ion Details LastModified Time Tobacco Smoking Status Current Every Day Smoker Shy Villa [place] [facility], [place] [facility] 06/11/2020 14:12:47 Do You Have An Advance Directive? No Information not available 06/11/2020 What Is Your Level Of Alcohol Consumption? None Information not available 01/22/2024 Are You Blind Or Do You Have Difficulty Seeing? No Information not available 06/11/2020 What Is Your Level Of Caffeine Consumption? Heavy [email or web address] Information not available 01/18/2022 In The 14 [...] 01/22/2024 What Is Your Occupation? [employer] [email or web address] Information not available 01/18/2022 Are There Any [...] Age Did You Start Smoking Tobacco? 21 [email or web address] Information not available 01/18/2022 Are You Passively Exposed To Smoke? Yes Information no t available 06/11/2020 How Much Tobacco Do You Smoke? 0.25 PPD Information not available 01/22/2024 Do You Feel Stressed (tense, Restless, Nervous, Or Anxious, Or Unable To Sleep At Night)? [id number] Information not available 01/22/2024 Do You Use Any Illicit Or Recreational Drugs? No Information not available 06/11/2020 Do You Use Sunscreen Routinely? Yes Information not available 06/11/2020 Has Tobacco Cessation Counseling Been Provided? Yes [email or web address] Information not available 01/18/2022 On What Date [...] 06/11/2020 What is your exercise level? None [email or web address] Information not available 01/18/2022 Mental Status None [...] High Blood Pressure N Atrial Fibrillation N Kidney or Bladder Problems N Thyroid Problems N Depression Y COPD N Blood Clots N GI Problems N Skin Problems N Eating Disorder N Anemia N Heart Attack (NM) N Anxiety Disorder Y Diabetes N Muscle, Joint, or Bone Problems N Seizures/Epilepsy N Acid Reflux (GERD) N Cancer N Stroke N Asthma N Allergies N ADHD N Substance Abuse N High Cholesterol N Hepatitis N Liver Disease N Headaches N Schizophrenia N Osteoporosis N Heart Failure N Gynecological History Statement/Question Response Date of [...] mcg/0.3 mL dose 1 completed GRANT BritoN, LOSS PREVENTION AUDITOR-C Attn: Accounting,[address] [place], [address], [place] [facility] 01/18/2022 16:46:47 COVID-19, mRNA, LNP-S, PF, 30 mcg/0.3 mL dose 1 completed Rayne Carreno GAUGE MAKER APPRENTICE, LOSS PREVENTION AUDITOR-C Attn: Accounting,[address] [place], [address], [place] [facility] 01/18/2022 16:46:47 Influenza, split virus, quadrivalent, PF 0 completed GRANT BritoN, LOSS PREVENTION AUDITOR-C Attn: Accounting,[address] [place], [address], [place] [facility] 01/18/2022 16:46:47 Tdap 2 completed Rayne Carreno GAUGE MAKER APPRENTICE, LOSS PREVENTION AUDITOR-C Attn: Accounting,[address] [place], [address], [place] [facility] 01/18/2022 16:46:47 Influenza, split virus, quadrivalent, PF 1 completed [place]ny Dent null, [place] [facility] 12/21/2020 15:40:01 Influenza, split virus, quadrivalent, PF 1 completed [place] Dent [place], [place] [facility] 12/22/2020 09:13:03 Influenza, split virus, quadrivalent, preservative 2 completed Rayne Carreno APN, FNP-C Attn: Accounting,[address] [place], [address], [facility] - [facility] 01/19/2022 00:34:05 COVID-19, mRNA, LNP-S, bivalent, PF, 30 mcg/0.3 mL dose 2 completed Anny Dent null, [facility] 01/18/2022 17:13:34 Influenza, split virus, quadrivalent, preservative 3 completed Rayne Carreno APN, FNP-C Attn: Accounting,[address] [place], [address], [facility] 01/15/2023 22:37:36 Influenza, split virus, trivalent, preservative 4 completed JACK Hunt, [facility] 10/23/2023 09:53:28 Past Encounters Encounter ID Performer Location Encounter Start Date Encounter Closed Date Diagnosis/Indication Diagnosis SNOMED-CT Code Diagnosis ICD10 Code Diagnosis Note [id number] Rayne Carreno APN, LOSS PREVENTION AUDITOR-C [facility] (Adult Med) [address] [place] [address] 06/11/2020 13:58:38 06/14/2020 09:45:59 Adult health examination 454029473 Z00.01 Encouraged routine WIRE BOUND BOX MACHINE OPERATOR, vision, dental exams, well balanced diet. Obesity 357693230 E66.9 advised low fat, low cholestero l diet, regular exercise and weight reduction. Tobacco user 724337123 Z 72.0 Smoking cessation encouraged . Mood disorder 66505222 F 40 stable on lexapro, Prehypertension 18980965 9 R03.0 BP in pre-hypert ensive range, dwp risk, reducing salt and increasing exercise Psoriasis 5340258 L40.9 silvery scale like rash approx 2 inches annular to left leblanc dwp prn topical, will refer to derm if needed [id number] Rayne Carreno APN, FNP-C [place] (Adult Med) [address] [place] [address] 12/21/2020 14:44:00 12/22/2020 08:56:42 Mood disorder 09445277 F40 stable on lexapro, Obesity 554515710 E66.9 advised low fat, low cholestero l diet, regular exercise and weight reduction. Tobacco user 706091526 Z 72.0 Smoking cessation encouraged . Administra tion of influenza vaccine 39100848 Z23 [id number] Rayne Carreno APN, FNP-C [place] (Adult Med) [address] [place] [address] 03/15/2021 16:21:33 03/16/2021 07:58:11 Elevated blood-pressure reading without diagnosis of hypertension 960547551 R03.0 BP in pre-hypert ensive range, dwp risk, reducing salt and increasing exercise Spider bite wound 327643 008 T63.391A 3 cm erythemato us wound with two ulceration s of approx 1 cm each by 0.5 cm; purulent drainage reported but none expressed on examwill treat with bactrim, dwp to use topical as well, call if over 5 cm or any other changes not improving [id number] Rayne Carreno APN, FNP-C [place] (Adult Med) [address] [place] [address] 01/18/2022 16:29:07 01/20/2022 16:19:09 Dysuria 29828586 R30.0 urine dip pos leuk, will send for culture and notify pt if abx change needed, will start macrobid; dwp to increase fluids and RTO if increase in pain or fever or other changes occur. Prehypertension 03748099 9 R03.0 BP in pre-hypert ensive range, dwp risk, reducing salt and increasing exercise Obesity 934353166 E66.9 advised low fat, low cholestero l diet, regular exercise and weight reduction. Tobacco user 040248559 Z 72.0 Smoking cessation encouraged . Mood disorder 49777119 F 40 stable on lexapro, Administra tion of influenza vaccine 86761445 Z23 [id number] [facility] [address] [place] [address] 01/18/2022 17:08:30 01/20/2022 16:20:40 Administration of SARS-CoV-2 mRNA vaccine 3124457807 Z23 [id number] Rayne Carreno APN, LOSS PREVENTION AUDITOR-C [facility] (Adult Med) [address] [place] [address] 01/15/2023 08:44:25 01/16/2023 09:32:40 Mood disorder 28430833 F40 stable on lexapro, denies HI or SI or SE, cont 10 mg dose Tobacco user 702452292 Z 72.0 Smoking cessation encouraged .has tried patches in past and did not work well,bob lai worked prior for her. will send rx, dwp r/b/se Obesity 381526921 E66.9 advised low fat, low cholestero l diet, regular exercise and weight reduction. Essential hypertension 74861921 I10 elevated, start hctz 12.5; Administra tion of influenza vaccine 19163977 Z23 [id number] [facility] [address] [place] [address] 02/01/2023 08:56:45 02/02/2023 11:44:59 Routine gynecologic examination done 0659401426 9101 Z01.419 - Reviewed risks for infection and cancer; ordered screening tests as appropriat e- Benign mammograph y and breast ultrasound findings managed by PCP Screening for malignant neoplasm of cervix 294345686 Z12.4 - Per [facility] records, last co-testing 05/2020 -- NILM with neg hr-HPV test- Return to clinic for next co-testing in 2025 Contracept ion care management 790051396 Z30.9 - Not currently sexually active- Advised patient to return to clinic if she becomes sexually active and does not desire to discuss contracept atilio options- If not opposed to , advised patient to take daily vitamin Essential hypertension 45849058 I10 - Discussed low salt diet with patient- Recommende d following up with PCP regarding medication management Body mass index 30+ - obesity 312248833 Z68.36 - Discussed limiting intake of salty foods [id number] Rayne Carreno APN, FNP-C [place] (Adult Med) [address] [place] [address] 04/16/2023 08:29:30 04/17/2023 16:29:15 Essential hypertension 48783012 I10 elevated, cont hctz 12.5- increase to 25 mg Obesity 803903936 E66.9 advised low fat, low cholestero l diet, regular exercise and weight reduction. Tobacco user 309618188 Z 72.0 Smoking cessation encouraged .has tried patches in past and did not work well,bob lai worked prior for her. will send rx, dwp r/b/se Mood disorder 12469853 F 40 stable on lexapro, denies HI or SI or SE, cont 10 mg dose [id number] Rayne Carreno APN, FNP-C [place] (Adult Med) [address] [place] [address] 07/17/2023 08:28:50 07/18/2023 19:00:53 Essential hypertension 27496426 I10 elevated, will add ACEcont hctz 25 mg Obesity 285919096 E66.9 advised low fat, low cholestero l diet, regular exercise and weight reduction. Tobacco user 647353126 Z 72.0 Smoking cessation encouraged . [id number] Rayne Carreno APN, FNP-C [place] (Adult Med) [address] [place] [address] 10/23/2023 08:30:29 10/24/2023 13:04:17 Essential hypertension 30235871 I10 improvedco nt lisinopril 10 mgcont hctz 25 mg Obesity 058437140 E66.9 advised low fat, low cholestero l diet, regular exercise and weight reduction. Tobacco user 418715935 Z 72.0 Smoking cessation encouraged . Mood disorder 09846809 F 40 has been stable on lexapro, [...] for crises. Administra tion of influenza vaccine 68187721 Z23 [id number] Rayne Carreno APN, LOSS PREVENTION AUDITOR-C [facility] (Adult Med) [address] [place] [address] 01/22/2024 08:46:03 01/23/2024 17:32:15 Essential hypertension 86200794 I10 improvedco nt lisinopril 10 mgcont hctz 25 mg Obesity 720754327 E66.9 advised low fat, low cholestero l diet, regular exercise and weight reduction. Tobacco user 119974785 Z 72.0 Smoking cessation encouraged . Mood disorder 01174630 F 40 has been stable on lexapro, denies HI or SI or SE,R/B/A/S E of antidepres suresh medication discussed such as gastrointe stinal s/e, mood irritabili ty, Suicidal ideation, risk of olvin. Call with concerns and questions. Compliance with medication s and follow up care strongly recommende d. Call 911 or ER for crises. Type 2 vianey betes mellitus 90796397 E11.9 in diabetic range,need to make diet [...] [employer] [facility] FAY Radha Cabral [id number] Radha Cabral 04/16/2023 2 *SELF PAY* Kylie Cabral 04/16/2023 1 [employer] - [employer] - [employer] [facility] FAY Radha Cabral [id number] Radha Cabral 07/17/2023 2 *SELF PAY* Kylie Cabral 07/17/2023 1 [employer] - [employer] (PPO) CROW Cabral [id number] Radha Cabral 10/23/2023 2 *SELF PAY* Kylie Cabral 10/23/2023 1 [employer] - [employer] (PPO) CROW Cabral [id number] Radha Cabral 01/22/2024 2 *SELF PAY* Kylie Cabral 01/22/2024 1 [employer] - [employer] (PPO) CROW Cabral [id number] Radha Cabral Notes Date Note Type Note [...] present) WOLFGANG FOREMAN MD Attn: Accounting[address] [place], [address], [facility] 02/01/2023 10:02:27 04/16/2023 text/html needs lexapro refilled.. no SI or HI or SE Rayne Carreno APN, LOSS PREVENTION AUDITOR-C Attn: Accounting,[address] [facility], [place], [address], [facility] - [facility] 04/16/2023 09:14:59 07/17/2023 text/html taking hctz, no chest pain or sob, no dizziness Rayne Carreno APN, LOSS PREVENTION AUDITOR-C Attn: Accounting,[address] [facility], [place], [address], [facility] 07/17/2023 09:04:23 10/23/2023 text/html flu shotpossible increase in lexapro- unable to fall asleep due to mind racing denies cp or sob Rayne Carreno APN, LOSS PREVENTION AUDITOR-C Attn: Accounting[address] [place], [address], [facility] 10/23/2023 09:13:25 01/22/2024 text/html HTN- taking lisinopril and hctz, no chest pain or sob, no dizziness T2DM- tolerating metformin, diet changes Mood-improved, denies SI or HI Tobacco-down to 1/4 ppd Rayne Carreno APN, LOSS PREVENTION AUDITOR-C Attn: Accounting[address] [place], [address], [facility] 01/22/2024 09:42:05 OBGyn Episode No OBEpisode recorded.
--- OUTSIDE RECORDS SUMMARY | 2024-02-16 11:01 | XMS_ITS | Encounter Summary ---
Author Organization [facility] Address [address] [place] [address] Care Team Providers Care Quality Reviewer Name Role Phone Rayne Roach NP Primary Care Provider [phone] Encounter Details Date Type Department Care Team (Late st Contact Info) Description 09/06/2021 Telephone [facility] Obstetrical Gynecology [address] [place] [address] Jeanne Joseph, RN Social History [...] on filedocumented in this encounter Care Teams Quality Reviewer Relationship Specialty Start Date End Date Rayne Roach NP [address] [place] [address] PCP - General Nurse Practitioner 09/29/20 documented as of this encounter
--- OUTSIDE RECORDS SUMMARY | 2024-02-16 11:01 | XMS_ITS | Encounter Summary ---
Author Organization [facility] Healthcare Address [address] [place] [address] Care Team Providers Care Automotive Buyer Name Role Phone Unavailable Primary Care Provider Unavailabl e Encounter Details Date Type Department Care Team (Late st Contact Info) Description 08/22/2013 1:30 PM CDT - 11/20/2013 1:30 PM CDT Hospital Encounter [facility] Elsi Nation, NATALIO [address] [place] [address] Type 2 or unspecified type diabetes mellitus [...]
--- OUTSIDE RECORDS SUMMARY | 2024-02-16 11:01 | XMS_ITS | Encounter Summary ---
Author Organization [facility] Healthcare Address [address] [place] [address] Care Team Providers Care Chemical Processing Laborer Name Role Phone Rayne Carreno NP Primary Care Provider [phone] Reason for Visit * Diagnostic Imaging (Routine) - Closed Specialty Diagnoses / Procedures Referred By Kamilah hughes Referred To Contact Diagnoses Abnormal mammogram Procedures Diagnostic Mammogram Bilateral W Delores Diagnostic Mammogram Bilateral W [place] Screening Mammogram Bilateral W Delores Rayne Carreno NP [address] [place] [address] Phone: tel: fax: [address] [address] Referral ID Status Reason Start Date Expiration Date Visits Re quested Visits Authorized [id number] Closed 12/27/2022 01/26/2024 1 1 Encounter Details Date Type Department Care Team (Latest Contact Info) Description 12/27/2022 3:30 PM HUMAN RESOURCES BENEFITS SPECIALIST - 12/27/2022 11:59 PM HUMAN RESOURCES BENEFITS SPECIALIST Hospital Encounter [facility] [address] [place] [address] Screening mammogram, encounter for; Fibrocystic breast disease [...] Read Routine (OP Routine) 12/27/2022 3:49 PM HUMAN RESOURCES BENEFITS SPECIALIST Abnormal mammogram documented in this encounter Results * Diagnostic Mammogram Bilateral W Delores (12/27/2022 3:49 PM HUMAN RESOURCES BENEFITS SPECIALIST) Anatomical Region Laterality Modality Breast Bilateral Mammography 01/08/2023 11:5 5 AM HUMAN RESOURCES BENEFITS SPECIALIST Impressions 01/08/2023 11:55 AM HUMAN RESOURCES BENEFITS SPECIALIST 1. ??Unchanged probably benign 9 mm mass [...] Baltazar Neff M.D. Narrative 01/08/2023 11:55 AM HUMAN RESOURCES BENEFITS SPECIALIST EXAMINATION: DIAGNOSTIC MAMMOGRAM BILATERAL W DELORES, US [...] unspecified documented in this encounter Care Teams Chemical Processing Laborer Relationship Specialty Start Date End Date Rayne Carreno NP [address] [place] [address] PCP - General Nurse Practitioner 09/29/20 documented as of this encounter
--- OUTSIDE RECORDS SUMMARY | 2024-02-16 11:01 | XMS_ITS | Encounter Summary ---
Author Organization [facility] Healthcare Address [address] [place] [address] Care Team Providers Care Professional Engineer Name Role Phone No, Physician Primary Care Provider [phone] Encounter Details Date Type Department Care Team (Late st Contact Info) Description 05/17/2020 12:01 AM CDT Hospital Encounter [facility] Cecilia Walker, DO [address] [place] [address] Social History Tobacco Use Types Packs/Day Years [...] on filedocumented in this encounter Care Teams Professional Engineer Relationship Specialty Start Date End Date Louise Physician PCP - General 08/24/17 09/28/20 documented as of this encounter
--- OUTSIDE RECORDS SUMMARY | 2024-02-16 11:01 | XMS_ITS | Encounter Summary ---
Author Organization [facility] Medical [facility] Address [address] [place] [address] Care Team Providers Care Manager Of Digital Name Role Phone Rayne Roach NP Primary Care Provider [phone] Reason for Visit * Reason Comments Cyst Back Encounter Details Date Type Department Care Team (Late st Contact Info) Description 10/13/2020 2:30 PM CDT Procedure visit [facility] [address] [place] [address] EyersJacqueline NP [address] [facility] [address] [place] [address] Epidermoid cyst (Primary Dx); Pilonidal cyst Social [...] link to PDF NetworkReferenceLab Department of Pathology [address] [place] [address] Note to Patients: This report may [...] Final Report Patient Name: ??RICKEY VILLANUEVA Address: ??[address] [place] [address], ??[place], [place] ??[facility] Gender: ??F : ??1980 (Age: 40) Service: ??Laboratory Location: ??Lab Hospital #: ??[id number] Patient Type: ?? Ref Lab Accession # ?[id number] Taken: ??10/13/2020 Received: ??10/15/2020 Accessioned: ??10/15/2020 Reported: [...] determined by the Surgical Pathology Department at [facility] as part of an ongoing it quality assurance analyst program and in compliance with federally [...] characteristics determined by the Surgical Pathology Department [facility]. ??It has not been cleared or approved by the U. S. Food and Drug Administration. Jacqueline Jalloh NP LAB PATHOLOGY ORDERABLES Final R esult PATHOLOGY [facility] [address] [place] [address] documented in this encounter Visit Diagnoses Diagnosis Epidermoid cyst- Primary Sebaceous cyst Pilonidal cyst Epidermoid cyst Sebaceous cyst documented in this encounter Care Teams Manager Of Digital Relationship Specialty Start Date End Date Rayne Roach NP [address] [place] [address] PCP - General Nurse Practitioner 09/29/20 documented as of this encounter
--- OUTSIDE RECORDS SUMMARY | 2024-02-16 11:01 | XMS_ITS | Encounter Summary ---
Author Organization [facility] Medical Group Address [address] [place] [address] Care Team Providers Care Property Loss Insurance Claim Adjuster Name Role Phone Rayne Roach NP Primary Care Provider [phone] Encounter Details Date Type Department Care Team (Late st Contact Info) Description 09/14/2021 Orders Only [facility] Health Information Management [address] [place] [address] Scanning, Provider Social History Tobacco Use Types [...] on filedocumented in this encounter Care Teams Property Loss Insurance Claim Adjuster Relationship Specialty Start Date End Date Rayne Roach NP [address] [place] [address] PCP - General Nurse Practitioner 09/29/20 documented as of this encounter
--- OUTSIDE RECORDS SUMMARY | 2024-02-16 11:01 | XMS_ITS | Encounter Summary ---
Author Organization [facility] Healthcare Address [address] [place] [address] Care Team Providers Care Credit Union Teller Name Role Phone Unavailable Primary Care Provider Unavailabl e Encounter Details Date Type Department Care Team (Latest Contact Info) Description 08/29/2013 1:59 PM CDT - 08/29/2013 6:28 PM CDT Hospital Encounter [facility] Amaury aErly MD [address] [place] [id number] Missed Social History Tobacco Use Types Packs/Day [...]
--- OUTSIDE RECORDS SUMMARY | 2024-02-16 11:01 | XMS_ITS | Encounter Summary ---
Author Organization [facility] Medical Group Address [address] [place] [address] Care Team Providers Care Continuous Dryout Operator Name Role Phone No, Physician Primary Care Provider [phone] Reason for Visit * Reason Comments Earache left side Encounter Details Date Type Department Care Team (Late st Contact Info) Description 08/24/2017 7:15 PM CDT Office Visit [facility] [address] [place] [address] Haider Connolly, NATALIO [address] [facility] [place] [address] Acute mucoid otitis media of [...] Patient Instructions * Patient Instructions* Haider Connolly, REHABILITATION CASE COORDINATOR - 08/24/2017 7:40 PM CDT Complete the [...] DO Ear, Nose and Throat / Otolaryngology [address] [place] [address] Patient Education Otitis Media WHAT YOU NEED [...] fever and a stiff neck. ?? 2016 [employer]. Information is for End User's use only and may not be sold, redistributed or otherwise used for commercial purposes. All illustrations and images included in CareNotes?? are the copyrighted property of [employer] or [employer]. The above information is an medicaid biller only. It is not intended as medical [...] this encounter Progress Notes * Haider Connolly, REHABILITATION CASE COORDINATOR - 08/24/2017 7:15 PM CDT Subjective Patient [...] DO Ear, Nose and Throat / Otolaryngology [address] [place] [address] Diagnoses and all orders for this visit: [...] Primary documented in this encounter Care Teams Continuous Dryout Operator Relationship Specialty Start Date End Date No, Physician PCP - General 08/24/17 09/28/20 documented as of this encounter
--- OUTSIDE RECORDS SUMMARY | 2024-02-16 11:01 | XMS_ITS | Encounter Summary ---
Author Organization [facility] Healthcare Address [address] [place] [address] Care Team Providers Care Zig Zag Stitcher Name Role Phone Rayne Carreno NP Primary Care Provider [phone] Reason for Visit * Diagnostic Imaging (Routine) - Closed Specialty Diagnoses / Procedures Referred By Contbryan t Referred To Contact Diagnoses Diffuse cystic mastopathy of breast, unspecified laterality Other abnormal and inconclusive findings on diagnostic imaging of breast Procedures US Breast Bilateral Limited US Breast Bilateral Complete US Breast Bilateral Complete Rayne Carreno NP [address] [place] [address] Phone: tel: fax: [address] [address] Referral ID Status Reason Start Date Expiration Date Visits Re quested Visits Authorized [id number] Closed 07/21/2022 08/20/2023 1 1 Encounter Details Date Type Department Care Team (Latest Contact Info) Description 01/08/2023 9:52 AM INSTRUMENT TECHNICIAN HELPER - 01/08/2023 11:59 PM INSTRUMENT TECHNICIAN HELPER Hospital Encounter [facility] [address] [place] [address] Diffuse cystic mastopathy of breast, unspecified laterality; [...] Read Routine (OP Routine) 01/08/2023 11:03 AM INSTRUMENT TECHNICIAN HELPER Diffuse cystic mastopathy of breast, unspecified laterality Other abnormal and inconclusive findings on diagnostic imaging of breast documented in this encounter Results * US Breast Bilateral Limited (01/08/2023 11:03 AM INSTRUMENT TECHNICIAN HELPER) Anatomical Region Laterality Modality Breast Bilateral Ultrasound 01/08/2023 11:5 5 AM INSTRUMENT TECHNICIAN HELPER Impressions 01/08/2023 11:55 AM INSTRUMENT TECHNICIAN HELPER 1. ??Unchanged probably benign 9 mm mass [...] Baltazar Neff M.D. Narrative 01/08/2023 11:55 AM INSTRUMENT TECHNICIAN HELPER EXAMINATION: DIAGNOSTIC MAMMOGRAM BILATERAL W DELORES, US [...] breast documented in this encounter Care Teams Zig Zag Stitcher Relationship Specialty Start Date End Date Rayne Carreno NP [address] [place] [address] PCP - General Nurse Practitioner 09/29/20 documented as of this encounter
--- OUTSIDE RECORDS SUMMARY | 2024-02-16 11:01 | XMS_ITS | Encounter Summary ---
Author Organization [facility] Healthcare Address [address] [place] [address] Care Team Providers Care Rolloff Driver Name Role Phone Roach, Rayne King NP Primary Care Provider [phone] Encounter Details Date Type Department Care Team (Late st Contact Info) Description 01/16/2022 1:10 PM DIESEL INSTRUCTOR Ancillary Procedure [facility] Outside Films Social History [...] OF OUTSIDE FILMS Routine 01/16/2022 1:08 PM DIESEL INSTRUCTOR documented in this encounter Results * US Outside Reference (01/16/2022 1:08 PM DIESEL INSTRUCTOR) Narrative [facility] - 01/16/2022 1:08 PM DIESEL INSTRUCTOR This order has been auto-finalized and does not contain a result. us Not In File Miscellaneous IMG US PROCEDURES Arianne martinez Result [facility] documented in this encounter Visit Diagnoses Not on filedocumented in this encounter Care Teams Rolloff Driver Relationship Specialty Start Date End Date Rayne Roach NP [address] [place] [address] PCP - General Nurse Practitioner 09/29/20 documented as of this encounter
--- OUTSIDE RECORDS SUMMARY | 2024-02-16 11:01 | XMS_ITS | Encounter Summary ---
Author Organization [facility] Healthcare Address [address] [place] [address] Care Team Providers Care Human Resources Training Manager Name Role Phone Rayne Carreno NP Primary Care Provider [phone] Reason for Visit * Diagnostic Imaging (Routine) - Closed Specialty Diagnoses / Procedures Referred By Contbryan t Referred To Contact Diagnoses Fibrocystic breast disease (FCBD), unspecified laterality Procedures US Breast Left Limited US Breast Bilateral Limited Rayne Carreno NP [address] [place] [address] Phone: tel: fax: [address] [address] Referral ID Status Reason Start Date Expiration Date Visits Re quested Visits Authorized [id number] Closed 07/14/2021 01/05/2022 1 1 Encounter Details Date Type Department Care Team (Latest Contact Info) Description 01/09/2022 1:28 PM INTER COM SERVICER - 01/09/2022 11:59 PM INTER COM SERVICER Hospital Encounter [facility] [address] [place] [address] Rayne Carreno NP [address] [place] [address] Fibrocystic breast disease (FCBD), unspecified laterality Discharge [...] Read Routine (OP Routine) 01/09/2022 2:39 PM INTER COM SERVICER Fibrocystic breast disease (FCBD), unspecified laterality documented in this encounter Results * US Breast Left Limited (01/09/2022 2:39 PM INTER COM SERVICER) Anatomical Region Laterality Modality Breast Left Ultrasound 01/09/2022 2:54 PM INTER COM SERVICER Addenda Addendum by Carlito Youssef MD on 02/07/2022 10:10 AM INTER COM SERVICER ADDENDUM: Previous outside hospital mammogram and sonogram [...] by: CARLITO HAGAN Impressions 01/09/2022 2:54 PM INTER COM SERVICER 1. ??An oval mass with circumscribed margins [...] signed by: CARLITO Nicole 01/09/2022 2:54 PM INTER COM SERVICER EXAMINATION: US BREAST LEFT LIMITED, DIAGNOSTIC MAMMOGRAM [...] laterality documented in this encounter Care Teams Human Resources Training Manager Relationship Specialty Start Date End Date Rayne Carreno NP [address] [place] [address] PCP - General Nurse Practitioner 09/29/20 documented as of this encounter
--- OUTSIDE RECORDS SUMMARY | 2024-02-16 11:02 | XMS_ITS | Encounter Summary ---
Author Organization [facility] Healthcare Address [address] [place] [address] Care Team Providers Care Programming Director Name Role Phone Unavailable Primary Care Provider Unavailabl e Encounter Details Date Type Department Care Team (Latest Contact Info) Description 08/28/2013 7:49 AM CDT Hospital Encounter [facility] Amaury Early MD [address] [place] [address] Other specified pre-operative examination; Missed Social [...] Lymph % 23.7 5.0 - 45.0 % Bibb % 5.6 3.0 - 15.0 % Eos [...] Early MD LAB BLOOD ORDERABLES Final Result [facility] HISTORICAL RESULTS * (ABNORMAL) Urinalysis reflex to microscopic and culture (08/28/2013 8:15 AM CDT) Ur Collection Type CLEAN CATCH Ur Culture Indicated? C&S NOT INDICATED Urine Color YELLOW YELLOW Urine Clarity HAZY CLEAR Urine Glucose (UA) NORMAL NORMAL mg/dL Urine Bilirubin NEGATIVE NEGATIVE mg/dl Urine Ketones NEGATIVE NEGATIVE mg/dL Ur Specific [place] 1.016 1.005 - 1.025 Urine Blood 1.0(H) [...] AM CDT 08/28/2013 8:44 AM CDT Narrative [facility] HISTORICAL RESULTS - 08/28/2013 8:51 AM CDT Collected By ra ?? 193 ?? us Amaury Early MD LAB MICROBIOLOGY - GENERAL ORDERABLES Final Result [facility] HISTORICAL RESULTS documented in this encounter Visit Diagnoses Diagnosis Other specified pre-operative examination Missed documented in this encounter
--- OUTSIDE RECORDS SUMMARY | 2024-02-16 11:02 | XMS_ITS | Encounter Summary ---
Author Organization [facility] Healthcare Address [address] [place] [address] Care Team Providers Care Cashier Credit Name Role Phone Unavailable Primary Care Provider Unavailabl e Encounter Details Date Type Department Care Team (Late st Contact Info) Description 08/09/2013 6:41 AM CDT Hospital Encounter [facility] Denise Yanciluz Hathaway, DO [address] [place] [address] Abnormal glucose tolerance test Social [...] - 110 mg/dL 08/09/2013 10:[address] [facility] HISTORICAL RESULTS 08/09/2013 9:55 AM CDT 08/09/2013 10:04 AM CDT [facility] HISTORICAL RESULTS - 08/09/2013 10:35 AM CDT GTT3 [id number] 3 GLU3 from [id number]. us Cecilia Walker LAB BLOOD ORDERABLES F inal Result [facility] HISTORICAL RESULTS * (ABNORMAL) Glucose tolerance, 2 hours (08/09/2013 8:56 AM CDT) Glucose GTT 2 158(H) 70 - 110 mg/dL 08/09/2013 10:[address] [facility] HISTORICAL RESULTS 08/09/2013 8:56 AM CDT 08/09/2013 9:02 AM CDT [facility] HISTORICAL RESULTS - 08/09/2013 10:34 AM CDT GTT3 [id number] 2 GLU2 from [id number]. us Cecilia Walker DO LAB BLOOD ORDERABLES F inal Result [facility] HISTORICAL RESULTS * (ABNORMAL) Glucose tolerance, 1 hour (08/09/2013 7:57 AM CDT) Glucose GTT 1 213(H) 120 - 170 mg/dL 08/09/2013 10:[address] [facility] HISTORICAL RESULTS 08/09/2013 7:57 AM CDT 08/09/2013 8:13 AM CDT [facility] HISTORICAL RESULTS - 08/09/2013 10:38 AM CDT GTT3 [id number] 1 GLU1 from [id number]. us Cecilia Walker DO LAB BLOOD ORDERABLES F inal Result Performing Organization Address [facility] de Phone Number [facility] HISTORICAL RESULTS * (ABNORMAL) Glucose tolerance, fasting (08/09/2013 6:48 AM CDT) Glucose GTT 0 113(H) 70 - 110 mg/dL 08/09/2013 10:34 AM CDT [facility] HISTORICAL RESULTS 08/09/2013 6:48 AM CDT 08/09/2013 7:12 AM CDT [email or web address] HISTORICAL RESULTS - 08/09/2013 10:34 AM CDT GTT3 [id number] F GLU0 from [id number]. us Cecilia Walker DO LAB BLOOD ORDERABLES F inal Result Performing Organization Address [facility] de Phone Number [facility] HISTORICAL RESULTS * Glucose, 3 hour GTT, 100G gestational (08/09/2013 6:43 AM CDT) GLUCOSE ABELARDO 3 HR (GESTATIONAL) 08/09/2013 10:38 AM CDT [facility] HISTORICAL RESULTS Comment: TRUTOL REQUIRED: 10 ounces (Test for Gestational Diabetes) 08/09/2013 6:43 AM CDT [email or web address] HISTORICAL RESULTS - 08/09/2013 10:38 AM CDT Ceciila Walker DO LAB BLOOD ORDERABLES F inal Result Performing Organization Address [facility] de Phone Number [facility] HISTORICAL RESULTS documented in this encounter Visit Diagnoses Diagnosis Abnormal glucose tolerance test Impaired glucose tolerance test documented in this encounter
--- OUTSIDE RECORDS SUMMARY | 2024-02-16 11:02 | XMS_ITS | Encounter Summary ---
Author Organization [facility] Healthcare Address [address] [place] [address] Care Team Providers Care Voice Teacher Name Role Phone Unavailable Primary Care Provider Unavailabl e Encounter Details Date Type Department Care Team (Late st Contact Info) Description 08/22/2013 1:31 PM CDT Hospital Encounter [facility] Elsi Nation, GLOVE TAGGER [address] [place] [address] Other current maternal conditions classifiable [...]
--- OUTSIDE RECORDS SUMMARY | 2024-02-16 11:02 | XMS_ITS | Encounter Summary ---
Author Organization [facility] Healthcare Address [address] [place] [address] Care Team Providers Care Supervisor Orchard Name Role Phone Unavailable Primary Care Provider Unavailabl e Encounter Details Date Type Department Care Team (Latest Contact Info) Description 02/23/2012 4:22 PM EMBROIDERY ASSISTANT - 02/25/2012 7:51 PM EMBROIDERY ASSISTANT Hospital Encounter [facility] Philip Shipley MD [address] [place] [address] Trichomonal vulvovaginitis; Tobacco use disorder Social [...] Comments Blood Pressure 116/74 02/25/2012 4:03 PM EMBROIDERY ASSISTANT Pulse 85 02/25/2012 4:03 PM EMBROIDERY ASSISTANT Temperature 36.8 ??C (98.2 ??F) 02/25/2012 4:03 PM CS T Respiratory Rate - - Oxygen Saturation 97% 02/25/2012 4:03 PM EMBROIDERY ASSISTANT Inhaled Oxygen Concentration - - Weight 76.2 kg (168 lb) 02/25/2012 4:03 PM EMBROIDERY ASSISTANT Height 167.6 cm (5' 6 ) 02/25/2012 4:03 PM EMBROIDERY ASSISTANT Body Mass Index 27.12 02/25/2012 4:03 PM EMBROIDERY ASSISTANT documented in this encounter Plan of Treatment Not on file documented as of this encounter Procedures Procedure Name Priority Date/Time Associated Diagnosis Comments BASIC METABOLIC PANEL Routine 02/24/2012 6:39 AM EMBROIDERY ASSISTANT HIV-1 AND HIV-2 ANTIBODY, RAPID Routine 02/23/2012 8:26 PM EMBROIDERY ASSISTANT CBC WITH AUTO DIFFERENTIAL Routine 02/23/2012 8:26 PM EMBROIDERY ASSISTANT COMPREHENSIVE METABOLIC PANEL Routine 02/23/2012 8:26 PM EMBROIDERY ASSISTANT documented in this encounter Results * (ABNORMAL) Basic metabolic panel (02/24/2012 6:39 AM EMBROIDERY ASSISTANT) Sodium 138 135 - 145 mmol/L 02/24/2012 7:55 AM [facility] HISTORICAL RESULTS Potassium 4.0 3.3 - 5.1 mmol/L 02/24/2012 7:55 AM [facility] HISTORICAL RESULTS Chloride 108 96 - 108 mmol/L 02/24/2012 7:55 AM [facility] HISTORICAL RESULTS Carbon Dioxide 25 22 - 32 mmol/L 02/24/2012 7:55 AM [facility] HISTORICAL RESULTS Anion Gap 5 02/24/2012 7:55 AM [facility] HISTORICAL RESULTS Glucose 105 70 - 110 mg/dL 02/24/2012 7:55 AM [facility] HISTORICAL RESULTS BUN 12 6 - 20 mg/dL 02/24/2012 7:55 AM [facility] HISTORICAL RESULTS Creatinine 0.5 0.5 - 1.1 mg/dL 02/24/2012 7:55 AM [facility] HISTORICAL RESULTS Kidney Disease Stage > 90 mL/MIN 02/24/2012 7:55 AM [facility] HISTORICAL RESULTS Comment: NOTE; ??The GFR is an estimated [...] 2.15 - 2.55 mmol/L 02/24/2012 7:55 AM EMBROIDERY ASSISTANT [facility] HISTORICAL RESULTS 02/24/2012 6:39 AM EMBROIDERY ASSISTANT 02/24/2012 7:15 AM EMBROIDERY ASSISTANT Philip Shipley MD LAB BLOOD ORDERABLES Final Result Performing Organization Address [facility] de Phone Number [facility] HISTORICAL RESULTS * HIV-1 and HIV-2 antibody, rapid (02/23/2012 8:26 PM EMBROIDERY ASSISTANT) Pathologist [facility] [place] HIV 1/2 Ab NONREACTIVE NONREACTIVE 02/23/2012 9:02 PM [facility] HISTORICAL RESULTS Comment: Note: ??A Non-Reactive result indicates an absence of detectable HIV-1/2 antibodies in the patient. However, it does not rule out recent exposure or past infection with HIV. 02/23/2012 8:26 PM EMBROIDERY ASSISTANT 02/23/2012 8:32 PM EMBROIDERY ASSISTANT Philip Shipley MD LAB BLOOD ORDERABLES Final Result Performing Organization Address [facility] de Phone Number [facility] HISTORICAL RESULTS * (ABNORMAL) Comprehensive metabolic panel (02/23/2012 8:26 PM EMBROIDERY ASSISTANT) Pathologist [facility] [place] Sodium 134(L) 135 - 145 mmol/L 02/23/2012 8:54 PM [facility] HISTORICAL RESULTS Potassium 3.1(L) 3.3 - 5.1 mmol/L 02/23/2012 8:54 PM [facility] HISTORICAL RESULTS Chloride 102 96 - 108 mmol/L 02/23/2012 8:54 PM [facility] HISTORICAL RESULTS Carbon Dioxide 24 22 - 32 mmol/L 02/23/2012 8:54 PM [facility] HISTORICAL RESULTS Anion Gap 8 02/23/2012 8:54 PM [facility] HISTORICAL RESULTS Glucose 154(H) 70 - 110 mg/dL 02/23/2012 8:54 PM [facility] HISTORICAL RESULTS BUN 14 6 - 20 mg/dL 02/23/2012 8:54 PM [facility] HISTORICAL RESULTS Creatinine 0.5 0.5 - 1.1 mg/dL 02/23/2012 8:54 PM [facility] HISTORICAL RESULTS Kidney Disease Stage > 90 mL/MIN 02/23/2012 8:54 PM [facility] HISTORICAL RESULTS Comment: NOTE; ??The GFR is an estimated [...] 2.15 - 2.55 mmol/L 02/23/2012 8:54 PM [employer] HISTORICAL RESULTS Total Protein 6.3(L) 6.4 - 8.4 g/dL 02/23/2012 8:54 PM [facility] HISTORICAL RESULTS Albumin 3.7 3.5 - 5.2 g/dL 02/23/2012 8:54 PM [facility] HISTORICAL RESULTS Globulin 2.6 2.3 - 3.5 gm/dL 02/23/2012 8:54 PM [facility] HISTORICAL RESULTS Albumin/Globulin Ratio 1.4 1.1 - 1.8 02/23/2012 8:54 PM EMBROIDERY ASSISTANT [facility] HISTORICAL RESULTS Total Bilirubin 0.1 0.0 - 1.2 mg/dL 02/23/2012 8:54 PM EMBROIDERY ASSISTANT [facility] HISTORICAL RESULTS AST 12 0 - 32 U/L 02/23/2012 8:54 PM EMBROIDERY ASSISTANT [facility] HISTORICAL RESULTS ALT 15 0 - 31 U/L 02/23/2012 8:54 PM [facility] HISTORICAL RESULTS Alkaline Phosphatase 63 35 - 104 U/L 02/23/2012 8:54 PM [facility] HISTORICAL RESULTS 02/23/2012 8:26 PM EMBROIDERY ASSISTANT 02/23/2012 8:32 PM EMBROIDERY ASSISTANT us Philip Shipley MD LAB BLOOD ORDERABLES Final Result [facility] HISTORICAL RESULTS * (ABNORMAL) CBC with auto differential (02/23/2012 8:26 PM EMBROIDERY ASSISTANT) WBC 10.0 4.6 - 10.2 x10 3/ul 02/23/2012 8:48 PM [facility] HISTORICAL RESULTS RBC 4.00 3.76 - 4.80 x10 6/ul 02/23/2012 8:48 PM [facility] HISTORICAL RESULTS Hemoglobin 12.6 11.0 - 15.0 g/dl 02/23/2012 8:48 PM [facility] HISTORICAL RESULTS Hct 38.3 33.0 - 43.0 % 02/23/2012 8:48 PM [facility] HISTORICAL RESULTS MCV 95.8 80.0 - 97.0 fl 02/23/2012 8:48 PM [facility] HISTORICAL RESULTS MCH 31.5(H) 27.0 - 31.2 pg 02/23/2012 8:48 PM [facility] HISTORICAL RESULTS MCHC 32.9 31.8 - 35.4 g/dl 02/23/2012 8:48 PM [facility] HISTORICAL RESULTS RDW 12.6 11.6 - 14.8 % 02/23/2012 8:48 PM [facility] HISTORICAL RESULTS Plt Count 321 124 - 400 x10 3/ul 02/23/2012 8:48 PM [facility] HISTORICAL RESULTS MPV 9.1 7.4 - 10.4 fl 02/23/2012 8:48 PM [facility] HISTORICAL RESULTS Differential Method AUTOMATED DIFF --------- -- 02/23/2012 8:48 PM [facility] HISTORICAL RESULTS Neut % 51.4 37.0 - 85.0 % 02/23/2012 8:48 PM [facility] HISTORICAL RESULTS Immature Gran % 0.2 0.0 - 3.0 % 02/23/2012 8:48 PM [facility] HISTORICAL RESULTS Lymph % 41.7 5.0 - 45.0 % 02/23/2012 8:48 PM [facility] HISTORICAL RESULTS Eagle % 4.8 3.0 - 15.0 % 02/23/2012 8:48 PM [facility] HISTORICAL RESULTS Eos % 1.5 0.0 - 7.0 % 02/23/2012 8:48 PM [facility] HISTORICAL RESULTS Baso % 0.4 0.0 - 2.0 % 02/23/2012 8:48 PM [facility] HISTORICAL RESULTS ABSOLUTE COUNTS ABSOLUTE COUNTS --------- -- 02/23/2012 8:48 PM [facility] HISTORICAL RESULTS Absolute Neuts (auto) 5.1 1.7 - 8.7 x10 3/ul 02/23/2012 8:48 PM [facility] HISTORICAL RESULTS Immature Gran # 0.0 0.0 - 0.3 x10 3/ul 02/23/2012 8:48 PM [facility] HISTORICAL RESULTS Absolute Lymphs (auto) 4.2 0.2 - 4.6 x10 3/ul 02/23/2012 8:48 PM [facility] HISTORICAL RESULTS Absolute Monos (auto) 0.5 0.1 - 1.5 x10 3/ul 02/23/2012 8:48 PM [facility] HISTORICAL RESULTS Absolute Eos (auto) 0.2 0.0 - 0.7 x10 3/ul 02/23/2012 8:48 PM [facility] HISTORICAL RESULTS Absolute Basos (auto) 0.0 0.0 - 0.2 x10 3/ul 02/23/2012 8:48 PM EMBROIDERY ASSISTANT [facility] HISTORICAL RESULTS 02/23/2012 8:26 PM EMBROIDERY ASSISTANT 02/23/2012 8:32 PM EMBROIDERY ASSISTANT us Philip Shipley MD LAB BLOOD ORDERABLES Final Result [facility] HISTORICAL RESULTS documented in this encounter Visit Diagnoses Diagnosis Trichomonal vulvovaginitis Tobacco use disorder documented in this encounter
--- OUTSIDE RECORDS SUMMARY | 2024-02-16 11:02 | XMS_ITS | Encounter Summary ---
Author Organization [facility] Healthcare Address [address] [place] [address] Care Team Providers Care Case Management Coordinator Name Role Phone Unavailable Primary Care Provider Unavailabl e Encounter Details Date Type Department Care Team (Late st Contact Info) Description 07/28/2013 4:29 PM CDT Hospital Encounter [facility] Elsi Nation, SOLUTION DIRECTOR [address] [place] [address] state, incidental Social History Tobacco [...] 1 188(H) 120 - 170 mg/dL 07/28/2013 5:36 PM CDT 07/28/2013 5:49 PM CDT [facility] HISTORICAL RESULTS - 07/28/2013 6:30 PM CDT GTT1 GTT1 GEST GLU1 from [id number]. us Elsi Emmanuel SOLUTION DIRECTOR LAB BLOOD ORDERABLES Final R esult Performing Organization Address City/[facility]/ZIP Co de Phone Number [facility] HISTORICAL RESULTS * Glucose, 1 hour 100gm, gestational screen (07/28/2013 4:35 PM CDT) Gestat Glucose Screen Comment: TRUTOL REQUIRED: 5.0 ounces (Screen for Gestational Diabetes) 07/28/2013 4:35 PM CDT Narrative [facility] HISTORICAL RESULTS - 07/28/2013 6:30 PM CDT us Elsi Emmanuel SOLUTION DIRECTOR LAB BLOOD ORDERABLES Final R esult [facility] HISTORICAL RESULTS documented in this encounter Visit Diagnoses Diagnosis state, incidental documented in this encounter
--- OUTSIDE RECORDS SUMMARY | 2024-02-16 11:02 | XMS_ITS | Encounter Summary ---
Author Organization [facility] Healthcare Address [address] [place] [address] Care Team Providers Care Music Internship Name Role Phone Unavailable Primary Care Provider Unavailabl e Encounter Details Date Type Department Care Team (Latest Contact Info) Description 08/07/2013 5:00 PM CDT - 08/07/2013 10:05 PM CDT Hospital Encounter [facility] Cesar Márquez MD [address] [place] [address] Threatened , antepartum Social History Tobacco Use [...] C&S NOT INDICATED 08/07/2013 8:16 PM T [facility] HISTORICAL RESULTS Urine Color COLORLESS YELLOW Urine Clarity CLEAR CLEAR Urine Glucose (UA) NORMAL NORMAL mg/dL Urine Bilirubin NEGATIVE NEGATIVE mg/dl Urine Ketones NEGATIVE NEGATIVE mg/dL Ur Specific [place] 1.004(L) 1.005 - 1.025 Urine Blood 0.06(H) NEGATIVE mg/dl Urine pH 7.0 5.0 - 8.0 08/07/2013 8:16 PM CDT [facility] HISTORICAL RESULTS Urine Protein NEGATIVE NEGATIVE mg/dL 08/07/2013 8:16 PM CDT [facility] HISTORICAL RESULTS Urine Urobilinogen NORMAL NORMAL mg/dL 08/07/2013 8:16 PM CDT [facility] HISTORICAL RESULTS Urine Nitrite NEGATIVE NEGATIVE 08/07/2013 8:16 PM CDT [facility] HISTORICAL RESULTS Ur Leukocyte Esterase NEGATIVE NEGATIVE Benjamín/ul 08/07/2013 8:16 PM T [facility] HISTORICAL RESULTS Ur Microscopic Review Indicated or Ordered 08/07/2013 8:16 PM T [facility] HISTORICAL RESULTS Urine RBC 1 0 - 2 /HPF 08/07/2013 8:16 PM CDT [facility] HISTORICAL RESULTS Urine WBC <1 0 - 2 /HPF 08/07/2013 8:16 PM T [facility] HISTORICAL RESULTS Ur Squamous Epith Cells Rare /HPF 08/07/2013 8:16 PM CDT [facility] HISTORICAL RESULTS 08/07/2013 8:06 PM CDT 08/07/2013 8:11 PM CDT [employer] [facility] HISTORICAL RESULTS - 08/07/2013 8:16 PM CDT Collected By [facility] ?? [phone] ?? Cesar Márquez MD LAB MICROBIOLOGY - [facility] ORDERABLES Final Result [facility] HISTORICAL RESULTS * VAGINAL PATHOGEN SCREEN (08/07/2013 6:40 PM CDT) Trichomonas vaginalis NEGATIVE NEGATIVE 08/07/2013 7:55 PM CDT [facility] HISTORICAL RESULTS GARDNERELLA SCREEN NEGATIVE NEGATIVE 08/07/2013 7:55 PM CDT [facility] HISTORICAL RESULTS Angy species DNA NEGATIVE NEGATIVE 08/07/2013 7:55 PM CDT [facility] HISTORICAL RESULTS 08/07/2013 6:40 PM CDT 08/07/2013 6:49 PM CDT [employer] [facility] HISTORICAL RESULTS - 08/07/2013 7:55 PM CDT [...] BLOOD ORDERABLES Final Result Performing Organization Address [facility] de Phone Number [facility] HISTORICAL RESULTS * Chlamydia trachomatis/N. gonorrhoeae, swab (08/07/2013 6:40 PM CDT) Pathologist [facility] C. trachomatis RNA NEGATIVE NEGATIVE 08/11/2013 1:12 PM CDT [facility] HISTORICAL RESULTS Comment: METHOD: ??B-D Probe[employer] ET System using Strand Displacement Amplification N. gonorrhoeae RNA NEGATIVE NEGATIVE 08/11/2013 1:12 PM CDT [facility] HISTORICAL RESULTS Comment: METHOD: ??B-D [employer] ET system using Strand Displacement Amplification 08/07/2013 6:40 PM CDT 08/07/2013 6:46 PM CDT Cesar Márquez MD LAB BODY FLUIDS AND S TOOLS ORDERABLES Final Result Performing Organization Address [facility] de Phone Number [facility] HISTORICAL RESULTS * Comprehensive metabolic panel (08/07/2013 6:32 PM CDT) Sodium 135 135 - 145 mmol/L 08/07/2013 7:01 PM CDT [facility] HISTORICAL RESULTS Potassium 3.8 3.3 - 5.1 mmol/L 08/07/2013 7:01 PM CDT [facility] HISTORICAL RESULTS Chloride 101 96 - 108 mmol/L 08/07/2013 7:01 PM CDT [facility] HISTORICAL RESULTS Carbon Dioxide 24 22 - [...] 1.1 - 1.8 08/07/2013 7:01 PM CDT [facility] HISTORICAL RESULTS Total Bilirubin 0.2 0.0 - 1.2 mg/dL 08/07/2013 7:01 PM CDT [facility] HISTORICAL RESULTS AST 21 0 - 32 U/L 08/07/2013 7:01 PM CDT [facility] HISTORICAL RESULTS ALT 25 0 - 33 U/L 08/07/2013 7:01 PM CDT [facility] HISTORICAL RESULTS Alkaline Phosphatase 67 35 - 104 U/L 08/07/2013 7:01 PM T [facility] HISTORICAL RESULTS 08/07/2013 6:32 PM CDT 08/07/2013 6:33 PM CDT Narrative [facility] HISTORICAL RESULTS - 08/07/2013 7:01 PM CDT us Lilia Hou PURCHASER LAB BLOOD ORDERABLES Final Re sult [facility] HISTORICAL RESULTS * (ABNORMAL) CBC with auto differential (08/07/2013 6:32 PM CDT) WBC 9.3 4.6 - 10.2 x10 3/ul 08/07/2013 6:39 PM T [facility] HISTORICAL RESULTS RBC 3.55(L) 3.76 - 4.80 x10 6/ul 08/07/2013 6:39 PM T [facility] HISTORICAL RESULTS Hemoglobin 11.3 11.0 - 15.0 g/dl 08/07/2013 6:39 PM CDT [facility] HISTORICAL RESULTS Hct 33.9 33.0 - 43.0 % 08/07/2013 6:39 PM T [facility] HISTORICAL RESULTS MCV 95.5 80.0 - 97.0 fl 08/07/2013 6:39 PM T [facility] HISTORICAL RESULTS MCH 31.8(H) 27.0 - 31.2 pg 08/07/2013 6:39 PM CDT [facility] HISTORICAL RESULTS MCHC 33.3 31.8 - 35.4 g/dl 08/07/2013 6:39 PM CDT [facility] HISTORICAL RESULTS RDW 11.9 11.6 - 14.8 % Plt Count 306 124 - 400 x10 3/ul MPV 8.9 7.4 - 10.4 fl Differential Method AUTOMATED DIFF --------- -- Neut % 56.2 37.0 - 85.0 % Immature Gran % 0.2 0.0 - 3.0 % Lymph % 29.4 5.0 - 45.0 % Becker % 10.6 3.0 - 15.0 % Eos [...] 0.7 x10 3/ul 08/07/2013 6:39 PM CDT [facility] HISTORICAL RESULTS Absolute Basos (auto) 0.1 0.0 - 0.2 x10 3/ul 08/07/2013 6:39 PM CDT [facility] HISTORICAL RESULTS 08/07/2013 6:32 PM CDT 08/07/2013 6:33 PM CDT Narrative [facility] HISTORICAL RESULTS - 08/07/2013 6:39 PM CDT us Lilia Hou PURCHASER LAB BLOOD ORDERABLES Final Re sult [facility] HISTORICAL RESULTS * (ABNORMAL) hCG, blood, quantitative (08/07/2013 6:31 PM CDT) Beta HCG, Quant 18616.0(H) 0.0 - 1.0 mIU/mL 08/07/2013 7:42 PM CDT [facility] HISTORICAL RESULTS Comment: Weeks of preg ?BHCG [...] PM CDT 08/07/2013 6:33 PM CDT Narrative [facility] HISTORICAL RESULTS - 08/07/2013 7:42 PM CDT us Lilia Hou PURCHASER LAB BLOOD ORDERABLES Final Re sult [facility] HISTORICAL RESULTS * US Transvaginal (08/07/2013 12:00 [...] Zavala M.D. JA:brittany 08:20 PM 08:20 PM [facility] [EOD] Narrative 08/07/2013 8:23 PM CDT [...] ?? heart rate: ??107 beats per minute. Piggott-rump length 0.37 cm corresponding to a gestational [...] 1.7 heart rate: 107 beats per minute. Piggott-rump length 0.37 cm corresponding to a gestational [...] Zavala M.D. JA:brittany 08:20 PM 08:20 PM [facility] [EOD] us Lilia Hou NP IMG US PROCEDURES Final Resul t documented in this encounter Visit Diagnoses Diagnosis Threatened , antepartum documented in this encounter
== END 2024-02-09 09:10 | disposition home or self-care (01) ==
PROVIDERS: Emergency Provider Nurse Practitioner; PCP Nurse Practitioner Family
DX: L03.316 Cellulitis of umbilicus (principal); F17.210 Nicotine dependence, cigarettes, uncomplicated; Z79.84 Long term (current) use of oral hypoglycemic drugs; Z79.899 Other long term (current) drug therapy
CPT/HCPCS: 99213; G0463